=== PATIENT | female | born 1945 | race Caucasian/White ===

== ENCOUNTER → 2017-08-15 15:13 | Outpatient (CLI) | payer MEDICARE, SELFPAY | PROVIDERS: Family Provider Internal Medicine; PCP Internal Medicine; Visit Provider Internal Medicine | DX: R19.7 Diarrhea, unspecified (principal) ==

== ENCOUNTER → 2017-08-15 15:19 | Outpatient (CLI) | payer MEDICARE, SELFPAY ==
[2017-08-15 15:56] LABS: Add Manual Diff / Slide Review NO; Basophils Percent Auto 0.4 % (0-2); Eosinophils Percent Auto 1.1 % (2-4); Hematocrit 42.7 % (36-46); Hemoglobin 14.4 g/dL (12.0-16.0); Lymphocytes Percent Auto 35.5 % (25-40); Mean Corpuscular HGB Conc 33.8 % (30-36); Mean Corpuscular Hemoglobin 33.1 PG (26-34); Mean Corpuscular Volume 98.1 fL (80-100); Monocytes Percent Auto 6.4 % (3-14); Neutrophils Absolute Auto 4600 /uL (3000-5900); Neutrophils Percent Auto 56.6 % (50-75); Platelet Count 225 X10^3/uL (150-400); Red Blood Cell Count 4.35 X10^6/uL (4.0-5.2); White Blood Cell Count 8.1 X10^3/uL (4.5-11.0)
[2017-08-15 17:53] LABS: Thyroid Stimulating Hormone 2.38 uIU/mL (0.47-4.68)
[2017-08-15 18:18] LABS: Alanine Aminotransferase 37 IU/L (9-52); Albumin 3.9 g/dL (3.5-5.0); Albumin Globulin Ratio 1.4 (1.0-2.8); Alkaline Phosphatase 99 U/L (38-126); Aspartate Aminotransferase 29 IU/L (14-36); Bilirubin Total 0.4 mg/dL (0.2-1.3); Blood Urea Nitrogen 19 mg/dL (7-17); Calcium 10.5 mg/dL (8.4-10.2); Carbon Dioxide 27 mmol/L (22-32); Chloride 101 mmol/L (98-107); Estimated Glomerular Filt Rate > 60.0 mL/min (>60); Globulin 2.8 g/dL (1.7-4.1); Glucose 171 mg/dL (80-110); HEMOLYSIS < 15 (0-50); Potassium 4.4 mmol/L (3.4-5.1); Sodium 140 mmol/L (137-145); Total Protein 6.7 g/dL (6.3-8.2)
[2017-08-15 18:45] LABS: C-Reactive Protein Quant < 0.5 mg/dL (<1.0)
== END ==
PROVIDERS: Family Provider Internal Medicine; PCP Internal Medicine; Visit Provider Internal Medicine
DX: R19.7 Diarrhea, unspecified (principal)
CPT/HCPCS: 36415; 80053; 84439; 84443; 85025; 86140

== ENCOUNTER → 2017-11-01 10:50 | Outpatient (CLI) | payer MEDICARE, SELFPAY ==
[2017-11-03 15:26] LABS: Parathyroid Hormone Int 75 pg/mL (14-64)
[2017-11-03 16:06] LABS: Ionized Calcium 5.8 mg/dL (4.8-5.6)
== END ==
PROVIDERS: PCP Internal Medicine; Visit Provider Internal Medicine
DX: E83.52 Hypercalcemia (principal)
CPT/HCPCS: 36415; 82330; 83970

== ENCOUNTER → 2017-11-08 10:54 | Outpatient (CLI) | payer MEDICARE, SELFPAY ==
[2017-11-08 12:19] LABS: Phosphorous 3.4 mg/dL (2.8-4.1)
== END ==
PROVIDERS: PCP Internal Medicine; Visit Provider Internal Medicine
DX: E21.3 Hyperparathyroidism, unspecified (principal); E83.52 Hypercalcemia; G62.9 Polyneuropathy, unspecified
CPT/HCPCS: 36415; 84100

== ENCOUNTER → 2017-11-13 09:31 | Outpatient (CLI) | payer MEDICARE, SELFPAY ==
--- NOTE | 2017-11-13 09:33 | DI.RAD.S_ITS ---
This blank DEXA report has been sent in error by the PACS system. The correct and complete report will be forthcoming in 1-2 days. Thank you for your patience and understanding. Dictated by: Iwona Hilario MD, PhD on 11/14/2017 at 8:22 Approved by: Iwona Hilario MD, PhD on 11/14/2017 at 8:22
[2017-11-13 13:26] LABS: Calcium 24 Hour Urine 387 mg/day (100-300); Calcium Urine Random 21.5; Collection Time Urine 24 Hours; Total Volume Urine 1800 mL
[2017-11-17 05:32] LABS: Total Volume: 1800 mL
[2017-11-17 15:01] LABS: Citrate 24 hour Urine 494 mg/day (170-1266); Total Volume: 1800 mL
== END ==
PROVIDERS: Family Provider Internal Medicine; PCP Internal Medicine; Visit Provider Internal Medicine
DX: M85.88 Other specified disorders of bone density and structure, other site (principal); Z78.0 Asymptomatic menopausal state; E21.3 Hyperparathyroidism, unspecified; G62.9 Polyneuropathy, unspecified; Z90.722 Acquired absence of ovaries, bilateral; Z87.891 Personal history of nicotine dependence
CPT/HCPCS: 77080; 82340; 82507; 83945

== ENCOUNTER → 2017-12-05 10:04 | Outpatient (CLI) | payer MEDICARE, SELFPAY ==
[2017-12-05 11:15] LABS: BUN Creatinine Ratio 31.7 (6-22); Blood Urea Nitrogen 19 mg/dL (7-17); Calcium 10.3 mg/dL (8.4-10.2); Carbon Dioxide 30 mmol/L (22-32); Chloride 105 mmol/L (98-107); Estimated Glomerular Filt Rate > 60.0 mL/min (>60); Glucose 109 mg/dL (80-110); HEMOLYSIS < 15 (0-50); Potassium 5.1 mmol/L (3.4-5.1); Sodium 142 mmol/L (137-145)
[2017-12-05 17:23] LABS: Thyroid Stimulating Hormone 1.92 uIU/mL (0.47-4.68)
== END ==
PROVIDERS: Family Provider Internal Medicine; PCP Internal Medicine; Visit Provider Internal Medicine
DX: E83.52 Hypercalcemia (principal); I10 Essential (primary) hypertension
CPT/HCPCS: 36415; 80048; 84439; 84443

== ENCOUNTER → 2017-12-11 10:56 | Outpatient (CLI) | payer MEDICARE, SELFPAY ==
--- NOTE | 2017-12-22 14:21 | PM.CARDMON.1 ---
Residential Nurse Report Referral & Results Date Patient Seen: 12/11/17 Indication: Bradycardia Duration of monitoring (days): 7 Diary information: There was 0 diary entries There are 2 patient triggered events associated with sinus rhythm PVCs and possible AV block although this was distorted by artifact Data: Patient's minimum heart rate was 24 beats per minute at 05:38 on 12/12/2017 This was associated with second-degree AV block type 2 Minimum sinus heart rate was 45 beats per minute at 05:20 on 12/14/2017 Maximum sinus heart rate was 108 beats per minute at 14:22 on 12/17/2017 Maximum overall heart rate was 115 beats per minute at 19:47 on 12/13/2017, cannot tell what the rhythm was at that time PACs were rare new and less than 1% of identified beats PVCs were frequent 12.6% Patient also had multiple episodes of high-degree AV block that appears to be 2nd degree AV block Mobitz type 2 that were at least 3800 in total. As above unclear if symptomatic Impression: Bradycardia associated with high-grade AV block. Unclear if symptomatic. Suggest cardiology consultation
--- NOTE | 2017-12-22 14:26 | P.HOLT.S_ITS ---
School Counsellor Report Referral & Results Date Patient Seen: 12/11/17 Indication: Bradycardia Duration of monitoring (days): 7 Diary information: There was 0 diary entries There are 2 patient triggered events associated with sinus rhythm PVCs and possible AV block although this was distorted by artifact Data: Patient's minimum heart rate was 24 beats per minute at 05:38 on 2017 This was associated with second-degree AV block type 2 Minimum sinus heart rate was 45 beats per minute at 05:20 on 12/14/2017 Maximum sinus heart rate was 108 beats per minute at 14:22 on 12/17/2017 Maximum overall heart rate was 115 beats per minute at 19:47 on 12/13/2017, cannot tell what the rhythm was at that time PACs were rare new and less than 1% of identified beats PVCs were frequent 12.6% Patient also had multiple episodes of high-degree AV block that appears to be 2nd degree AV block Mobitz type 2 that were at least 3800 in total. As above unclear if symptomatic Impression: Bradycardia associated with high-grade AV block. Unclear if symptomatic. Suggest cardiology consultation
== END ==
PROVIDERS: Family Provider Internal Medicine; PCP Internal Medicine; Visit Provider Internal Medicine
DX: R00.1 Bradycardia, unspecified (principal)
CPT/HCPCS: 0296T; 0298T

== ENCOUNTER 2017-12-19 13:11 | Emergency (ER) | payer MEDICARE, SELFPAY ==
[2017-12-19 13:29] VITALS: BP 118/70; PULSE 24; RESP 15; BMI 25.6
[2017-12-19] MEDS: ATROPINE 1 MG/10 ML SYRINGE 0.5 MG IV ×3 (13:30→13:45)
--- NOTE | 2017-12-19 13:30 | DI.RAD.S_ITS ---
PROCEDURE: XR CHEST 1V INDICATIONS: chest pain TECHNIQUE: One view of the chest was acquired. COMPARISON: None. FINDINGS: Surgical changes and devices: None. Lungs and pleura: No pleural effusions or pneumothorax. Lungs are clear. Mediastinum: Mediastinal contours appear normal. Heart size is normal. Bones and chest wall: No suspicious bony lesions. Overlying soft tissues appear unremarkable. IMPRESSION: No acute cardiopulmonary pathology. Dictated by: Miah Melendez M.D. on 12/19/2017 at 15:18 Approved by: Miah Melendez M.D. on 12/19/2017 at 15:20
--- NOTE | 2017-12-19 13:34 | ED.CHESTPAIN ---
HPI - Chest Pain General Chief Complaint: Chest Pain Stated Complaint: SWEATY,OUT OF FOCUS Time Seen by Provider: 12/19/17 13:34 Source: patient Mode of arrival: ambulatory Limitations: no limitations History of Present Illness HPI narrative: patient is a 72-year-old female here for evaluation not feeling well, feeling like her heart rate is slow, feeling out of focus. She is not having any chest pain. She states that this has been off and on for the past several weeks / months. Finished a Holter monitor yesterday. This was ordered by her primary care doctor. She has not seen in the results of. No prior cardiac history. Has not had any vertigo and has not passed out. Related Data Home Medications Medication Instructions Recorded Confirmed cyanocobalamin (vitamin B-12) 1,000 mcg PO QDAY #0 08/29/16 12/05/17 [Vitamin B-12] cholecalciferol (vitamin D3) See Label Instructions .ROUTE 12/07/16 12/05/17 [Vitamin D3] .COMPLEX #0 multivitamin [Multiple Vitamins] See Label Instructions .ROUTE 12/07/16 12/05/17 .COMPLEX #0 gabapentin 300 mg capsule 300 mg PO BEDTIME 30 Days #30 cap 12/05/17 Allergies Allergy/AdvReac Type Severity Reaction Status Date / Time amoxicillin [AMOXICILLIN] Allergy Intermediate FATIGUE Verified 12/05/17 09:25 clavulanic acid Allergy Intermediate FATIGUE Verified 12/05/17 09:25 [From AUGMENTIN] hydrochlorothiazide Allergy Intermediate WEAKNESS Verified 12/05/17 09:25 [HYDROCHLOROTHIAZIDE] losartan AdvReac Verified 12/05/17 09:25 Review of Systems Constitutional Reports fatigue, Denies fever(s) and Denies headache(s) Eyes Reports blurry vision, Denies diplopia and Denies loss of vision ENT Ears, Nose, Mouth, and Throat: Denies vertigo, Denies dizziness, Denies headache(s) and Denies sore throat Cardiovascular Denies chest pain, Denies syncope, Reports irregular heart rhythm, Denies leg edema, Denies lightheadedness and Denies dyspnea Respiratory Denies dyspnea Gastrointestinal Gastrointestinal: Denies abdominal pain, Denies nausea and Denies vomiting Genitourinary Denies dysuria Musculoskeletal Denies myalgias, Denies arthralgias and Denies numbness Integumentary/Breasts Denies lesions and Denies rash Neurologic Denies vertigo, Denies dizziness, Denies syncope, Denies headache(s), Denies loss of vision and Denies numbness Endocrine Reports fatigue Hematologic/Lymphatic Denies easy bleeding and Denies easy bruising FORMERLY [facility] Medical History Hyperlipidemia (Chronic) Essential hypertension (Chronic 08/18/15) Hyperparathyroidism (Chronic 11/09/15) Polyneuropathy (Chronic 01/04/17) Peripheral polyneuropathy (Chronic 12/07/16) Fibromyalgia (Chronic) Hypercalcemia (Chronic) Insomnia (Chronic) Cervical cancer (Inactive) Dyshidrotic eczema (Chronic) History of adenomatous polyp of colon (Chronic 03/31/11) Left bundle branch block (LBBB) (Chronic 10/14/14) Ankle fracture, right (Resolved 2005) Right ACL tear (Resolved 2005) Surgical History History of bilateral salpingo-oophorectomy (BSO) (Resolved 1998) Status post cholecystectomy (Resolved 1998) Status post exploratory laparotomy (Resolved) Status post hysterectomy (Resolved 1974) Family History Father Family history of diabetes mellitus (DM) Grandmother Family history of diabetes mellitus (DM) Sister Family history of diabetes mellitus (DM) Family/Other Family history of diabetes mellitus (DM) Social History household members: none Smoking Status: Former smoker Exam Initial Vital Signs Initial Vital Signs: Vital Signs Pulse Rate 24 L 12/19/17 13:29 Respiratory Rate 15 12/19/17 13:29 Blood Pressure 118/70 12/19/17 13:29 Const General: cooperative, comfortable, well groomed and No acute distress Orientation: alert, awake and oriented x3 HENMT Head: normal to inspection and atraumatic Nose: external nose normal Resp Effort & Inspection: normal respiratory effort Auscultation: clear to auscultation bilaterally Cardio Rate: bradycardic Rhythm: regular rhythm Pulses: radial pulses present GI Inspection: non-distended Palpation: soft Skin Lesions: no lesions Rashes: no rashes Neuro General: alert, awake and oriented x3 Cognition: normal cognition Speech: speech normal Extrem General: normal to inspection and No edema Psych Appearance: grossly normal and well kempt Course Orders Ordered: ED Orders 12/19/17 13:30 XR chest 1V Stat Complete Blood Count AUTO DIFF Stat Comprehensive Metabolic Panel Stat Lipase Stat Magnesium Stat Troponin & CK Cardiac Panel Stat EKG-12 Lead Stat Dopamine HCl/Dextrose (Dopamine 400 Mg-D5w 250 Ml) 400 mg in 250 mls @ 11.907 mls/hr IV TITRATE DEE; Protocol Last Titration: 12/19/17 14:00 Dose: 10 mcg/kg/min, 23.814 mls/hr Admin: 12/19/17 13:50 Dose: 5 mcg/kg/min, 11.907 mls/hr Discontinued Medications Atropine Sulfate (Atropine) 0.5 mg IV NOW ONE Stop: 12/19/17 13:31 Last Admin: 12/19/17 13:45 Dose: 0.5 mg Atropine Sulfate (Atropine) 0.5 mg IV NOW ONE Stop: 12/19/17 13:33 Last Admin: 12/19/17 13:30 Dose: 0.5 mg Atropine Sulfate (Atropine) 0.5 mg IV NOW ONE Stop: 12/19/17 14:00 Last Admin: 12/19/17 13:35 Dose: 0.5 mg Ondansetron HCl (Zofran) 4 mg IV NOW ONE Stop: 12/19/17 13:59 Last Admin: 12/19/17 14:03 Dose: 4 mg Vital Signs - 8 hr 12/19/17 13:29 Pulse Rate 24 L Respiratory Rate 15 Blood Pressure 118/70 MDM - Chest Pain Medical Records Data Attestation: I reviewed the patient's medical records. Lab Data Attestation: I reviewed the patient's lab results. Result diagrams: 12/19/17 13:30 12/19/17 13:30 Lab Results 12/19/17 12/19/17 12/19/17 Range/Units 13:30 13:30 13:30 WBC 11.0 (4.5-11.0) X10^3/uL RBC 4.57 (4.0-5.2) X10^6/uL Hgb 15.0 (12.0-16.0) g/dL Hct 44.8 (36-46) % MCV 97.9 (80-100) fL MCH 32.9 (26-34) PG MCHC 33.6 (30-36) % RDW 14.0 (11.6-14.8) % Plt Count 248 (150-400) X10^3/uL Neut % (Auto) 58.2 (50-75) % Lymph % (Auto) 33.5 (25-40) % Teller % (Auto) 7.1 (3-14) % Eos % (Auto) 0.8 L (2-4) % Baso % (Auto) 0.4 (0-2) % Neut # (Auto) 6400 H (3514-6955) /uL Sodium 140 (137-145) mmol/L Potassium 4.3 (3.4-5.1) mmol/L Chloride 101 (98-107) mmol/L Carbon Dioxide 25 (22-32) mmol/L BUN 19 H (7-17) mg/dL Creatinine 0.70 (0.52-1.04) mg/dL Estimated GFR > 60.0 (>60) mL/min BUN/Creatinine Ratio 27.1 H (6-22) Glucose 125 H (80-110) mg/dL Calcium 10.9 H (8.4-10.2) mg/dL Magnesium 1.9 Cancelled (1.6-2.3) mg/dL Total Bilirubin 0.5 (0.2-1.3) mg/dL AST 45 H (14-36) IU/L ALT 43 (9-52) IU/L Alkaline Phosphatase 117 (38-126) U/L Total Creatine Kinase 45 (30-135) U/L CK-MB (CK-2) TNP CK-MB (CK-2) Rel Index TNP Troponin I < 0.012 (0.01-0.034) ng/mL Total Protein 7.3 (6.3-8.2) g/dL Albumin 4.5 (3.5-5.0) g/dL Globulin 2.8 (1.7-4.1) g/dL Albumin/Globulin Ratio 1.6 (1.0-2.8) Lipase 197 (23-300) U/L Imaging Data Chest x-ray: Attestation: I personally reviewed and interpreted this imaging study as follows: My impression: No focal consolidations Normal size heart no pneumothorax ECG Data Attestation: I personally reviewed and interpreted this ECG as follows: Prior ECG tracings: not available for review Interpretation: Bradycardia ventricular rate of 27 Third degree heart block QRS 166 milliseconds MDM Narrative Medical decision making narrative: patient arrived in what appears to be 3rd degree heart block heart rate in the 20s. Blood pressure systolic 80s to 90s. Patient is not having any chest pain or shortness of breath. Patient was given 0.5 mg of atropine which increased her heart rate to the 40s. This only lasted a very short period of time and this was repeated. I discussed the case with Dr. Land Cardiology at [facility] who I sent pictures of the EKGs to him. He did evaluate these and stated that he recommend started on dopamine. The patient was started on 5 micrograms/kilogram per minute of dopamine. [facility] was unable to accept the patient due to bed status. I then discussed the case with Dr. Allen at [facility] who accepts the patient. Patient does have external pacer pads in place. We have not had to use them secondary to the patient's lack of change in mental status and also blood pressure with systolic in the 80s to 90s. Patient was informed to transfer. She expressed understanding and agreement. Discharge Plan Departure Patient Disposition: [facility] Clinical Impression: Third degree heart block Prescriptions: No Action cyanocobalamin (vitamin B-12) [Vitamin B-12] 1,000 MCG tablet extended release 1,000 mcg PO QDAY Qty: 0 RF: 0 multivitamin [Multiple Vitamins] 1 EACH tablet See Label Instructions .ROUTE .COMPLEX Qty: 0 RF: 0 cholecalciferol (vitamin D3) [Vitamin D3] 2,000 unit Tablet See Label Instructions .ROUTE .COMPLEX Qty: 0 RF: 0 gabapentin 300 mg capsule 300 mg PO BEDTIME 30 Days Qty: 30 RF: 0
--- NOTE | 2017-12-19 13:37 | PC.NURSE ---
1330 patient symptomatic bradycardia third degree heartblock rate of 24bpm provider at bedside verbal order 0.5mg IV Atropine administered. Run of Vtach on monitor. Patient alert through episode. 1336 0.5mg IV atropine administerd persistant rate in 20's. Additional run of Vtach. Patient remains alert and oriented.
[2017-12-19 13:38] LABS: Add Manual Diff / Slide Review NO; Basophils Percent Auto 0.4 % (0-2); Eosinophils Percent Auto 0.8 % (2-4); Hematocrit 44.8 % (36-46); Lymphocytes Percent Auto 33.5 % (25-40); Mean Corpuscular HGB Conc 33.6 % (30-36); Mean Corpuscular Hemoglobin 32.9 PG (26-34); Mean Corpuscular Volume 97.9 fL (80-100); Monocytes Percent Auto 7.1 % (3-14); Neutrophils Absolute Auto 6400 /uL (3000-5900); Neutrophils Percent Auto 58.2 % (50-75); Platelet Count 248 X10^3/uL (150-400); Red Blood Cell Count 4.57 X10^6/uL (4.0-5.2)
[2017-12-19 13:48] LABS: Alanine Aminotransferase 43 IU/L (9-52); Albumin 4.5 g/dL (3.5-5.0); Albumin Globulin Ratio 1.6 (1.0-2.8); Alkaline Phosphatase 117 U/L (38-126); Aspartate Aminotransferase 45 IU/L (14-36); BUN Creatinine Ratio 27.1 (6-22); Bilirubin Total 0.5 mg/dL (0.2-1.3); Blood Urea Nitrogen 19 mg/dL (7-17); Calcium 10.9 mg/dL (8.4-10.2); Carbon Dioxide 25 mmol/L (22-32); Chloride 101 mmol/L (98-107); Creatine Kinase 45 U/L (30-135); Estimated Glomerular Filt Rate > 60.0 mL/min (>60); Globulin 2.8 g/dL (1.7-4.1); Glucose 125 mg/dL (80-110); HEMOLYSIS < 15 (0-50); Lipase 197 U/L (23-300); Magnesium 1.9 mg/dL (1.6-2.3); Potassium 4.3 mmol/L (3.4-5.1); Sodium 140 mmol/L (137-145); Total Protein 7.3 g/dL (6.3-8.2)
[2017-12-19] MEDS: DOPAMINE HCL IN DEXTROSE 5 % 400 MG/250 ML PLAST..BAG 11.907 MG IV (13:50)
[2017-12-19 14:01] LABS: Troponin I < 0.012 ng/mL (0.01-0.034)
[2017-12-19] MEDS: ONDANSETRON 4 MG/2 ML INJ IV (14:03)
[2017-12-19 14:45] VITALS: PULSE 24; RESP 12; O2SAT 99
--- NOTE | 2017-12-19 15:08 | PC.NURSE ---
See paper chart for additional vitals.
== END 2017-12-19 15:19 | disposition short-term general hospital (02) ==
LOC: ED 13:56
PROVIDERS: Nurse Practitioner Family; Emergency Provider Emergency Medicine; Family Provider Internal Medicine; PCP Internal Medicine
DX: I44.2 Atrioventricular block, complete (principal)
CPT/HCPCS: 36591; 71045; 80053; 82550; 83690; 83735; 84484; 85025; 93005; 96365; 96375; 99283; 99291; 99292; J0461; J2405

== ENCOUNTER → 2018-01-29 15:15 | Outpatient (CLI) | payer MEDICARE, SELFPAY ==
[2018-01-30 11:37] LABS: Campylobacter Not Detected (Not Detect); Clostridium difficile toxin AB Not Detected (Not Detect); Cryptosporidium Not Detected (Not Detect); Enteroaggregative E.coli Not Detected (Not Detect); Enteropathogenic E.coli Not Detected (Not Detect); Enterotoxigenic E.coli It/st Not Detected (Not Detect); Plesiomonsa shigelloides Not Detected (Not Detect); Salmonella Not Detected (Not Detect); Shiga-like toxin-prod E.coli Not Detected (Not Detect); Shigella/Enteroinvasive E.coli Not Detected (Not Detect); Vibrio Not Detected (Not Detect); Vibrio cholerae Not Detected (Not Detect); Yersinia enterocolitica Not Detected (Not Detect)
[2018-01-30 11:38] LABS: Adenovirus F 40/41 Not Detected (Not Detect); Astrovirus Not Detected (Not Detect); Cyclospora cayetanensis Not Detected (Not Detect); Entamoeba histolytica Not Detected (Not Detect); Giardia lamblia Not Detected (Not Detect); Norovirus GI/GII Not Detected (Not Detect); Rotavirus A Not Detected (Not Detect); Sapovirus Not Detected (Not Detect)
== END ==
PROVIDERS: Family Provider Internal Medicine; PCP Internal Medicine; Visit Provider Internal Medicine
DX: R19.7 Diarrhea, unspecified (principal)
CPT/HCPCS: 87507

== ENCOUNTER → 2018-01-30 07:52 | Outpatient (CLI) | payer MEDICARE, SELFPAY | PROVIDERS: PCP Internal Medicine; Visit Provider Internal Medicine ==

== ENCOUNTER → 2019-04-30 14:20 | Outpatient (CLI) | payer MEDICARE, SELFPAY ==
--- NOTE | 2019-04-30 14:22 | DI.RAD.S_ITS ---
PROCEDURE: XR ACUTE ABDOMEN SERIES INDICATIONS: abd pain TECHNIQUE: One view chest and two views of the abdomen were acquired. COMPARISON: [facility], , ABDOMEN ACUTE SERIES, 10/11/2014, 13:18. FINDINGS: Surgical changes and devices: Dual-lead cardiac pacer. Right upper quadrant surgical clips Chest: Lungs are clear. Heart size is normal. No pleural effusions. No pneumoperitoneum. Abdomen: Bowel gas pattern is normal. No suspicious calcifications. Visualized solid organ contours appear normal. Large amount of stool is seen Bones: No suspicious bony lesions. Lower lumbar spondylosis and mild bilateral hip joint degeneration. IMPRESSION: No specific evidence of bowel obstruction seen at this time although if the patient's symptoms do not improve, continued surveillance with abdominal series radiographs could be performed. Large amount of stool seen throughout the colon. Dictated by: Octavio Easton M.D. on 04/30/2019 at 15:31 Approved by: Octavio Easton M.D. on 04/30/2019 at 15:32
[2019-04-30 15:06] LABS: Add Manual Diff / Slide Review NO; Basophils Absolute Auto 0 /uL (0-100); Basophils Percent Auto 0.3 % (0-2); Eosinophils Absolute Auto 100 /uL (0-450); Eosinophils Percent Auto 0.6 % (2-4); Hematocrit 41.5 % (36-46); Hemoglobin 14.2 g/dL (12.0-16.0); Lymphocytes Absolute Auto 3100 /uL (1100-4500); Lymphocytes Percent Auto 39.7 % (25-40); Mean Corpuscular HGB Conc 34.3 % (30-36); Mean Corpuscular Volume 99.1 fL (80-100); Monocytes Absolute Auto 700 /uL (0-900); Monocytes Percent Auto 8.8 % (3-14); Neutrophils Absolute Auto 4000 /uL (1500-7000); Neutrophils Percent Auto 50.6 % (50-75); Platelet Count 201 X10^3/uL (150-400); Red Blood Cell Count 4.18 X10^6/uL (4.0-5.2); Red Cell Distribution Width 13.2 % (11.6-14.8); White Blood Cell Count 7.9 X10^3/uL (4.5-11.0)
[2019-04-30 15:21] LABS: Erythrocyte Sedimentation Rate 6 MM/HR (0-20)
[2019-04-30 16:08] LABS: Alanine Aminotransferase 20 IU/L (<35); Albumin 4.3 g/dL (3.5-5.0); Albumin Globulin Ratio 1.5 (1.0-2.8); Alkaline Phosphatase 90 U/L (38-126); Aspartate Aminotransferase 29 IU/L (14-36); BUN Creatinine Ratio 25.7 (6-22); Bilirubin Total 0.5 mg/dL (0.2-1.3); Blood Urea Nitrogen 18 mg/dL (7-17); Calcium 12.3 mg/dL (8.4-10.2); Carbon Dioxide 28 mmol/L (22-32); Chloride 104 mmol/L (98-107); Estimated Glomerular Filt Rate > 60.0 mL/min (>60); Globulin 2.9 g/dL (1.7-4.1); Glucose 138 mg/dL (80-110); HEMOLYSIS < 15 (0-50); Lipase 50 U/L (23-300); Potassium 4.3 mmol/L (3.4-5.1); Sodium 140 mmol/L (137-145); Total Protein 7.2 g/dL (6.3-8.2)
[2019-04-30 16:09] LABS: C-Reactive Protein Quant < 0.5 mg/dL (<1.0)
== END ==
PROVIDERS: Family Provider Internal Medicine; PCP Internal Medicine; Referring Provider Internal Medicine; Visit Provider Internal Medicine
DX: R10.11 Right upper quadrant pain (principal); R10.9 Unspecified abdominal pain
CPT/HCPCS: 36415; 74022; 80053; 83690; 85025; 85651; 86140

== ENCOUNTER → 2019-04-30 14:39 | Outpatient (CLI) | payer MEDICARE, SELFPAY | PROVIDERS: Family Provider Internal Medicine; PCP Internal Medicine; Referring Provider Internal Medicine; Visit Provider Internal Medicine | DX: R10.9 Unspecified abdominal pain (principal) ==

== ENCOUNTER → 2019-05-03 08:00 | Outpatient (CLI) | payer MEDICARE, SELFPAY ==
[2019-05-03 09:34] LABS: BUN Creatinine Ratio 26.1 (6-22); Blood Urea Nitrogen 18 mg/dL (7-17); Calcium 10.8 mg/dL (8.4-10.2); Carbon Dioxide 27 mmol/L (22-32); Chloride 105 mmol/L (98-107); Estimated Glomerular Filt Rate > 60.0 mL/min (>60); Glucose 114 mg/dL (80-110); HEMOLYSIS < 15 (0-50); Potassium 4.7 mmol/L (3.4-5.1); Sodium 139 mmol/L (137-145)
[2019-05-04 08:09] LABS: Parathyroid Hormone Int 63 pg/mL (15-65)
[2019-05-04 13:30] LABS: Ionized Calcium 5.7 mg/dL (4.5-5.6)
== END ==
PROVIDERS: Family Provider Internal Medicine; PCP Internal Medicine; Referring Provider Internal Medicine; Visit Provider Internal Medicine
DX: E21.3 Hyperparathyroidism, unspecified (principal); E83.52 Hypercalcemia
CPT/HCPCS: 36415; 80048; 82330; 83970

== ENCOUNTER → 2019-05-20 10:12 | Outpatient (CLI) | payer MEDICARE, SELFPAY ==
[2019-05-20 13:55] LABS: Adenovirus F 40/41 Not Detected (Not Detect); Astrovirus Not Detected (Not Detect); Campylobacter Not Detected (Not Detect); Clostridium difficile toxin AB Not Detected (Not Detect); Cryptosporidium Not Detected (Not Detect); Cyclospora cayetanensis Not Detected (Not Detect); Entamoeba histolytica Not Detected (Not Detect); Enteroaggregative E.coli Not Detected (Not Detect); Enteropathogenic E.coli Not Detected (Not Detect); Enterotoxigenic E.coli It/st Not Detected (Not Detect); Giardia lamblia Not Detected (Not Detect); Norovirus GI/GII Not Detected (Not Detect); Plesiomonsa shigelloides Not Detected (Not Detect); Rotavirus A Not Detected (Not Detect); Salmonella Not Detected (Not Detect); Sapovirus Not Detected (Not Detect); Shiga-like toxin-prod E.coli Not Detected (Not Detect); Shigella/Enteroinvasive E.coli Not Detected (Not Detect); Vibrio Not Detected (Not Detect); Vibrio cholerae Not Detected (Not Detect); Yersinia enterocolitica Not Detected (Not Detect)
== END ==
PROVIDERS: Family Provider Internal Medicine; PCP Internal Medicine; Referring Provider Internal Medicine; Visit Provider Internal Medicine
DX: K92.1 Melena (principal); R19.5 Other fecal abnormalities
CPT/HCPCS: 87507

== ENCOUNTER → 2019-07-25 08:35 | Outpatient (CLI) | payer MEDICARE, SELFPAY ==
[2019-07-25 09:59] LABS: Albumin 3.7 g/dL (3.5-5.0); Calcium 10.2 mg/dL (8.4-10.2); Phosphorous 2.7 mg/dL (2.8-4.1)
[2019-07-25 10:16] LABS: Vitamin D 25 Hydroxy (D3) 44.2 ng/mL (30.0-100.0)
[2019-07-25 10:42] LABS: TSH w/ Reflex to FT4 1.77 uIU/mL (0.47-4.68)
[2019-07-26 07:10] LABS: Parathyroid Hormone Int 48 pg/mL (15-65)
== END ==
PROVIDERS: Family Provider Internal Medicine; PCP Internal Medicine; Referring Provider Internal Medicine Endocrinology, Diabetes & Metabolism; Visit Provider Internal Medicine Endocrinology, Diabetes & Metabolism
DX: E83.52 Hypercalcemia (principal)
CPT/HCPCS: 36415; 82040; 82306; 82310; 83970; 84100; 84443

== ENCOUNTER → 2019-08-02 09:01 | Outpatient (CLI) | payer MEDICARE, SELFPAY ==
[2019-08-02 09:44] LABS: Calcium 11.1 mg/dL (8.4-10.2); Estimated Glomerular Filt Rate > 60.0 mL/min (>60)
== END ==
PROVIDERS: Family Provider Internal Medicine; PCP Internal Medicine; Referring Provider Internal Medicine Endocrinology, Diabetes & Metabolism; Visit Provider Internal Medicine Endocrinology, Diabetes & Metabolism
DX: E83.52 Hypercalcemia (principal)
CPT/HCPCS: 36415; 82310; 82565

== ENCOUNTER → 2019-08-05 08:38 | Outpatient (CLI) | payer MEDICARE, SELFPAY ==
[2019-08-05 12:16] LABS: Collection Time Urine 24 Hours; Creatinine 24 Hour Urine 1089 mg/day (800-1800); Creatinine Urine Random 80.7 mg/dL; Total Volume Urine 1350 mL
[2019-08-05 12:20] LABS: Collection Time Urine 24 Hours; Total Volume Urine 1350 mL
[2019-08-05 17:50] LABS: Calcium 24 Hour Urine 410 mg/day (100-300); Calcium Urine Random 30.4 mg/dL
== END ==
PROVIDERS: Family Provider Internal Medicine; PCP Internal Medicine; Referring Provider Internal Medicine Endocrinology, Diabetes & Metabolism; Visit Provider Internal Medicine Endocrinology, Diabetes & Metabolism
DX: E83.52 Hypercalcemia (principal)
CPT/HCPCS: 82340; 82570

== ENCOUNTER → 2019-10-29 09:45 | Outpatient (CLI) | payer MEDICARE, SELFPAY ==
--- NOTE | 2019-10-29 09:46 | DI.RAD.S_ITS ---
PROCEDURE: XR DEXA AXIAL SKELETON INDICATIONS: hypercalcemia/hyperparathyroid COMPARISON: [facility], CR, XR DEXA AXIAL SKELETON, 11/13/2017, 10:08. FINDINGS: This blank DEXA report has been sent in error by the PACS system. The correct and complete report will be forthcoming in 1-2 days. Thank you for your patience and understanding. Dictated by: Octavio Easton M.D. on 10/29/2019 at 11:02 Approved by: Octavio Easton M.D. on 10/29/2019 at 11:02
== END ==
PROVIDERS: Family Provider Internal Medicine; PCP Internal Medicine; Referring Provider Internal Medicine; Visit Provider Internal Medicine
DX: M81.0 Age-related osteoporosis without current pathological fracture (principal); Z78.0 Asymptomatic menopausal state; E21.3 Hyperparathyroidism, unspecified; Z90.722 Acquired absence of ovaries, bilateral; Z87.891 Personal history of nicotine dependence
CPT/HCPCS: 77080

== ENCOUNTER → 2019-11-01 08:37 | Outpatient (CLI) | payer MEDICARE, SELFPAY ==
[2019-11-02 03:36] LABS: HSV Type 1 AB, IgG <0.91 index (0.00-0.90)
== END ==
PROVIDERS: Family Provider Internal Medicine; PCP Internal Medicine; Referring Provider Obstetrics & Gynecology; Visit Provider Obstetrics & Gynecology
DX: N94.9 Unspecified condition associated with female genital organs and menstrual cycle (principal)
CPT/HCPCS: 36415; 86695

== ENCOUNTER → 2020-03-02 08:24 | Outpatient (CLI) | payer MEDICARE, SELFPAY ==
[2020-03-02 09:32] LABS: Add Manual Diff / Slide Review NO; Basophils Absolute Auto 0 /uL (0-100); Basophils Percent Auto 0.6 % (0-2); Eosinophils Absolute Auto 100 /uL (0-450); Hematocrit 42.7 % (36-46); Hemoglobin 14.1 g/dL (12.0-16.0); Lymphocytes Absolute Auto 2200 /uL (1100-4500); Lymphocytes Percent Auto 33.8 % (25-40); Mean Corpuscular HGB Conc 33.1 % (30-36); Mean Corpuscular Hemoglobin 32.9 PG (26-34); Mean Corpuscular Volume 99.4 fL (80-100); Monocytes Absolute Auto 500 /uL (0-900); Monocytes Percent Auto 7.7 % (3-14); Neutrophils Absolute Auto 3700 /uL (1500-7000); Neutrophils Percent Auto 55.9 % (50-75); Platelet Count 211 X10^3/uL (150-400); Red Cell Distribution Width 13.8 % (11.6-14.8); White Blood Cell Count 6.6 X10^3/uL (4.5-11.0)
[2020-03-02 09:41] LABS: Hemoglobin A1C% w Est Avg Glu 5.6 % (4.0-6.0)
[2020-03-02 10:12] LABS: Carbon Dioxide 29 mmol/L (22-32); Chloride 106 mmol/L (98-107); HEMOLYSIS < 15 (0-50); Potassium 5.1 mmol/L (3.4-5.1); Sodium 137 mmol/L (137-145)
== END ==
PROVIDERS: Family Provider Internal Medicine; PCP Internal Medicine; Referring Provider Orthopaedic Surgery Adult Reconstructive Orthopaedic Surgery; Visit Provider Orthopaedic Surgery Adult Reconstructive Orthopaedic Surgery
DX: Z01.818 Encounter for other preprocedural examination (principal); R73.9 Hyperglycemia, unspecified; Z01.812 Encounter for preprocedural laboratory examination
CPT/HCPCS: 36415; 80051; 83036; 85025; 93005; 93010

== ENCOUNTER → 2020-03-09 14:52 | Outpatient (CLI) | payer MEDICARE, SELFPAY ==
[2020-03-09 16:02] LABS: COVID19 -Nasal RAPID Negative (Negative)
== END ==
PROVIDERS: Family Provider Internal Medicine; PCP Internal Medicine; Visit Provider Physician Assistant
DX: Z20.822 Contact with and (suspected) exposure to COVID-19 (principal)
CPT/HCPCS: 87635; C9803

== ENCOUNTER 2020-03-11 13:18 | Day surgery (SDC) | payer MEDICARE, SELFPAY ==
[2020-03-11] VITALS (12 sets, daily range): BP systolic 126–161; BP diastolic 65–85; PULSE 60–99; RESP 12–20; TEMP 35.9–36.6; O2SAT 94–98; BMI 25.6
--- NOTE | 2020-03-11 06:00 | DI.RAD.S_ITS ---
PROCEDURE: XR KNEE RT 1TO2V INDICATIONS: post op TKA TECHNIQUE: 2 view(s) of the knee acquired. COMPARISON: [facility] [place], [place]HIS[place], XR KNEE ARTHRITIC SERIES RT, 01/28/2020, 14:55. FINDINGS: Bones: Patient is status post total knee joint arthroplasty. Hardware components are in expected positions. Visualized bony structures are intact. Soft tissues: Overlying postoperative changes are noted. IMPRESSION: Right knee arthroplasty with prosthesis in anatomic alignment. Dictated by: Cristal Vera M.D. on 03/12/2020 at 12:02 Approved by: Cristal Vera M.D. on 03/12/2020 at 12:02
[2020-03-11] MEDS: ACETAMINOPHEN 325 MG TABLET 975 MG PO (13:51)
[2020-03-11] MEDS: LACTATED RINGERS 1,000 ML 42 ML IV (13:51)
[2020-03-11] MEDS: CELECOXIB 200 MG CAPSULE PO (13:51)
[2020-03-11] MEDS: PREGABALIN 75 MG CAPSULE PO (14:18)
--- NOTE | 2020-03-11 15:01 | PM.PREOP ---
Pre-operative Note COVID-19 COVID-19 status: Negative Result date/Date tested (Pos, Neg/Pending): 03/09/20 Interval Note History & Physical reviewed/Exam performed by Physician: Yes Changes to H&P: No H&P completed within 30 days and has changed as indicated here:: Plan for R TKA
[2020-03-11] MEDS: CLINDAMYCIN 600 MG/50 ML PIGGYBACK 50 MG IV (15:05)
--- NOTE | 2020-03-11 15:37 | SUR.OPER ---
Supine on padded OR bed. Pillow under head, arms secured on padded armboards <90 degree abduction. Safety belt across torso. Non-operative leg secured with tape over blanket over lower leg. Operative leg secured with Dr. Calderon's knee positioner, bump under right hip.
[2020-03-11] MEDS: TRANEXAMIC ACID 1,000 MG VIAL 2000 MG INJ ×2 (15:45→16:33)
[2020-03-11] MEDS: KETOROLAC 30 MG/ML VIAL IV (15:48)
[2020-03-11] MEDS: ROPIVACAINE 0.5% PF 5 MG/ML 20ML VIAL 60 ML INJ (15:48)
[2020-03-11] MEDS: MORPHINE 4 MG/ML INJ INJ (15:48)
--- NOTE | 2020-03-11 17:09 | P.OP_ITS ---
Operative Date/Time/Diagnoses Date of procedure: 03/11/20 Time of procedure: 17:09 Pre-op diagnosis: right knee OA Post-op diagnosis: same Procedure & Clinicians Procedure: Right total knee arthroplasty Same procedure as scheduled: Yes Indications: Right knee osteoarthritis resistant to further conservative measures Surgeon: Bereket Calderon Supervising Film Or Videotape Editor: Gary Paulino Anesthesia Type: General and Spinal Operative Notes Findings: Right knee osteoarthritis with valgus alignment. Closure Type: primary Specimen(s): none sent Prosthetic devices, grafts, tissues, transplants, or devices: Bowers and nephew Journey 2 CR right size 4 femoral component Journey 2 right size 3 tibial component 29 mm oval button Size 3-4 right 10 mm thick deep dish polyethylene Estimated Blood Loss (mL): 200 Blood products transfused: none Tourniquet time (min): 73 Procedure in detail: Patient was met in the preoperative holding area where the site and side of surgery were marked by . Informed consent had been reviewed in clinic but was also removed and reviewed in the preoperative holding area. All last minute questions were answered. Patient was then brought back in the operating room where she received a spinal anesthetic was induced under general anesthesia. The right lower extremity had a nonsterile tourniquet placed on the right thigh and right lower extremity then prepped and draped in normal sterile fashion. A surgical time-out was performed verifying the site and side of surgery as well as the name of the patient. The right lower extremity was exsanguinated using an Esmarch and the tourniquet was insufflated turned 50 mm of mercury. A linear incision over the right knee was made in the skin using 10. Blade a new 10. Blade was then used to elevate medial and lateral flaps. A medial parapatellar arthrotomy was then performed a medial peel was then performed electrocautery which was minimal as this was a valgus knee. Hoffa's fat pad was then removed the lateral meniscus was then also removed. ACL remnant was also removed. Whitesides line was marked electrocautery. A drill was then used to enter the femur proximally 1 cm anterior to the PCL footprint. A drill was then used to enter the tibial canal approximately half a cm anterior to the ACL footprint. Intramedullary james was placed in the femur and the cutting block was then pinned in place. Initial cut was made and subsequently 2 more mm were taken. Intramedullary james was then placed inside the tibia and a cut skimming underneath the lateral portion of the tibial plateau was made. Subsequently had come back and take 4 more mm off the tibia. Extension gap was 9 mm at this point was noted the flexion gap was quite tight. We ended up anterior rising the 5 1 cutting block 2 mm. Rotation was set using the gap senior net application developer and 5 1 block was sized to size [address] Five 1 cuts were then made. Size 4 trial was then placed on the femur with a size 3 tibia and a 9 mm polyethylene. The tibia was floated and marked for external rotation. At this point was noted there was increased tightness on the lateral side as a valgus knee pie crusting of the ITB band was then performed. The patella was then cut for a size 29 mm oval button. This was then drilled and trial was placed. The knee was brought through range of motion there was slight lift-off of the patella a small lateral release was then performed which did not go through the synovium. It was also noted that there was increased flexion tightness and the tibia did not 1 rollback through flexion range of motion due to excessive PCL tightness. The small PCL recession was then performed. Trial components were then removed local anesthetic was then infiltrated in the periarticular soft tissues the cut surface of the bone were pulse lavaged using normal saline cement was then finger packed on cut surface of the tibia as well as placed on the underside of the tibia the tray. This was then malleted into place all excess cement was removed. Cement was then finger packed onto the cut surfaces of the femur with exception of the posterior condylar cut set was placed on the feet of the femoral component malleted into place excess cement was removed a size 9 mm polyethylene trial was then placed knee was brought in full extension foot was held in internal rotation and the patella was then cemented into place and clamped excess cement was removed this point Betadine solution was then placed into the wound while the cement cured and the tourniquet was let down at 73 minutes of time. Once the cement was fully cured the knee was copiously irrigated with normal saline excess cement was then removed with an osteotome I then trialed with a size 10 mm polyethylene which had slightly better stability a size 10 deep dish polyethylene was then selected and placed with confirmation of the medial and lateral tabs were fully engaged. Hemostasis was achieved using electrocautery. The medial parapatellar arthrotomy was then closed using 1. Vicryl in interrupted fashion followed by a running Quill suture followed by 2 Vicryl in subcutaneous layer and 3-0 running Stratafix. Dermabond and Aquacel dressing was then placed. Complications: none Post-operative Condition: stable Disposition: PACU Plan for aftercare: 24 hours psot-op abx, WBAT RLE, ASA 81mg BID for 6 weeks for DVT prophyalxis
[2020-03-11] MEDS: OXYCODONE IR 5 MG TABLET PO ×2 (17:52→20:45)
[2020-03-11] MEDS: LACTATED RINGERS 1,000 ML 100 ML IV (18:33)
[2020-03-11 19:23] LABS: Add Manual Diff / Slide Review NO; Basophils Absolute Auto 0 /uL (0-100); Basophils Percent Auto 0.3 % (0-2); Eosinophils Absolute Auto 0 /uL (0-450); Eosinophils Percent Auto 0.2 % (2-4); Hematocrit 40.1 % (36-46); Hemoglobin 13.3 g/dL (12.0-16.0); Lymphocytes Absolute Auto 1100 /uL (1100-4500); Lymphocytes Percent Auto 11.5 % (25-40); Mean Corpuscular HGB Conc 33.1 % (30-36); Mean Corpuscular Volume 99.7 fL (80-100); Monocytes Absolute Auto 100 /uL (0-900); Monocytes Percent Auto 1.1 % (3-14); Neutrophils Absolute Auto 8200 /uL (1500-7000); Neutrophils Percent Auto 86.9 % (50-75); Platelet Count 177 X10^3/uL (150-400); Red Blood Cell Count 4.02 X10^6/uL (4.0-5.2); Red Cell Distribution Width 13.6 % (11.6-14.8); White Blood Cell Count 9.4 X10^3/uL (4.5-11.0)
[2020-03-11] MEDS: ASPIRIN EC 81 MG TABLET PO (20:44)
[2020-03-11] MEDS: ACETAMINOPHEN 325 MG TABLET 650 MG PO (20:45)
[2020-03-11] MEDS: AMITRIPTYLINE 10 MG TABLET 20 MG PO (20:45)
[2020-03-11] MEDS: CLINDAMYCIN 900 MG/50 ML PIGGYBACK 50 MG IV (22:19)
[2020-03-12] MEDS: OXYCODONE IR 5 MG TABLET PO ×3 (04:28→12:21)
[2020-03-12 04:44] VITALS: BP 131/69; PULSE 79; RESP 18; TEMP 36.4; O2SAT 96
[2020-03-12 05:53] LABS: Hematocrit 37.9 % (36-46); Hemoglobin 12.5 g/dL (12.0-16.0)
[2020-03-12] MEDS: CLINDAMYCIN 900 MG/50 ML PIGGYBACK 50 MG IV (06:29)
[2020-03-12 07:43] VITALS: BP 136/65; PULSE 84; RESP 16; TEMP 36; O2SAT 96
[2020-03-12] MEDS: ASPIRIN EC 81 MG TABLET PO (08:36)
[2020-03-12] MEDS: LOSARTAN 50 MG TABLET PO (08:36)
[2020-03-12] MEDS: ACETAMINOPHEN 325 MG TABLET 650 MG PO (08:37)
--- NOTE | 2020-03-12 09:40 | PT.IIE ---
Current Diagnoses ST elevation (STEMI) myocardial infarction involving other sites (03/11/20) Cardiomyopathy, unspecified (03/11/20) Left bundle-branch block, unspecified (03/11/20) Unilateral primary osteoarthritis, right knee (03/11/20) Presence of cardiac pacemaker (03/11/20) Surgery Performed Operation Date: 03/11/20 14:45 Actual Procedures p Total Knee Arthroplasty(Right) - Bereket Calderon MD Surgical History (Last Reviewed 03/12/20 @ 09:49 by Pamela Atkinson PA-C) History of bilateral salpingo-oophorectomy (BSO) (1998) Status post cholecystectomy (1998) Status post exploratory laparotomy Status post hysterectomy (1974) Medical History (Last Reviewed 03/12/20 @ 09:49 by Pamela Atkinson PA-C) Ankle fracture, right (2005) Atrial flutter AV block Cardiomyopathy Cervical cancer Colitis Collagenous colitis (~04/2018) Colon polyp Dyshidrotic eczema Essential hypertension (08/18/15) Fibromyalgia History of adenomatous polyp of colon (03/31/11) History of pacemaker (~11/2017) Hypercalcemia Hyperlipidemia Hyperparathyroidism (11/09/15) Hypertension Hypoparathyroidism Insomnia Left bundle branch block (LBBB) (10/14/14) Neuropathy Pacemaker Peripheral polyneuropathy (12/07/16) Polyneuropathy (01/04/17) Primary osteoarthritis of right knee Right ACL tear (2005) Septal infarction Symptomatic bradycardia Physical Therapy Inpatient Evaluation/Re-Eval M1 PT/OT-IP Prior Functional Status Start: 03/12/20 08:33 Freq: NEEDED Status: Active Protocol: Document 03/12/20 09:33 AW (Rec: 03/12/20 09:46 AW [id number]) Medical Review Prior Functional Status Medical History Reviewed Yes Communication WNL Mobility and Gait Independent up to one mile with pain after that point. Pt has been avoiding uneven surfaces and inclines. Activities of Daily Living and IADL's Independent with all I/ADL's. 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 Social History Household Members none Living Arrangements House Number of Floors (Floors) One Floor Number of Stairs To Enter/Railing? 6 LESLYE with left rail ascending Home Environment Standard Height Toilet,Walk in Shower,Tub/Shower Home Equipment Front Wheel Walker,Straight Cane,Raised Toilet Seat w/ Armrests Employment Status Retired Additional Social History Comment Pt lives alone in [place]. She has a friend who will stay with her for a few days and other friends who can help prn M2 PT-IP Current Condition Start: 03/12/20 08:33 Freq: NEEDED Status: Active Protocol: Document 03/12/20 09:33 AW (Rec: 03/12/20 11:56 AW [id number]) Physical Therapy Current Condition Current Condition Evaluation Date 03/12/20 Treatment Diagnosis R TKA; impaired mobility and gait Onset Date 03/11/20 Weight Bearing Status Weight Bearing Status Weight Bear as Tolerated M3 PT-IP Subjective Start: 03/12/20 08:33 Freq: NEEDED Status: Active Protocol: Document 03/12/20 09:33 AW (Rec: 03/12/20 11:56 AW [id number]) Subjective Physical Therapy Visit Type Type Initial Evaluation Visit Start Time 08:53 Visit Stop Time 09:33 Total Visit Minutes 40 Number of COLD STORAGE SUPERINTENDENT Visits 0 Physical Therapy Visit Comments Patient Comments Pt is willing to participate with PT Patient Goals Return to regular activity on her mini-farm Therapy Pain Assessment Pain When Pain Assessed During Mobility Pain Present Pain Present Pain Reported Location Right Knee Intensity 5 Scale Used Numeric (0 - 10) Pain Management Techniques Apply Cold,Timing of Activity with Medications M4 PT-IP Mobility and Gait Start: 03/12/20 08:33 Freq: NEEDED Status: Active Protocol: Document 03/12/20 09:33 AW (Rec: 03/12/20 11:56 AW [id number]) PT-Bed Mobility Assessment Supine to Sit Supine to Sit Standby Assistance Scooting Scooting to Edge of Bed Standby Assistance PT-Transfer Assessment Sit to and From Stand Sit to and from Stand Contact Guard Assistance,1 Person Assistance,Use of Upper Extremities Equipment Transfer Assistive Device Gait Belt,Front Wheeled Walker Orthotic/Prosthetic Devices or Brace: No Transfers Transfer Destination Chair,Toilet,Wheelchair Transfer Technique Stand Step Pivot Transfer Ability Level of Assist Contact Guard Assistance,Use of Upper Extremities Comments Mobility Comments Pt was reclined in the bed as PT arrived. She was able to exit the bed to her left side SBA by using BUE to lift her right leg. She stood from the bed CGA and used FWW to ambulate in the halls with FWW SBA to CGA 120 feet to the stairs. After stair training, pt transferred to a wheelchair and was pushed back to the room. She stood from the w/c CGA and ambulated 10 feet to the toilet, requiring CGA for the transfer. Pt then ambulated to the chair. With cues for positioning her right leg, pt was able to transfer CGA. She was positioned with call light and all needs within reach and fresh ice packs applied. Pt agreed to use the call nazario for all mobility needs. Gait Assessment Gait Gait Assistance Required: Standby Assistance,Contact Guard Assist Distance (Feet) 120 Able to Maintain Weight Bearing Status Yes During Gait Assistive Devices Assistive Device Gait Belt Orthotic/Prosthetic Devices or Brace: No Gait Deviations General Gait Pattern Antalgic,Decreased Stride Length,Decreased Feet Clearance,Flexed Trunk,Step-to Gait Factors Limiting Gait Function Factors Limiting Gait Function Decreased Activity Tolerance, Decreased Strength,Limited Range of Motion,Pain,Poor Balance Comments Gait Comments Pt responded well to cues for keeping her feet lined up with the back of the walker. No LOB but pt did require CGA after 90 feet due to increased fatigue and degradation of gait. Stair Climbing Assessment Evaluation Level of Assist On Stairs Contact Guard Assistance,1 Person Assistance Devices Stair Climbing Assistive Devices Left Railing,Right Railing Technique/Endurance Stair Climbing Direction Ascend and Descend Stair Climbing Technique Step to Step Number of Steps Climbed 3 Query Text: Stair Climbing Set # Repetitions (reps) 2 Comments Stair Climbing Comments Pt did one set with B rails and good attention to sequencing. Second set was completed with L rail ascending and CGA/FORMULA WEIGHER opposite side. PT-Balance Assessment Sitting Balance and Reactions Static Sitting Balance Ability Normal Dynamic Sitting Balance Ability Normal Standing Balance and Reactions Static Standing Balance Ability Good Dynamic Standing Balance Ability Good M5 PT-IP Objective Assessments Start: 03/12/20 08:33 Freq: NEEDED Status: Active Protocol: Document 03/12/20 09:33 AW (Rec: 03/12/20 11:56 AW [id number]) Orientation Orientation/Cognition Level of Alertness Alert Orientation Name,Day of Week,Place, Situation Language Function Ability No Deficits Noted Safety Awareness Understands Safety Issues Memory Description No Deficits Noted Gross Range of Motion Lower Extremity ROM Assessment Right Impaired Impairments Knee AROM 5-90 Strength Lower Extremity Strength Assessment Right Impaired Hip 4/5 Knee 3/5 Ankle 4/5 Comments Strength Comments LLE grossly 4+/5 M6 PT-IP Treatment Start: 03/12/20 08:33 Freq: NEEDED Status: Active Protocol: Document 03/12/20 09:33 AW (Rec: 03/12/20 11:56 AW [id number]) Physical Therapy Treatment Exercises Exercises Ankle Pumps,Quad Sets,Heel Slides,Passive Knee Extension Hang Education Education Provided Precautions,Weight Bearing Status,Post-Op Packet,Safety Other Treatments Other Treatment Performed Provided education on role of PT, plan of care, weightbearing status, and safe use of FWW. M7 PT-IP Assessment and Plan Start: 03/12/20 08:33 Freq: NEEDED Status: Active Protocol: Document 03/12/20 09:33 AW (Rec: 03/12/20 11:56 AW [id number]) PT Summary Assessment and Plan Potential Rehabilitation Potential Good Status of Condition at Evaluation Stable Summary Impairments Pain,ROM,Strength,Balance,Bed Mobility,Transfers,Gait Assessment Summary Miroslava is a 74yo woman seen for PT evaluation on POD1 following R TKA. She lives alone and is independent in all regards at baseline. On evaluation, pt required SBA to CGA for all mobilities with limitation due to pain and fatigue. Pt has arranged for a friend to stay with her for a few days at discharge and has other friends who can assist as needed. PT anticipates pt will be safe to discharge home with assist and outpatient PT once medically cleared. Goals Bed Mobility Goal Independent Transfer Goal Independent,Front Wheeled Walker Gait Goal Independent,Front Wheel Walker Gait Distance 150 Other Goals - up/down 6 steps with left rail ascending SBA Days to Meet Goals 2 Frequency of Treatment Frequency Of Treatment Twice a Day Treatment Plan Physical Therapy Treatment Plan Bed Mobility Training,Transfer Training,Gait Training, Therapeutic Exercise,Balance Retraining,Post Op Education, Discharge Planning,Hot or Cold Pack Other Recommendations and Next Treatment progress ambulation; review Focus stairs if pt amenable Recommendations To Nursing Amount of Assist Needed 1 Person Assist Discharge Recommendations PT Discharge Recommendations Home with Assistance, Outpatient PT Transportation Needs at Discharge Private Vehicle
--- NOTE | 2020-03-12 09:45 | P.PN_ITS ---
Subjective Subjective Date Patient Seen: 03/12/20 Time Patient Seen: 09:45 Interval history: POD #1 s/p R TKA with Dr. Calderon. Patient's pain well controlled with Oxycodone. Patient does not have her meds set up for home including ASA. She did not bring her book with her to the hospital to review medications after. She just got up with PT and is doing well. Exam Vital Signs (past 8 hours): - 03/12/20 04:44 03/12/20 07:43 Temperature 97.5 F L 96.8 F L Pulse Rate 79 84 Respiratory Rate 18 16 Blood Pressure 131/69 136/65 Pulse Oximetry 96 96 Oxygen Delivery Method Room Air Oxygen Flow Rate 0 Narrative Exam Narrative: Patient sitting in bedside chair in NAD. She is alert and jj ented X3. Calves are soft, compressible, and nontender bilaterally. SILT throughout BLEs. She is able to actively dorsiflex and plantarflex. DP pulses 2+. Dressing is CDI. Objective Labs Result Diagrams: 03/12/20 05:30 Labs: Laboratory Results - last 24 hr 03/11/20 03/12/20 19:17 05:30 WBC 9.4 RBC 4.02 Hgb 13.3 12.5 Hct 40.1 37.9 MCV 99.7 MCH 33.0 MCHC 33.1 RDW 13.6 Plt Count 177 Neut % (Auto) 86.9 H Lymph % (Auto) 11.5 L [place] % (Auto) 1.1 L Eos % (Auto) 0.2 L Baso % (Auto) 0.3 Neut # (Auto) 8200 H Lymph # (Auto) 1100 [place] # (Auto) 100 Eos # (Auto) 0 Baso # (Auto) 0 PFSH Medical History Ankle fracture, right (2005) Atrial flutter AV block Cardiomyopathy Cervical cancer Colitis Collagenous colitis (~04/2018) Colon polyp Dyshidrotic eczema Essential hypertension (08/18/15) Fibromyalgia History of adenomatous polyp of colon (03/31/11) History of pacemaker (~11/2017) Hypercalcemia Hyperlipidemia Hyperparathyroidism (11/09/15) Hypertension Hypoparathyroidism Insomnia Left bundle branch block (LBBB) (10/14/14) Neuropathy Pacemaker Peripheral polyneuropathy (12/07/16) Polyneuropathy (01/04/17) Primary osteoarthritis of right knee Right ACL tear (2005) Septal infarction Symptomatic bradycardia Surgical History History of bilateral salpingo-oophorectomy (BSO) (1998) Status post cholecystectomy (1998) Status post exploratory laparotomy Status post hysterectomy (1974) Family History Father Family history of diabetes mellitus (DM) Grandmother Family history of diabetes mellitus (DM) Sister Family history of diabetes mellitus (DM) Family/Other Family history of diabetes mellitus (DM) Social History household members: none Smoking Status: Former smoker alcohol intake: current Assessment & Plan Post-op Postoperative Procedures: Procedures Operation Date: 03/11/20 14:45 Actual Procedures Side Surgeon p Total Knee Arthroplasty Right Bereket Calderon MD Patient will continue to mobilize with PT. We went in detail about medications she needs to take after surgery. ASA for VTE prophylaxis. Anticipate discharge home today.
--- NOTE | 2020-03-12 10:19 | CM.DANOTE ---
DCP: Case received, EMR reviewed and met with patient. Introduced self and role. Was able to obtain information from patient regarding her baseline activity level and current living situation prior to surgery. DCP assessment completed with information currently available. Patient is a 74 year old female who admitted yesterday morning to the care of the hospitalist team. PCP: Dr. Beverly. Payer: confirmed: Medicare/[employer]. Patient came to the hospital via private vehicle for a surgical procedure. She had right total knee arthroplasty. Patient has history of osteoarthritis of the right knee. Met with patient in her room. She is alert and oriented. She resides in [place] alone. Stated that she had family in the area, and also has the social research assistant of friends if she needs assistance. She stated that she is set up with [facility] for outpatient P.T. P: DCP to continue to follow. She will be working with P.T. today. She should be able to go home when she is medically stable. Erma Alvarado RN/Clinical Manager Home Care
[2020-03-12 11:42] VITALS: BP 143/74; PULSE 81; RESP 16; TEMP 36.2; O2SAT 100
[2020-03-12] MEDS: IBUPROFEN 400 MG TABLET PO (12:22)
--- NOTE | 2020-03-12 13:42 | PT.IPTN ---
Current Diagnoses ST elevation (STEMI) myocardial infarction involving other sites (03/11/20) Cardiomyopathy, unspecified (03/11/20) Left bundle-branch block, unspecified (03/11/20) Unilateral primary osteoarthritis, right knee (03/11/20) Presence of cardiac pacemaker (03/11/20) Surgery Performed Operation Date: 03/11/20 14:45 Actual Procedures p Total Knee Arthroplasty(Right) - Bereket Calderon MD Physical Therapy Treatment Note M2 PT-IP Current Condition Start: 03/12/20 08:33 Freq: NEEDED Status: Active Protocol: Document 03/12/20 09:33 AW (Rec: 03/12/20 11:56 AW [id number]) Physical Therapy Current Condition Current Condition Evaluation Date 03/12/20 Treatment Diagnosis R TKA; impaired mobility and gait Onset Date 03/11/20 Weight Bearing Status Weight Bearing Status Weight Bear as Tolerated M3 PT-IP Subjective Start: 03/12/20 08:33 Freq: NEEDED Status: Active Protocol: Document 03/12/20 13:42 AW (Rec: 03/12/20 14:09 AW [id number]) Subjective Physical Therapy Visit Type Type Treatment Note Visit Start Time 13:25 Visit Stop Time 13:42 Total Visit Minutes 17 Number of SECURITY ASSURANCE SPECIALIST Visits 0 Physical Therapy Visit Comments Patient Comments Pt is willing to participate with PT M4 PT-IP Mobility and Gait Start: 03/12/20 08:33 Freq: NEEDED Status: Active Protocol: Document 03/12/20 13:42 AW (Rec: 03/12/20 14:09 AW [id number]) PT-Transfer Assessment Sit to and From Stand Sit to and from Stand Standby Assistance,1 Person Assistance,Use of Upper Extremities Equipment Transfer Assistive Device Gait Belt,Front Wheeled Walker Orthotic/Prosthetic Devices or Brace: No Transfers Transfer Destination Bed,Chair Transfer Technique Stand Step Pivot Transfer Ability Level of Assist Standby Assistance,1 Person Assistance Comments Mobility Comments Pt was sitting up in the chair as PT arrived. She was able to scoot herself forward and stand SBA. With FWW, she ambulated a total of 90 feet with FWW SBA. On return to the room, she practiced getting into the bed both with and without use of the LLE to assist with lifting the RLE - all SBA. Pt then transferred to the chair where she was left with call light and all needs in reach. Gait Assessment Gait Gait Assistance Required: Standby Assistance Distance (Feet) 90 Able to Maintain Weight Bearing Status Yes During Gait Assistive Devices Assistive Device Gait Belt,Front Wheeled Walker Orthotic/Prosthetic Devices or Brace: No Gait Deviations General Gait Pattern Antalgic,Decreased Stride Length,Decreased Feet Clearance,Flexed Trunk,Step-to Gait Factors Limiting Gait Function Factors Limiting Gait Function Decreased Activity Tolerance, Decreased Strength,Limited Range of Motion,Pain,Poor Balance Comments Gait Comments Pt continued to limit RLE WB but responded positively to cues for heel/toe gait pattern with improved WB. Stair Climbing Assessment Comments Stair Climbing Comments Pt declined this session. PT-Balance Assessment Sitting Balance and Reactions Static Sitting Balance Ability Normal Dynamic Sitting Balance Ability Normal Standing Balance and Reactions Static Standing Balance Ability Good Dynamic Standing Balance Ability Good M5 PT-IP Objective Assessments Start: 03/12/20 08:33 Freq: NEEDED Status: Active Protocol: Document 03/12/20 09:33 AW (Rec: 03/12/20 11:56 AW [id number]) Orientation Orientation/Cognition Level of Alertness Alert Orientation Name,Day of Week,Place, Situation Language Function Ability No Deficits Noted Safety Awareness Understands Safety Issues Memory Description No Deficits Noted Gross Range of Motion Lower Extremity ROM Assessment Right Impaired Impairments Knee AROM 5-90 Strength Lower Extremity Strength Assessment Right Impaired Hip 4/5 Knee 3/5 Ankle 4/5 Comments Strength Comments LLE grossly 4+/5 M6 PT-IP Treatment Start: 03/12/20 08:33 Freq: NEEDED Status: Active Protocol: Document 03/12/20 13:42 AW (Rec: 03/12/20 14:09 AW [id number]) Physical Therapy Treatment Exercises Exercises Heel Slides,Seated Knee Flexion/Extension Knee ROM Measurement 5-95 Education Education Provided Weight Bearing Status,Safety Other Treatments Other Treatment Performed Educated pt to focus on ROM in initial stage of rehab. M7 PT-IP Assessment and Plan Start: 03/12/20 08:33 Freq: NEEDED Status: Active Protocol: Document 03/12/20 13:42 AW (Rec: 03/12/20 14:09 [id number]) PT Summary Assessment and Plan Potential Rehabilitation Potential Good Summary Impairments Pain,ROM,Strength,Balance,Bed Mobility,Transfers,Gait Progress Towards Goals Progressing Toward Goals Assessment Summary Pt's gait efficiency improved at this session with good response to cueing for heel/ toe pattern. She demonstrates improved self-efficacy and is safe for discharge home with assist and outpatient PT. Goals Bed Mobility Goal Independent Transfer Goal Independent,Front Wheeled Walker Gait Goal Independent,Front Wheel Walker Gait Distance 150 Other Goals - up/down 6 steps with left rail ascending SBA Days to Meet Goals 2 Frequency of Treatment Frequency Of Treatment Discharge Treatment Plan Physical Therapy Treatment Plan Bed Mobility Training,Transfer Training,Gait Training, Therapeutic Exercise,Balance Retraining,Post Op Education, Discharge Planning,Hot or Cold Pack Recommendations To Nursing Amount of Assist Needed Standby Assistance Discharge Recommendations PT Discharge Recommendations Home with Assistance, Outpatient PT Transportation Needs at Discharge Private Vehicle
--- NOTE | 2020-03-12 14:27 | PC.NURSE ---
Discharge: Pt feels ready to d/c home. Seen by PA and received their instructions. Seen by PT and given there instructions. Tolerates diet w/out problems. PO pain meds are effective. Vds w/out diff. Rx given. Reviewed d/c packet and questions answered. Pt has a friend who will be staying with her for several days.Pt d/c home via auto w/friend.
== END 2020-03-12 14:30 | disposition home or self-care (01) ==
LOC: OR 13:23 → AC 13:23
PROVIDERS: Family Provider Internal Medicine; PCP Internal Medicine; Referring Provider Orthopaedic Surgery Adult Reconstructive Orthopaedic Surgery; Visit Provider Orthopaedic Surgery Adult Reconstructive Orthopaedic Surgery
PROC: 0SRC0JZ Replacement of Right Knee Joint with Synthetic Substitute, Open Approach (ICD-10-PCS; CPT 27447; principal; 2020-03-11 14:45)
DX: M17.11 Unilateral primary osteoarthritis, right knee (principal); I44.7 Left bundle-branch block, unspecified; Z95.0 Presence of cardiac pacemaker; F32.9 Major depressive disorder, single episode, unspecified; I10 Essential (primary) hypertension; M79.7 Fibromyalgia
CPT/HCPCS: 27447; 36415; 73560; 85014; 85018; 85025; 97116; 97161; C1776; J1100; J1885; J2250; J2270; J2405; J2704; J3010

== ENCOUNTER → 2020-04-09 16:04 | Outpatient (CLI) | payer MEDICARE, SELFPAY ==
[2020-03-11 18:37] VITALS: BMI 25.6
--- NOTE | 2020-04-09 | DI.US.S_ITS ---
PROCEDURE: US PERIPH VENOUS LOW EXTREM RT INDICATIONS: Presence of right artificial knee joint TECHNIQUE: Real-time imaging, as well as color and pulse Doppler interrogation, were performed of the lower extremity deep veins from the inguinal ligament to the popliteal fossa. COMPARISON: None. FINDINGS: The common femoral, femoral and popliteal veins are normally compressible, and free of intraluminal thrombus. Color and pulse Doppler demonstrate normal phasic intraluminal flow. There is normal augmentation response to distal compression maneuver. 67 mm Tran's cyst. IMPRESSION: 1. No evidence of right lower extremity DVT. 2. Tran's cyst. Dictated by: Alf Philip M.D. on 04/09/2020 at 16:46 Approved by: Alf Philip M.D. on 04/09/2020 at 16:47
== END ==
PROVIDERS: Family Provider Internal Medicine; PCP Internal Medicine; Referring Provider Orthopaedic Surgery Adult Reconstructive Orthopaedic Surgery; Visit Provider Orthopaedic Surgery Adult Reconstructive Orthopaedic Surgery
DX: M71.21 Synovial cyst of popliteal space [Baker], right knee (principal); Z96.651 Presence of right artificial knee joint
CPT/HCPCS: 93971

== ENCOUNTER 2020-04-13 12:29 | Emergency (ER) | payer MEDICARE, SELFPAY ==
[2020-03-11 18:37] VITALS: BMI 25.6
[2020-04-13 12:35] VITALS: BP 143/70; PULSE 103; RESP 12; TEMP 36.7; O2SAT 99; BMI 24.7
[2020-04-13 13:09] LABS: Add Manual Diff / Slide Review NO; Basophils Absolute Auto 0 /uL (0-100); Basophils Percent Auto 0.4 % (0-2); Eosinophils Absolute Auto 100 /uL (0-450); Eosinophils Percent Auto 1.5 % (2-4); Hematocrit 40.5 % (36-46); Hemoglobin 13.4 g/dL (12.0-16.0); Lymphocytes Absolute Auto 2700 /uL (1100-4500); Lymphocytes Percent Auto 34.9 % (25-40); Mean Corpuscular HGB Conc 33.1 % (30-36); Mean Corpuscular Hemoglobin 32.7 PG (26-34); Mean Corpuscular Volume 98.6 fL (80-100); Monocytes Absolute Auto 600 /uL (0-900); Monocytes Percent Auto 7.9 % (3-14); Neutrophils Absolute Auto 4300 /uL (1500-7000); Neutrophils Percent Auto 55.3 % (50-75); Platelet Count 215 X10^3/uL (150-400); Red Blood Cell Count 4.11 X10^6/uL (4.0-5.2); Red Cell Distribution Width 13.4 % (11.6-14.8); White Blood Cell Count 7.7 X10^3/uL (4.5-11.0)
[2020-04-13 13:22] LABS: Acetaminophen < 10 ug/mL (10-30); Alanine Aminotransferase 19 IU/L (<35); Albumin 4.2 g/dL (3.5-5.0); Albumin Globulin Ratio 1.4 (1.0-2.8); Alkaline Phosphatase 98 U/L (38-126); Aspartate Aminotransferase 30 IU/L (14-36); BUN Creatinine Ratio 20.8 (6-22); Bilirubin Total 0.3 mg/dL (0.2-1.3); Blood Urea Nitrogen 11 mg/dL (7-17); Calcium 10.7 mg/dL (8.4-10.2); Carbon Dioxide 26 mmol/L (22-32); Chloride 105 mmol/L (98-107); Estimated Glomerular Filt Rate > 60.0 mL/min (>60); Ethanol (ETOH) < 10 mg/dL; Globulin 2.9 g/dL (1.7-4.1); Glucose 116 mg/dL (80-110); HEMOLYSIS < 15 (0-50); Potassium 4.3 mmol/L (3.4-5.1); Salicylate < 1.0 mg/dL (<20); Sodium 137 mmol/L (137-145); Total Protein 7.1 g/dL (6.3-8.2)
[2020-04-13 14:03] LABS: Thyroid Stimulating Hormone 1.07 uIU/mL (0.47-4.68)
[2020-04-13 15:31] LABS: UR Morphine/Opiate cutoff 300 Negative (Negative); Ur Creatinine Normal (Normal); Ur Specific Gravity Normal (Normal); Urine Amphetamines Negative (Negative); Urine Barbiturates Negative (Negative); Urine Benzodiazepines Negative (Negative); Urine Cocaine Negative (Negative); Urine MDMA Negative (Negative); Urine Methadone Negative (Negative); Urine Methamphetamines Negative (Negative); Urine Oxycodone Positive (Negative); Urine Phencyclidine Negative (Negative); Urine Tetrahydrocannabinol Negative (Negative); Urine Tricyclic Antidepressant Positive (Negative); Urine pH Normal (Normal)
--- NOTE | 2020-04-13 17:09 | ED_ITS ---
HPI - Psych General Chief Complaint: Psychiatric Symptoms Stated Complaint: Anxious and Sweaty, Not Sleeping,SI Time Seen by Provider: 04/13/20 17:08 Source: patient Mode of arrival: Ambulatory History of Present Illness HPI Narrative: 74-year-old woman with a history of hypertension with knee surgery approximately a month ago healing well presents with 3 weeks of worsening insomnia getting 3-4 hours of sleep a night increasing fatigue to the point that she is getting desperate for sleep. She states that the sleep deprivation is so severe at this point that if it does not improve she is thinking of killing herself. She has no active plan for this. In the past she has had intermittent issues with sleep difficulty and has not had any luck with using Benadryl or [id number] sleep aids otherwise. She has not used prescription sleep aids previously. She does have good sleep hygiene and is trying to do all of the correct things to improve her overall sleep. She is not napping during the day. She drinks only 1-2 cups of coffee early in the day. She does not have a TB in her bedroom and tries to avoid blue light and too much screen time prior to trying to fall asleep. She notes that she has difficulty both falling and staying asleep. She is beginning to have increasing depression, frustration and anxiety as well as cognitive dysfunction as she is becoming more more sleep deprived. She describes no other significant physical symptoms that should be interfering with her sleep. She notes that her knee can sometimes bother her she still has some oxycodone left but finds that she rarely needs it or uses it and is perfectly fine not using at all if sleep aids are added. She does use 20 mg of amitriptyline at bedtime and has done so for a number of years to help with fibromyalgia and insomnia type symptoms. This was recently restarted and she finds that it has not been as useful it has been previously. She describes no fevers, chills, cough, abdominal pain, chest pain, diarrhea, vomiting, dysuria or increased lower extremity edema. She does note that her right knee is still somewhat swollen post surgery but otherwise seems to be improving nicely. Related Data Previous Rx's Medication Instructions Recorded amitriptyline 10 mg tablet 20 mg PO BEDTIME #60 tab 12/05/19 losartan 50 mg tablet 50 mg PO DAILY #90 tab 02/24/20 acetaminophen 500 mg PO Q4HR #20 tab 03/12/20 aspirin 81 mg PO BID #20 tab 03/12/20 docusate sodium [DOK] 100 mg PO BID #20 cap 03/12/20 ibuprofen 400 mg PO Q6HR #20 tab 03/12/20 oxycodone 5 mg PO Q4-6H PRN #45 tab 03/12/20 quetiapine [Seroquel] 100 mg PO BEDTIME #20 tab 04/13/20 Allergies Allergy/AdvReac Type Severity Reaction Status Date / Time amoxicillin [AMOXICILLIN] Allergy Intermediate FATIGUE Verified 04/13/20 12:45 clavulanic acid Allergy Intermediate FATIGUE Verified 04/13/20 12:45 [From AUGMENTIN] hydrochlorothiazide Allergy Intermediate WEAKNESS Verified 04/13/20 12:45 [HYDROCHLOROTHIAZIDE] Review of Systems Review of Systems ROS Unobtainable: All systems reviewed & are unremarkable except as noted in HPI and below Patient History Medical History Ankle fracture, right (2005) Atrial flutter AV block Cardiomyopathy Cervical cancer Colitis Collagenous colitis (~04/2018) Colon polyp Dyshidrotic eczema Essential hypertension (08/18/15) Fibromyalgia History of adenomatous polyp of colon (03/31/11) History of pacemaker (~11/2017) Hypercalcemia Hyperlipidemia Hyperparathyroidism (11/09/15) Hypertension Hypoparathyroidism Insomnia Left bundle branch block (LBBB) (10/14/14) Neuropathy Pacemaker Peripheral polyneuropathy (12/07/16) Polyneuropathy (01/04/17) Primary osteoarthritis of right knee Right ACL tear (2005) Septal infarction Symptomatic bradycardia Surgical History History of bilateral salpingo-oophorectomy (BSO) (1998) Status post cholecystectomy (1998) Status post exploratory laparotomy Status post hysterectomy (1974) Family History Father Family history of diabetes mellitus (DM) Grandmother Family history of diabetes mellitus (DM) Sister Family history of diabetes mellitus (DM) Family/Other Family history of diabetes mellitus (DM) Social History household members: none Smoking Status: Former smoker alcohol intake: current Smoking Status: Former smoker alcohol intake frequency: a few times a week Substance Use Type: does not use Exam Narrative Exam Narrative: General: no acute distress, fatigued appearing but able to give a complete and coherent history Respiratory: Able to speak in full sentences, no obvious respiratory distress Skin: No obvious rashes, warm and dry Neurologic: Grossly intact no obvious asymmetries or abnormalities Psych: appropriate insight and affect, cooperative Initial Vital Signs Initial Vital Signs: Vital Signs Temperature 98.1 F 04/13/20 12:35 Pulse Rate 103 H 04/13/20 12:35 Respiratory Rate 12 04/13/20 12:35 Blood Pressure 143/70 H 04/13/20 12:35 Pulse Oximetry 99 04/13/20 12:35 Course Orders Ordered: ED Orders 04/13/20 12:48 Acetaminophen Stat Complete Blood Count AUTO DIFF Stat Comprehensive Metabolic Panel Stat Ethanol (ETOH) Stat Free T4, Direct Thyroxine Stat Salicylate Stat Thyroid Stimulating Hormone Stat 04/13/20 15:18 Urine Drug Screen, Rapid Stat 04/13/20 15:27 Consult to [facility] - Substation Operator Helper Stat 04/13/20 17:48 EKG-12 Lead Routine Vital Signs Vital signs: Vital Signs - 8 hr 04/13/20 12:35 04/13/20 17:18 Temperature 98.1 F Pulse Rate 103 H 94 H Respiratory Rate 12 18 Blood Pressure 143/70 H 147/75 H Pulse Oximetry 99 99 MDM - Psych Medical Records Attestation: I reviewed the patient's medical records. Lab Data Attestation: I reviewed the patient's lab results. Result diagrams: 04/13/20 12:48 04/13/20 12:48 Labs: Lab Results 04/13/20 04/13/20 04/13/20 Range/Units 12:48 12:48 12:48 WBC 7.7 (4.5-11.0) X10^3/uL RBC 4.11 (4.0-5.2) X10^6/uL Hgb 13.4 (12.0-16.0) g/dL Hct 40.5 (36-46) % MCV 98.6 (80-100) fL MCH 32.7 (26-34) PG MCHC 33.1 (30-36) % RDW 13.4 (11.6-14.8) % Plt Count 215 (150-400) X10^3/uL Neut % (Auto) 55.3 (50-75) % Lymph % (Auto) 34.9 (25-40) % [place] % (Auto) 7.9 (3-14) % Eos % (Auto) 1.5 L (2-4) % Baso % (Auto) 0.4 (0-2) % Neut # (Auto) 4300 (5816-2318) /uL Lymph # (Auto) 2700 (2632-0651) /uL [place] # (Auto) 600 (0-900) /uL Eos # (Auto) 100 (0-450) /uL Baso # (Auto) 0 (0-100) /uL Sodium 137 (137-145) mmol/L Potassium 4.3 (3.4-5.1) mmol/L Chloride 105 (98-107) mmol/L Carbon Dioxide 26 (22-32) mmol/L BUN 11 (7-17) mg/dL Creatinine 0.53 (0.52-1.04) mg/dL Estimated GFR > 60.0 (>60) mL/min BUN/Creatinine Ratio 20.8 (6-22) Glucose 116 H (80-110) mg/dL Calcium 10.7 H (8.4-10.2) mg/dL Total Bilirubin 0.3 (0.2-1.3) mg/dL AST 30 (14-36) IU/L ALT 19 (<35) IU/L Alkaline Phosphatase 98 (38-126) U/L Total Protein 7.1 (6.3-8.2) g/dL Albumin 4.2 (3.5-5.0) g/dL Globulin 2.9 (1.7-4.1) g/dL Albumin/Globulin Ratio 1.4 (1.0-2.8) TSH 1.07 (0.47-4.68) uIU/mL Free T4 1.00 (0.78-2.19) ng/dL Salicylates < 1.0 (<20) mg/dL U Opiates 300ng/mL cut (Negative) Ur Oxycodone Screen (Negative) Urine Methadone Screen (Negative) Acetaminophen < 10 L (10-30) ug/mL Ur Barbiturates Screen (Negative) U Tricyclic Antidepress (Negative) Ur Phencyclidine Scrn (Negative) Ur Amphetamines Screen (Negative) U Methamphetamines Scrn (Negative) Ur MDMA Scrn (Ecstasy) (Negative) U Benzodiazepines Scrn (Negative) Urine Cocaine Screen (Negative) U Marijuana (THC) Screen (Negative) Ethyl Alcohol < 10 ( - 10) mg/dL 04/13/20 Range/Units 15:18 WBC (4.5-11.0) X10^3/uL RBC (4.0-5.2) X10^6/uL Hgb (12.0-16.0) g/dL Hct (36-46) % MCV (80-100) fL MCH (26-34) PG MCHC (30-36) % RDW (11.6-14.8) % Plt Count (150-400) X10^3/uL Neut % (Auto) (50-75) % Lymph % (Auto) (25-40) % [place] % (Auto) (3-14) % Eos % (Auto) (2-4) % Baso % (Auto) (0-2) % Neut # (Auto) (3750-6805) /uL Lymph # (Auto) (1941-9182) /uL [place] # (Auto) (0-900) /uL Eos # (Auto) (0-450) /uL Baso # (Auto) (0-100) /uL Sodium (137-145) mmol/L Potassium (3.4-5.1) mmol/L Chloride (98-107) mmol/L Carbon Dioxide (22-32) mmol/L BUN (7-17) mg/dL Creatinine (0.52-1.04) mg/dL Estimated GFR (>60) mL/min BUN/Creatinine Ratio (6-22) Glucose (80-110) mg/dL Calcium (8.4-10.2) mg/dL Total Bilirubin (0.2-1.3) mg/dL AST (14-36) IU/L ALT (<35) IU/L Alkaline Phosphatase (38-126) U/L Total Protein (6.3-8.2) g/dL Albumin (3.5-5.0) g/dL Globulin (1.7-4.1) g/dL Albumin/Globulin Ratio (1.0-2.8) TSH (0.47-4.68) uIU/mL Free T4 (0.78-2.19) ng/dL Salicylates (<20) mg/dL U Opiates 300ng/mL cut Negative (Negative) Ur Oxycodone Screen Positive H (Negative) Urine Methadone Screen Negative (Negative) Acetaminophen (10-30) ug/mL Ur Barbiturates Screen Negative (Negative) U Tricyclic Antidepress Positive H (Negative) Ur Phencyclidine Scrn Negative (Negative) Ur Amphetamines Screen Negative (Negative) U Methamphetamines Scrn Negative (Negative) Ur MDMA Scrn (Ecstasy) Negative (Negative) U Benzodiazepines Scrn Negative (Negative) Urine Cocaine Screen Negative (Negative) U Marijuana (THC) Screen Negative (Negative) Ethyl Alcohol ( - 10) mg/dL Urine Dip Bedside Urine Glucose Negative Bedside Urine Bilirubin - Negative Bedside Urine Ketone - Negative Urine Specific [place] 1.015 Bedside Urine Occult Blood - Negative Bedside Urine pH 7.0 Bedside Urine Protein - Negative Bedside Urine Urobilinogen - Negative Bedside Urine Nitrite - Negative Bedside Urine Leukocytes - Negative Esterase MDM Narrative Medical decision making narrative: Seen by DIRECTOR OF RETAIL OPERATIONS. Would really like to sleep. Last 2-3 weeks has had only 4hrs sleep. She has good sleep hygiene, she is not bothered by Physical pain after recent knee surgery. If she is unable to get any sleep she has made a plan to kill herself but will not disclose details of said plan. She has appointment with her primary care physician, Gerber Beverly tomorrow. She has a sleep study set up in early April. Has tried benadryl unsuccessfully. 74-year-old woman with 3 weeks of increasing insomnia with 3-4 hours of sleep a night. Willing to contract for safety knowing that there are options to help with her sleeping. Given the severity of both falling asleep and staying asleep I am going to suggest that we begin with trying Seroquel for the next week. Will begin with 100 mg and titrate it to affect. She will hold all narcotics. Will recommend that she start 3 mg of melatonin with nightly to try to reapproximate circadian rhythms. She does have an appointment tomorrow with the nurse practitioner at her primary care physician's office but it is early in the morning. Will encourage her to reschedule that for later this week and later in the morning so that if she is able to sleep she can continue doing so. She is accompanied by a friend here in the emergency room today who will be staying with her for the next couple of days given the severity of sleep deprivation in the addition of new medications. All questions were answered and patient feels safe with current plan. Discharge Plan Departure Patient Disposition: Home Clinical Impression: Insomnia Qualifiers: Insomnia type: unspecified Qualified Code(s): G47.00 - Insomnia, unspecified Instructions: DI for Insomnia Activity Restrictions/Additional Instructions: Thank you for coming in today. Insomnia can be so frustrating. Please continue all of the good habits you have already started including minimal coffee limited to the morning, not napping during the day, trying to go to sleep at approximately the same time every night. If you find that you are on able to sleep it is okay to get up read a book for a bit and then try again. Lying in bed looking at the clock is not helpful. Due to the extreme nature an acute nature I am going to suggest that we use a fairly strong sleep medication for a very brief time. Specifically I am going to suggest 100 mg of Seroquel for the next 3-4 nights. If you find that the 100 mg size is not adequate you can increase it to 200 mg. If you find that it is too much you can cut it down to 50 or even 25 mg. My hope would be that with 5-6 nights of medicated sleep your body will be better able to return to natural sleep patterns and you will not need continued medication. This prescription has been electronically transmitted to [facility] for you. I would also recommend adding 3 mg of melatonin at bedtime every night. While I do not think this will help put you to sleep it can help reapproximate circadian rhythms to get you back to better sleep patterns. Please do not use oxycodone in the evenings at all. If you are having any knee pain prior to bed, please feel free to use Tylenol You will need to follow-up with your primary care physician. Seeing if this medication is effective and then asking about length of time to continue it or dosage to continue will be very appropriate. If this does not work in you feel that you are continuing to worsen or considering hurting yourself, please feel free to return to the emergency department Prescriptions: New quetiapine [Seroquel] 100 mg tablet 100 mg PO BEDTIME Qty: 20 RF: 0 No Action losartan 50 mg tablet 50 mg PO DAILY Qty: 90 RF: 3 amitriptyline 10 mg tablet 20 mg PO BEDTIME Qty: 60 RF: 5 acetaminophen 325 mg Tablet 500 mg PO Q4HR Qty: 20 RF: 0 aspirin 81 mg Tablet,Delayed Release (Dr/Ec) 81 mg PO BID Qty: 20 RF: 0 docusate sodium [DOK] 100 mg Capsule 100 mg PO BID Qty: 20 RF: 0 oxycodone 5 mg Tablet 5 mg PO Q4-6H PRN (Reason: Pain, Moderate (4-6)) Qty: 45 RF: 0 ibuprofen 400 mg Tablet 400 mg PO Q6HR Qty: 20 RF: 0 Referrals: Gerber Beverly MD [Primary Care Provider] -
[2020-04-13 17:18] VITALS: BP 147/75; PULSE 94; RESP 18; O2SAT 99
--- NOTE | 2020-04-13 17:19 | CM.SWNOTE ---
NATIONAL SECRETARY note NATIONAL SECRETARY consult requested for patient. Patient is a 74 y/o female who presents to this ED due to anxiety, exhaustion, and difficulty sleeping. NATIONAL SECRETARY enters room and introduces self, role to patient. Patient is A+O x3, presents with irritable affect/normal range and is able to fully engage in conversation. Patient explains she had a knee replacement surgery in February, and has had difficulty sleeping for past two-three weeks. Patient reports she recently stopped taking her prescribed pain medication and is not experiencing significant pain. Patient reports she sleeps 4 hours with one interruption ?on a good night?, and with most nights sleeps less than that. Patient reports she feels ?exhausted? and wants to obtain sleep so ?I can get my life back?. Patient explains that she has good sleep hygiene and has been optimistic when she attempts sleep each night. Patient states she has tried several mechanisms such as ?remembering everyone in my first grade class? to attempt to distract herself while attempting sleep. Patient states she has not tried medication, though reports she did use OTC sleep aids during a time of difficult sleep in the past. Patient reports that she has thought about killing herself ?if I can?t get some sleep?, and states that she does have a plan, though she declines to disclose plan to this NATIONAL SECRETARY. Patient explains that she decided to come to the ED after learning that the soonest she could see a specialist for sleep is one month from now. Patient states she does not want to feel exhausted, that she feels best when she wakes up in the mornings, and wants to have energy. NATIONAL SECRETARY reviews the above with Dr. Harmon. Dr. Harmon to meet with patient and evaluate next steps. Shukri Sosa MSW
== END 2020-04-13 18:50 | disposition home or self-care (01) ==
PROVIDERS: Emergency Provider Emergency Medicine; Family Provider Internal Medicine; PCP Internal Medicine
DX: G47.00 Insomnia, unspecified (principal); R45.851 Suicidal ideations; R53.83 Other fatigue; I10 Essential (primary) hypertension; F41.9 Anxiety disorder, unspecified
CPT/HCPCS: 36415; 80053; 80305; 80320; 80329; 81003; 84439; 84443; 85025; 93005; 99283; G0480

== ENCOUNTER → 2020-04-20 10:40 | Outpatient (CLI) | payer MEDICARE, SELFPAY ==
[2020-03-11 18:37] VITALS: BMI 25.6
[2020-04-20 11:35] LABS: Erythrocyte Sedimentation Rate 7 MM/HR (0-20)
[2020-04-20 11:38] LABS: C-Reactive Protein Quant < 0.5 mg/dL (<1.0)
== END ==
PROVIDERS: Family Provider Internal Medicine; PCP Internal Medicine; Referring Provider Internal Medicine; Visit Provider Internal Medicine
DX: G47.00 Insomnia, unspecified (principal); M79.10 Myalgia, unspecified site
CPT/HCPCS: 36415; 85651; 86140

== ENCOUNTER → 2020-10-06 11:02 | Outpatient (CLI) | payer MEDICARE, SELFPAY ==
[2020-03-11 18:37] VITALS: BMI 25.6
[2020-10-06 11:34] LABS: Alanine Aminotransferase 22 IU/L (<35); Albumin Globulin Ratio 1.3 (1.0-2.8); Alkaline Phosphatase 86 U/L (38-126); Aspartate Aminotransferase 35 IU/L (14-36); BUN Creatinine Ratio 38.9 (6-22); Bilirubin Total 0.5 mg/dL (0.2-1.3); Blood Urea Nitrogen 21 mg/dL (7-17); Calcium 10.8 mg/dL (8.4-10.2); Carbon Dioxide 26 mmol/L (22-32); Chloride 107 mmol/L (98-107); Estimated Glomerular Filt Rate > 60.0 mL/min (>60); Glucose 107 mg/dL (80-110); HEMOLYSIS < 15 (0-50); Potassium 4.9 mmol/L (3.4-5.1); Sodium 139 mmol/L (137-145)
[2020-10-06 12:02] LABS: TSH w/ Reflex to FT4 1.53 uIU/mL (0.47-4.68)
== END ==
PROVIDERS: Family Provider Internal Medicine; PCP Internal Medicine; Referring Provider Internal Medicine; Visit Provider Internal Medicine
DX: E21.3 Hyperparathyroidism, unspecified (principal); I10 Essential (primary) hypertension; E78.2 Mixed hyperlipidemia
CPT/HCPCS: 36415; 80053; 84443

== ENCOUNTER → 2021-04-05 11:03 | Outpatient (CLI) | payer MEDICARE, SELFPAY ==
[2020-03-11 18:37] VITALS: BMI 25.6
[2021-04-05 13:41] LABS: BUN Creatinine Ratio 22.2 (6-22); Blood Urea Nitrogen 14 mg/dL (7-17); Calcium 11.1 mg/dL (8.4-10.2); Carbon Dioxide 29 mmol/L (22-32); Chloride 106 mmol/L (98-107); Estimated Glomerular Filt Rate > 60.0 mL/min (>60); Glucose 97 mg/dL (80-110); HEMOLYSIS < 15 (0-50); Potassium 4.6 mmol/L (3.4-5.1); Sodium 137 mmol/L (137-145)
[2021-04-05 13:48] LABS: NT-proBNP (BNP-Adult 18+) 763 pg/mL (<450)
== END ==
PROVIDERS: Family Provider Internal Medicine; PCP Internal Medicine; Referring Provider Nurse Practitioner; Visit Provider Nurse Practitioner
DX: I42.9 Cardiomyopathy, unspecified (principal); I48.92 Unspecified atrial flutter
CPT/HCPCS: 36415; 80048; 83880

== ENCOUNTER 2021-09-12 03:57 | Emergency (ER) | payer MEDICARE, SELFPAY ==
[2021-05-04 14:16] VITALS: BMI 25.6
[2021-09-12] VITALS (11 sets, daily range): BP systolic 148–167; BP diastolic 70–82; PULSE 64–75; RESP 16–20; TEMP 36.6; O2SAT 96–99; BMI 24.9
--- NOTE | 2021-09-12 04:03 | DI.RAD.S_ITS ---
PROCEDURE: XR HIP W PEL IF DONE LT 2V INDICATIONS: left hip pain TECHNIQUE: AP pelvis with lateral view(s) of the left hip(s). COMPARISON: [facility], CR, XR CHEST 1V, 09/12/2021, 4:09. [facility], CT, CT CHEST ABD PEL W CON, 09/12/2021, 5:18. FINDINGS: Bones: No fractures or dislocations. Pelvic ring appears intact. No suspicious bony lesions. Age-appropriate bony degenerative changes are seen, including involving the lower lumbar spine. Soft tissues: The visualized bowel gas pattern is normal. No suspicious soft tissue calcifications. Pelvic phleboliths are incidentally noted. IMPRESSION: Degenerative changes are seen, without a cause of acute pain identified. Note: No significant discrepancy from the preliminary report. Dictated by: Tejas Villalobos M.D. on 09/12/2021 at 8:08 Approved by: Tejas Villalobos M.D. on 09/12/2021 at 8:08
--- NOTE | 2021-09-12 04:04 | DI.RAD.S_ITS ---
PROCEDURE: XR CHEST 1V INDICATIONS: left posterior shoulder pain, new AICD TECHNIQUE: One view of the chest was acquired. COMPARISON: [facility], CR, XR CHEST 1V, 12/19/2017, 13:38. FINDINGS: Surgical changes and devices: An AICD is seen. Cholecystectomy clips are seen. Lungs and pleura: Lungs are clear. No pleural effusions or pneumothorax. Mediastinum: The cardiac contours are mildly enlarged. The aorta demonstrates calcification and tortuosity. Bones and chest wall: Age-appropriate bony degenerative changes are seen. No suspicious bony lesions. Overlying soft tissues appear unremarkable. IMPRESSION: Mild cardiomegaly. Clear lungs. Postoperative and degenerative changes are seen. Note: No significant discrepancy from the preliminary report. Dictated by: Tejas Villalobos M.D. on 09/12/2021 at 8:09 Approved by: Tejas Villalobos M.D. on 09/12/2021 at 8:10
--- NOTE | 2021-09-12 04:17 | ED_ITS ---
HPI - General Adult <Vidal Grace DO - Last Filed: 09/13/21 00:53> General Chief complaint: Back Pain/Injury Stated complaint: Left sided pain Time Seen by Provider: 09/12/21 04:02 Source: patient Mode of arrival: Ambulatory History of Present Illness HPI narrative: 75F former smoker with history of cardiomyopathy, hypertension, hyperlipidemia, hyperparathyroidism and insomnia presents by EMS for evaluation of widespread body pain. She had her pacemaker switched out for an AICD yesterday at [facility] and was doing well on discharge. Over the course of the night she started developing upper back pain left posterior shoulder pain, left lower back pain, left hip pain and essentially aches all over. She has some anterior chest pain but denies any fever or chills. She has no shortness of br eath and is not dizzy nor weak or lightheaded. She admits to decreased bowel movements but is still passing gas and denies any vomiting. She denies dysuria, frequency or urgency. Related Data Home Medications Medication Instructions Recorded Confirmed [id number]-nual-minerals 27 1 tab PO DAILY 10/06/20 08/17/21 mg-0.4 mg tablet (One Daily Women's) metoprolol succinate 25 mg 50 mg PO DAILY 05/04/21 08/17/21 tablet,extended release 24 hr rivaroxaban 20 mg tablet (Xarelto) 20 mg PO DAILY 05/04/21 08/17/21 Previous Rx's Medication Instructions Recorded mirtazapine 15 mg tablet 30 mg PO BEDTIME #180 tabs 02/01/21 losartan 50 mg tablet 100 mg PO DAILY #180 tabs 05/04/21 clobetasol 0.05 % shampoo 1 applic topical DAILY 1 week #118 08/17/21 mL triamcinolone acetonide 0.1 % 1 applic topical BID #30 grams 08/17/21 topical cream Allergies Allergy/AdvReac Type Severity Reaction Status Date / Time amoxicillin [AMOXICILLIN] Allergy Intermediate FATIGUE Verified 09/12/21 04:09 clavulanic acid Allergy Intermediate FATIGUE Verified 09/12/21 04:09 [From AUGMENTIN] hydrochlorothiazide Allergy Intermediate WEAKNESS Verified 09/12/21 04:09 [HYDROCHLOROTHIAZIDE] Review of Systems <DO Danis Nevarez Last Filed: 09/13/21 00:53> Review of Systems Narrative: GENERAL: [75] year old patient appears stated age. Well-developed patient, in mild distress. GCS 15 HEAD: Atraumatic. Normocephalic. EYES: Pupils equal round and reactive. Extraocular motions intact. No scleral icterus. No injection or drainage. ENT: Nose without bleeding, purulent drainage. Throat without erythema, tonsillar hypertrophy or exudate. Airway patent. NECK: Trachea midline. Non tender. No pain with axial load, no step-offs or crepitance CARDIOVASCULAR: Regular rate and rhythm without murmurs, gallops, or rubs. Left anterior chest without swelling, edema, drainage RESPIRATORY: Clear to auscultation. Breath sounds equal bilaterally. No wheezes, rales, or rhonchi. GASTROINTESTINAL: Abdomen soft, non-tender, nondistended. EXTREMITIES: No edema, shortening or rotation, no reproducible pain and low back, left buttock or hip. BACK: Nontender without deformity or crepitance. No flank tenderness. NEURO: AOx3. SKIN: No rash or erythema of visible areas Patient History <Vidal Grace DO - Last Filed: 09/13/21 00:53> Medical History (Updated 09/12/21 @ 08:33 by Marie Garcia DO) Ankle fracture, right (2005) Atrial flutter AV block Cardiomyopathy Cervical cancer Colitis Collagenous colitis (~04/2018) Colon polyp Dyshidrotic eczema Essential hypertension (08/18/15) Fibromyalgia History of adenomatous polyp of colon (03/31/11) History of pacemaker (~11/2017) Hypercalcemia Hyperlipidemia Hyperparathyroidism (11/09/15) Hypertension Hypoparathyroidism Insomnia Left bundle branch block (LBBB) (10/14/14) Neuropathy Pacemaker Peripheral polyneuropathy (12/07/16) Polyneuropathy (01/04/17) Primary osteoarthritis of right knee Right ACL tear (2005) Septal infarction Symptomatic bradycardia Surgical History History of bilateral salpingo-oophorectomy (BSO) (1998) Status post cholecystectomy (1998) Status post exploratory laparotomy Status post hysterectomy (1974) Family History Father Family history of diabetes mellitus (DM) Grandmother Family history of diabetes mellitus (DM) Sister Family history of diabetes mellitus (DM) Family/Other Family history of diabetes mellitus (DM) Social History household members: none Smoking Status: Former smoker alcohol intake: current Smoking Status: Former smoker alcohol intake frequency: a few times a week Substance Use Type: does not use Exam <Vidal Grace DO - Last Filed: 09/13/21 00:53> Initial Vital Signs Initial Vital Signs: Vital Signs Pulse Rate 75 09/12/21 04:01 Pulse Oximetry 97 09/12/21 04:01 <Marie Radha, DO - Last Filed: 09/12/21 18:21> Initial Vital Signs Initial Vital Signs: Vital Signs Pulse Rate 75 09/12/21 04:01 Pulse Oximetry 97 09/12/21 04:01 GENERAL: Alert 75-year-old female and in [no acute] distress. HEENT: Head atraumatic,EOMI, pupils reactive, face symmetric, [moist] mucous membranes CARDIOVASCULAR: Regular rate and rhythm without murmurs, rubs or gallops. RESPIRATORY: Breath sounds equal bilaterally, no wheezes rales or rhonchi. ABDOMEN: Soft, nontender. Normoactive bowel sounds all 4 quadrants. No guarding or rebound. EXTREMITIES: Normal range of motion, no clubbing or edema. Neurovascularly intact. Pelvis stable NEUROLOGICAL: Alert and oriented x4.Normal gait and speech. Coffin Maker strength equal bilaterally moving all extremities SKIN: Warm, dry, no laceration, no petechiae, no rashes or lesions. Course <Vidal Grace, DO - Last Filed: 09/13/21 00:53> Orders Ordered: Discontinued Medications Acetaminophen (Acetaminophen 325 Mg Tablet) 975 mg PO NOW ONE Stop: 09/12/21 08:29 Last Admin: 09/12/21 08:53 Dose: Not Given Documented By: ELDA Vital Signs Vital signs: Vital Signs - 8 hr 09/12/21 04:09 09/12/21 04:01 09/12/21 04:02 Temperature 97.8 F Pulse Rate 67 75 Respiratory Rate 20 Blood Pressure 167/77 H 167/77 H Pulse Oximetry 97 97 Oxygen Delivery Method Room Air 09/12/21 04:02 09/12/21 04:30 09/12/21 05:00 Temperature Pulse Rate 70 64 64 Respiratory Rate 18 Blood Pressure Pulse Oximetry 97 97 96 Oxygen Delivery Method 09/12/21 05:33 09/12/21 06:00 09/12/21 06:30 Temperature Pulse Rate 66 67 70 Respiratory Rate 17 16 17 Blood Pressure Pulse Oximetry 99 98 96 Oxygen Delivery Method 09/12/21 07:00 09/12/21 07:26 09/12/21 07:26 Temperature Pulse Rate 71 70 Respiratory Rate 19 17 Blood Pressure 161/70 H Pulse Oximetry 97 98 Oxygen Delivery Method 09/12/21 08:54 Temperature Pulse Rate 71 Respiratory Rate 18 Blood Pressure 148/82 H Pulse Oximetry 96 Oxygen Delivery Method Room Air <Marie Garcia DO - Last Filed: 09/12/21 18:21> Orders Ordered: Discontinued Medications Acetaminophen (Acetaminophen 325 Mg Tablet) 975 mg PO NOW ONE Stop: 09/12/21 08:29 Last Admin: 09/12/21 08:53 Dose: Not Given Documented By: ELDA Vital Signs Vital signs: Vital Signs - 8 hr 09/12/21 04:09 09/12/21 04:01 09/12/21 04:02 Temperature 97.8 F Pulse Rate 67 75 Respiratory Rate 20 Blood Pressure 167/77 H 167/77 H Pulse Oximetry 97 97 Oxygen Delivery Method Room Air 09/12/21 04:02 09/12/21 04:30 09/12/21 05:00 Temperature Pulse Rate 70 64 64 Respiratory Rate 18 Blood Pressure Pulse Oximetry 97 97 96 Oxygen Delivery Method 09/12/21 05:33 09/12/21 06:00 09/12/21 06:30 Temperature Pulse Rate 66 67 70 Respiratory Rate 17 16 17 Blood Pressure Pulse Oximetry 99 98 96 Oxygen Delivery Method 09/12/21 07:00 09/12/21 07:26 09/12/21 07:26 Temperature Pulse Rate 71 70 Respiratory Rate 19 17 Blood Pressure 161/70 H Pulse Oximetry 97 98 Oxygen Delivery Method 09/12/21 08:54 Temperature Pulse Rate 71 Respiratory Rate 18 Blood Pressure 148/82 H Pulse Oximetry 96 Oxygen Delivery Method Room Air Medical Decision Making <Vidal Grace DO - Last Filed: 09/13/21 00:53> Lab Data Result diagrams: 09/12/21 04:20 09/12/21 04:20 Labs: Lab Results 09/12/21 09/12/21 09/12/21 Range/Units 04:20 04:20 04:25 WBC 7.8 (4.5-11.0) X10^3/uL RBC 3.95 L (4.0-5.2) X10^6/uL Hgb 13.0 (12.0-16.0) g/dL Hct 39.0 (36-46) % MCV 98.6 (80-100) fL MCH 33.0 (26-34) PG MCHC 33.5 (30-36) % RDW 13.9 (11.6-14.8) % Plt Count 163 (150-400) X10^3/uL Neut % (Auto) 63.0 (50-75) % Lymph % (Auto) 26.2 (25-40) % [place] % (Auto) 7.8 (3-14) % Eos % (Auto) 2.5 (2-4) % Baso % (Auto) 0.5 (0-2) % Neut # (Auto) 4900 (8611-9248) /uL Lymph # (Auto) 2000 (0456-9400) /uL [place] # (Auto) 600 (0-900) /uL Eos # (Auto) 200 (0-450) /uL Baso # (Auto) 0 (0-100) /uL Sodium 139 (137-145) mmol/L Potassium 4.2 (3.4-5.1) mmol/L Chloride 106 (98-107) mmol/L Carbon Dioxide 29 (22-32) mmol/L BUN 12 (7-17) mg/dL Creatinine 0.57 (0.52-1.04) mg/dL Estimated GFR > 60 (>60) mL/min BUN/Creatinine Ratio 21.1 (6-22) Glucose 117 H (80-110) mg/dL Calcium 9.7 (8.4-10.2) mg/dL Total Bilirubin 0.6 (0.2-1.3) mg/dL AST 31 (14-36) IU/L ALT 21 (<35) IU/L Alkaline Phosphatase 81 (38-126) U/L Total Creatine Kinase 58 (30-135) U/L CK-MB (CK-2) TNP CK-MB (CK-2) Rel Index TNP Troponin I 0.033 (0.01-0.034) ng/mL NT-Pro-B Natriuret Pep 496 H (<450) pg/mL Total Protein 6.5 (6.3-8.2) g/dL Albumin 3.6 (3.5-5.0) g/dL Globulin 2.9 (1.7-4.1) g/dL Albumin/Globulin Ratio 1.2 (1.0-2.8) SARS-CoV-2 (PCR) Negative (Negative) <Marie Garcia DO - Last Filed: 09/12/21 18:21> Lab Data Labs: Lab Results 09/12/21 09/12/21 09/12/21 Range/Units 04:20 04:20 04:25 WBC 7.8 (4.5-11.0) X10^3/uL RBC 3.95 L (4.0-5.2) X10^6/uL Hgb 13.0 (12.0-16.0) g/dL Hct 39.0 (36-46) % MCV 98.6 (80-100) fL MCH 33.0 (26-34) PG MCHC 33.5 (30-36) % RDW 13.9 (11.6-14.8) % Plt Count 163 (150-400) X10^3/uL Neut % (Auto) 63.0 (50-75) % Lymph % (Auto) 26.2 (25-40) % [place] % (Auto) 7.8 (3-14) % Eos % (Auto) 2.5 (2-4) % Baso % (Auto) 0.5 (0-2) % Neut # (Auto) 4900 (9297-5318) /uL Lymph # (Auto) 2000 (3254-5208) /uL [place] # (Auto) 600 (0-900) /uL Eos # (Auto) 200 (0-450) /uL Baso # (Auto) 0 (0-100) /uL Sodium 139 (137-145) mmol/L Potassium 4.2 (3.4-5.1) mmol/L Chloride 106 (98-107) mmol/L Carbon Dioxide 29 (22-32) mmol/L BUN 12 (7-17) mg/dL Creatinine 0.57 (0.52-1.04) mg/dL Estimated GFR > 60 (>60) mL/min BUN/Creatinine Ratio 21.1 (6-22) Glucose 117 H (80-110) mg/dL Calcium 9.7 (8.4-10.2) mg/dL Total Bilirubin 0.6 (0.2-1.3) mg/dL AST 31 (14-36) IU/L ALT 21 (<35) IU/L Alkaline Phosphatase 81 (38-126) U/L Total Creatine Kinase 58 (30-135) U/L CK-MB (CK-2) TNP CK-MB (CK-2) Rel Index TNP Troponin I 0.033 (0.01-0.034) ng/mL NT-Pro-B Natriuret Pep 496 H (<450) pg/mL Total Protein 6.5 (6.3-8.2) g/dL Albumin 3.6 (3.5-5.0) g/dL Globulin 2.9 (1.7-4.1) g/dL Albumin/Globulin Ratio 1.2 (1.0-2.8) SARS-CoV-2 (PCR) Negative (Negative) Imaging Data CT chest/ab/pelvis: Radiologist's Impression: [place] [id number] CT Scan Report Signed Patient: Miroslava Wiley MR#: [id number] : 1945 Acct:[id number] Age/Sex: 75 / F Date of Service: 09/12/21 Loc: Accession Number: [id number] ?? Procedure: CT chest abd pel w con Ordering Provider: Vidal Grace D.O. PROCEDURE:? CT CHEST ABD PEL W CON ? INDICATIONS:? chest pain, back pain, lower side pain, recent AICD ? TECHNIQUE:? After the administration of oral and intravenous contrast, axial sections acquired from the supraclavicular neck to the pubic symphysis.? Coronal and sagittal reformats were performed.? For radiation dose reduction, the following was used:? automated exposure control, adjustment of mA and/or kV according to patient size.? ? COMPARISON:? [facility], CT, ABDOMEN/PELVIS WITH CONTRAST, 10/11/2014, 15:28.? [facility], CR, XR HIP W PEL IF DONE LT 2V, 09/12/2021, 4:09.? [facility], CR, XR CHEST 1V, 09/12/2021, 4:09. ? FINDINGS:? Image quality:? Excellent.? ? CHEST: Lower Neck: No enlarged lymph nodes.? Thyroid:? An 8 mm right thyroid nodule is seen. Axillae: No enlarged lymph nodes. Chest Wall:? AICD. ? Lungs and Airways: No consolidation or suspicious nodules. Pleura: No pneumothorax or pleural effusions.? ? Heart: Heart size is mildly enlarged.? No pericardial effusion. Thoracic Vessels: The aorta and pulmonary arteries demonstrate normal size.? Mediastinum and Princess: No enlarged lymph nodes.? Esophagus: No wall thickening. No hiatal hernia. ? ? ABDOMEN: Liver:? Unremarkable.? ? Gallbladder:? Removed.? ? Biliary ducts:? Unremarkable.? ? Pancreas:? Unremarkable.? ? Spleen:? Unremarkable.? ? Adrenal Glands:? Unremarkable.? ? Kidneys and Ureters:? Unremarkable.? ? ? Stomach and Bowel:? Stomach, small bowel loops, and colon are unremarkable.? Colonic diverticulosis is seen, without findings of active diverticulitis. Within the right lower quadrant, there is a swirl of vessels seen as on series 2, images 85 through 95.? This is similar to 2015. No appendix (either normal or abnormal) is identified on this study.? Peritoneum:? No abnormal intraperitoneal fluid.? No free air.? ? Ventral Wall: ? No hernia.? Abdominal Nodes:? No retroperitoneal or mesenteric adenopathy by size criteria.? Vessels:? Aorta and inferior vena cava are normal in size.? Atherosclerotic calcification is noted.? ? PELVIS: Pelvic Organs: This patient is status post hysterectomy. No adnexal masses are seen.? Bladder:? Unremarkable.? ? Pelvic Nodes: No enlarged lymph nodes.? Miscellaneous: No inguinal hernias are seen. ? ? ? Bones:? Mild levoconvex scoliotic curvature is noted.? Accentuated thoracic kyphosis is seen.? Age-appropriate bony degenerative changes are seen. ? ? ? IMPRESSION:? No imaging explanation is found for this patient's presenting symptoms.? ? A swirl of vessels can be seen within the right lower quadrant of the abdomen, without findings of obstruction.? This is similar to 2015 and considered to be benign. ? ? Incidental note is made of: AICD 8 mm right thyroid nodule Mild cardiomegaly Cholecystectomy Diverticulosis, without active diverticulitis Hysterectomy ? Note: No significant discrepancy from the preliminary report. ? Dictated by: Tejas Villalobos M.D. on 09/12/2021 at 7:18 ? ? Chest x-ray: Radiologist's Impression: nt: Miroslava Wiley MR#: [id number] : 1945 Acct:[id number] Age/Sex: 75 / F Date of Service: 09/12/21 Loc: ED Accession Number: [id number] ?? Procedure: XR chest 1V Ordering Provider: Vidal Grace D.O. PROCEDURE:? XR CHEST 1V ? INDICATIONS:? left posterior shoulder pain, new AICD ? TECHNIQUE:? One view of the chest was acquired.? ? COMPARISON:? [facility], XR CHEST 1V, 12/19/2017, 13:38. ? FINDINGS:? ? Surgical changes and devices:? An AICD is seen.? Cholecystectomy clips are seen.? ? Lungs and pleura:? Lungs are clear.? No pleural effusions or pneumothorax.? ? Mediastinum:? The cardiac contours are mildly enlarged. The aorta demonstrates calcification and tortuosity. ? Bones and chest wall:? Age-appropriate bony degenerative changes are seen.? No suspicious bony lesions.? Overlying soft tissues appear unremarkable.? ? ? IMPRESSION:? Mild cardiomegaly. ? Clear lungs. ? Postoperative and degenerative changes are seen.? ? ? Note: No significant discrepancy from the preliminary report. ? ? Dictated by: Tejas Villalobos M.D. on 09/12/2021 at 8:09 ? ? Extremity x-ray #1: Radiologist's Impression: XRay Report Signed Patient: Miroslava Wiley MR#: [id number] : 1945 Acct:[id number] Age/Sex: 75 / F Date of Service: 09/12/21 Loc: ED Accession Number: [id number] ?? Procedure: XR hip w pel if done LT 2V Ordering Provider: Vidal Grace D.O. PROCEDURE:? XR HIP W PEL IF DONE LT 2V ? INDICATIONS:? left hip pain ? TECHNIQUE:? AP pelvis with lateral view(s) of the left hip(s).? ? COMPARISON:? [facility], XR CHEST 1V, 09/12/2021, 4:09.? [facility], CT, CT CHEST ABD PEL W CON, 09/12/2021, 5:18. ? FINDINGS:? ? Bones:? No fractures or dislocations.? Pelvic ring appears intact.? No suspicious bony lesions.? ? Age-appropriate bony degenerative changes are seen, including involving the lower lumbar spine.? ? Soft tissues:? The visualized bowel gas pattern is normal.? No suspicious soft tissue calcifications.? Pelvic phleboliths are incidentally noted.? ? ? IMPRESSION:? Degenerative changes are seen, without a cause of acute pain identified. ? ? Note: No significant discrepancy from the preliminary report. ? ? ? Dictated by: Tejas Villalobos M.D. on 09/12/2021 at 8:08 ? ? ECG Data Interpretation: Paced rhythm rate 63 MI interval 212 QRS [address] changes MDM Narrative Medical decision making narrative: The patient is seen evaluated by myself signed out to me by Dr. Grace. She had pacemaker placed recently. Complains of pain all over mostly in her hips. CT was pending results show positive mesenteric real sign and right lower quadrant without evidence of bowel obstruction. Otherwise negative. Patient has absolutely no abdominal pain. No nausea vomiting or changes in bowel habits. Her abdomen is soft and nontender. She previously took amitriptyline for her fibromyalgia. She has taken ibuprofen at home for pain. She is on Xarelto but her Xarelto has been held due to her recent procedure. At this time recommend Tylenol for pain. Discharge Plan Departure Patient Disposition: Home Clinical Impression: Acute hip pain, bilateral Instructions: DI for Low Back Pain Activity Restrictions/Additional Instructions: *You have been diagnosed with ongoing hip pain. Possibly flare-up of fibromyalgia *What to do: Blood work and CT scan in the emergency department are overall reassuring. At this time your pain may be exacerbated due to her recent procedure. I recommend heating pad or ice pack. Along with Tylenol *Continue to take medications as directed Tylenol 1000 mg every 6 hours if needed for [id number] Avoid ibuprofen/Motrin if taking Xarelto *Follow up with your primary care provider in 2-3 days or call [phone] *Return to ER if you should have increasing pain fever shortness of breath palpitation or any new, worsening or concerning symptoms Prescriptions: No Action mirtazapine 15 mg tablet 30 mg PO BEDTIME Qty: 180 3RF Xarelto 20 mg tablet 20 mg PO DAILY metoprolol succinate 25 mg tablet extended release 24 hr 50 mg PO DAILY losartan 50 mg tablet 100 mg PO DAILY Qty: 180 3RF One Daily Women's 27-0.4 mg tablet 1 tab PO DAILY triamcinolone acetonide 0.1 % cream 1 applic topical BID Qty: 30 0RF clobetasol 0.05 % shampoo 1 applic topical DAILY 7 Days Qty: 118 2RF Rx Instructions: use for 1 week maximum, then at least one week without using before restarting Referrals: Gerber Beverly MD [Primary Care Provider] - Visit Report Forms: Patient Portal/API
[2021-09-12 04:37] LABS: Add Manual Diff / Slide Review NO; Basophils Absolute Auto 0 /uL (0-100); Basophils Percent Auto 0.5 % (0-2); Eosinophils Absolute Auto 200 /uL (0-450); Eosinophils Percent Auto 2.5 % (2-4); Lymphocytes Absolute Auto 2000 /uL (1100-4500); Lymphocytes Percent Auto 26.2 % (25-40); Mean Corpuscular HGB Conc 33.5 % (30-36); Mean Corpuscular Volume 98.6 fL (80-100); Monocytes Absolute Auto 600 /uL (0-900); Monocytes Percent Auto 7.8 % (3-14); Neutrophils Absolute Auto 4900 /uL (1500-7000); Platelet Count 163 X10^3/uL (150-400); Red Blood Cell Count 3.95 X10^6/uL (4.0-5.2); Red Cell Distribution Width 13.9 % (11.6-14.8); White Blood Cell Count 7.8 X10^3/uL (4.5-11.0)
[2021-09-12 04:44] LABS: Alanine Aminotransferase 21 IU/L (<35); Albumin 3.6 g/dL (3.5-5.0); Albumin Globulin Ratio 1.2 (1.0-2.8); Alkaline Phosphatase 81 U/L (38-126); Aspartate Aminotransferase 31 IU/L (14-36); BUN Creatinine Ratio 21.1 (6-22); Bilirubin Total 0.6 mg/dL (0.2-1.3); Blood Urea Nitrogen 12 mg/dL (7-17); Calcium 9.7 mg/dL (8.4-10.2); Carbon Dioxide 29 mmol/L (22-32); Chloride 106 mmol/L (98-107); Creatine Kinase 58 U/L (30-135); Estimated Glomerular Filt Rate > 60 mL/min (>60); Globulin 2.9 g/dL (1.7-4.1); Glucose 117 mg/dL (80-110); HEMOLYSIS < 15 (0-50); Potassium 4.2 mmol/L (3.4-5.1); Sodium 139 mmol/L (137-145); Total Protein 6.5 g/dL (6.3-8.2)
[2021-09-12 04:49] LABS: COVID19 -Nasal RAPID Negative (Negative)
[2021-09-12 04:56] LABS: NT-proBNP (BNP-Adult 18+) 496 pg/mL (<450); Troponin I 0.033 ng/mL (0.01-0.034)
--- NOTE | 2021-09-12 05:13 | DI.CT.S_ITS ---
PROCEDURE: CT CHEST ABD PEL W CON INDICATIONS: chest pain, back pain, lower side pain, recent AICD TECHNIQUE: After the administration of oral and intravenous contrast, axial sections acquired from the supraclavicular neck to the pubic symphysis. Coronal and sagittal reformats were performed. For radiation dose reduction, the following was used: automated exposure control, adjustment of mA and/or kV according to patient size. COMPARISON: [facility], CT, ABDOMEN/PELVIS WITH CONTRAST, 10/11/2014, 15:28. [facility], CR, XR HIP W PEL IF DONE LT 2V, 09/12/2021, 4:09. [facility], CR, XR CHEST 1V, 09/12/2021, 4:09. FINDINGS: Image quality: Excellent. CHEST: Lower Neck: No enlarged lymph nodes. Thyroid: An 8 mm right thyroid nodule is seen. Axillae: No enlarged lymph nodes. Chest Wall: AICD. Lungs and Airways: No consolidation or suspicious nodules. Pleura: No pneumothorax or pleural effusions. Heart: Heart size is mildly enlarged. No pericardial effusion. Thoracic Vessels: The aorta and pulmonary arteries demonstrate normal size. Mediastinum and Princess: No enlarged lymph nodes. Esophagus: No wall thickening. No hiatal hernia. ABDOMEN: Liver: Unremarkable. Gallbladder: Removed. Biliary ducts: Unremarkable. Pancreas: Unremarkable. Spleen: Unremarkable. Adrenal Glands: Unremarkable. Kidneys and Ureters: Unremarkable. Stomach and Bowel: Stomach, small bowel loops, and colon are unremarkable. Colonic diverticulosis is seen, without findings of active diverticulitis. Within the right lower quadrant, there is a swirl of vessels seen as on series 2, images 85 through 95. This is similar to 2015. No appendix (either normal or abnormal) is identified on this study. Peritoneum: No abnormal intraperitoneal fluid. No free air. Ventral Wall: No hernia. Abdominal Nodes: No retroperitoneal or mesenteric adenopathy by size criteria. Vessels: Aorta and inferior vena cava are normal in size. Atherosclerotic calcification is noted. PELVIS: Pelvic Organs: This patient is status post hysterectomy. No adnexal masses are seen. Bladder: Unremarkable. Pelvic Nodes: No enlarged lymph nodes. Miscellaneous: No inguinal hernias are seen. Bones: Mild levoconvex scoliotic curvature is noted. Accentuated thoracic kyphosis is seen. Age-appropriate bony degenerative changes are seen. IMPRESSION: No imaging explanation is found for this patient's presenting symptoms. A swirl of vessels can be seen within the right lower quadrant of the abdomen, without findings of obstruction. This is similar to 2015 and considered to be benign. Incidental note is made of: AICD 8 mm right thyroid nodule Mild cardiomegaly Cholecystectomy Diverticulosis, without active diverticulitis Hysterectomy Note: No significant discrepancy from the preliminary report. Dictated by: Tejas Villalobos M.D. on 09/12/2021 at 7:18 Approved by: Tejas Villalobos M.D. on 09/12/2021 at 7:24
== END 2021-09-12 08:55 | disposition home or self-care (01) ==
PROVIDERS: Emergency Medicine; Emergency Provider Emergency Medicine; Family Provider Internal Medicine; PCP Internal Medicine
DX: M25.552 Pain in left hip (principal); M25.551 Pain in right hip; R07.9 Chest pain, unspecified; M54.50 Low back pain, unspecified; Z95.0 Presence of cardiac pacemaker; Z20.822 Contact with and (suspected) exposure to COVID-19
CPT/HCPCS: 36415; 71045; 71260; 73502; 74177; 80053; 82550; 83880; 84484; 85025; 87635; 93005; 93010; 99284; C9803; Q9967

== ENCOUNTER 2022-01-25 07:07 | Inpatient (IN) | payer MEDICARE, SELFPAY ==
[2021-05-04 14:16] VITALS: BMI 25.6
[2022-01-25] VITALS (17 sets, daily range): BP systolic 130–153; BP diastolic 62–91; PULSE 65–106; RESP 15–32; TEMP 36.2–36.6; O2SAT 93–100; BMI 25.7
--- NOTE | 2022-01-25 07:47 | DI.CT.S_ITS ---
PROCEDURE: CT ABDOMEN PELVIS W CON INDICATIONS: Generalized abdominal pain TECHNIQUE: After the administration of intravenous contrast, axial sections acquired from the lung bases to the pubic symphysis. Coronal and sagittal reformats were performed. For radiation dose reduction, the following was used: automated exposure control, adjustment of mA and/or kV according to patient size. COMPARISON: [facility], CT, ABDOMEN/PELVIS WITH CONTRAST, 10/11/2014, 15:28. FINDINGS: Image quality: Excellent. Lung bases: Lung bases are clear. Heart size is normal. Solid organs: Liver: The liver has no mass or intrahepatic biliary ductal dilatation. The portal vein and hepatic veins are patent. Biliary: Status post cholecystectomy. Pancreas: The pancreas has no mass or ductal dilatation. There is no surrounding inflammation. Spleen: Normal size. There are no masses. Adrenals: No hypertrophy or nodules. Kidneys: No obstructive calculus or hydronephrosis. No solid mass. Left midpole simple renal cyst measuring 1 cm. Peritoneum and bowel: The distal esophagus and stomach are normal. The proximal small bowel has a normal caliber. There is distention of the distal small bowel up to 4 cm with air-fluid levels with a transition point just proximal to the terminal ileum which has a normal caliber. The large bowel has diverticulosis without evidence of diverticulitis. The appendix is normal. There is a small amount of perihepatic fluid and a small amount of fluid in the pelvis. Nodes and vessels: No retroperitoneal or mesenteric adenopathy by size criteria. The aorta has atherosclerosis with no aneurysmal dilatation. Miscellaneous: No abdominal wall mass or hernia. PELVIS: Genitourinary: The bladder has no wall thickening or mass. No bladder calcifications. Bones: Degenerative changes with no focal abnormality. No vertebral body compression fractures. IMPRESSION: 1. Small-bowel obstruction of the distal small bowel. 2. The appendix is not definitively visualized and therefore acute appendicitis cannot be excluded. 3. Small amount of ascites around the liver and in the pelvis. 4. Diverticulosis without evidence of acute diverticulitis. Dictated by: Dwain Bashir M.D. on 01/25/2022 at 8:42 Approved by: Dwain Bashir M.D. on 01/25/2022 at 8:50
--- NOTE | 2022-01-25 07:48 | ED.GENADULT ---
HPI - General Adult General Chief complaint: Abdominal Pain Stated complaint: cant keep anything down Time Seen by Provider: 01/25/22 07:37 Source: patient Mode of arrival: Ambulatory Limitations: no limitations History of Present Illness HPI narrative: Patient is a 76-year-old female who is here for evaluation of nausea and vomiting and diarrhea since last evening. She is also having generalized abdominal pain. States that the vomiting helps her abdominal pain for a very short period of time but then the symptoms returned. She also wet the bed last evening. She states she feels very fatigued and ?off ?denies chest pain. No shortness of breath. She has had multiple abdominal surgeries in the past but can not specifically remember what she has had done. She could not take her medications this morning because she was nauseous and throwing up every time she tried to drink anything. She denies any fevers. No recent travel. No recent antibiotics. Related Data Home Medications Medication Instructions Recorded Confirmed [id number]-jxhh-minerals 27 1 tab PO DAILY 10/06/20 11/02/21 mg-0.4 mg tablet (One Daily Women's) metoprolol succinate 25 mg 50 mg PO DAILY 05/04/21 11/02/21 tablet,extended release 24 hr rivaroxaban 20 mg tablet (Xarelto) 20 mg PO DAILY 05/04/21 11/02/21 Previous Rx's Medication Instructions Recorded mirtazapine 15 mg tablet 30 mg PO BEDTIME #180 tabs 02/01/21 losartan 50 mg tablet 100 mg PO DAILY #180 tabs 05/04/21 clobetasol 0.05 % shampoo 1 applic topical DAILY 1 week #118 08/17/21 mL triamcinolone acetonide 0.1 % 1 applic topical BID #30 grams 08/17/21 topical cream Allergies Allergy/AdvReac Type Severity Reaction Status Date / Time amoxicillin [AMOXICILLIN] Allergy Intermediate FATIGUE Verified 11/02/21 10:03 clavulanic acid Allergy Intermediate FATIGUE Verified 11/02/21 10:03 [From AUGMENTIN] hydrochlorothiazide Allergy Intermediate WEAKNESS Verified 11/02/21 10:03 [HYDROCHLOROTHIAZIDE] Review of Systems Constitutional Constitutional: Reports system reviewed and no additional complaints, except as documented Cardiovascular Cardiovascular: Reports system reviewed and no additional complaints, except as documented Respiratory Respiratory: Reports system reviewed and no additional complaints, except as documented Gastrointestinal Gastrointestinal: Reports system reviewed and no additional complaints, except as documented Genitourinary Genitourinary: Reports system reviewed and no additional complaints, except as documented Integumentary/Breasts Skin/Breast: Reports system reviewed and no additional complaints, except as documented Neurologic Neurologic: Reports system reviewed and no additional complaints, except as documented Hematologic/Lymphatic On Anticoagulants: Yes Patient History Medical History Ankle fracture, right (2005) Atrial flutter AV block Cardiomyopathy Cervical cancer Colitis Collagenous colitis (~04/2018) Colon polyp Dyshidrotic eczema Essential hypertension (08/18/15) Fibromyalgia History of adenomatous polyp of colon (03/31/11) History of pacemaker (~11/2017) Hypercalcemia Hyperlipidemia Hyperparathyroidism (11/09/15) Hypertension Hypoparathyroidism Insomnia Left bundle branch block (LBBB) (10/14/14) Neuropathy Pacemaker Peripheral polyneuropathy (12/07/16) Polyneuropathy (01/04/17) Primary osteoarthritis of right knee Right ACL tear (2005) Septal infarction Symptomatic bradycardia Surgical History History of bilateral salpingo-oophorectomy (BSO) (1998) Status post cholecystectomy (1998) Status post exploratory laparotomy Status post hysterectomy (1974) Family History Father Family history of diabetes mellitus (DM) Grandmother Family history of diabetes mellitus (DM) Sister Family history of diabetes mellitus (DM) Family/Other Family history of diabetes mellitus (DM) Social History household members: none Smoking Status: Former smoker alcohol intake: current Smoking Status: Former smoker alcohol intake frequency: a few times a week Substance Use Type: does not use Exam Initial Vital Signs Initial Vital Signs: Vital Signs Pulse Rate 100 H 01/25/22 07:43 Respiratory Rate 20 01/25/22 07:43 Pulse Oximetry 95 01/25/22 07:43 Oxygen Delivery Method 01/25/22 07:43 Const General: cooperative, comfortable and No ill appearing HENMT Head: normal to inspection and normocephalic Resp Effort & Inspection: normal respiratory effort Auscultation: clear to auscultation bilaterally Cardio Rate: tachycardic Rhythm: regular rhythm GI Inspection: normal to inspection and non-distended Palpation: soft, No guarding and tender (Upper abdomen) Skin General: no rashes or lesions noted Neuro General: patient alert, patient awake and moves all extremities Extrem General: normal to inspection and capillary refill normal Psych Appearance: grossly normal Course Orders Ordered: ED Orders 01/25/22 07:47 CT abdomen pelvis w con Stat 01/25/22 07:59 Complete Blood Count AUTO DIFF Stat Comprehensive Metabolic Panel Stat Lipase Stat 01/25/22 08:10 Covid-19 + FLU A/B + RSV - PCR Stat 01/25/22 09:16 Consult to General Surgery Stat Discontinued Medications Sodium Chloride (Normal Saline 0.9%) 1,000 mls @ 1,000 mls/hr IV BOLUS ONE Stop: 01/25/22 08:45 Last Infusion: 01/25/22 10:08 Dose: 0 mls/hr Documented By: Admin: 01/25/22 08:24 Dose: 1,000 mls/hr Documented By: LETTY Ondansetron HCl (Ondansetron 4 Mg/2 Ml Inj) 4 mg IV NOW ONE Stop: 01/25/22 07:47 Last Admin: 01/25/22 08:20 Dose: 4 mg Documented By: LETTY Vital Signs Vital signs: Vital Signs - 8 hr 01/25/22 08:06 01/25/22 07:43 01/25/22 07:45 Temperature 97.9 F Pulse Rate 96 H 100 H Respiratory Rate 22 20 Blood Pressure 153/78 H 153/78 H Pulse Oximetry 100 95 Oxygen Delivery Method Room Air Room Air 01/25/22 07:45 01/25/22 08:00 01/25/22 08:00 Temperature Pulse Rate 100 H 92 H Respiratory Rate 23 20 Blood Pressure 131/68 Pulse Oximetry 95 94 Oxygen Delivery Method 01/25/22 11:00 01/25/22 11:00 01/25/22 11:30 Temperature Pulse Rate 96 H Respiratory Rate 20 Blood Pressure 150/72 H 142/74 H Pulse Oximetry 93 Oxygen Delivery Method 01/25/22 11:30 Temperature Pulse Rate 97 H Respiratory Rate 21 Blood Pressure Pulse Oximetry 95 Oxygen Delivery Method Medical Decision Making Lab Data Lab results reviewed: Yes I reviewed the patient's lab results. Result diagrams: 01/25/22 07:59 01/25/22 07:59 Labs: Lab Results 01/25/22 01/25/22 01/25/22 Range/Units 07:59 07:59 08:10 WBC 14.4 H (4.5-11.0) X10^3/uL RBC 4.82 (4.0-5.2) X10^6/uL Hgb 15.4 (12.0-16.0) g/dL Hct 45.9 (36-46) % MCV 95.3 (80-100) fL MCH 31.9 (26-34) PG MCHC 33.5 (30-36) % RDW 13.4 (11.6-14.8) % Plt Count 238 (150-400) X10^3/uL Neut % (Auto) 82.9 H (50-75) % Lymph % (Auto) 10.8 L (25-40) % [place] % (Auto) 5.8 (3-14) % Eos % (Auto) 0.2 L (2-4) % Baso % (Auto) 0.3 (0-2) % Neut # (Auto) 00066 H (1882-4441) /uL Lymph # (Auto) 1600 (7924-5712) /uL [place] # (Auto) 800 (0-900) /uL Eos # (Auto) 0 (0-450) /uL Baso # (Auto) 0 (0-100) /uL Sodium 138 (137-145) mmol/L Potassium 3.9 (3.4-5.1) mmol/L Chloride 103 (98-107) mmol/L Carbon Dioxide 27 (22-32) mmol/L BUN 18 H (7-17) mg/dL Creatinine 0.69 (0.52-1.04) mg/dL Estimated GFR > 60 (>60) mL/min BUN/Creatinine Ratio 26.1 H (6-22) Glucose 182 H (80-110) mg/dL Calcium 11.0 H (8.4-10.2) mg/dL Total Bilirubin 0.7 (0.2-1.3) mg/dL AST 47 H (14-36) IU/L ALT 32 (<35) IU/L Alkaline Phosphatase 112 (38-126) U/L Total Protein 7.5 (6.3-8.2) g/dL Albumin 4.2 (3.5-5.0) g/dL Globulin 3.3 (1.7-4.1) g/dL Albumin/Globulin Ratio 1.3 (1.0-2.8) Lipase 77 (23-300) U/L SARS-CoV-2 (PCR) Negative (Negative) Influenza A (RT-PCR) Flu a negative (NEGATIVE) Influenza B (RT-PCR) Flu b negative (NEGATIVE) RSV (PCR) Negative (Negative) Imaging Data CT scan - abdomen/pelvis: Radiologist's Impression: [address] [address] [address] Scan Report Signed Patient: Miroslava Wiley MR#: [id number] : 1945 Acct:[id number] Age/Sex: 76 / F Date of Service: 01/25/22 Loc: ED Accession Number: [id number] ?? Procedure: CT abdomen pelvis w con Ordering Provider: Woody Campos D.O. PROCEDURE:? CT ABDOMEN PELVIS W CON ? INDICATIONS:? Generalized abdominal pain ? TECHNIQUE:? After the administration of intravenous contrast, axial sections acquired from the lung bases to the pubic symphysis.? Coronal and sagittal reformats were performed.? For radiation dose reduction, the following was used:? automated exposure control, adjustment of mA and/or kV according to patient size.? ? COMPARISON:? [facility], CT, ABDOMEN/PELVIS WITH CONTRAST, 10/11/2014, 15:28. ? FINDINGS: Image quality:? Excellent.? ? Lung bases:? Lung bases are clear.? Heart size is normal. ? Solid organs:? Liver: The liver has no mass or intrahepatic biliary ductal dilatation. The portal vein and hepatic veins are patent. Biliary: Status post cholecystectomy. Pancreas: The pancreas has no mass or ductal dilatation. There is no surrounding inflammation. Spleen: Normal size. There are no masses. Adrenals: No hypertrophy or nodules. Kidneys: No obstructive calculus or hydronephrosis.? No solid mass.? Left midpole simple renal cyst measuring 1 cm.? ? Peritoneum and bowel:? The distal esophagus and stomach are normal.? The proximal small bowel has a normal caliber.? There is distention of the distal small bowel up to 4 cm with air-fluid levels with a transition point just proximal to the terminal ileum which has a normal caliber.? The large bowel has diverticulosis without evidence of diverticulitis.? The appendix is normal.? There is a small amount of perihepatic fluid and a small amount of fluid in the pelvis. ? Nodes and vessels:? No retroperitoneal or mesenteric adenopathy by size criteria.? The aorta has atherosclerosis with no aneurysmal dilatation.? ? Miscellaneous:? No abdominal wall mass or hernia. ? PELVIS:? Genitourinary:? The bladder has no wall thickening or mass. No bladder calcifications. ? Bones:? Degenerative changes with no focal abnormality.? No vertebral body compression fractures.? ? IMPRESSION: 1. Small-bowel obstruction of the distal small bowel. 2. The appendix is not definitively visualized and therefore acute appendicitis cannot be excluded. 3. Small amount of ascites around the liver and in the pelvis. 4. Diverticulosis without evidence of acute diverticulitis.? ? ? Dictated by: Dwain Bashir M.D. on 01/25/2022 at 8:42 ? ? Approved by: Dwain Bashir M.D. on 01/25/2022 at 8:50 MDM Narrative Medical decision making narrative: CT scan shows small bowel obstruction. Discussed case with Dr. Perez on-call for General surgery who will see the patient upon admission. Discussed the case with Dr. Beverly who is the patient's primary doctor who will admit for further evaluation and treatment. Did discuss the findings of the CT scan with the patient. We did discuss the need for admission. She expressed understanding and agreement Discharge Plan Departure Patient Disposition: Admitted As Inpatient Clinical Impression: Small bowel obstruction
[2022-01-25 08:02] LABS: Add Manual Diff / Slide Review NO; Basophils Absolute Auto 0 /uL (0-100); Basophils Percent Auto 0.3 % (0-2); Eosinophils Absolute Auto 0 /uL (0-450); Eosinophils Percent Auto 0.2 % (2-4); Hematocrit 45.9 % (36-46); Hemoglobin 15.4 g/dL (12.0-16.0); Lymphocytes Absolute Auto 1600 /uL (1100-4500); Lymphocytes Percent Auto 10.8 % (25-40); Mean Corpuscular HGB Conc 33.5 % (30-36); Mean Corpuscular Hemoglobin 31.9 PG (26-34); Mean Corpuscular Volume 95.3 fL (80-100); Monocytes Absolute Auto 800 /uL (0-900); Monocytes Percent Auto 5.8 % (3-14); Neutrophils Absolute Auto 11900 /uL (1500-7000); Neutrophils Percent Auto 82.9 % (50-75); Platelet Count 238 X10^3/uL (150-400); Red Blood Cell Count 4.82 X10^6/uL (4.0-5.2); Red Cell Distribution Width 13.4 % (11.6-14.8); White Blood Cell Count 14.4 X10^3/uL (4.5-11.0)
[2022-01-25 08:14] LABS: Alanine Aminotransferase 32 IU/L (<35); Albumin 4.2 g/dL (3.5-5.0); Albumin Globulin Ratio 1.3 (1.0-2.8); Alkaline Phosphatase 112 U/L (38-126); Aspartate Aminotransferase 47 IU/L (14-36); BUN Creatinine Ratio 26.1 (6-22); Bilirubin Total 0.7 mg/dL (0.2-1.3); Blood Urea Nitrogen 18 mg/dL (7-17); Carbon Dioxide 27 mmol/L (22-32); Chloride 103 mmol/L (98-107); Estimated Glomerular Filt Rate > 60 mL/min (>60); Globulin 3.3 g/dL (1.7-4.1); Glucose 182 mg/dL (80-110); HEMOLYSIS < 15 (0-50); Lipase 77 U/L (23-300); Potassium 3.9 mmol/L (3.4-5.1); Sodium 138 mmol/L (137-145); Total Protein 7.5 g/dL (6.3-8.2)
[2022-01-25] MEDS: ONDANSETRON 4 MG/2 ML INJ IV ×3 (08:20→23:44)
[2022-01-25] MEDS: SODIUM CHLORIDE 0.9% 1,000 ML 1000 ML IV (08:24)
[2022-01-25 08:53] LABS: Influenza A - CEPHEID Flu A NEGATIVE (NEGATIVE); Influenza B - CEPHEID Flu B NEGATIVE (NEGATIVE); Respiratory Syncytial Virus Negative (Negative)
[2022-01-25 08:54] LABS: COVID-19 CEPHEID 4-PLEX PCR Negative (Negative)
--- NOTE | 2022-01-25 10:02 | PM.HP.1 ---
History of Present Illness History of Present Illness Date Patient Seen: 01/25/22 Time Patient Seen: 10:03 Chief complaint: cant keep anything down Narrative: 76-year-old female well known to me admitted via emergency department with a small-bowel obstruction Patient reports less than 24 hours increased frequency of bowel movements/diarrhea as well as abdominal pain with progression to nausea and vomiting inability really to keep anything down. Everything she is tried to keep down including her medications this morning she is vomited back up. Vomiting does really some vague abdominal pain temporarily but always comes back Denies fever chills etcetera ER evaluation demonstrated a probable distal small-bowel obstruction based on CT imaging. She is a bit of a leukocytosis but chemistries are otherwise pretty unremarkable Patient does have a history of multiple abdominal surgeries, including exploratory lap with lysis of adhesions for prior bowel obstruction. She also is chronically anticoagulated with a direct oral anticoagulant because of her history of atrial flutter, as per Cardiology. Does have left bundle branch block at baseline also has pacemaker implanted General surgery was contacted by emergency department physician and they requested admission to medicine Patient History Medical History Ankle fracture, right (2005) Atrial flutter AV block Cardiomyopathy Cervical cancer Colitis Collagenous colitis (~04/2018) Colon polyp Dyshidrotic eczema Essential hypertension (08/18/15) Fibromyalgia History of adenomatous polyp of colon (03/31/11) History of pacemaker (~11/2017) Hypercalcemia Hyperlipidemia Hyperparathyroidism (11/09/15) Hypertension Hypoparathyroidism Insomnia Left bundle branch block (LBBB) (10/14/14) Neuropathy Pacemaker Peripheral polyneuropathy (12/07/16) Polyneuropathy (01/04/17) Primary osteoarthritis of right knee Right ACL tear (2005) Septal infarction Symptomatic bradycardia Surgical History History of bilateral salpingo-oophorectomy (BSO) (1998) Status post cholecystectomy (1998) Status post exploratory laparotomy Status post hysterectomy (1974) Family & Social History Family History Father Family history of diabetes mellitus (DM) Grandmother Family history of diabetes mellitus (DM) Sister Family history of diabetes mellitus (DM) Family/Other Family history of diabetes mellitus (DM) Social History: household members none Safety & Behavioral: Feels Safe in Current Yes Environment Been Physically Hurt or No Threatened By a Person Tobacco & Substance use: Tobacco type cigarettes Smoking Status Former smoker alcohol intake current alcohol intake frequency a few times a week Substance Use Type does not use Meds Home Medications and Allergies Home Medications Medication Instructions Recorded Confirmed Type vfdibrjfqsmy-Jh-cyvi-minerals 27 1 tab PO DAILY 10/06/20 11/02/21 History mg-0.4 mg tablet (One Daily Women's) mirtazapine 15 mg tablet 30 mg PO BEDTIME #180 tabs 02/01/21 11/02/21 Rx losartan 50 mg tablet 100 mg PO DAILY #180 tabs 05/04/21 11/02/21 Rx metoprolol succinate 25 mg 50 mg PO DAILY 05/04/21 11/02/21 History tablet,extended release 24 hr rivaroxaban 20 mg tablet (Xarelto) 20 mg PO DAILY 05/04/21 11/02/21 History clobetasol 0.05 % shampoo 1 applic topical DAILY 1 week #118 08/17/21 11/02/21 Rx mL triamcinolone acetonide 0.1 % 1 applic topical BID #30 grams 08/17/21 11/02/21 Rx topical cream Allergies Allergy/AdvReac Type Severity Reaction Status Date / Time amoxicillin [AMOXICILLIN] Allergy Intermediate FATIGUE Verified 11/02/21 10:03 clavulanic acid Allergy Intermediate FATIGUE Verified 11/02/21 10:03 [From AUGMENTIN] hydrochlorothiazide Allergy Intermediate WEAKNESS Verified 11/02/21 10:03 [HYDROCHLOROTHIAZIDE] Review of Systems Review of Systems ROS: Yes All systems reviewed with the patient and are negative except as otherwise documented Exam Vital Signs (past 8 hours): - 01/25/22 08:06 01/25/22 07:43 01/25/22 07:45 Temperature 97.9 F Pulse Rate 96 H 100 H Respiratory Rate 22 20 Blood Pressure 153/78 H 153/78 H Pulse Oximetry 100 95 Oxygen Delivery Method Room Air Room Air 01/25/22 07:45 01/25/22 08:00 01/25/22 08:00 Temperature Pulse Rate 100 H 92 H Respiratory Rate 23 20 Blood Pressure 131/68 Pulse Oximetry 95 94 Oxygen Delivery Method Oxygen Delivery Method Room Air Narrative Exam Narrative: Non acutely ill-appearing female lying on a gurney in the emergency department HEENT-unremarkable Lungs-clear with good breath sounds Heart-regular rate and rhythm no murmur Abdomen-minimally distended no rebound or guarding could not auscultate any bowel tones Extremities-no cyanosis clubbing or edema Neuro-alert orient x3 no focal findings gait not tested Objective Labs Result Diagrams: 01/25/22 07:59 01/25/22 07:59 Labs: Laboratory Results - last 24 hr 01/25/22 01/25/22 01/25/22 07:59 07:59 08:10 WBC 14.4 H RBC 4.82 Hgb 15.4 Hct 45.9 MCV 95.3 MCH 31.9 MCHC 33.5 RDW 13.4 Plt Count 238 Neut % (Auto) 82.9 H Lymph % (Auto) 10.8 L [place] % (Auto) 5.8 Eos % (Auto) 0.2 L Baso % (Auto) 0.3 Neut # (Auto) 43077 H Lymph # (Auto) 1600 [place] # (Auto) 800 Eos # (Auto) 0 Baso # (Auto) 0 Sodium 138 Potassium 3.9 Chloride 103 Carbon Dioxide 27 BUN 18 H Creatinine 0.69 Estimated GFR > 60 BUN/Creatinine Ratio 26.1 H Glucose 182 H Calcium 11.0 H Total Bilirubin 0.7 AST 47 H ALT 32 Alkaline Phosphatase 112 Total Protein 7.5 Albumin 4.2 Globulin 3.3 Albumin/Globulin Ratio 1.3 Lipase 77 SARS-CoV-2 (PCR) Negative Influenza A (RT-PCR) Flu a negative Influenza B (RT-PCR) Flu b negative RSV (PCR) Negative Assessment & Plan Assessment & Plan narrative: 1. Small-bowel obstruction-patient to be kept NPO with IV fluids for hydration support. General surgery will consult as well. Place NG tube if necessary to control emesis and symptoms. Tried to avoid NG if at all possible however 2. Chronic anticoagulation-I am going to hold her direct oral anticoagulant in preparation for possible surgical intervention for her bowel obstruction which seems a bit more likely than not in this patient given her prior history 3. Hypertension-patient normally on oral losartan and metoprolol. I am going to give her parental metoprolol on a scheduled basis to try and manage both her hypertension as well as with her prior history want to avoid rebound tachycardia etcetera 4. Cardiac-patient with known left bundle branch block history of atrial flutter as well as pacemaker implanted. Patient also with an ejection fraction of about 35% on echocardiography although currently asymptomatic for any congestive heart failure etcetera. As above will continue with beta-daisy therapy and resume oral meds when able 5. GI-patient with known collagenous colitis intermittently treated with oral budesonide. I believe her presenting diarrhea etcetera more likely related to her bowel obstruction in issues than anything else at this point. 6. VTE prophylaxis-patient currently fully anticoagulated with a direct oral anticoagulant because of her cardiac dysrhythmia. Need to hold anticoagulation at the moment until they can be determine whether not patient will require surgical intervention. SCDs would be appropriate for VTE prophylaxis at this time 7. Code status-patient be appropriate for full code in the event of a sudden cardiac or respiratory arrest which is course at this time not anticipated COVID-19 COVID-19 status: Negative Result date/Date tested (Pos, Neg/Pending): 01/25/22 Time Spent With Patient Critical Care time: I spent a total of [] minutes of critical care time on this patient's care today; this time is exclusive of procedural time.
[2022-01-25] MEDS: DEXTROSE 5%-0.9% NS 1,000 ML 125 ML IV ×2 (15:40→23:44)
--- NOTE | 2022-01-25 16:06 | PC.NURSE ---
Addendum entered by Michael Calvillo R.N. 01/25/22 17:08: Patient tolerated IV metoprolol without difficulty, No changes seen on telemetry. Cardiac monitoring removed per protocol. Original Note: Patient brought up from ER to room 214. Oriented to room and call light, and call light placed within reach. Patient voided upon arrival, ambulated into bathroom and steady on her feet. VSS. Placed on telemetry per protocol for first dose administration of IV metoprolol as ordered. IV fluids infusing. Patient educated on bowel rest, NPO status, and mouth swabs and chapstick placed at bedside. Patient denies pain at this time. Will continue to monitor.
[2022-01-25] MEDS: METOPROLOL TARTRATE 5 MG/5 ML INJ IV ×2 (16:11→23:43)
--- NOTE | 2022-01-25 18:17 | P.CONS_ITS ---
History of Present Illness Consult details Date Patient Seen: 01/25/22 Chief complaint: cant keep anything down Narrative: Miroslava is a 76-year-old woman with multiple prior abdominal surgeries who presents with nausea, vomiting and a CT scan that is concerning for a small- bowel obstruction. She believes she has had a bowel obstruction once in the past but she is not very clear about the details of her surgical history. She has been having diarrhea which is her normal. She is uncertain about passing flatus this morning. Meds Home Medications and Allergies Home Medications Medication Instructions Recorded Confirmed Type [id number]-khew-minerals 27 1 tab PO DAILY 10/06/20 01/25/22 History mg-0.4 mg tablet (One Daily Women's) mirtazapine 15 mg tablet 30 mg PO BEDTIME #180 tabs 02/01/21 01/25/22 Rx metoprolol succinate 25 mg 25 mg PO BID 05/04/21 01/25/22 History tablet,extended release 24 hr rivaroxaban 20 mg tablet (Xarelto) 20 mg PO DAILY 05/04/21 01/25/22 History ketoconazole 2 % shampoo 1 applic topical DAILY PRN Itching 01/25/22 01/25/22 History losartan 100 mg tablet 100 mg PO DAILY 01/25/22 01/25/22 History Allergies Allergy/AdvReac Type Severity Reaction Status Date / Time amoxicillin [AMOXICILLIN] Allergy Intermediate FATIGUE Verified 11/02/21 10:03 clavulanic acid Allergy Intermediate FATIGUE Verified 11/02/21 10:03 [From AUGMENTIN] hydrochlorothiazide Allergy Intermediate WEAKNESS Verified 11/02/21 10:03 [HYDROCHLOROTHIAZIDE] Exam Vital Signs (past 8 hours): - 01/25/22 11:00 01/25/22 11:00 01/25/22 11:30 Temperature Pulse Rate 96 H Respiratory Rate 20 Blood Pressure 150/72 H 142/74 H Pulse Oximetry 93 Oxygen Delivery Method 01/25/22 11:30 01/25/22 12:00 01/25/22 12:00 Temperature Pulse Rate 97 H 101 H Respiratory Rate 21 29 H Blood Pressure 143/82 H Pulse Oximetry 95 96 Oxygen Delivery Method 01/25/22 12:30 01/25/22 12:30 01/25/22 13:00 Temperature Pulse Rate 99 H Respiratory Rate 20 Blood Pressure 144/70 H 140/69 Pulse Oximetry 95 Oxygen Delivery Method 01/25/22 13:00 01/25/22 13:30 01/25/22 13:31 Temperature Pulse Rate 97 H 100 H Respiratory Rate 32 H 30 H Blood Pressure 130/91 H Pulse Oximetry 94 95 Oxygen Delivery Method 01/25/22 13:31 01/25/22 14:00 01/25/22 14:00 Temperature Pulse Rate 101 H 98 H Respiratory Rate 30 H 25 H Blood Pressure 131/62 Pulse Oximetry 95 94 Oxygen Delivery Method 01/25/22 14:30 01/25/22 14:30 01/25/22 16:33 Temperature Pulse Rate 99 H 65 Respiratory Rate 22 Blood Pressure 131/63 139/66 Pulse Oximetry 94 Oxygen Delivery Method Room Air 01/25/22 15:30 01/25/22 15:30 Temperature 97.3 F L Pulse Rate 106 H Respiratory Rate 16 Blood Pressure 149/80 H Pulse Oximetry 93 Oxygen Delivery Method Room Air Oxygen Delivery Method Room Air Narrative Exam Narrative: Abdomen soft, minimally tender No peritoneal signs Objective Labs Result Diagrams: 01/25/22 07:59 01/25/22 07:59 Labs: Laboratory Results - last 24 hr 01/25/22 01/25/22 01/25/22 07:59 07:59 08:10 WBC 14.4 H RBC 4.82 Hgb 15.4 Hct 45.9 MCV 95.3 MCH 31.9 MCHC 33.5 RDW 13.4 Plt Count 238 Neut % (Auto) 82.9 H Lymph % (Auto) 10.8 L [place] % (Auto) 5.8 Eos % (Auto) 0.2 L Baso % (Auto) 0.3 Neut # (Auto) 49810 H Lymph # (Auto) 1600 [place] # (Auto) 800 Eos # (Auto) 0 Baso # (Auto) 0 Sodium 138 Potassium 3.9 Chloride 103 Carbon Dioxide 27 BUN 18 H Creatinine 0.69 Estimated GFR > 60 BUN/Creatinine Ratio 26.1 H Glucose 182 H Calcium 11.0 H Total Bilirubin 0.7 AST 47 H ALT 32 Alkaline Phosphatase 112 Total Protein 7.5 Albumin 4.2 Globulin 3.3 Albumin/Globulin Ratio 1.3 Lipase 77 SARS-CoV-2 (PCR) Negative Influenza A (RT-PCR) Flu a negative Influenza B (RT-PCR) Flu b negative RSV (PCR) Negative [facility] Medical History Ankle fracture, right (2005) Atrial flutter AV block Cardiomyopathy Cervical cancer Colitis Collagenous colitis (~04/2018) Colon polyp Dyshidrotic eczema Essential hypertension (08/18/15) Fibromyalgia History of adenomatous polyp of colon (03/31/11) History of pacemaker (~11/2017) Hypercalcemia Hyperlipidemia Hyperparathyroidism (11/09/15) Hypertension Hypoparathyroidism Insomnia Left bundle branch block (LBBB) (10/14/14) Neuropathy Pacemaker Peripheral polyneuropathy (12/07/16) Polyneuropathy (01/04/17) Primary osteoarthritis of right knee Right ACL tear (2005) Septal infarction Symptomatic bradycardia Surgical History History of bilateral salpingo-oophorectomy (BSO) (1998) Status post cholecystectomy (1998) Status post exploratory laparotomy Status post hysterectomy (1974) Family History Father Family history of diabetes mellitus (DM) Grandmother Family history of diabetes mellitus (DM) Sister Family history of diabetes mellitus (DM) Family/Other Family history of diabetes mellitus (DM) Social History household members: none Tobacco & Substance Use Smoking Status: Former smoker alcohol intake: current Assessment & Plan Assessment and plan (1) Small bowel obstruction: Status: Acute Plan If she continues to vomit she should get an NG tube. If she starts feeling better in passes some flatulence she can have clear liquids. If she has not changed at all by morning will start small-bowel follow-through. Time Spent With Patient Critical Care time: I spent a total of [] minutes of critical care time on this patient's care today; this time is exclusive of procedural time.
[2022-01-26] MEDS: METOPROLOL TARTRATE 5 MG/5 ML INJ IV (05:58)
[2022-01-26] MEDS: ONDANSETRON 4 MG/2 ML INJ IV (05:58)
[2022-01-26 06:46] LABS: BUN Creatinine Ratio 24.1 (6-22); Blood Urea Nitrogen 13 mg/dL (7-17); Calcium 8.8 mg/dL (8.4-10.2); Carbon Dioxide 25 mmol/L (22-32); Chloride 113 mmol/L (98-107); Estimated Glomerular Filt Rate > 60 mL/min (>60); Glucose 117 mg/dL (80-110); HEMOLYSIS < 15 (0-50); Potassium 3.7 mmol/L (3.4-5.1); Sodium 141 mmol/L (137-145)
[2022-01-26 07:11] LABS: Add Manual Diff / Slide Review NO; Basophils Absolute Auto 0 /uL (0-100); Basophils Percent Auto 0.3 % (0-2); Eosinophils Absolute Auto 100 /uL (0-450); Eosinophils Percent Auto 2.3 % (2-4); Hematocrit 38.4 % (36-46); Hemoglobin 12.9 g/dL (12.0-16.0); Lymphocytes Absolute Auto 2000 /uL (1100-4500); Lymphocytes Percent Auto 31.4 % (25-40); Mean Corpuscular HGB Conc 33.6 % (30-36); Mean Corpuscular Hemoglobin 32.2 PG (26-34); Mean Corpuscular Volume 95.9 fL (80-100); Monocytes Absolute Auto 500 /uL (0-900); Monocytes Percent Auto 7.1 % (3-14); Neutrophils Absolute Auto 3800 /uL (1500-7000); Neutrophils Percent Auto 58.9 % (50-75); Platelet Count 180 X10^3/uL (150-400); Red Blood Cell Count 4.01 X10^6/uL (4.0-5.2); Red Cell Distribution Width 13.4 % (11.6-14.8); White Blood Cell Count 6.5 X10^3/uL (4.5-11.0)
--- NOTE | 2022-01-26 07:49 | PM.PN.1 ---
Subjective Subjective Date Patient Seen: 01/26/22 Time Patient Seen: 07:50 Interval history: Basically uneventful evening. No further emesis. Patient reporting some liquidy type bowel movement and maybe some flatus to go with it Blood pressure heart rate controlled with current IV metoprolol only Lab work this morning unremarkable Exam Vital Signs (past 8 hours): Oxygen Delivery Method Room Air Objective Labs Result Diagrams: 01/26/22 06:30 01/26/22 06:30 Labs: Laboratory Results - last 24 hr 01/25/22 01/25/22 01/25/22 07:59 07:59 08:10 WBC 14.4 H RBC 4.82 Hgb 15.4 Hct 45.9 MCV 95.3 MCH 31.9 MCHC 33.5 RDW 13.4 Plt Count 238 Neut % (Auto) 82.9 H Lymph % (Auto) 10.8 L [place] % (Auto) 5.8 Eos % (Auto) 0.2 L Baso % (Auto) 0.3 Neut # (Auto) 26434 H Lymph # (Auto) 1600 [place] # (Auto) 800 Eos # (Auto) 0 Baso # (Auto) 0 Sodium 138 Potassium 3.9 Chloride 103 Carbon Dioxide 27 BUN 18 H Creatinine 0.69 Estimated GFR > 60 BUN/Creatinine Ratio 26.1 H Glucose 182 H Calcium 11.0 H Total Bilirubin 0.7 AST 47 H ALT 32 Alkaline Phosphatase 112 Total Protein 7.5 Albumin 4.2 Globulin 3.3 Albumin/Globulin Ratio 1.3 Lipase 77 SARS-CoV-2 (PCR) Negative Influenza A (RT-PCR) Flu a negative Influenza B (RT-PCR) Flu b negative RSV (PCR) Negative 01/26/22 01/26/22 06:30 06:30 WBC 6.5 D RBC 4.01 Hgb 12.9 Hct 38.4 MCV 95.9 MCH 32.2 MCHC 33.6 RDW 13.4 Plt Count 180 Neut % (Auto) 58.9 D Lymph % (Auto) 31.4 D [place] % (Auto) 7.1 Eos % (Auto) 2.3 Baso % (Auto) 0.3 Neut # (Auto) 3800 Lymph # (Auto) 2000 [place] # (Auto) 500 Eos # (Auto) 100 Baso # (Auto) 0 Sodium 141 Potassium 3.7 Chloride 113 H Carbon Dioxide 25 BUN 13 Creatinine 0.54 Estimated GFR > 60 BUN/Creatinine Ratio 24.1 H Glucose 117 H Calcium 8.8 Total Bilirubin AST ALT Alkaline Phosphatase Total Protein Albumin Globulin Albumin/Globulin Ratio Lipase SARS-CoV-2 (PCR) Influenza A (RT-PCR) Influenza B (RT-PCR) RSV (PCR) [facility] Medical History Ankle fracture, right (2005) Atrial flutter AV block Cardiomyopathy Cervical cancer Colitis Collagenous colitis (~04/2018) Colon polyp Dyshidrotic eczema Essential hypertension (08/18/15) Fibromyalgia History of adenomatous polyp of colon (03/31/11) History of pacemaker (~11/2017) Hypercalcemia Hyperlipidemia Hyperparathyroidism (11/09/15) Hypertension Hypoparathyroidism Insomnia Left bundle branch block (LBBB) (10/14/14) Neuropathy Pacemaker Peripheral polyneuropathy (12/07/16) Polyneuropathy (01/04/17) Primary osteoarthritis of right knee Right ACL tear (2005) Septal infarction Symptomatic bradycardia Surgical History History of bilateral salpingo-oophorectomy (BSO) (1998) Status post cholecystectomy (1998) Status post exploratory laparotomy Status post hysterectomy (1974) Family History Father Family history of diabetes mellitus (DM) Grandmother Family history of diabetes mellitus (DM) Sister Family history of diabetes mellitus (DM) Family/Other Family history of diabetes mellitus (DM) Social History household members: none Smoking Status: Former smoker alcohol intake: current Assessment & Plan Assessment & Plan narrative: 1. Small-bowel obstruction-evidence of improving bowel function. Plan clear liquids today as per General surgery 2. Chronic anticoagulation-patient remains off of her direct oral anticoagulant in case surgery becomes necessary. Low risk at this point for issues related to her lack of anticoagulation. Plan to resume when back to a normal diet 3. Hypertension-patient's blood pressure adequately controlled with current intervention which is merely IV metoprolol. I think we can probably restart her oral meds at this point and discontinue the IV metoprolol. Note: Greater than 20 minutes total time was spent on day of service, evaluating the patient on the floor, including examining the patient, discussing clinical course with clinical and nursing staff, reviewing clinical course in the computer, preparing documentation and writing orders for continued management of care, discussing status with family as appropriate, reviewing plans for the next 24 hours with both patient/family and nursing staff as appropriate. Quality VTE Deep Vein Thrombosis/Pulmonary Embolism Present on Admission: No
[2022-01-26 08:30] VITALS: BP 126/67; PULSE 69; RESP 16; TEMP 36.4; O2SAT 92
--- NOTE | 2022-01-26 09:00 | P.PN_ITS ---
Subjective Subjective Date Patient Seen: 01/26/22 Time Patient Seen: 09:00 Interval history: Miroslava reports that she has passed some flatus and some liquid bowel movement. Nausea is improved. Exam Vital Signs (past 8 hours): Oxygen Delivery Method Room Air Narrative Exam Narrative: Moderately tender and distended without peritoneal signs Objective Labs Result Diagrams: 01/26/22 06:30 01/26/22 06:30 Labs: Laboratory Results - last 24 hr 01/26/22 01/26/22 06:30 06:30 WBC 6.5 D RBC 4.01 Hgb 12.9 Hct 38.4 MCV 95.9 MCH 32.2 MCHC 33.6 RDW 13.4 Plt Count 180 Neut % (Auto) 58.9 D Lymph % (Auto) 31.4 D [place] % (Auto) 7.1 Eos % (Auto) 2.3 Baso % (Auto) 0.3 Neut # (Auto) 3800 Lymph # (Auto) 2000 [place] # (Auto) 500 Eos # (Auto) 100 Baso # (Auto) 0 Sodium 141 Potassium 3.7 Chloride 113 H Carbon Dioxide 25 BUN 13 Creatinine 0.54 Estimated GFR > 60 BUN/Creatinine Ratio 24.1 H Glucose 117 H Calcium 8.8 PFSH Medical History Ankle fracture, right (2005) Atrial flutter AV block Cardiomyopathy Cervical cancer Colitis Collagenous colitis (~04/2018) Colon polyp Dyshidrotic eczema Essential hypertension (08/18/15) Fibromyalgia History of adenomatous polyp of colon (03/31/11) History of pacemaker (~11/2017) Hypercalcemia Hyperlipidemia Hyperparathyroidism (11/09/15) Hypertension Hypoparathyroidism Insomnia Left bundle branch block (LBBB) (10/14/14) Neuropathy Pacemaker Peripheral polyneuropathy (12/07/16) Polyneuropathy (01/04/17) Primary osteoarthritis of right knee Right ACL tear (2005) Septal infarction Symptomatic bradycardia Surgical History History of bilateral salpingo-oophorectomy (BSO) (1998) Status post cholecystectomy (1998) Status post exploratory laparotomy Status post hysterectomy (1974) Family History Father Family history of diabetes mellitus (DM) Grandmother Family history of diabetes mellitus (DM) Sister Family history of diabetes mellitus (DM) Family/Other Family history of diabetes mellitus (DM) Social History household members: none Smoking Status: Former smoker alcohol intake: current Assessment & Plan Assessment and plan (1) Small bowel obstruction: Status: Acute Plan Some bowel function overnight. Start clears. Time Spent With Patient Critical Care time: I spent a total of [] minutes of critical care time on this patient's care today; this time is exclusive of procedural time. Quality VTE Deep Vein Thrombosis/Pulmonary Embolism Present on Admission: No
[2022-01-26 13:03] VITALS: BP 143/68; PULSE 78
[2022-01-26] MEDS: METOPROLOL IR 25 MG TABLET PO (13:03)
[2022-01-26] MEDS: LOSARTAN 50 MG TABLET 100 MG PO (13:03)
--- NOTE | 2022-01-26 14:42 | CM.DANOTE ---
Initial DCP Assessment Note Pt is a 76 yo female, resident of [place], presents with persistent N/V and admitted for management of SBO Patient has had some improvement and may be considered for discharge this evening PCP: Gerber Beverly Payer: ELIAS/RAJENDRA Reviewed chart, pt discussed in multidisciplinary rounds this morning. Patient eager to return home, has stated she is feeling much better than upon arrival to the ED Patient indp in room and is expected to return home w/assist from her family as needed. Close outpatient f/u recommended CM team will plan to follow closely in case any DC needs or concerns arise CATHY Vyas Discharge Planning/Care Management CM Discharge Assessment Start: 01/26/22 14:40 Freq: Status: Active Protocol: Document 01/26/22 14:41 VONNIE (Rec: 01/26/22 14:42 VONNIE [id number]) Discharge Planning Assessment Assigned Micro Computer Specialist CATHY De La Vega DPOA/Assigned Designee Name morales Santiago Contact Information [phone] Advance Directives? Yes Advance Directives on File No History Provided By Patient,Medical Record Prior Living Arrangements House Household Members none Type of transportation used prior to Drives own vehicle admit Independent with ADL's Yes Is patient alert and oriented? Yes Patient/Family Preference OP PT Therapy Barriers to Discharge No Comment No needs identified at this time Discharge Plan Home Transportation Arrangement Friend or family Referrals Initiated None needed
[2022-01-26 19:00] VITALS: O2SAT 95
[2022-01-26 19:22] VITALS: BP 138/62; PULSE 63; RESP 17; TEMP 35.6; O2SAT 97
[2022-01-26 21:55] VITALS: BP 136/68; PULSE 63
[2022-01-26] MEDS: METOPROLOL ER 25 MG TABLET PO (21:55)
[2022-01-26 22:45] VITALS: BP 130/60; PULSE 62
[2022-01-27] VITALS (9 sets, daily range): BP systolic 137–154; BP diastolic 70–93; PULSE 59–78; RESP 16–18; TEMP 36.2–36.5; O2SAT 95–96
--- NOTE | 2022-01-27 08:24 | PM.PN.1 ---
Subjective Subjective Date Patient Seen: 01/27/22 Time Patient Seen: 08:24 Interval history: Patient tolerating clear liquids without any difficulty. Has had some significant diarrhea maybe half a dozen times yesterday. However got up to the bathroom and urinated without any bowel movement for the first time earlier this morning. Exam Vital Signs (past 8 hours): Oxygen Delivery Method Room Air Oxygen Flow Rate 0 Objective Labs Result Diagrams: 01/26/22 06:30 01/26/22 06:30 [facility] Medical History Ankle fracture, right (2005) Atrial flutter AV block Cardiomyopathy Cervical cancer Colitis Collagenous colitis (~04/2018) Colon polyp Dyshidrotic eczema Essential hypertension (08/18/15) Fibromyalgia History of adenomatous polyp of colon (03/31/11) History of pacemaker (~11/2017) Hypercalcemia Hyperlipidemia Hyperparathyroidism (11/09/15) Hypertension Hypoparathyroidism Insomnia Left bundle branch block (LBBB) (10/14/14) Neuropathy Pacemaker Peripheral polyneuropathy (12/07/16) Polyneuropathy (01/04/17) Primary osteoarthritis of right knee Right ACL tear (2005) Septal infarction Symptomatic bradycardia Surgical History History of bilateral salpingo-oophorectomy (BSO) (1998) Status post cholecystectomy (1998) Status post exploratory laparotomy Status post hysterectomy (1974) Family History Father Family history of diabetes mellitus (DM) Grandmother Family history of diabetes mellitus (DM) Sister Family history of diabetes mellitus (DM) Family/Other Family history of diabetes mellitus (DM) Social History household members: none Smoking Status: Former smoker alcohol intake: current Assessment & Plan Assessment & Plan narrative: 1. Small-bowel obstruction-patient appears to have cleared what was probably a partial small-bowel obstruction. She maybe having some postobstructive kind of diarrhea. At this point okay to advance diet and if doing well likely able to discharge perhaps as early as later today late this afternoon early evening 2. Diarrhea-likely as above postobstructive kind of diarrhea however she does have known collagenous colitis that is responded nicely to oral budesonide. I am going to restart that at this point there is no negative consequence to doing that even if this is not from her collagenous colitis 3. Hypertension-patient's blood pressure vital signs etcetera good. She is back on her usual oral medications 4. Chronic anticoagulation-like to leave patient off of her anticoagulation for the moment however assuming she does discharge later today, when she discharges, whether that is today or tomorrow she will be able to resume her direct oral anticoagulant Note: Greater than 20 minutes total time was spent on day of service, evaluating the patient on the floor, including examining the patient, discussing clinical course with clinical and nursing staff, reviewing clinical course in the computer, preparing documentation and writing orders for continued management of care, discussing status with family as appropriate, reviewing plans for the next 24 hours with both patient/family and nursing staff as appropriate. Quality VTE Deep Vein Thrombosis/Pulmonary Embolism Present on Admission: No
[2022-01-27] MEDS: LOSARTAN 50 MG TABLET 100 MG PO (09:19)
[2022-01-27] MEDS: METOPROLOL ER 25 MG TABLET PO ×2 (09:20→20:51)
[2022-01-27] MEDS: BUDESONIDE 3 MG CAP 9 MG PO (09:22)
[2022-01-28 07:00] VITALS: O2SAT 96
[2022-01-28 08:00] VITALS: BP 154/69; PULSE 60; RESP 18; TEMP 35.8; O2SAT 97
--- NOTE | 2022-01-28 08:41 | P.DS_ITS ---
History of Present Illness History of Present Illness Date Patient Seen: 01/28/22 Time Patient Seen: 08:42 Chief complaint: cant keep anything down Narrative: 76-year-old female well known to me admitted via emergency department with a small-bowel obstruction Patient reports less than 24 hours increased frequency of bowel movements/diarrhea as well as abdominal pain with progression to nausea and vomiting inability really to keep anything down. Everything she is tried to keep down including her medications this morning she is vomited back up. Vomiting does really some vague abdominal pain temporarily but always comes back Denies fever chills etcetera ER evaluation demonstrated a probable distal small-bowel obstruction based on CT imaging. She is a bit of a leukocytosis but chemistries are otherwise pretty unremarkable Patient does have a history of multiple abdominal surgeries, including exploratory lap with lysis of adhesions for prior bowel obstruction. She also is chronically anticoagulated with a direct oral anticoagulant because of her history of atrial flutter, as per Cardiology. Does have left bundle branch block at baseline also has pacemaker implanted General surgery was contacted by emergency department physician and they requested admission to medicine Discharge Providers Provider Date of admission: 01/25/22 14:58 Discharge Date: 01/28/22 Primary care physician: Gerber Beverly MD Consults: 01/25/22 09:16 Consult to General Surgery Stat Comment: Consulting Provider: Carlitos Perez Reason for consultation: SBO Has provider been notified: Yes 01/25/22 13:16 Consult to Physician Routine Comment: Consulting Provider: Carlitos Perez Reason for consultation: SBO Has provider been notified: Yes Discharge provider: Gerber Beverly MD Summary Hospital Course Discharge Diagnosis: 1. Partial small-bowel obstruction, resolved 2. Essential hypertension 3. Postobstructive diarrhea, resolved 4. Collagenous colitis 5. Cardiomyopathy, idiopathic 6. Long-term chronic anticoagulation 7. Hyperparathyroidism 8. Status post pacemaker placement prior to this hospitalization Hospital Course: Patient was admitted because of her bowel obstruction. She did not require placement of an NG tube which would suggest more of a partial bowel obstruction rather than total. With conservative therapy including keeping her NPO and supporting her with IV fluid she seem to have return of bowel function. She had some flatus and bowel movement with this was slowly re fed first with liquids than more advanced diet. With this she had no additional abdominal symptoms. She did develop significant diarrhea for 12-18 hours after resolution of her bowel obstruction that resolved spontaneously. It was uncertain whether this diary with secondary to known collagenous colitis C diff for some other etiology but given its rapid resolution almost certainly secondary to kind of postobstructive process. Patient's anticoagulation was held upon admission as noted in H& P. It will be resumed by patient upon discharge. Her blood pressure was borderline elevated during the hospitalization will continue monitor that as an outpatient. She will resume her usual medications Status at Discharge Cognitive/behavioral status at discharge: at baseline, oriented Functional status at discharge: independent ambulation Overall status at discharge: patient is progressing back to baseline Exam Vital Signs (past 8 hours): Oxygen Delivery Method Room Air Oxygen Flow Rate 0 Objective Labs Result Diagrams: 01/26/22 06:30 01/26/22 06:30 [facility] Medical History Ankle fracture, right (2005) Atrial flutter AV block Cardiomyopathy Cervical cancer Colitis Collagenous colitis (~04/2018) Colon polyp Dyshidrotic eczema Essential hypertension (08/18/15) Fibromyalgia History of adenomatous polyp of colon (03/31/11) History of pacemaker (~11/2017) Hypercalcemia Hyperlipidemia Hyperparathyroidism (11/09/15) Hypertension Hypoparathyroidism Insomnia Left bundle branch block (LBBB) (10/14/14) Neuropathy Pacemaker Peripheral polyneuropathy (12/07/16) Polyneuropathy (01/04/17) Primary osteoarthritis of right knee Right ACL tear (2005) Septal infarction Symptomatic bradycardia Surgical History History of bilateral salpingo-oophorectomy (BSO) (1998) Status post cholecystectomy (1998) Status post exploratory laparotomy Status post hysterectomy (1974) Family History Father Family history of diabetes mellitus (DM) Grandmother Family history of diabetes mellitus (DM) Sister Family history of diabetes mellitus (DM) Family/Other Family history of diabetes mellitus (DM) Social History household members: none Smoking Status: Former smoker alcohol intake: current Discharge Plan Discharge Plan Patient Disposition: Home Discharge orders & Medications Prescriptions: Continued mirtazapine 15 mg tablet 30 mg PO BEDTIME Qty: 180 3RF Xarelto 20 mg tablet 20 mg PO DAILY metoprolol succinate 25 mg tablet extended release 24 hr 25 mg PO BID One Daily Women's 27-0.4 mg tablet 1 tab PO DAILY losartan 100 mg tablet 100 mg PO DAILY Label Comments: TAKE ONE TABLET BY MOUTH ONE TIME DAILY ketoconazole 2 % shampoo 1 applic TOPICAL DAILY PRN (Reason: Itching) Follow up/Referrals: Gerber Beverly MD [Primary Care Provider] - 1 Week Discharge Health Status Multidrug resistant organism: No MDRO Diet/Activity/Treatments Diet: Diet as Tolerated Discharge Data Primary Care Provider: Gerber Beverly Quality VTE Deep Vein Thrombosis/Pulmonary Embolism Present on Admission: No
[2022-01-28 09:53] VITALS: BP 154/69; PULSE 60
[2022-01-28] MEDS: METOPROLOL ER 25 MG TABLET PO (09:53)
[2022-01-28] MEDS: LOSARTAN 50 MG TABLET 100 MG PO (09:53)
[2022-01-28] MEDS: BUDESONIDE 3 MG CAP 9 MG PO (09:53)
--- NOTE | 2022-01-28 11:26 | PC.NURSE ---
Pt spoke with Dr. Beverly. Pt expects to go home today. Orders written IV d/c'd intact. Pt readied for d/c and escorted to car via w/c.
== END 2022-01-28 11:05 | disposition home or self-care (01) | DRG 389 ==
LOC: ED 09:33 → AC 14:59
PROVIDERS: Admitting Provider Internal Medicine; Emergency Provider Emergency Medicine; Family Provider Internal Medicine; PCP Internal Medicine; Referring Provider Emergency Medicine; Visit Provider Internal Medicine
DX: K56.600 Partial intestinal obstruction, unspecified as to cause (principal); I42.8 Other cardiomyopathies; K52.831 Collagenous colitis; I10 Essential (primary) hypertension; R19.7 Diarrhea, unspecified; E21.3 Hyperparathyroidism, unspecified; I44.7 Left bundle-branch block, unspecified; Z95.0 Presence of cardiac pacemaker; Z20.822 Contact with and (suspected) exposure to COVID-19; Z87.891 Personal history of nicotine dependence
CPT/HCPCS: 0241U; 36415; 74177; 80048; 80053; 83690; 85025; 96374; 99223; 99231; 99232; 99238; 99284; J2405

== ENCOUNTER 2022-03-13 00:18 | Observation (INO) | payer MEDICARE, SELFPAY ==
[2022-01-25 14:59] VITALS: BMI 25.7
[2022-03-13] VITALS (15 sets, daily range): BP systolic 124–159; BP diastolic 62–78; PULSE 62–92; RESP 15–18; TEMP 36.1–36.6; O2SAT 93–98; BMI 26.5; BMI 25.5
--- NOTE | 2022-03-13 00:28 | DI.CT.S_ITS ---
PROCEDURE: CT ABDOMEN PELVIS W CON INDICATIONS: Vomiting, history of obstructions TECHNIQUE: After the administration of intravenous contrast, axial sections acquired from the lung bases to the pubic symphysis. Coronal and sagittal reformats were performed. For radiation dose reduction, the following was used: automated exposure control, adjustment of mA and/or kV according to patient size. COMPARISON: [facility], CT, CT ABDOMEN PELVIS W CON, 01/25/2022, 8:21. FINDINGS: Image quality: Excellent. Lung bases: Left lingular atelectasis/small infiltrate is seen. Heart: Heart size is mildly enlarged, no pericardial effusion. Pacemaker leads are seen. ABDOMEN: Liver: Unremarkable. Gallbladder: Gallbladder is surgically absent. Biliary ducts: There is mild intra and extrahepatic biliary ductal dilatation worsened since previous study. No gross choledocholithiasis is seen. Common bile duct measures up to 1.3 cm in diameter on the current study. Pancreas: Unremarkable. Spleen: Unremarkable. Adrenal Glands: Unremarkable. Kidneys and Ureters: Small left renal cyst is seen. No hydronephrosis or hydroureter.. Stomach and Bowel: There is fluid distension of stomach and small bowel loops with multiple air-fluid levels. No gross abnormal bowel wall thickening is seen. There is abrupt bowel caliber change in right lower quadrant abdomen. Distal small bowel loops and colon loops are decompressed. No abscess collection. Colonic diverticulosis is seen. No colonic wall thickening or mesenteric fat stranding. Peritoneum: No abnormal intraperitoneal fluid. No free air. Ventral Wall: No hernias. Abdominal Nodes: No retroperitoneal or mesenteric adenopathy by size criteria. Vessels: Aorta and inferior vena cava are normal in size. Moderate atherosclerotic calcifications throughout abdominal aorta and bilateral iliac arteries are seen. PELVIS: Pelvic Organs: Unremarkable. Bladder: Unremarkable. Pelvic Nodes: No enlarged lymph nodes. Miscellaneous: No hernias are seen. Bones: No suspicious bony lesions. No acute vertebral body compression fracture. Grade 1 anterolisthesis of L4 on L5. IMPRESSION: 1. Finding is suggestive of distal small bowel obstruction with zone of transition in right lower quadrant abdomen. Finding may be due to adhesion. Internal hernia cannot be entirely excluded. No abscess collection. No free fluid or free air. 2. Prior cholecystectomy with interval worsening of intra and extrahepatic biliary ductal dilatation. Finding could represent biliary stasis, non radiopaque filling defect versus stricture suggest GI correlation. No calcified common bile duct stone is seen. 3. Colonic diverticulosis without CT evidence of acute diverticulitis. No discrepancies from preliminary reading. Dictated by: Miah Melendez M.D. on 03/13/2022 at 8:39 Approved by: Miah Melendez M.D. on 03/13/2022 at 8:45
--- NOTE | 2022-03-13 00:38 | ED_ITS ---
HPI - General Adult General Chief complaint: Abdominal Pain Stated complaint: abd. pain/vomiting Time Seen by Provider: 03/13/22 00:27 Source: patient Mode of arrival: Ambulatory Limitations: no limitations History of Present Illness HPI narrative: Patient is a 76-year-old female who is here for evaluation for approximately 1 day of abdominal pain and vomiting. She also is not passing any flatus. She did have a bowel movement today but did not think that it changed any of her symptoms. She describes it as generalized discomfort. No fevers. Has had multiple abdominal surgeries in the past. Has had a bowel obstruction in the past that resolved on its own without surgical intervention. States that it fe els somewhat like that. Denies any urinary symptoms. Has not tried anything for the symptoms prior to arrival. Related Data Home Medications Medication Instructions Recorded Confirmed bynpubgmnuvn-Hy-nzma-minerals 27 1 tab PO DAILY 10/06/20 02/03/22 mg-0.4 mg tablet (One Daily Women's) metoprolol succinate 25 mg 25 mg PO BID 05/04/21 02/03/22 tablet,extended release 24 hr rivaroxaban 20 mg tablet (Xarelto) 20 mg PO DAILY 05/04/21 02/03/22 ketoconazole 2 % shampoo 1 applic topical DAILY PRN Itching 01/25/22 02/03/22 losartan 100 mg tablet 100 mg PO DAILY 01/25/22 02/03/22 Previous Rx's Medication Instructions Recorded mirtazapine 15 mg tablet 30 mg PO BEDTIME #180 tabs 02/09/22 Allergies Allergy/AdvReac Type Severity Reaction Status Date / Time amoxicillin [AMOXICILLIN] AdvReac Intermediate FATIGUE Verified 02/03/22 11:21 clavulanic acid AdvReac Intermediate FATIGUE Verified 02/03/22 11:21 [From AUGMENTIN] hydrochlorothiazide AdvReac Intermediate WEAKNESS Verified 02/03/22 11:21 [HYDROCHLOROTHIAZIDE] Review of Systems Constitutional Constitutional: Reports system reviewed and no additional complaints, except as documented Cardiovascular Cardiovascular: Reports system reviewed and no additional complaints, except as documented Gastrointestinal Gastrointestinal: Reports system reviewed and no additional complaints, except as documented Genitourinary Genitourinary: Reports system reviewed and no additional complaints, except as documented Hematologic/Lymphatic On Anticoagulants: No Patient History Medical History Ankle fracture, right (2005) Atrial flutter AV block Cardiomyopathy Cervical cancer Colitis Collagenous colitis (~04/2018) Colon polyp Dyshidrotic eczema Essential hypertension (08/18/15) Fibromyalgia History of adenomatous polyp of colon (03/31/11) History of pacemaker (~11/2017) Hypercalcemia Hyperlipidemia Hyperparathyroidism (11/09/15) Hypertension Hypoparathyroidism Insomnia Left bundle branch block (LBBB) (10/14/14) Neuropathy Pacemaker Peripheral polyneuropathy (12/07/16) Polyneuropathy (01/04/17) Primary osteoarthritis of right knee Right ACL tear (2005) Septal infarction Small bowel obstruction Symptomatic bradycardia Surgical History History of bilateral salpingo-oophorectomy (BSO) (1998) Status post cholecystectomy (1998) Status post exploratory laparotomy Status post hysterectomy (1974) Family History Father Family history of diabetes mellitus (DM) Grandmother Family history of diabetes mellitus (DM) Sister Family history of diabetes mellitus (DM) Family/Other Family history of diabetes mellitus (DM) Social History household members: none Smoking Status: Former smoker alcohol intake: current Smoking Status: Former smoker tobacco type: cigarettes alcohol intake frequency: a few times a week Substance Use Type: does not use Exam Initial Vital Signs Initial Vital Signs: Vital Signs Temperature 97.8 F 03/13/22 00:26 Pulse Rate 92 H 03/13/22 00:26 Respiratory Rate 15 03/13/22 00:26 Blood Pressure 141/75 H 03/13/22 00:26 Pulse Oximetry 98 03/13/22 00:26 Oxygen Delivery Method 03/13/22 00:26 HENMS Head: normal to inspection and normocephalic Resp Effort & Inspection: normal respiratory effort Auscultation: clear to auscultation bilaterally Cardio Rate: regular rate Rhythm: regular rhythm GI Inspection: normal to inspection and non-distended Palpation: soft, No firm, No guarding and tender Skin General: no rashes or lesions noted Neuro General: patient alert, patient awake, patient oriented x3 and moves all extremities Scores GCS Lucy coma scale eye opening: Spontaneous Lucy coma scale verbal response: Orientated [place] coma scale motor response: Obey commands Lucy coma scale total score: 15 Course Orders Ordered: ED Orders 03/13/22 00:28 CT abdomen pelvis w con Stat 03/13/22 00:38 COVID19 -Nasal RAPID/Pre-Proc Stat 03/13/22 00:45 Complete Blood Count AUTO DIFF Stat Comprehensive Metabolic Panel Stat Lipase Stat Sodium Chloride (Normal Saline 0.9%) 1,000 mls @ 125 mls/hr IV CONT DEE Morphine Sulfate (Morphine 2 Mg/Ml Inj) 2 mg IV Q4HR PRN PRN Reason: pain Ondansetron HCl (Ondansetron 4 Mg/2 Ml Inj) 4 mg IV Q4HR PRN PRN Reason: Nausea And Vomiting Discontinued Medications Sodium Chloride (Normal Saline 0.9%) 1,000 mls @ 500 mls/hr IV BOLUS ONE Stop: 03/13/22 02:26 Last Infusion: 03/13/22 02:55 Dose: 0 mls/hr Documented By: Admin: 03/13/22 00:55 Dose: 500 mls/hr Documented By: ROOSEVELT Morphine Sulfate (Morphine 4 Mg/Ml Inj) 4 mg IV NOW ONE Stop: 03/13/22 00:39 Last Admin: 03/13/22 00:55 Dose: 4 mg Documented By: ROOSEVELT Vital Signs Vital signs: Vital Signs - 8 hr 03/13/22 00:26 03/13/22 00:52 03/13/22 01:00 Temperature 97.8 F Pulse Rate 92 H 81 79 Respiratory Rate 15 Blood Pressure 141/75 H Pulse Oximetry 98 94 95 Oxygen Delivery Method Room Air 03/13/22 01:30 03/13/22 02:00 03/13/22 02:12 Temperature Pulse Rate 73 70 64 Respiratory Rate Blood Pressure Pulse Oximetry 94 94 97 Oxygen Delivery Method 03/13/22 02:12 03/13/22 02:30 03/13/22 02:30 Temperature Pulse Rate 77 Respiratory Rate Blood Pressure 159/70 H 140/66 Pulse Oximetry 95 Oxygen Delivery Method 03/13/22 03:00 03/13/22 03:00 03/13/22 03:30 Temperature Pulse Rate 81 Respiratory Rate Blood Pressure 129/71 124/64 Pulse Oximetry 94 Oxygen Delivery Method 03/13/22 03:30 03/13/22 04:00 03/13/22 04:00 Temperature Pulse Rate 74 81 Respiratory Rate Blood Pressure 138/70 Pulse Oximetry 93 Oxygen Delivery Method 03/13/22 04:30 03/13/22 04:30 Temperature Pulse Rate 80 80 Respiratory Rate Blood Pressure 133/62 Pulse Oximetry 93 93 Oxygen Delivery Method Medical Decision Making Differential Diagnosis Differential Diagnosis: Obstruction, pancreatitis, diverticulitis, UTI, pyelo, and others Condition is:: Resolving Chronic Condition is having:: Mild excerbation Condition is at treatment goal?: No Discussed with:: Dr. Perez with General surgery Medical Records Medical records reviewed: Yes I reviewed the patient's medical records. Lab Data Lab results reviewed: Yes I reviewed the patient's lab results. Result diagrams: 03/13/22 00:45 03/13/22 00:45 Labs: Lab Results 03/13/22 03/13/22 03/13/22 Range/Units 00:38 00:45 00:45 WBC 10.8 (4.5-11.0) X10^3/uL RBC 4.92 (4.0-5.2) X10^6/uL Hgb 15.7 (12.0-16.0) g/dL Hct 47.8 H (36-46) % MCV 97.1 (80-100) fL MCH 31.9 (26-34) PG MCHC 32.8 (30-36) % RDW 14.1 (11.6-14.8) % Plt Count 244 (150-400) X10^3/uL Neut % (Auto) 77.0 H (50-75) % Lymph % (Auto) 17.9 L (25-40) % [place] % (Auto) 3.9 (3-14) % Eos % (Auto) 0.4 L (2-4) % Baso % (Auto) 0.8 (0-2) % Neut # (Auto) 8300 H (0806-0421) /uL Lymph # (Auto) 1900 (7680-5993) /uL [place] # (Auto) 400 (0-900) /uL Eos # (Auto) 0 (0-450) /uL Baso # (Auto) 100 (0-100) /uL Sodium 136 L (137-145) mmol/L Potassium 4.2 (3.4-5.1) mmol/L Chloride 99 (98-107) mmol/L Carbon Dioxide 28 (22-32) mmol/L BUN 17 (7-17) mg/dL Creatinine 0.70 (0.52-1.04) mg/dL Estimated GFR > 60 (>60) mL/min BUN/Creatinine Ratio 24.3 H (6-22) Glucose 165 H (80-110) mg/dL Calcium 11.3 H (8.4-10.2) mg/dL Total Bilirubin 0.7 (0.2-1.3) mg/dL AST 33 (14-36) IU/L ALT 25 (<35) IU/L Alkaline Phosphatase 107 (38-126) U/L Total Protein 7.7 (6.3-8.2) g/dL Albumin 4.3 (3.5-5.0) g/dL Globulin 3.4 (1.7-4.1) g/dL Albumin/Globulin Ratio 1.3 (1.0-2.8) Lipase 70 (23-300) U/L SARS-CoV-2 (PCR) Negative (Negative) Imaging Data CT scan - abdomen/pelvis: Attestation: I personally reviewed and interpreted this imaging study as follows: My Impression: Small-bowel obstruction Radiologist's Impression: Small-bowel obstruction with zone of transition in the right lower quadrant Although this is likely secondary to adhesions internal hernia can not be completely excluded Cholecystectomy with interval increase in intra and extrahepatic ductal dilation Differentials include biliary stasis/non radiopaque filling deficit, stricture Diverticulosis MDM Narrative Medical decision making narrative: Patient with approximately 24 hours of symptoms that were consistent with her prior diagnosis of a bowel obstruction. She is had multiple abdominal surgeries in the past. Her labs are unremarkable. CT scan does show small-bowel obstruction. I did discuss the case with Dr. Perez on-call with General surgery who will admit for further evaluation and treatment. Upon re-evaluation patient states she is feeling much better. Her nausea is resolved. She actually passed flatus here in the ER. She would like to hold on an NG tube for now. I do feel given her age and her prior diagnosis that even though she did pass flatus in his feeling better that he should continue with admission to the hospital to continue to observe until we are sure of complete resolution of her presenting symptoms today. She expressed agreement with this. Discharge Plan Departure Patient Disposition: Admitted As Inpatient Clinical Impression: Small bowel obstruction Admit Date/Time: 03/13/22 04:32 Admit Provider: Carlitos Perez
[2022-03-13] MEDS: MORPHINE 4 MG/ML INJ IV (00:55)
[2022-03-13] MEDS: SODIUM CHLORIDE 0.9% 1,000 ML 500 ML IV (00:55)
[2022-03-13 01:48] LABS: Add Manual Diff / Slide Review NO; Basophils Absolute Auto 100 /uL (0-100); Basophils Percent Auto 0.8 % (0-2); Eosinophils Absolute Auto 0 /uL (0-450); Eosinophils Percent Auto 0.4 % (2-4); Hematocrit 47.8 % (36-46); Hemoglobin 15.7 g/dL (12.0-16.0); Lymphocytes Absolute Auto 1900 /uL (1100-4500); Lymphocytes Percent Auto 17.9 % (25-40); Mean Corpuscular HGB Conc 32.8 % (30-36); Mean Corpuscular Hemoglobin 31.9 PG (26-34); Mean Corpuscular Volume 97.1 fL (80-100); Monocytes Absolute Auto 400 /uL (0-900); Monocytes Percent Auto 3.9 % (3-14); Neutrophils Absolute Auto 8300 /uL (1500-7000); Platelet Count 244 X10^3/uL (150-400); Red Blood Cell Count 4.92 X10^6/uL (4.0-5.2); Red Cell Distribution Width 14.1 % (11.6-14.8); White Blood Cell Count 10.8 X10^3/uL (4.5-11.0)
[2022-03-13 01:57] LABS: Alanine Aminotransferase 25 IU/L (<35); Albumin 4.3 g/dL (3.5-5.0); Albumin Globulin Ratio 1.3 (1.0-2.8); Alkaline Phosphatase 107 U/L (38-126); Aspartate Aminotransferase 33 IU/L (14-36); BUN Creatinine Ratio 24.3 (6-22); Bilirubin Total 0.7 mg/dL (0.2-1.3); Blood Urea Nitrogen 17 mg/dL (7-17); Calcium 11.3 mg/dL (8.4-10.2); Carbon Dioxide 28 mmol/L (22-32); Chloride 99 mmol/L (98-107); Estimated Glomerular Filt Rate > 60 mL/min (>60); Globulin 3.4 g/dL (1.7-4.1); Glucose 165 mg/dL (80-110); HEMOLYSIS 22 (0-50); Lipase 70 U/L (23-300); Potassium 4.2 mmol/L (3.4-5.1); Sodium 136 mmol/L (137-145); Total Protein 7.7 g/dL (6.3-8.2)
[2022-03-13 01:58] LABS: COVID19 -Nasal RAPID Negative (Negative)
[2022-03-13] MEDS: SODIUM CHLORIDE 0.9% 1,000 ML 125 ML IV (05:13)
--- NOTE | 2022-03-13 05:38 | PC.ADMIT ---
[id number] [facility] Admission Note: The patient,Miroslava Wiley,76 y/o, was given written information regarding hospital policies, unit procedures and contact persons. Patient's smoking status: Former smoker. Vital Signs - 8 hr 03/13/22 00:26 03/13/22 00:52 03/13/22 01:00 Temperature 97.8 F Pulse Rate 92 H 81 79 Respiratory Rate 15 Blood Pressure 141/75 H Pulse Oximetry 98 94 95 Oxygen Delivery Method Room Air 03/13/22 01:30 03/13/22 02:00 03/13/22 02:12 Temperature Pulse Rate 73 70 64 Respiratory Rate Blood Pressure Pulse Oximetry 94 94 97 Oxygen Delivery Method 03/13/22 02:12 03/13/22 02:30 03/13/22 02:30 Temperature Pulse Rate 77 Respiratory Rate Blood Pressure 159/70 H 140/66 Pulse Oximetry 95 Oxygen Delivery Method 03/13/22 03:00 03/13/22 03:00 03/13/22 03:30 Temperature Pulse Rate 81 Respiratory Rate Blood Pressure 129/71 124/64 Pulse Oximetry 94 Oxygen Delivery Method 03/13/22 03:30 03/13/22 04:00 03/13/22 04:00 Temperature Pulse Rate 74 81 Respiratory Rate Blood Pressure 138/70 Pulse Oximetry 93 Oxygen Delivery Method 03/13/22 04:30 03/13/22 04:30 03/13/22 05:13 Temperature 97.6 F Pulse Rate 80 80 77 Respiratory Rate 16 Blood Pressure 133/62 131/67 Pulse Oximetry 93 93 94 Oxygen Delivery Method Room Air 03/13/22 05:00 03/13/22 05:00 03/13/22 05:32 Temperature Pulse Rate 77 Respiratory Rate Blood Pressure 131/67 Pulse Oximetry 94 Oxygen Delivery Method Room Air Patient admitted to room 205 via wheelchair from ER. Reports history of SBO and, knowing what the pain feels like, she came to the ER believing she had another bowel obstruction. Assisted to bathroom upon admission and is passing flatus. Denies nausea or pain and states the obstruction is already resolved and she will be going home shortly. Is alert and oriented. Breath sounds CTA with RA sat of 94%. HRR; does have AICD. BT present and abdomen is soft and nontender. Denies dysuria, frequency or urgency with urination and is continent of B&B. Able to move independently and is low fall risk but instructed to call for staff assist when getting out of bed related to IVF infusing. Brought Losartan, Metoprolol and Rivaroxaban with her and refuses to allow them to be sent to the pharmacy because I'm going to be leaving today and I don't want to have to wait (to get the meds). Instructed not to take any of her own medications and she verbalized understanding. Fall risk score is low. Is aware she is NPO except for ice but declined ice chips or mouth swabs. Oriented to call light and bed controls.
--- NOTE | 2022-03-13 11:47 | CM.DANOTE ---
DCP: Assessment: Patient is a 76 yo female who drove herself to ED early this am with abdominal pain and emesis. She is noted to have a small bowel obstruction with hx of multiple past abdominal surgeries and hx of bowel obstuction in the past that resolved on it's own without surgical intervention. Pt is currently under the care of General Surgery. PCP: Gerber Beverly Payor: Medicare This CM met with pt in her room. Introduced self and explained role. Pt confirms that she drove herself to the ED early this am. Pt confirms that she lives alone and that she does not use DME. She is A+0x4. Pt main contact is her son Aditya Kingsley, who lives in [place]. P: Pt will drive herself home once medically stable. Floor RNAretha states that pt has not been administered any pain medication this morning during her care. Discharge Planning/Care Management CM Discharge Assessment Start: 03/13/22 11:03 Freq: Status: Active Protocol: Document 03/13/22 11:04 WALDEMAR (Rec: 03/13/22 11:22 [id number]) Discharge Planning Assessment Assigned Neckties Painter Milagros Graham RN Case Manager Advance Directives? Yes Advance Directives on File No History Provided By Patient,Medical Record Has Patient been admitted in last 30 No days? Prior Living Arrangements House Household Members none Type of transporation used prior to Drives own vehicle admit Independent with ADL's Yes Is patient alert and oriented? Yes Caregiver for Another No Patient/Family Preference OP PT Therapy Barriers to Discharge No Comment No needs identified at this time Discharge Plan Home Transportation Arrangement Friend or family Referrals Initiated None needed Whiteboard Updated in Patient Room with Yes name and ext. # of Neckties Painter Review Status In Process Next Review Type Continued Stay Review Document 03/13/22 11:40 WALDEMAR (Rec: 03/13/22 11:41 [email or web address] [id number]) Discharge Planning Assessment Assigned Neckties Painter Milagros Graham RN Case Manager Advance Directives? Yes Advance Directives on File No History Provided By Patient,Medical Record Has Patient been admitted in last 30 No days? Prior Living Arrangements House Household Members none Type of transporation used prior to Drives own vehicle admit Comment Pt will be driving self home upon discharge Independent with ADL's Yes Is patient alert and oriented? Yes Caregiver for Another No Patient/Family Preference OP PT Therapy Barriers to Discharge No Comment No needs identified at this time Discharge Plan Home Transportation Arrangement Friend or family Referrals Initiated None needed Whiteboard Updated in Patient Room with Yes name and ext. # of Neckties Painter Review Status In Process Next Review Type Continued Stay Review Document 03/13/22 11:46 WALDEMAR (Rec: 03/13/22 11:47 [email or web address] [id number]) Discharge Planning Assessment Assigned Neckties Painter Milagros Graham RN Case Manager Advance Directives? Yes Advance Directives on File No History Provided By Patient,Medical Record Has Patient been admitted in last 30 No days? Prior Living Arrangements House Household Members none Type of transporation used prior to Drives own vehicle admit Comment Pt will be driving self home upon discharge Independent with ADL's Yes Is patient alert and oriented? Yes Caregiver for Another No Patient/Family Preference OP PT Therapy Barriers to Discharge No Comment No needs identified at this time Discharge Plan Home Transportation Arrangement Friend or family Referrals Initiated None needed Whiteboard Updated in Patient Room with Yes name and ext. # of Neckties Painter Review Status In Process Next Review Type Continued Stay Review
--- NOTE | 2022-03-13 15:09 | P.HP_ITS ---
History of Present Illness History of Present Illness Date Patient Seen: 03/13/22 Time Patient Seen: 15:09 Chief complaint: abd. pain/vomiting Narrative: Miroslava presented to the hospital overnight with abdominal pain, nausea and no passage of flatus for about [address] scan was suggestive of small-bowel obstruction. She was admitted and since then has felt improvement in her nausea and has had passage of flatus. She was admitted with a bowel obstruction in [facility] and that resolved on its own. Patient History Medical History Ankle fracture, right (2005) Atrial flutter AV block Cardiomyopathy Cervical cancer Colitis Collagenous colitis (~04/2018) Colon polyp Dyshidrotic eczema Essential hypertension (08/18/15) Fibromyalgia History of adenomatous polyp of colon (03/31/11) History of pacemaker (~11/2017) Hypercalcemia Hyperlipidemia Hyperparathyroidism (11/09/15) Hypertension Hypoparathyroidism Insomnia Left bundle branch block (LBBB) (10/14/14) Neuropathy Pacemaker Peripheral polyneuropathy (12/07/16) Polyneuropathy (01/04/17) Primary osteoarthritis of right knee Right ACL tear (2005) Septal infarction Small bowel obstruction Symptomatic bradycardia Surgical History History of bilateral salpingo-oophorectomy (BSO) (1998) Status post cholecystectomy (1998) Status post exploratory laparotomy Status post hysterectomy (1974) Family & Social History Family History Father Family history of diabetes mellitus (DM) Grandmother Family history of diabetes mellitus (DM) Sister Family history of diabetes mellitus (DM) Family/Other Family history of diabetes mellitus (DM) Social History: household members none Prior Living Arrangements House Safety & Behavioral: Feels Safe in Current Yes Environment Tobacco & Substance use: Tobacco type cigarettes Smoking Status Former smoker alcohol intake current alcohol intake frequency a few times a week Substance Use Type does not use Meds Home Medications and Allergies Home Medications Medication Instructions Recorded Confirmed Type [id number]-My-cdzg-minerals 27 1 tab PO DAILY 10/06/20 03/13/22 History mg-0.4 mg tablet (One Daily Women's) metoprolol succinate 25 mg 25 mg PO BID 05/04/21 03/13/22 History tablet,extended release 24 hr rivaroxaban 20 mg tablet (Xarelto) 20 mg PO DAILY 05/04/21 03/13/22 History ketoconazole 2 % shampoo 1 applic topical DAILY PRN Itching 01/25/22 03/13/22 History losartan 100 mg tablet 100 mg PO DAILY 01/25/22 03/13/22 History mirtazapine 15 mg tablet 30 mg PO BEDTIME #180 tabs 02/09/22 03/13/22 Rx Allergies Allergy/AdvReac Type Severity Reaction Status Date / Time amoxicillin [AMOXICILLIN] AdvReac Intermediate FATIGUE Verified 02/03/22 11:21 clavulanic acid AdvReac Intermediate FATIGUE Verified 02/03/22 11:21 [From AUGMENTIN] hydrochlorothiazide AdvReac Intermediate WEAKNESS Verified 02/03/22 11:21 [HYDROCHLOROTHIAZIDE] Exam Vital Signs (past 8 hours): - 03/13/22 07:31 Temperature 97.3 F L Pulse Rate 62 Respiratory Rate 18 Blood Pressure 132/63 Pulse Oximetry 98 Oxygen Flow Rate 0 Oxygen Delivery Method Room Air Oxygen Flow Rate 0 Const General: No acute distress Resp Effort & Inspection: normal respiratory effort GI Palpation: soft Neuro General: patient alert and patient awake Objective Labs Result Diagrams: 03/13/22 00:45 03/13/22 00:45 Labs: Laboratory Results - last 24 hr 03/13/22 03/13/22 03/13/22 00:38 00:45 00:45 WBC 10.8 RBC 4.92 Hgb 15.7 Hct 47.8 H MCV 97.1 MCH 31.9 MCHC 32.8 RDW 14.1 Plt Count 244 Neut % (Auto) 77.0 H Lymph % (Auto) 17.9 L [place] % (Auto) 3.9 Eos % (Auto) 0.4 L Baso % (Auto) 0.8 Neut # (Auto) 8300 H Lymph # (Auto) 1900 [place] # (Auto) 400 Eos # (Auto) 0 Baso # (Auto) 100 Sodium 136 L Potassium 4.2 Chloride 99 Carbon Dioxide 28 BUN 17 Creatinine 0.70 Estimated GFR > 60 BUN/Creatinine Ratio 24.3 H Glucose 165 H Calcium 11.3 H Total Bilirubin 0.7 AST 33 ALT 25 Alkaline Phosphatase 107 Total Protein 7.7 Albumin 4.3 Globulin 3.4 Albumin/Globulin Ratio 1.3 Lipase 70 SARS-CoV-2 (PCR) Negative Assessment & Plan Assessment and plan (1) Small bowel obstruction: Status: Acute Plan Since admission the patient has started passing flatus and has felt much better. She will be given a regular diet and if she tolerates it well she will be able to go home. Time Spent With Patient Critical Care time: I spent a total of [] minutes of critical care time on this patient's care today; this time is exclusive of procedural time.
== END 2022-03-13 15:30 | disposition home or self-care (01) ==
LOC: ED 02:22 → AC 04:33
PROVIDERS: Admitting Provider Surgery; Emergency Provider Emergency Medicine; Family Provider Internal Medicine; PCP Internal Medicine; Referring Provider Emergency Medicine; Visit Provider Surgery
DX: K56.609 Unspecified intestinal obstruction, unspecified as to partial versus complete obstruction (principal); Z87.19 Personal history of other diseases of the digestive system; Z20.822 Contact with and (suspected) exposure to COVID-19
CPT/HCPCS: 36415; 74177; 80053; 83690; 85025; 87635; 96361; 96374; 99221; 99284; C9803; G0378; J2270; Q9967

== ENCOUNTER 2022-04-02 11:34 | Emergency (ER) | payer MEDICARE, SELFPAY ==
[2022-03-13 05:17] VITALS: BMI 25.5
[2022-04-02] VITALS (10 sets, daily range): BP systolic 142–186; BP diastolic 70–119; PULSE 67–85; RESP 14–26; TEMP 36.6; O2SAT 85–98; BMI 26.5
--- NOTE | 2022-04-02 12:03 | DI.CT.S_ITS ---
PROCEDURE: CT HEAD/BRAIN WO CON INDICATIONS: off balance, last known well last night TECHNIQUE: Noncontrast 4.5 mm thick angled axial sections acquired from the foramen magnum to the vertex, with coronal and sagittal reformats. For radiation dose reduction, the following was used: automated exposure control, adjustment of mA and/or kV according to patient size. COMPARISON: Located Within [facility], CT, CT ANGIO HEAD AND NECK, 04/02/2022, 13:07. FINDINGS: Image quality: Excellent. CSF spaces: Basal cisterns are patent. No extra-axial fluid collections. Ventricles are normal in size and shape. Brain: No midline shift. No intracranial masses or hemorrhage. No area of hypodensity in a large vascular distribution to suggest acute infarction. Periventricular hypodensity consistent with chronic microvascular ischemic change. Age-related parenchymal loss. Skull and face: Calvarium and visualized facial bones are intact, without suspicious lesions. Sinuses: Trace mucosal thickening in the maxillary sinuses. Mastoids are clear. IMPRESSION: No acute intracranial abnormality. Dictated by: Kirit Campbell M.D. on 04/02/2022 at 13:35 Approved by: Kirit Campbell M.D. on 04/02/2022 at 13:38
--- NOTE | 2022-04-02 12:04 | DI.CT.S_ITS ---
PROCEDURE: CT ANGIO HEAD AND NECK INDICATIONS: off balance, last known well last night. TECHNIQUE: After the administration of intravenous contrast, 1 mm thick sections acquired from the aortic arch through the [place]. Post-contrast 4.5 mm thick sections then re-acquired from the foramen magnum to the vertex. 3-dimensional kkxcunk-lmkigifil-cmibdrtztd (MIP) and/or volume rendering reformats were acquired of the central intracranial vasculature and neck separately. For radiation dose reduction, the following was used: automated exposure control, adjustment of mA and/or kV according to patient size. COMPARISON: [facility], CT, CT HEAD/BRAIN WO CON, 04/02/2022, 13:07. FINDINGS: Image quality: Good. Delayed images demonstrate motion artifact. BRAIN: CSF spaces: Ventricles are normal in size and shape. Basal cisterns are patent. No extra-axial fluid collections. Brain: No midline shift. No intracranial bleeds or masses. No area of hypodensity in a large vascular distribution to suggest acute infarction. Periventricular hypodensity consistent with chronic microvascular ischemic change. Age-related parenchymal loss. Skull and face: Calvarium and facial bones appear intact, without suspicious lesions. Orbits appear normal. Sinuses: Sinuses and mastoids are clear. HEAD CT ANGIOGRAPHY: Anterior circulation: Intracranial internal carotid arteries are normal in size and flow. The flow within the paired anterior cerebral arteries is normal and symmetric. The flow within the middle cerebral arteries is normal and symmetric. The anterior communicating artery is seen. No aneurysms are seen. Posterior circulation: Visualized portions of the vertebral arteries demonstrate normal caliber, and join to form a normal appearing basilar artery. Flow within the posterior cerebral arteries is normal and symmetric. No aneurysms are seen. NECK CT ANGIOGRAPHY: Carotid system: The great vessels demonstrate a conventional anatomy as they arise from the aortic arch. The origins of the common carotid arteries appear patent. Moderate plaque at the left subclavian artery origin. The common carotid arteries demonstrate normal caliber and courses. Mild calcified plaque at the right carotid bulb. Moderate plaque at the left carotid bulb. Less than 50% stenosis. Posterior circulation: The origins of the vertebral arteries both appear widely patent. The more superior extracranial portions of both vertebral arteries also demonstrate normal courses and calibers. They join to form a normal appearing basilar artery. Soft tissues: Visualized neck soft tissues demonstrate no suspicious abnormalities. Multiple small thyroid nodules. Bones: No suspicious bony lesions. Moderate degenerative change in the cervical spine most pronounced at C5-C6. Visualized cervical spine appears normally aligned. IMPRESSION: 1. No acute intracranial hemorrhage. 2. No large vessel occlusion. 3. No critical stenosis. Any quantitative measurements of stenosis were performed using NASCET criteria. Dictated by: Kirit Campbell M.D. on 04/02/2022 at 13:38 Approved by: Kirit Campbell M.D. on 04/02/2022 at 13:49
[2022-04-02 12:16] LABS: Add Manual Diff / Slide Review NO; Basophils Absolute Auto 100 /uL (0-100); Basophils Percent Auto 0.7 % (0-2); Eosinophils Absolute Auto 0 /uL (0-450); Eosinophils Percent Auto 0.4 % (2-4); Hematocrit 43.1 % (36-46); Hemoglobin 14.3 g/dL (12.0-16.0); Lymphocytes Absolute Auto 2200 /uL (1100-4500); Lymphocytes Percent Auto 28.4 % (25-40); Mean Corpuscular HGB Conc 33.2 % (30-36); Mean Corpuscular Hemoglobin 32.3 PG (26-34); Mean Corpuscular Volume 97.3 fL (80-100); Monocytes Absolute Auto 500 /uL (0-900); Neutrophils Absolute Auto 4800 /uL (1500-7000); Neutrophils Percent Auto 63.5 % (50-75); Platelet Count 232 X10^3/uL (150-400); Red Blood Cell Count 4.43 X10^6/uL (4.0-5.2); White Blood Cell Count 7.6 X10^3/uL (4.5-11.0)
[2022-04-02 12:21] LABS: Prothrombin Time 11.8 SECONDS (10.1-12.7)
[2022-04-02 12:24] LABS: PTT Partial Thromboplastin Tim 31 SECONDS (26-36)
[2022-04-02 12:27] LABS: Alanine Aminotransferase 24 IU/L (<35); Albumin 4.3 g/dL (3.5-5.0); Albumin Globulin Ratio 1.3 (1.0-2.8); Alkaline Phosphatase 108 U/L (38-126); Aspartate Aminotransferase 33 IU/L (14-36); BUN Creatinine Ratio 26.8 (6-22); Bilirubin Total 0.7 mg/dL (0.2-1.3); Blood Urea Nitrogen 15 mg/dL (7-17); Calcium 10.9 mg/dL (8.4-10.2); Carbon Dioxide 26 mmol/L (22-32); Chloride 104 mmol/L (98-107); Creatine Kinase 69 U/L (30-135); Estimated Glomerular Filt Rate > 60 mL/min (>60); Ethanol (ETOH) < 10 mg/dL; Globulin 3.2 g/dL (1.7-4.1); Glucose 97 mg/dL (80-110); HEMOLYSIS < 15 (0-50); Potassium 4.6 mmol/L (3.4-5.1); Sodium 139 mmol/L (137-145); Total Protein 7.5 g/dL (6.3-8.2)
[2022-04-02 12:38] LABS: Troponin I < 0.012 ng/mL (0.01-0.034)
[2022-04-02 13:41] LABS: UR Morphine/Opiate cutoff 300 Negative (Negative); Ur Creatinine Normal (Normal); Ur Specific Gravity Normal (Normal); Urine Amphetamines Negative (Negative); Urine Cocaine Negative (Negative); Urine Methamphetamines Negative (Negative); Urine Phencyclidine Negative (Negative); Urine Tetrahydrocannabinol Negative (Negative); Urine pH Normal (Normal)
[2022-04-02 13:42] LABS: Urine Barbiturates Negative (Negative); Urine Benzodiazepines Negative (Negative); Urine MDMA Negative (Negative); Urine Methadone Negative (Negative); Urine Oxycodone Negative (Negative); Urine Tricyclic Antidepressant Negative (Negative)
[2022-04-02 13:44] LABS: Appearance Urine UA CLEAR; Bilirubin Urine UA NEGATIVE (NEGATIVE); Color Urine UA YELLOW; Glucose Urine UA NEGATIVE (Negative); Ketones Urine UA NEGATIVE (NEGATIVE); Leukocyte Esterase Urine UA NEGATIVE (NEGATIVE); Nitrite Urine UA NEGATIVE (Negative); Occult Blood Urine UA NEGATIVE (Negative); Protein Urine UA NEGATIVE (Negative); Specific Gravity Urine UA 1.015 (1.000-1.035); Urobilinogen Urine UA 0.2 E.U./dL (0.2)
[2022-04-02 13:45] LABS: pH Urine UA 6.5 (4.5-8.0)
[2022-04-02 13:55] LABS: Bacteria Urine None Seen; RBC Urine None Seen (0-5/HPF); Squamous Epithelial Cell Urine 1-5 /HPF (0-5/HPF); WBC Urine 0-1/HPF (0-5/HPF)
[2022-04-02 13:56] LABS: Culture Indicated Urine Cult Not Indicated
--- NOTE | 2022-04-02 15:19 | ED_ITS ---
HPI - Neuro Symptoms/Deficit General Chief Complaint: Neuro Symptoms/Deficit Stated Complaint: Off balance, R ear itchy, upset stomach Time Seen by Provider: 04/02/22 15:16 Source: patient Mode of arrival: Ambulatory Limitations: no limitations History of Present Illness HPI Narrative: This is a 76-year-old female history of cardiomyopathy with an AICD in place patient is on rivaroxaban daily who presents with complaint of feeling off this morning and then states she went for a walk downtown she states she felt off- balance. Patient states she is had similar symptoms past but not like this. Not regularly. She states bending over did bother her quite a bit but even walking she started having trouble walking a straight line. She denies headache, she denies vision changes, she denies any lightheadedness or passing out. No numbness, tingling or weakness no speech changes. No chest pain or shortness of breath. She is had some nausea but no vomiting. No diarrhea constipation. Patient has no urinary symptoms no dysuria urgency or frequency. Patient is unsure of the exact source of her cardiomyopathy states she had a pacemaker and was upgraded to an AICD in the last couple months. She is on a bl ood thinner, she takes medication for hypertension dyslipidemia but denies any chronic kidney disease diabetes no prior strokes or heart attacks. She states she has a history of cervical cancer had surgery for this, cholecystectomy she states no other cardiac surgeries such as stents, ablation never had a CABG or aortic repair. She quit smoking tobacco remotely. No alcohol, no illicit. Dr. Beverly is her primary care. She follows with cardiology in [place]. On Anticoagulants: Yes Related Data Home Medications Medication Instructions Recorded Confirmed dqahpnyqtzwu-Bc-azpm-minerals 27 1 tab PO DAILY 10/06/20 03/13/22 mg-0.4 mg tablet (One Daily Women's) metoprolol succinate 25 mg 25 mg PO BID 05/04/21 03/13/22 tablet,extended release 24 hr rivaroxaban 20 mg tablet (Xarelto) 20 mg PO DAILY 05/04/21 03/13/22 ketoconazole 2 % shampoo 1 applic topical DAILY PRN Itching 01/25/22 03/13/22 losartan 100 mg tablet 100 mg PO DAILY 01/25/22 03/13/22 Previous Rx's Medication Instructions Recorded mirtazapine 15 mg tablet 30 mg PO BEDTIME #180 tabs 02/09/22 Allergies Allergy/AdvReac Type Severity Reaction Status Date / Time amoxicillin [AMOXICILLIN] AdvReac Intermediate FATIGUE Verified 04/02/22 11:54 clavulanic acid AdvReac Intermediate FATIGUE Verified 04/02/22 11:54 [From AUGMENTIN] hydrochlorothiazide AdvReac Intermediate WEAKNESS Verified 04/02/22 11:54 [HYDROCHLOROTHIAZIDE] Review of Systems Review of Systems ROS Unobtainable: All systems reviewed & are unremarkable except as noted in HPI and below Hematologic/Lymphatic On Anticoagulants: Yes Patient History Medical History Ankle fracture, right (2005) Atrial flutter AV block Cardiomyopathy Cervical cancer Colitis Collagenous colitis (~04/2018) Colon polyp Dyshidrotic eczema Essential hypertension (08/18/15) Fibromyalgia History of adenomatous polyp of colon (03/31/11) History of pacemaker (~11/2017) Hypercalcemia Hyperlipidemia Hyperparathyroidism (11/09/15) Hypertension Hypoparathyroidism Insomnia Left bundle branch block (LBBB) (10/14/14) Neuropathy Pacemaker Peripheral polyneuropathy (12/07/16) Polyneuropathy (01/04/17) Primary osteoarthritis of right knee Right ACL tear (2005) Septal infarction Small bowel obstruction Symptomatic bradycardia Surgical History History of bilateral salpingo-oophorectomy (BSO) (1998) Status post cholecystectomy (1998) Status post exploratory laparotomy Status post hysterectomy (1974) Family History Father Family history of diabetes mellitus (DM) Grandmother Family history of diabetes mellitus (DM) Sister Family history of diabetes mellitus (DM) Family/Other Family history of diabetes mellitus (DM) Social History household members: none Smoking Status: Former smoker alcohol intake: current Smoking Status: Former smoker tobacco type: cigarettes alcohol intake frequency: a few times a week Substance Use Type: does not use Exam Narrative Exam Narrative: GEN: well nourished, well appearing female, alert and oriented x 3, patient appears to be in mild distress. HEENT: Atraumatic, pupils are equal round reactive to light, extraocular movements are intact, nares are clear, TMs are clear with no fluid, there is no conjunctival pallor. Throat is clear without any exudates, erythema, tonsillar enlargement or uvular deviation, no facial droop. HEART: Regular rate and rhythm without murmur, clicks, rubs. No carotid bruits, pulses are equal in upper and lower extremities LUNGS:Lungs clear to auscultation, no wheezes, rales, crackles, chest moves symmetrically ABD:bowel sounds normal, soft, non-tender, no guarding, rebound, rigidity, no masses noted, no hepatosplenomegaly :No CVA tenderness MSCL: Non-tender, no muscle atrophy, muscles strength 5/5 upper and lower extremities, full range of motion, no significant ataxia with gait patient ambulated the entire department after my evaluation. NEURO:CN 2-12 intact, sensation normal, finger nose finger test normal, heel duvall test normal, romberg normal Initial Vital Signs Initial Vital Signs: Vital Signs Temperature 97.8 F 04/02/22 11:50 Pulse Rate 85 04/02/22 11:50 Respiratory Rate 14 04/02/22 11:50 Blood Pressure 176/86 H 04/02/22 11:50 Pulse Oximetry 85 L 04/02/22 11:50 Oxygen Delivery Method 04/02/22 11:50 Scores NIH Stroke Scale Level of Conciousness: Alert, keenly responsive Ask month/age: Answers both questions correctly. Open/close eyes, close hand: Performs both tasks correctly Best gaze horizontal: Normal Visual byrd: No visual loss Facial palsy: Normal symetrical movement Left arm drift: No drift for full 10 sec Right arm drift: No drift for full 10 sec Left leg drift: No drift for full 5 sec Right leg drift: No drift for full 5 sec Limb ataxia: Absent Sensory on face/arms/legs: Normal, no sensory loss Best language: No aphasia, normal Dysarthria: Normal Extinction or inattention: No abnormality Total NIH Stroke scale score: 0 Course Orders Ordered: ED Orders 04/02/22 12:00 Complete Blood Count AUTO DIFF Stat Comprehensive Metabolic Panel Stat Ethanol (ETOH) Stat Partial Thromboplastin Time Stat Prothrombin Time INR Stat Troponin & CK Cardiac Panel Stat 04/02/22 12:03 CT head/brain wo con Stat 04/02/22 12:04 CT angio head and neck Stat 04/02/22 12:27 EKG-12 Lead Stat 04/02/22 13:26 Urinalysis and Microscopic Stat Urine Drug Screen, Rapid Stat Vital Signs Vital signs: Vital Signs - 8 hr 04/02/22 11:50 04/02/22 12:15 04/02/22 12:15 Temperature 97.8 F Pulse Rate 85 71 Respiratory Rate 14 18 Blood Pressure 176/86 H 145/70 H Pulse Oximetry 85 L 96 Oxygen Delivery Method Room Air Room Air 04/02/22 12:30 04/02/22 13:00 04/02/22 13:30 Temperature Pulse Rate 69 67 Respiratory Rate 17 14 Blood Pressure 168/76 H Pulse Oximetry 96 98 Oxygen Delivery Method Room Air Room Air 04/02/22 13:30 04/02/22 14:00 04/02/22 14:00 Temperature Pulse Rate 72 70 Respiratory Rate 24 19 Blood Pressure 154/74 H Pulse Oximetry 98 98 Oxygen Delivery Method Room Air Room Air 04/02/22 14:30 04/02/22 14:30 04/02/22 15:00 Temperature Pulse Rate 71 Respiratory Rate 26 H Blood Pressure 142/119 H 170/79 H Pulse Oximetry 98 Oxygen Delivery Method Room Air 04/02/22 15:00 04/02/22 15:30 04/02/22 15:30 Temperature Pulse Rate 68 73 Respiratory Rate 14 24 Blood Pressure 174/84 H Pulse Oximetry 97 98 Oxygen Delivery Method 04/02/22 16:00 04/02/22 16:00 Temperature Pulse Rate 79 Respiratory Rate 26 H Blood Pressure 186/86 H Pulse Oximetry 97 Oxygen Delivery Method Room Air MDM - Neuro Symptoms/Deficit Lab Data 04/02/22 12:00 04/02/22 12:00 Labs: Lab Results 04/02/22 04/02/22 04/02/22 Range/Units 12:00 12:00 12:00 WBC 7.6 (4.5-11.0) X10^3/uL RBC 4.43 (4.0-5.2) X10^6/uL Hgb 14.3 (12.0-16.0) g/dL Hct 43.1 (36-46) % MCV 97.3 (80-100) fL MCH 32.3 (26-34) PG MCHC 33.2 (30-36) % RDW 14.0 (11.6-14.8) % Plt Count 232 (150-400) X10^3/uL Neut % (Auto) 63.5 (50-75) % Lymph % (Auto) 28.4 (25-40) % [place] % (Auto) 7.0 (3-14) % Eos % (Auto) 0.4 L (2-4) % Baso % (Auto) 0.7 (0-2) % Neut # (Auto) 4800 (3606-7618) /uL Lymph # (Auto) 2200 (2838-2382) /uL [place] # (Auto) 500 (0-900) /uL Eos # (Auto) 0 (0-450) /uL Baso # (Auto) 100 (0-100) /uL PT 11.8 (10.1-12.7) SECONDS INR 1.0 (0.9-1.3) APTT 31 (26-36) SECONDS Sodium 139 (137-145) mmol/L Potassium 4.6 (3.4-5.1) mmol/L Chloride 104 (98-107) mmol/L Carbon Dioxide 26 (22-32) mmol/L BUN 15 (7-17) mg/dL Creatinine 0.56 (0.52-1.04) mg/dL Estimated GFR > 60 (>60) mL/min BUN/Creatinine Ratio 26.8 H (6-22) Glucose 97 (80-110) mg/dL Calcium 10.9 H (8.4-10.2) mg/dL Total Bilirubin 0.7 (0.2-1.3) mg/dL AST 33 (14-36) IU/L ALT 24 (<35) IU/L Alkaline Phosphatase 108 (38-126) U/L Total Creatine Kinase 69 (30-135) U/L CK-MB (CK-2) TNP CK-MB (CK-2) Rel Index TNP Troponin I < 0.012 (0.01-0.034) ng/mL Total Protein 7.5 (6.3-8.2) g/dL Albumin 4.3 (3.5-5.0) g/dL Globulin 3.2 (1.7-4.1) g/dL Albumin/Globulin Ratio 1.3 (1.0-2.8) Urine Color Urine Appearance Urine pH (4.5-8.0) Ur Specific [place] (1.000-1.035) Urine Protein (Negative) Urine Glucose (UA) (Negative) g/dL Urine Ketones (NEGATIVE) Urine Occult Blood (Negative) Urine Nitrate (Negative) Urine Bilirubin (NEGATIVE) Urine Urobilinogen (0.2) E.U./dL Ur Leukocyte Esterase (NEGATIVE) Urine RBC (0-5/HPF) Urine WBC (0-5/HPF) Ur Squamous Epith Cells (0-5/HPF) Urine Bacteria (None) Ur Culture Indicated? U Opiates 300ng/mL cut (Negative) Ur Oxycodone Screen (Negative) Urine Methadone Screen (Negative) Ur Barbiturates Screen (Negative) U Tricyclic Antidepress (Negative) Ur Phencyclidine Scrn (Negative) Ur Amphetamines Screen (Negative) U Methamphetamines Scrn (Negative) Ur MDMA Scrn (Ecstasy) (Negative) U Benzodiazepines Scrn (Negative) Urine Cocaine Screen (Negative) U Marijuana (THC) Screen (Negative) Ethyl Alcohol < 10 ( - 10) mg/dL 04/02/22 04/02/22 Range/Units 13:26 13:26 WBC (4.5-11.0) X10^3/uL RBC (4.0-5.2) X10^6/uL Hgb (12.0-16.0) g/dL Hct (36-46) % MCV (80-100) fL MCH (26-34) PG MCHC (30-36) % RDW (11.6-14.8) % Plt Count (150-400) X10^3/uL Neut % (Auto) (50-75) % Lymph % (Auto) (25-40) % [place] % (Auto) (3-14) % Eos % (Auto) (2-4) % Baso % (Auto) (0-2) % Neut # (Auto) (1457-1275) /uL Lymph # (Auto) (0705-5895) /uL [place] # (Auto) (0-900) /uL Eos # (Auto) (0-450) /uL Baso # (Auto) (0-100) /uL PT (10.1-12.7) SECONDS INR (0.9-1.3) APTT (26-36) SECONDS Sodium (137-145) mmol/L Potassium (3.4-5.1) mmol/L Chloride (98-107) mmol/L Carbon Dioxide (22-32) mmol/L BUN (7-17) mg/dL Creatinine (0.52-1.04) mg/dL Estimated GFR (>60) mL/min BUN/Creatinine Ratio (6-22) Glucose (80-110) mg/dL Calcium (8.4-10.2) mg/dL Total Bilirubin (0.2-1.3) mg/dL AST (14-36) IU/L ALT (<35) IU/L Alkaline Phosphatase (38-126) U/L Total Creatine Kinase (30-135) U/L CK-MB (CK-2) CK-MB (CK-2) Rel Index Troponin I (0.01-0.034) ng/mL Total Protein (6.3-8.2) g/dL Albumin (3.5-5.0) g/dL Globulin (1.7-4.1) g/dL Albumin/Globulin Ratio (1.0-2.8) Urine Color Yellow Urine Appearance Clear Urine pH 6.5 (4.5-8.0) Ur Specific [place] 1.015 (1.000-1.035) Urine Protein Negative (Negative) Urine Glucose (UA) Negative (Negative) g/dL Urine Ketones Negative (NEGATIVE) Urine Occult Blood Negative (Negative) Urine Nitrate Negative (Negative) Urine Bilirubin Negative (NEGATIVE) Urine Urobilinogen 0.2 (0.2) E.U./dL Ur Leukocyte Esterase Negative (NEGATIVE) Urine RBC None seen (0-5/HPF) Urine WBC 0-1/hpf (0-5/HPF) Ur Squamous Epith Cells 1-5 /hpf (0-5/HPF) Urine Bacteria None seen (None) Ur Culture Indicated? Cult not indicated U Opiates 300ng/mL cut Negative (Negative) Ur Oxycodone Screen Negative (Negative) Urine Methadone Screen Negative (Negative) Ur Barbiturates Screen Negative (Negative) U Tricyclic Antidepress Negative (Negative) Ur Phencyclidine Scrn Negative (Negative) Ur Amphetamines Screen Negative (Negative) U Methamphetamines Scrn Negative (Negative) Ur MDMA Scrn (Ecstasy) Negative (Negative) U Benzodiazepines Scrn Negative (Negative) Urine Cocaine Screen Negative (Negative) U Marijuana (THC) Screen Negative (Negative) Ethyl Alcohol ( - 10) mg/dL Point of Care Testing Glucose POC 86 Imaging Data CTA - brain/neck: Radiologist's Impression: Close Head/Neck CTA (Signed) Shannan,Kirit - 04/02/[address] (Signed) Shannan,Kirit - 04/02/22 Abdomen/Pelvis CT (Signed) Miah Melendez - 03/13/22 Abdomen/Pelvis CT (Signed) Dwain Bashir - 01/25/22 Chest/Abdomen/Pelvis CT (Signed) Tejas Villalobos - 09/12/21 Chest X-Ray (Signed) RosiclareTejas panchal - 09/12/21 Hip X-Ray (Signed) Tejas Villalobos - 09/12/21 DI Result CC 03/30/21 Vascular Ultrasound (Signed) Alf Philip - 04/09/20 Telemetry Strips 03/11/20 Knee X-Ray (Signed) Zac Vera - 03/11/20 Outside EKG 01/07/20 DI Result CC 10/31/19 Outside Echo 10/31/19 DEXA Result 10/29/19 Bone Densitometry (Signed) Octavio Easton - 10/29/19 Chest/Abdomen X-ray (Signed) Octavio Easton - 04/30/19 Chest X-Ray (Signed) Miah Melendez - 12/19/17 Telemetry Strips 12/19/17 DEXA Result 11/13/17 Bone Densitometry (Signed) Iwona Hilario - 11/13/17 Launch?[place] [address] CT Scan Report Signed Patient: Miroslava Wiley MR#: [id number] : 1945 Acct:[id number] Age/Sex: 76 / F Date of Service: 04/02/22 Loc: ED Accession Number: [id number] ?? Procedure: CT angio head and neck Ordering Provider: Rachel Edouard D.O. PROCEDURE:? CT ANGIO HEAD AND NECK ? INDICATIONS:? off balance, last known well last night. ? TECHNIQUE:? After the administration of intravenous contrast, 1 mm thick sections acquired from the aortic arch through the [place].? Post-contrast 4.5 mm thick sections then re-acquired from the foramen magnum to the vertex.? 3-dimensional xwujwyw-vxkjhrwnh-bvisalrrqw (MIP) and/or volume rendering reformats were acquired of the central intracranial vasculature and neck separately. For radiation dose reduction, the following was used:? automated exposure control, adjustment of mA and/or kV according to patient size.? ? COMPARISON:? [facility], CT, CT HEAD/BRAIN WO [facility], 04/02/2022, 13:07. ? FINDINGS:? Image quality:? Good.? Delayed images demonstrate motion artifact. ? BRAIN:? CSF spaces:? Ventricles are normal in size and shape.? Basal cisterns are patent.? No extra-axial fluid collections.? ? Brain:? No midline shift.? No intracranial bleeds or masses.? No area of hypodensity in a large vascular distribution to suggest acute infarction. Periventricular hypodensity consistent with chronic microvascular ischemic change. Age-related parenchymal loss. ? Skull and face:? Calvarium and facial bones appear intact, without suspicious lesions.? Orbits appear normal.? ? Sinuses:? Sinuses and mastoids are clear.? ? HEAD CT ANGIOGRAPHY:? Anterior circulation:? Intracranial internal carotid arteries are normal in size and flow.? The flow within the paired anterior cerebral arteries is normal and symmetric.? The flow within the middle cerebral arteries is normal and symmetric.? The anterior communicating artery is seen.? No aneurysms are seen.? ? Posterior circulation:? Visualized portions of the vertebral arteries demonstrate normal caliber, and join to form a normal appearing basilar artery.? Flow within the posterior cerebral arteries is normal and symmetric.? No aneurysms are seen.? ? NECK CT ANGIOGRAPHY:? Carotid system:? The great vessels demonstrate a conventional anatomy as they arise from the aortic arch.? The origins of the common carotid arteries appear patent.? Moderate plaque at the left subclavian artery origin.? The common carotid arteries demonstrate normal caliber and courses.? Mild calcified plaque at the right carotid bulb.? Moderate plaque at the left carotid bulb.? Less than 50% stenosis. ? Posterior circulation:? The origins of the vertebral arteries both appear widely patent.? The more superior extracranial portions of both vertebral arteries also demonstrate normal courses and calibers.? They join to form a normal appearing basilar artery.? ? Soft tissues:? Visualized neck soft tissues demonstrate no suspicious abnormali ties.? Multiple small thyroid nodules.? ? Bones:? No suspicious bony lesions.? Moderate degenerative change in the cervical spine most pronounced at C5-C6.? Visualized cervical spine appears normally aligned.? ? ? IMPRESSION:? 1. No acute intracranial hemorrhage. ? 2. No large vessel occlusion. ? 3. No critical stenosis. ? ? Any quantitative measurements of stenosis were performed using NASCET criteria.? ? ? Dictated by: Kirit Campbell M.D. on 04/02/2022 at 13:38 ? ? Approved by: Kirit Campbell M.D. on 04/02/2022 at 13:49?? CT scan - head: Radiologist's Impression: Close Head/Neck CTA (Signed) Shannan,Kirit - 04/02/[address] (Signed) Shannan,Kirit - 04/02/22 Abdomen/Pelvis CT (Signed) Miah Melendez - 03/13/22 Abdomen/Pelvis CT (Signed) Dwain Bashir - 01/25/22 Chest/Abdomen/Pelvis CT (Signed) Tejas Villalobos - 09/12/21 Chest X-Ray (Signed) GriseldaTejas panchal - 09/12/21 Hip X-Ray (Signed) Tejas Villalobos - 09/12/21 DI Result CC 03/30/21 Vascular Ultrasound (Signed) Alf Philip - 04/09/20 Telemetry Strips 03/11/20 Knee X-Ray (Signed) Zac Vera - 03/11/20 Outside EKG 01/07/20 DI Result CC 10/31/19 Outside Echo 10/31/19 DEXA Result 10/29/19 Bone Densitometry (Signed) Octavio Easton - 10/29/19 Chest/Abdomen X-ray (Signed) Octavio Easton - 04/30/19 Chest X-Ray (Signed) Miah Melendez - 12/19/17 Telemetry Strips 12/19/17 DEXA Result 11/13/17 Bone Densitometry (Signed) Iwona Hilario - 11/13/17 Launch?[address] [address] [address] Scan Report Signed Patient: Miroslava Wiley MR#: [id number] : 1945 Acct:[id number] Age/Sex: 76 / F Date of Service: 04/02/22 Loc: ED Accession Number: [id number] ?? Procedure: CT head/brain wo con Ordering Provider: Rachel Edouard D.O. PROCEDURE:? CT HEAD/BRAIN WO CON ? INDICATIONS:? off balance, last known well last night ? TECHNIQUE:? Noncontrast 4.5 mm thick angled axial sections acquired from the foramen magnum to the vertex, with coronal and sagittal reformats.? For radiation dose reduction, the following was used:? automated exposure control, adjustment of mA and/or kV according to patient size.? ? COMPARISON:? [facility], CT, CT ANGIO HEAD AND NECK, 04/02/2022, 13:07. ? FINDINGS:? Image quality:? Excellent.? ? CSF spaces:? Basal cisterns are patent.? No extra-axial fluid collections.? Ventricles are normal in size and shape.? ? Brain:? No midline shift.? No intracranial masses or hemorrhage.? No area of hypodensity in a large vascular distribution to suggest acute infarction. Periventricular hypodensity consistent with chronic microvascular ischemic change. Age-related parenchymal loss. ? Skull and face:? Calvarium and visualized facial bones are intact, without suspicious lesions.? ? Sinuses:? Trace mucosal thickening in the maxillary sinuses.? Mastoids are clear. ? IMPRESSION:? No acute intracranial abnormality. ? ? Dictated by: Kirit Campbell M.D. on 04/02/2022 at 13:35 ? ? Approved by: Kirit Campbell M.D. on 04/02/2022 at 13:38?? ECG Data Attestation: I personally reviewed and interpreted this ECG as follows: Interpretation: Ventricularly paced rhythm rate of 67 WA 204 QRS of 132 and QTC 437. MDM Narrative Medical decision making narrative: This is a 76-year-old female who presents with feeling off and noticing that she is having balance issues when she ambulates today. She states she walked down town she is she was a little exact montoya was worse when she would bend over and stand up. Patient's NIH exam is 0 she is actually not very ataxic when she walks she is fairly steady gait she occasionally has a mild step off to the side. Discussed with patient stroke is on the differential she has a negative head CT, negative CTA, CBC, CMP coags, trope LFTs UA UDS and ETOH are all negative. There is some mild trace mucosal thickening certainly other CT change. She is got paced rhythm. Patient was offered observation an MR for stroke or at least MRI here. She would prefer to return home. She is aware of my concerns. Discussed return precautions bleed for her to continue her anticoagulation asked her to follow up with Dr. Beverly for recheck and either outpatient MRI or follow up with ENT if symptoms are not felt to be neurologic. Discharge Plan Departure Patient Disposition: Home Clinical Impression: Vertigo Instructions: DI for Vertigo Activity Restrictions/Additional Instructions: Please follow up with Dr. Beverly to be more fully evaluated for possible stroke or TIA. As you have elected not to stay overnight for observation or MRI talk with them about having this testing done as your next step. If your symptoms are not felt to be neurologic with Dr. Beverly in their persistent ENT would be also an appropriate follow-up. Please return for new or worsening symptoms, severe headaches, worsening difficulties with gait, dizziness, vertigo-like symptoms or be very off balance, new vision changes, facial droop, weakness numbness or tingling, severe chest pain or shortness of breath, persistent vomiting or other new or concerning changes. Prescriptions: No Action mirtazapine 15 mg tablet 30 mg PO BEDTIME Qty: 180 3RF Xarelto 20 mg tablet 20 mg PO DAILY metoprolol succinate 25 mg tablet extended release 24 hr 25 mg PO BID One Daily Women's 27-0.4 mg tablet 1 tab PO DAILY losartan 100 mg tablet 100 mg PO DAILY Label Comments: TAKE ONE TABLET BY MOUTH ONE TIME DAILY ketoconazole 2 % shampoo 1 applic TOPICAL DAILY PRN (Reason: Itching) Referrals: Gerber Beverly MD [Primary Care Provider] - Stand Alone Forms: Patient Portal/API
--- NOTE | 2022-04-02 16:21 | PC.NURSE ---
Ambulated patient around unit x2 times, pt with steady gait by 2nd loop, walking in straight line. Pt reports she walks daily and feels almost to her baseline. Dr. Edouard assessed pt ambulation and in room discussing plan with pt.
--- NOTE | 2022-04-02 16:25 | PC.NURSE ---
Dr. Edouard aware of elevated blood pressures, no new orders received.
== END 2022-04-02 16:29 | disposition home or self-care (01) ==
PROVIDERS: Emergency Provider Emergency Medicine; Family Provider Internal Medicine; PCP Internal Medicine
DX: R42 Dizziness and giddiness (principal); Z79.01 Long term (current) use of anticoagulants; Z79.899 Other long term (current) drug therapy; R29.700 NIHSS score 0
CPT/HCPCS: 36415; 70450; 70496; 70498; 80053; 80305; 80320; 81001; 82550; 82962; 84484; 85025; 85610; 85730; 93005; 99284; Q9967

== ENCOUNTER 2022-12-14 23:17 | Inpatient (IN) | payer MEDICARE, SELFPAY ==
[2022-03-13 05:17] VITALS: BMI 25.5
[2022-12-14 23:25] VITALS: BP 163/79; PULSE 72; RESP 18; TEMP 36.4; O2SAT 97; BMI 24.7
--- NOTE | 2022-12-14 23:25 | DI.CT.S_ITS ---
PROCEDURE: CT ABDOMEN PELVIS W CON INDICATIONS: Possible bowel obstruction TECHNIQUE: After the administration of intravenous contrast, axial sections acquired from the lung bases to the pubic symphysis. Coronal and sagittal reformats were performed. For radiation dose reduction, the following was used: automated exposure control, adjustment of mA and/or kV according to patient size. COMPARISON: [facility], CT, CT ABDOMEN PELVIS W CON, 03/13/2022, 0:34. FINDINGS: Image quality: Excellent. Lung bases: Unremarkable. Heart: Mildly enlarged heart with multi lead cardiac assist device. No pericardial effusion. ABDOMEN: Liver: No suspicious mass. Gallbladder: Surgically absent. Biliary ducts: Mild intra and extrahepatic biliary dilatation. Pancreas: Normal. Spleen: Normal. Adrenal Glands: Unremarkable. Kidneys and Ureters: Symmetric enhancement. No nephrolithiasis or hydronephrosis. No hydroureter. Stomach and Bowel: Stomach is modestly distended. The distal portion demonstrates prominent mucosal hyperemia. There are numerous distal dilated small bowel loops containing air-fluid levels and signs of stasis. A transition point in the pelvis is seen or there for are several long segments of pelvic small bowel which demonstrate circumferentially thickened wall and mild luminal stenosis. There is mild interloop fat stranding and several enters of interloop fluid. There is free fluid in the right lower quadrant and right upper quadrant. Peritoneum: No free intraperitoneal air. No abscess. Ventral Wall: No hernias. Abdominal Nodes: No retroperitoneal or mesenteric adenopathy by size criteria. Vessels: Aorta and inferior vena cava are normal in size. Moderate abdominal aortic atherosclerotic calcification. PELVIS: Pelvic Organs: Absent. Bladder: No wall thickening. Pelvic Nodes: No enlarged lymph nodes. Miscellaneous: No hernias are seen. Bones: Unremarkable. IMPRESSION: 1. Recurrent small bowel obstruction with a long segment transition point of small bowel with thickened stallings. This may be seen in gastroenteritis, inflammatory bowel disease, less likely postsurgical adhesion. Pattern of obstruction is similar compared to the prior exam. 2. There are findings of gastritis in the distal stomach. The proximal stomach contains a moderate amount of ingested material. 3. Mild intra and extrahepatic biliary dilatation post cholecystectomy. Correlate with LFTs to determine clinical significance. Dictated by: Suzanne Gee M.D. on 12/15/2022 at 0:52 Approved by: Suzanne Gee M.D. on 12/15/2022 at 1:03
[2022-12-14 23:28] VITALS: PULSE 76; O2SAT 98
[2022-12-14 23:29] VITALS: BP 169/79; PULSE 74; O2SAT 97
[2022-12-14 23:30] VITALS: BP 157/75; PULSE 72; O2SAT 98
--- NOTE | 2022-12-14 23:35 | ED.GENADULT ---
HPI - General Adult General Chief complaint: Abdominal Pain Stated complaint: gestational blockage Time Seen by Provider: 12/14/22 23:21 Source: patient Mode of arrival: Ambulatory History of Present Illness HPI narrative: Patient is a 77-year-old female. Has had several bowel obstructions in the past. None of which have required surgery however she has had abdominal surgeries in the past states she often has multiple bowel movements a day however today she only had 1 bowel movement. She did pass flatus this morning but nothing since then. Has a day has gone on she has felt very nauseous. Has been unable to vomit. Is having abdominal pain and distention. No urinary symptoms. She states that it feels very similar to her prior history of bowel obstructions. Related Data Home Medications Medication Instructions Recorded Confirmed [id number]-Qn-tzuj-minerals 27 1 tab PO DAILY 10/06/20 08/30/22 mg-0.4 mg tablet (One Daily Women's) metoprolol succinate 25 mg 25 mg PO BID 05/04/21 08/30/22 tablet,extended release 24 hr rivaroxaban 20 mg tablet (Xarelto) 20 mg PO DAILY 05/04/21 08/30/22 ketoconazole 2 % shampoo 1 applic topical DAILY PRN Itching 01/25/22 08/30/22 losartan 100 mg tablet 100 mg PO DAILY 01/25/22 08/30/22 Previous Rx's Medication Instructions Recorded mirtazapine 15 mg tablet 30 mg (2 x 15 mg) PO BEDTIME #180 02/09/22 tabs efinaconazole 10 % topical 1 applic topical BEDTIME 48 weeks 06/21/22 solution with applicator (Jublia) #8 mL Allergies Allergy/AdvReac Type Severity Reaction Status Date / Time amoxicillin [AMOXICILLIN] AdvReac Intermediate FATIGUE Verified 08/30/22 09:15 clavulanic acid AdvReac Intermediate FATIGUE Verified 08/30/22 09:15 [From AUGMENTIN] hydrochlorothiazide AdvReac Intermediate WEAKNESS Verified 08/30/22 09:15 [HYDROCHLOROTHIAZIDE] Review of Systems Constitutional Constitutional: Reports system reviewed and no additional complaints, except as documented Gastrointestinal Gastrointestinal: Reports system reviewed and no additional complaints, except as documented Genitourinary Genitourinary: Reports system reviewed and no additional complaints, except as documented Neurologic Neurologic: Reports system reviewed and no additional complaints, except as documented Hematologic/Lymphatic On Anticoagulants: Yes Patient History Medical History Small bowel obstruction Cardiomyopathy Septal infarction Colitis Neuropathy Hypoparathyroidism Hypertension Colon polyp AV block History of pacemaker (~11/2017) Symptomatic bradycardia Atrial flutter Primary osteoarthritis of right knee Collagenous colitis (~04/2018) Pacemaker Hypercalcemia Insomnia Hyperlipidemia Right ACL tear (2005) Dyshidrotic eczema Cervical cancer Ankle fracture, right (2005) Peripheral polyneuropathy (12/07/16) Polyneuropathy (01/04/17) Hyperparathyroidism (11/09/15) Essential hypertension (08/18/15) Left bundle branch block (LBBB) (10/14/14) Fibromyalgia History of adenomatous polyp of colon (03/31/11) Surgical History Status post hysterectomy (1974) Status post exploratory laparotomy Status post cholecystectomy (1998) History of bilateral salpingo-oophorectomy (BSO) (1998) Family History Father Family history of diabetes mellitus (DM) Grandmother Family history of diabetes mellitus (DM) Sister Family history of diabetes mellitus (DM) Family/Other Family history of diabetes mellitus (DM) Social History household members: none Smoking Status: Former smoker alcohol intake: current Smoking Status: Former smoker tobacco type: cigarettes alcohol intake frequency: a few times a week Substance Use Type: does not use Exam Initial Vital Signs Initial Vital Signs: Vital Signs Temperature 97.5 F L 12/14/22 23:25 Pulse Rate 72 12/14/22 23:25 Respiratory Rate 18 12/14/22 23:25 Blood Pressure 163/79 H 12/14/22 23:25 Pulse Oximetry 97 12/14/22 23:25 Oxygen Delivery Method Room Air 12/14/22 23:25 HENMT Head: normal to inspection and normocephalic Resp Effort & Inspection: normal respiratory effort Auscultation: clear to auscultation bilaterally Cardio Rate: regular rate Rhythm: regular rhythm GI Inspection: normal to inspection and distended Palpation: soft and tender Neuro General: patient alert, patient awake and moves all extremities Extrem General: capillary refill normal Course Orders Ordered: ED Orders 12/14/22 23:25 CT abdomen pelvis w con Stat 12/14/22 23:30 Complete Blood Count AUTO DIFF Stat Comprehensive Metabolic Panel Stat Lipase Stat 12/15/22 01:23 Consult to General Surgery Stat 12/15/22 01:27 Consult to Physician Stat Discontinued Medications Morphine Sulfate (Morphine 2 Mg/Ml Inj) 2 mg IV NOW ONE Stop: 12/15/22 00:07 Last Admin: 12/15/22 00:09 Dose: 2 mg Documented By: BETTYE Ondansetron HCl (Ondansetron 4 Mg/2 Ml Inj) 4 mg IV NOW ONE Stop: 12/15/22 00:07 Last Admin: 12/15/22 00:09 Dose: 4 mg Documented By: BETTYE Vital Signs Vital signs: Vital Signs - 8 hr 12/14/22 23:25 12/14/22 23:28 12/14/22 23:29 Temperature 97.5 F L Pulse Rate 72 76 Respiratory Rate 18 Blood Pressure 163/79 H 169/79 H Pulse Oximetry 97 98 Oxygen Delivery Method Room Air Room Air 12/14/22 23:29 12/14/22 23:30 12/14/22 23:30 Temperature Pulse Rate 74 72 Respiratory Rate Blood Pressure 157/75 H Pulse Oximetry 97 98 Oxygen Delivery Method Room Air Room Air 12/15/22 00:00 12/15/22 00:00 Temperature Pulse Rate 74 Respiratory Rate Blood Pressure 165/79 H Pulse Oximetry 96 Oxygen Delivery Method Room Air Medical Decision Making Medical Records Medical records reviewed: Yes I reviewed the patient's medical records. Lab Data Lab results reviewed: Yes I reviewed the patient's lab results. 12/14/22 23:30 12/14/22 23:30 Labs: Lab Results 12/14/22 Range/Units 23:30 WBC 9.8 (4.5-11.0) X10^3/uL RBC 4.54 (4.0-5.2) X10^6/uL Hgb 15.2 (12.0-16.0) g/dL Hct 44.3 (36-46) % MCV 97.5 (80-100) fL MCH 33.4 (26-34) PG MCHC 34.2 (30-36) % RDW 13.6 (11.6-14.8) % Plt Count 206 (150-400) X10^3/uL Neut % (Auto) Not Reportable Lymph % (Auto) Not Reportable [place] % (Auto) Not Reportable Eos % (Auto) Not Reportable Baso % (Auto) Not Reportable Lymph # (Auto) Not Reportable [place] # (Auto) Not Reportable Baso # (Auto) Not Reportable Total Counted 100 Seg Neutrophils % 57.0 (38-70) % Lymphocytes % (Manual) 39.0 (25-45) % Monocytes % (Manual) 2.0 (2-11) % Eosinophils % (Manual) 1.0 L (2-4) % Basophils % (Manual) 1.0 (0-1) % Neutrophils # (Manual) 5586 (4987-1669) /uL RBC Morphology Normal morphology Sodium 139 (137-145) mmol/L Potassium 4.4 (3.4-5.1) mmol/L Chloride 102 (98-107) mmol/L Carbon Dioxide 31 (22-32) mmol/L BUN 20 H (7-17) mg/dL Creatinine 0.59 (0.52-1.04) mg/dL Estimated GFR > 60 (>60) mL/min BUN/Creatinine Ratio 33.9 H (6-22) Glucose 118 H (80-110) mg/dL Calcium 11.1 H (8.4-10.2) mg/dL Total Bilirubin 0.3 (0.2-1.3) mg/dL AST 38 H (14-36) IU/L ALT 31 (<35) IU/L Alkaline Phosphatase 93 (38-126) U/L Total Protein 7.8 (6.3-8.2) g/dL Albumin 4.3 (3.5-5.0) g/dL Globulin 3.5 (1.7-4.1) g/dL Albumin/Globulin Ratio 1.2 (1.0-2.8) Lipase 178 (23-300) U/L Imaging Data CT scan - abdomen/pelvis: Radiologist's Impression: PROCEDURE: CT ABDOMEN PELVIS W CON INDICATIONS: Possible bowel obstruction TECHNIQUE: After the administration of intravenous contrast, axial sections acquired from the lung bases to the pubic symphysis. Coronal and sagittal reformats were performed. For radiation dose reduction, the following was used: automated exposure control, adjustment of mA and/or kV according to patient size. COMPARISON: [facility], CT, CT ABDOMEN PELVIS W CON, 03/13/2022, 0:34. FINDINGS: Image quality: Excellent. Lung bases: Unremarkable. Heart: Mildly enlarged heart with multi lead cardiac assist device. No pericardial effusion. ABDOMEN: Liver: No suspicious mass. Gallbladder: Surgically absent. Biliary ducts: Mild intra and extrahepatic biliary dilatation. Pancreas: Normal. Spleen: Normal. Adrenal Glands: Unremarkable. Kidneys and Ureters: Symmetric enhancement. No nephrolithiasis or hydronephrosis. No hydroureter. Stomach and Bowel: Stomach is modestly distended. The distal portion demonstrates prominent mucosal hyperemia. There are numerous distal dilated small bowel loops containing air-fluid levels and signs of stasis. A transition point in the pelvis is seen or there for are several long segments of pelvic small bowel which demonstrate circumferentially thickened wall and mild luminal stenosis. There is mild interloop fat stranding and several enters of interloop fluid. There is free fluid in the right lower quadrant and right upper quadrant. Peritoneum: No free intraperitoneal air. No abscess. Ventral Wall: No hernias. Abdominal Nodes: No retroperitoneal or mesenteric adenopathy by size criteria. Vessels: Aorta and inferior vena cava are normal in size. Moderate abdominal aortic atherosclerotic calcification. PELVIS: Pelvic Organs: Absent. Bladder: No wall thickening. Pelvic Nodes: No enlarged lymph nodes. Miscellaneous: No hernias are seen. Bones: Unremarkable. IMPRESSION: 1. Recurrent small bowel obstruction with a long segment transition point of small bowel with thickened stallings. This may be seen in gastroenteritis, inflammatory bowel disease, less likely postsurgical adhesion. Pattern of obstruction is similar compared to the prior exam. 2. There are findings of gastritis in the distal stomach. The proximal stomach contains a moderate amount of ingested material. 3. Mild intra and extrahepatic biliary dilatation post cholecystectomy. Correlate with LFTs to determine clinical significance. MDM Narrative Medical decision making narrative: Physical exam and CT scan are consistent with a small-bowel obstruction. I did discuss the case with Dr. Miels on-call for General surgery who asked the patient be admitted to the medicine service and she would follow on. A consult was placed. I then discussed the case with Dr. Stearns who is on-call for the patient's primary doctor who will admit. I did discuss the need for admission with the patient. She expressed understanding and agreement with plan. Discharge Plan Departure Patient Disposition: Admitted As Inpatient Clinical Impression: SBO (small bowel obstruction) Admit Date/Time: 12/15/22 01:27 Admit Provider: Gerber Beverly
[2022-12-14 23:46] LABS: Hematocrit 44.3 % (36-46); Hemoglobin 15.2 g/dL (12.0-16.0); Mean Corpuscular HGB Conc 34.2 % (30-36); Mean Corpuscular Hemoglobin 33.4 PG (26-34); Mean Corpuscular Volume 97.5 fL (80-100); Platelet Count 206 X10^3/uL (150-400); Red Blood Cell Count 4.54 X10^6/uL (4.0-5.2); Red Cell Distribution Width 13.6 % (11.6-14.8); White Blood Cell Count 9.8 X10^3/uL (4.5-11.0)
[2022-12-14 23:47] LABS: Add Manual Diff / Slide Review YES
[2022-12-14 23:49] LABS: Alanine Aminotransferase 31 IU/L (<35); Albumin 4.3 g/dL (3.5-5.0); Albumin Globulin Ratio 1.2 (1.0-2.8); Alkaline Phosphatase 93 U/L (38-126); Aspartate Aminotransferase 38 IU/L (14-36); BUN Creatinine Ratio 33.9 (6-22); Bilirubin Total 0.3 mg/dL (0.2-1.3); Blood Urea Nitrogen 20 mg/dL (7-17); Calcium 11.1 mg/dL (8.4-10.2); Carbon Dioxide 31 mmol/L (22-32); Chloride 102 mmol/L (98-107); Estimated Glomerular Filt Rate > 60 mL/min (>60); Globulin 3.5 g/dL (1.7-4.1); Glucose 118 mg/dL (80-110); HEMOLYSIS 32 (0-50); Lipase 178 U/L (23-300); Potassium 4.4 mmol/L (3.4-5.1); Sodium 139 mmol/L (137-145); Total Protein 7.8 g/dL (6.3-8.2)
[2022-12-15] VITALS (44 sets, daily range): BP systolic 140–176; BP diastolic 71–84; PULSE 63–87; RESP 15–27; TEMP 36.3–36.8; O2SAT 92–98; BMI 26.3
--- NOTE | 2022-12-15 | DI.RAD.S_ITS ---
PROCEDURE: XR CHEST 1V INDICATIONS: NG TUBE PLACEMENT TECHNIQUE: One view of the chest was acquired. COMPARISON: [facility], CR, XR CHEST 1V, 09/12/2021, 4:09. FINDINGS: Surgical changes and devices: Multi lead left-sided pacemaker. Nasogastric tube is present. The tip is below the diaphragm but the side hole remains in the distal esophagus. Lungs and pleura: Lungs are clear. No pleural effusions or pneumothorax. Mediastinum: Mild cardiomegaly. Stable aortic contour. Bones and chest wall: No suspicious bony lesions. Overlying soft tissues appear unremarkable. IMPRESSION: 1. Placement of nasogastric tube. Recommend advancement of at least 10 cm for optimal placement. 2. Cardiomegaly with multi lead pacemaker in place. Dictated by: Suzanne Gee M.D. on 12/15/2022 at 2:18 Approved by: Suzanne Gee M.D. on 12/15/2022 at 2:19
[2022-12-15] MEDS: ONDANSETRON 4 MG/2 ML INJ IV (00:09)
[2022-12-15] MEDS: MORPHINE 2 MG/ML INJ IV ×5 (00:09→19:53)
[2022-12-15 00:26] LABS: Neutrophils Absolute Manual 5586 /uL (3000-5900); Total Cells Counted 100
[2022-12-15 00:27] LABS: RBC Morphology Normal Morphology
--- NOTE | 2022-12-15 02:33 | PC.NURSE ---
Dr. Campos verified placement of NG tube by looking at the Xray. Gastric contents coming out with suction. Suction on low.
[2022-12-15] MEDS: SODIUM CHLORIDE 0.9% 1,000 ML 100 ML IV (03:00)
[2022-12-15 06:04] LABS: MRSA (Nasal) PCR Not Detected (Not Detect)
--- NOTE | 2022-12-15 06:49 | PM.HP.1 ---
History of Present Illness History of Present Illness Date Patient Seen: 12/15/22 Time Patient Seen: 06:49 Chief complaint: Intestinal blockage Narrative: 77-year-old female well known to me admitted with small-bowel obstruction Patient reported increasing symptoms of nausea and abdominal discomfort and distention with lack of bowel movements. Normally she has multiple bowel movements a day. She is had multiple small-bowel obstructions in the past that have resolve spontaneously without surgery. Given these ongoing symptoms she recognize the pattern and came to the ER for evaluation ER evaluation was essentially remarkable for evidence of the bowel obstruction on CT. Normal white blood cell count and chemistries She is admitted for bowel rest IV fluids antiemetics pain medication etcetera. Surgery was consulted via emergency department as well [facility] Medical History (Updated 12/15/22 @ 06:55 by Gerber Beverly MD) Paroxysmal atrial fibrillation Small bowel obstruction Cardiomyopathy Septal infarction Colitis Neuropathy Hypoparathyroidism Hypertension Colon polyp AV block History of pacemaker (~11/2017) Symptomatic bradycardia Atrial flutter Primary osteoarthritis of right knee Collagenous colitis (~04/2018) Pacemaker Hypercalcemia Insomnia Hyperlipidemia Right ACL tear (2005) Dyshidrotic eczema Cervical cancer Ankle fracture, right (2005) Peripheral polyneuropathy (12/07/16) Polyneuropathy (01/04/17) Hyperparathyroidism (11/09/15) Essential hypertension (08/18/15) Left bundle branch block (LBBB) (10/14/14) Fibromyalgia History of adenomatous polyp of colon (03/31/11) Surgical History Status post hysterectomy (1974) Status post exploratory laparotomy Status post cholecystectomy (1998) History of bilateral salpingo-oophorectomy (BSO) (1998) Family History Father Family history of diabetes mellitus (DM) Grandmother Family history of diabetes mellitus (DM) Sister Family history of diabetes mellitus (DM) Family/Other Family history of diabetes mellitus (DM) Social History household members: none Smoking Status: Former smoker alcohol intake: current Meds Home Medications and Allergies Home Medications Medication Instructions Recorded Confirmed Type ptdhlcneivwk-Kt-avlk-minerals 27 1 tab PO DAILY 10/06/20 12/15/22 History mg-0.4 mg tablet (One Daily Women's) metoprolol succinate 25 mg 25 mg PO BID 05/04/21 08/30/22 History tablet,extended release 24 hr rivaroxaban 20 mg tablet (Xarelto) 20 mg PO DAILY 05/04/21 08/30/22 History losartan 100 mg tablet 100 mg PO DAILY 01/25/22 08/30/22 History mirtazapine 15 mg tablet 30 mg (2 x 15 mg) PO BEDTIME #180 02/09/22 12/15/22 Rx tabs Allergies Allergy/AdvReac Type Severity Reaction Status Date / Time amoxicillin [AMOXICILLIN] AdvReac Intermediate FATIGUE Verified 08/30/22 09:15 clavulanic acid AdvReac Intermediate FATIGUE Verified 08/30/22 09:15 [From AUGMENTIN] hydrochlorothiazide AdvReac Intermediate WEAKNESS Verified 08/30/22 09:15 [HYDROCHLOROTHIAZIDE] Exam Vital Signs (past 8 hours): - 12/14/22 23:25 12/14/22 23:28 12/14/22 23:29 Temperature 97.5 F L Pulse Rate 72 76 Respiratory Rate 18 Blood Pressure 163/79 H 169/79 H Pulse Oximetry 97 98 Oxygen Delivery Method Room Air Room Air Oxygen Flow Rate 12/14/22 23:29 12/14/22 23:30 12/14/22 23:30 Temperature Pulse Rate 74 72 Respiratory Rate Blood Pressure 157/75 H Pulse Oximetry 97 98 Oxygen Delivery Method Room Air Room Air Oxygen Flow Rate 12/15/22 00:00 12/15/22 00:00 12/15/22 00:30 Temperature Pulse Rate 74 70 Respiratory Rate Blood Pressure 165/79 H Pulse Oximetry 96 93 Oxygen Delivery Method Room Air Oxygen Flow Rate 12/15/22 01:00 12/15/22 01:30 12/15/22 01:58 Temperature Pulse Rate 76 78 Respiratory Rate Blood Pressure 169/75 H Pulse Oximetry 96 97 Oxygen Delivery Method Room Air Oxygen Flow Rate 12/15/22 01:58 12/15/22 02:00 12/15/22 02:00 Temperature Pulse Rate 76 76 Respiratory Rate Blood Pressure 170/74 H Pulse Oximetry 98 97 Oxygen Delivery Method Room Air Room Air Oxygen Flow Rate 12/15/22 03:00 Temperature 98.1 F Pulse Rate 83 Respiratory Rate 18 Blood Pressure 176/84 H Pulse Oximetry 96 Oxygen Delivery Method Oxygen Flow Rate 0 Oxygen Delivery Method Room Air Oxygen Flow Rate 0 Objective Labs 12/14/22 23:30 12/14/22 23:30 Labs: Laboratory Results - last 24 hr 12/14/22 12/15/22 23:30 02:40 WBC 9.8 RBC 4.54 Hgb 15.2 Hct 44.3 MCV 97.5 MCH 33.4 MCHC 34.2 RDW 13.6 Plt Count 206 Neut % (Auto) Not Reportable Lymph % (Auto) Not Reportable [place] % (Auto) Not Reportable Eos % (Auto) Not Reportable Baso % (Auto) Not Reportable Lymph # (Auto) Not Reportable [place] # (Auto) Not Reportable Baso # (Auto) Not Reportable Total Counted 100 Seg Neutrophils % 57.0 Lymphocytes % (Manual) 39.0 Monocytes % (Manual) 2.0 Eosinophils % (Manual) 1.0 L Basophils % (Manual) 1.0 Neutrophils # (Manual) 5586 RBC Morphology Normal morphology Sodium 139 Potassium 4.4 Chloride 102 Carbon Dioxide 31 BUN 20 H Creatinine 0.59 Estimated GFR > 60 BUN/Creatinine Ratio 33.9 H Glucose 118 H Calcium 11.1 H Total Bilirubin 0.3 AST 38 H ALT 31 Alkaline Phosphatase 93 Total Protein 7.8 Albumin 4.3 Globulin 3.5 Albumin/Globulin Ratio 1.2 Lipase 178 Nasal Screen MRSA (PCR) Not detected Assessment & Plan Assessment & Plan narrative: 1. Small-bowel obstruction-continue patient NPO, with NG tube in place, with IV fluids, parental antiemetics and pain medication as necessary. Hopefully she will resolve with these conservative measures like she is done in the past. Thus far NG tube is draining actually possibly bloody tinged fluid. CT did suggest possibility of gastritis. Continue with proton pump inhibitor which will need to be administered parenterally for the gastritis and continue with NG drainage at this time. Patient unfortunately quite uncomfortable with the NG tube in place. Continue to monitor her output and given her past history would advocate for early removal of NG assuming clinical status supports that. 2. Hypertension-patient normally on metoprolol for hypertension. Blood pressure bit elevated here today. I think she would benefit from scheduled parental metoprolol while she is NPO. Initiate telemetry given the need for the parental metoprolol. 3. Cardiac-patient with ejection fraction of 25-35% almost recent echocardiogram from August 2021. She is not had issues with volume overload with IV fluids but need to monitor carefully for this. However she obviously needs IV fluids given her NPO status. Resume usual medications when able to take p.o. in addition patient with paroxysmal atrial fibrillation identified through interrogation of her pacemaker. She is chronically anticoagulated because of this. She will remain off the Xarelto for now and if she remains NPO over the next 24 hours will initiate Lovenox for VTE prophylaxis at least. Continue with metoprolol as above for this indication (paroxysmal atrial fibrillation) as well as the hypertension 4. Hyperlipidemia-continue usual medications when able to take p.o. 5. VTE prophylaxis-Lovenox appropriate, if she is NPO long enough to be off her Xarelto and normalize her coags 6. Code status-patient should be considered full code for the event of a sudden cardiac or respiratory arrest per her wishes. This is not anticipated at this time of course. Quality VTE Deep Vein Thrombosis/Pulmonary Embolism Present on Admission: Yes
[2022-12-15] MEDS: DEXTROSE 5%-LACTATED RINGERS 1,000 ML 100 ML IV ×2 (08:01→17:49)
[2022-12-15] MEDS: METOPROLOL TARTRATE 5 MG/5 ML INJ IV ×3 (08:09→18:00)
[2022-12-15] MEDS: PANTOPRAZOLE 40 MG VIAL IV (08:12)
--- NOTE | 2022-12-15 10:56 | CM.DANOTE ---
Addendum entered by CATHY Esteban 12/16/22 14:41: ADD: Met w/patient today to introduce self and role. Patient is not feeling well this visit, answers are short. Patient confirms she lives alone, independent, plans to return home w/support from family and friends as needed. 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 CM team will plan to follow clinical course. VONNIE Original Note: Initial DCP Assessment Note Pt is a 77 yo female, resident of [place], arrives with nausea and abdominal discomfort admitted for management of small bowel obstruction. Patient admitted by Dr Beverly, Surgery consult pending. PMH includes bowel obstruction with spontaneous resolution. PCP: Gerber Beverly Payer: M[employer] Reviewed chart, pt discussed in multidisciplinary rounds this morning. Patient with NG tube currently, feeling very ill this morning. Attempted bedside assessment and CRISSY Mayes requests patient be left to rest. CM team will re-attempt initial assessment when appropriate. According to prior notes, patient has been living alone, independent in all aspects, drives. No barriers identified at this time to patient's safe discharge home w/family to assist, CM team will plan to follow clinical course closely in case any DC needs or concerns arise. CATHY Vyas Discharge Planning/Care Management CM Discharge Assessment Start: 12/15/22 10:53 Freq: Status: Active Protocol: Document 12/15/22 10:54 VONNIE (Rec: 12/15/22 10:56 VONNIE [id number]) Discharge Planning Assessment Assigned Computer Repair Instructor CATHY De La Vega DPOA/Assigned Designee Name morales Choi Contact Information [phone] Advance Directives? Yes Advance Directives on File Yes History Provided By Patient,Medical Record Prior Living Arrangements House Household Members none Type of transporation used prior to Drives own vehicle admit Independent with ADL's Yes Is patient alert and oriented? Yes Needs Assistance With Home Chores / Shopping Patient/Family Preference OP PT Therapy Barriers to Discharge No Comment No needs identified at this time , will plan to follow clinical course. Discharge Plan Home Transportation Arrangement Friend or family Referrals Initiated None needed Additional Comment Will plan to follow in case any DC needs or concerns arise .
--- NOTE | 2022-12-15 13:32 | PM.CALLCOV.1 ---
Call Coverage Note Note Date of Patient Contact: 12/15/22 Narrative of Care Provided: CTscan to my read also represents more inflammatory than adhesive disease as etiology. Bowel rest, hydration and PPI for now. I will reevaluate in am.
[2022-12-16] VITALS (40 sets, daily range): BP systolic 131–180; BP diastolic 63–99; PULSE 63–80; RESP 15–34; TEMP 36.6–36.9; O2SAT 94–98
[2022-12-16] MEDS: METOPROLOL TARTRATE 5 MG/5 ML INJ IV ×3 (00:48→13:35)
[2022-12-16] MEDS: DEXTROSE 5%-LACTATED RINGERS 1,000 ML 100 ML IV ×3 (03:42→23:46)
[2022-12-16] MEDS: MORPHINE 2 MG/ML INJ IV ×4 (03:44→21:11)
[2022-12-16 05:26] LABS: Add Manual Diff / Slide Review NO; Basophils Absolute Auto 0 /uL (0-100); Basophils Percent Auto 0.2 % (0-2); Eosinophils Absolute Auto 0 /uL (0-450); Eosinophils Percent Auto 0.5 % (2-4); Hematocrit 41.3 % (36-46); Lymphocytes Absolute Auto 1600 /uL (1100-4500); Lymphocytes Percent Auto 16.3 % (25-40); Mean Corpuscular HGB Conc 33.9 % (30-36); Mean Corpuscular Hemoglobin 32.8 PG (26-34); Mean Corpuscular Volume 96.6 fL (80-100); Monocytes Absolute Auto 800 /uL (0-900); Monocytes Percent Auto 7.7 % (3-14); Neutrophils Absolute Auto 7500 /uL (1500-7000); Neutrophils Percent Auto 75.3 % (50-75); Platelet Count 191 X10^3/uL (150-400); Red Blood Cell Count 4.27 X10^6/uL (4.0-5.2); Red Cell Distribution Width 13.8 % (11.6-14.8); White Blood Cell Count 9.9 X10^3/uL (4.5-11.0)
[2022-12-16 05:48] LABS: BUN Creatinine Ratio 20.8 (6-22); Blood Urea Nitrogen 10 mg/dL (7-17); Calcium 9.9 mg/dL (8.4-10.2); Carbon Dioxide 29 mmol/L (22-32); Chloride 105 mmol/L (98-107); Estimated Glomerular Filt Rate > 60 mL/min (>60); Glucose 141 mg/dL (80-110); HEMOLYSIS < 15 (0-50); Potassium 3.8 mmol/L (3.4-5.1); Sodium 136 mmol/L (137-145)
[2022-12-16] MEDS: PANTOPRAZOLE 40 MG VIAL IV (08:00)
--- NOTE | 2022-12-16 08:26 | PC.NURSE ---
Addendum entered by Gerber Warren R.N. 12/16/22 12:51: 1220 - Approx. 25-50mL out after reclamping, stomach bile. NG removed per Dr. Beverly. Patient tolerated well. Original Note: 0820 - NG clamped per Dr. Beverly
--- NOTE | 2022-12-16 08:27 | PM.PN.1 ---
Subjective Subjective Date Patient Seen: 12/16/22 Time Patient Seen: 08:27 Interval history: Patient reports abdomen feeling somewhat better. NG output seems to have diminished overnight. Still fairly dark/bloody. Super sore throat but no other additional symptoms Exam Vital Signs (past 8 hours): - 12/16/22 00:30 12/16/22 00:45 12/16/22 00:45 Temperature Pulse Rate 71 72 Respiratory Rate 16 21 Blood Pressure 165/74 H Pulse Oximetry 12/16/22 01:00 12/16/22 01:30 12/16/22 02:00 Temperature Pulse Rate 64 68 67 Respiratory Rate 18 18 19 Blood Pressure Pulse Oximetry 12/16/22 02:30 12/16/22 03:00 12/16/22 03:30 Temperature Pulse Rate 68 73 76 Respiratory Rate 17 18 23 Blood Pressure Pulse Oximetry 12/16/22 04:00 12/16/22 04:00 12/16/22 04:30 Temperature Pulse Rate 69 71 Respiratory Rate 22 23 Blood Pressure 154/72 H Pulse Oximetry 12/16/22 05:00 12/16/22 05:30 12/16/22 06:00 Temperature Pulse Rate 69 72 75 Respiratory Rate 15 18 17 Blood Pressure Pulse Oximetry 12/16/22 06:30 12/16/22 06:40 12/16/22 06:40 Temperature Pulse Rate 79 76 Respiratory Rate 20 20 Blood Pressure 165/76 H Pulse Oximetry 12/16/22 07:00 12/16/22 07:30 12/16/22 07:51 Temperature 97.9 F Pulse Rate 65 64 65 Respiratory Rate 18 20 27 H Blood Pressure Pulse Oximetry 97 12/16/22 07:51 Temperature Pulse Rate Respiratory Rate Blood Pressure 170/80 H Pulse Oximetry Oxygen Delivery Method Room Air Oxygen Flow Rate 0 Narrative Exam Narrative: Abdomen-probably less distended, rare bowel tones, improved over yesterday. No rebound or guarding Objective Labs 12/16/22 04:32 12/16/22 04:32 Labs: Laboratory Results - last 24 hr 12/16/22 04:32 WBC 9.9 RBC 4.27 Hgb 14.0 Hct 41.3 MCV 96.6 MCH 32.8 MCHC 33.9 RDW 13.8 Plt Count 191 Neut % (Auto) 75.3 H Lymph % (Auto) 16.3 L [place] % (Auto) 7.7 Eos % (Auto) 0.5 L Baso % (Auto) 0.2 Neut # (Auto) 7500 H Lymph # (Auto) 1600 [place] # (Auto) 800 Eos # (Auto) 0 Baso # (Auto) 0 Sodium 136 L Potassium 3.8 Chloride 105 Carbon Dioxide 29 BUN 10 Creatinine 0.48 L Estimated GFR > 60 BUN/Creatinine Ratio 20.8 Glucose 141 H Calcium 9.9 PFSH Medical History (Updated 12/15/22 @ 06:55 by Gerber Beverly MD) Paroxysmal atrial fibrillation Small bowel obstruction Cardiomyopathy Septal infarction Colitis Neuropathy Hypoparathyroidism Hypertension Colon polyp AV block History of pacemaker (~11/2017) Symptomatic bradycardia Atrial flutter Primary osteoarthritis of right knee Collagenous colitis (~04/2018) Pacemaker Hypercalcemia Insomnia Hyperlipidemia Right ACL tear (2005) Dyshidrotic eczema Cervical cancer Ankle fracture, right (2005) Peripheral polyneuropathy (12/07/16) Polyneuropathy (01/04/17) Hyperparathyroidism (11/09/15) Essential hypertension (08/18/15) Left bundle branch block (LBBB) (10/14/14) Fibromyalgia History of adenomatous polyp of colon (03/31/11) Surgical History Status post hysterectomy (1974) Status post exploratory laparotomy Status post cholecystectomy (1998) History of bilateral salpingo-oophorectomy (BSO) (1998) Family History Father Family history of diabetes mellitus (DM) Grandmother Family history of diabetes mellitus (DM) Sister Family history of diabetes mellitus (DM) Family/Other Family history of diabetes mellitus (DM) Social History household members: none Smoking Status: Former smoker alcohol intake: current Assessment & Plan Assessment & Plan narrative: 1. SBO-patient with symptomatic improvement and decreased output from NG tube. Plan to clamp NG this morning then returned to suction to look for residual. If minimal retained material in the stomach after clamping for 4 hours maybe able to remove NG tube. Patient does appear to be improving 2. Hypertension-blood pressure elevated but not dangerously so. No change in plan 3. Cardiac-no active issues at this time. Remains off of her anticoagulation for her paroxysmal atrial fibrillation 4. VTE prophylaxis-somewhat hesitant to initiate Lovenox therapy given the bloody material coming up through her NG tube. She continues on proton pump inhibitor and I am going to leave her off of the Lovenox today anyway. Quality VTE Deep Vein Thrombosis/Pulmonary Embolism Present on Admission: Yes
[2022-12-16] MEDS: TETRACAINE/BENZOCAINE/BUTAMBEN (CETACAINE) BOTTLE 1 SPRAY TOP (08:36)
[2022-12-16] MEDS: RIVAROXABAN 10 MG TABLET 20 MG PO (17:37)
[2022-12-16] MEDS: MIRTAZAPINE 15 MG TABLET 30 MG PO (21:11)
[2022-12-16] MEDS: METOPROLOL ER 25 MG TABLET PO (21:11)
[2022-12-17 04:20] VITALS: BP 181/76; PULSE 63; RESP 16; TEMP 36.6; O2SAT 94
[2022-12-17 08:00] VITALS: BP 165/75; PULSE 71; RESP 20; TEMP 36.9; O2SAT 93
[2022-12-17 08:38] VITALS: BP 165/75; PULSE 71
[2022-12-17] MEDS: LOSARTAN 50 MG TABLET 100 MG PO (08:38)
[2022-12-17] MEDS: PANTOPRAZOLE 40 MG VIAL IV (08:38)
[2022-12-17 08:39] VITALS: BP 165/75; PULSE 71
[2022-12-17] MEDS: METOPROLOL ER 25 MG TABLET PO (08:39)
[2022-12-17 09:09] VITALS: BP 140/67
--- NOTE | 2022-12-17 09:20 | PC.NURSE ---
Spoke with provider - pt tolerating PO, urinating, BM overnight and passing flatus. Provider okayed advancing diet as tolerating and stopping IV fluids.
--- NOTE | 2022-12-17 10:48 | PM.DS.1 ---
History of Present Illness History of Present Illness Date Patient Seen: 12/17/22 Chief complaint: Intestinal blockage Narrative: 77-year-old female well known to me admitted with small-bowel obstruction Patient reported increasing symptoms of nausea and abdominal discomfort and distention with lack of bowel movements. Normally she has multiple bowel movements a day. She is had multiple small-bowel obstructions in the past that have resolve spontaneously without surgery. Given these ongoing symptoms she recognize the pattern and came to the ER for evaluation ER evaluation was essentially remarkable for evidence of the bowel obstruction on CT. Normal white blood cell count and chemistries She is admitted for bowel rest IV fluids antiemetics pain medication etcetera. Surgery was consulted via emergency department as well Discharge Providers Provider Date of admission: 12/15/22 01: Discharge Date: 12/17/22 Primary care physician: Gerber Beverly MD Consults: 12/15/22 01: Consult to General Surgery Stat Comment: Consulting Provider: Ebony Miles Reason for consultation: SBO Has provider been notified: Yes 12/15/22 01:27 Consult to Physician Stat Comment: Consulting Provider: Gerber Beverly Reason for consultation: admission Has provider been notified: No 12/15/22 01:28 Consult to Physician Stat Comment: Consulting Provider: Dejuan Stearns Reason for consultation: SBO Has provider been notified: Yes Discharge provider: Haydee Roberts MD Summary Hospital Course Discharge Diagnosis: Small bowel obstruction Hypertension Paroxysmal atrial fibrillation Hospital Course: The pt presented with small bowel obstruction. She was initially placed NPO with an NG tube in place. The pts symptoms gradually resolved. Her NG tube was removed, and then her diet was gradually advanced. At the time of discharge, she was passing flatus frequently, and had a BM. She was tolerating a normal diet. Of note, the pts BP was noted to be intermittently elevated during her hospitalization. She reports excellent control at home on her usual antihypertensives, and no changes were made to her medications. She was stable for discharge home. Status at Discharge Cognitive/behavioral status at discharge: oriented Functional status at discharge: independent ambulation Overall status at discharge: patient is back to baseline Exam Vital Signs (past 8 hours): - 12/17/22 04:20 12/17/22 07:00 12/17/22 08:00 Temperature 97.8 F 98.4 F Pulse Rate 63 71 Respiratory Rate 16 20 Blood Pressure 181/76 H 165/75 H Pulse Oximetry 94 93 Oxygen Delivery Method Room Air 12/17/22 08:38 12/17/22 08:39 12/17/22 09:09 Temperature Pulse Rate 71 71 Respiratory Rate Blood Pressure 165/75 H 165/75 H 140/67 Pulse Oximetry Oxygen Delivery Method Oxygen Delivery Method Room Air Oxygen Flow Rate 0 Narrative Exam Narrative: Gen: NAD, sitting comfortably in bed, appears well CV: RRR, no murmurs Resp: clear to auscultation bilaterally, no wheezes or crackles Abd: soft, nontender, nondistended, normoactive bowel sounds Ext: no edema Objective Labs 12/16/22 04:32 12/16/22 04:32 [facility] Medical History (Updated 12/15/22 @ 06:55 by Gerber Beverly MD) Paroxysmal atrial fibrillation Small bowel obstruction Cardiomyopathy Septal infarction Colitis Neuropathy Hypoparathyroidism Hypertension Colon polyp AV block History of pacemaker (~11/2017) Symptomatic bradycardia Atrial flutter Primary osteoarthritis of right knee Collagenous colitis (~04/2018) Pacemaker Hypercalcemia Insomnia Hyperlipidemia Right ACL tear (2005) Dyshidrotic eczema Cervical cancer Ankle fracture, right (2005) Peripheral polyneuropathy (12/07/16) Polyneuropathy (01/04/17) Hyperparathyroidism (11/09/15) Essential hypertension (08/18/15) Left bundle branch block (LBBB) (10/14/14) Fibromyalgia History of adenomatous polyp of colon (03/31/11) Surgical History Status post hysterectomy (1974) Status post exploratory laparotomy Status post cholecystectomy (1998) History of bilateral salpingo-oophorectomy (BSO) (1998) Family History Father Family history of diabetes mellitus (DM) Grandmother Family history of diabetes mellitus (DM) Sister Family history of diabetes mellitus (DM) Family/Other Family history of diabetes mellitus (DM) Social History household members: none Smoking Status: Former smoker alcohol intake: current Discharge Plan Discharge Plan Patient Disposition: Home Discharge orders & Medications Prescriptions: New ondansetron 4 mg tablet,disintegrating 4 mg PO Q8H PRN (Reason: nausea and vomiting) Qty: 20 0RF Continued mirtazapine 15 mg tablet 30 mg PO BEDTIME Qty: 180 3RF Xarelto 20 mg tablet 20 mg PO DAILY metoprolol succinate 25 mg tablet extended release 24 hr 25 mg PO BID One Daily Women's 27-0.4 mg tablet 1 tab PO DAILY losartan 100 mg tablet 100 mg PO DAILY Patient Comments: TAKE ONE TABLET BY MOUTH ONE TIME DAILY Follow up/Referrals: Gerber Beverly MD [Primary Care Provider] - 2 Weeks Diet/Activity/Treatments Diet: Diet as Tolerated and Regular Skin/Wound/Dressing Care Report to your healthcare provider any signs of infection, such as:: chills, fever and increased pain Visit Report/Discharge Packet Instructions: DI for Small Bowel Obstruction Stand Alone Forms: Patient Portal/API, Stroke Signs & Symptoms Discharge Data Primary Care Provider: Gerber Beverly Quality VTE Deep Vein Thrombosis/Pulmonary Embolism Present on Admission: Yes
[2022-12-17 12:00] VITALS: BP 165/78; PULSE 74; RESP 17; TEMP 36.6; O2SAT 96
== END 2022-12-17 14:11 | disposition home or self-care (01) | DRG 390 ==
LOC: ED 12-15 00:55 → AC 12-15 01:28 → ICU 12-15 01:59
PROVIDERS: Family Medicine; Admitting Provider Internal Medicine; Emergency Provider Emergency Medicine; Family Provider Internal Medicine; PCP Internal Medicine; Referring Provider Emergency Medicine; Visit Provider Internal Medicine
DX: K56.609 Unspecified intestinal obstruction, unspecified as to partial versus complete obstruction (principal); I10 Essential (primary) hypertension; E78.5 Hyperlipidemia, unspecified; I48.0 Paroxysmal atrial fibrillation; Z87.891 Personal history of nicotine dependence; Z79.01 Long term (current) use of anticoagulants
CPT/HCPCS: 36415; 71045; 74177; 80048; 80053; 83690; 85007; 85025; 87797; 96374; 96375; 96376; 99223; 99232; 99238; 99285; C9113; J2270; J2405; J7121; Q9967

== ENCOUNTER 2022-12-26 19:03 | Inpatient (IN) | payer MEDICARE, SELFPAY ==
[2022-12-15 03:01] VITALS: BMI 26.3
[2022-12-26] VITALS (10 sets, daily range): BP systolic 123–140; BP diastolic 66–88; PULSE 74–106; RESP 16–18; TEMP 36.2–36.3; O2SAT 93–99; BMI 24.7
--- NOTE | 2022-12-26 19:38 | DI.CT.S_ITS ---
PROCEDURE: CT ABDOMEN PELVIS W CON INDICATIONS: poss bowel obstruction TECHNIQUE: After the administration of intravenous contrast, axial sections acquired from the lung bases to the pubic symphysis. Coronal and sagittal reformats were performed. For radiation dose reduction, the following was used: automated exposure control, adjustment of mA and/or kV according to patient size. COMPARISON: [facility], CT, CT ABDOMEN PELVIS W CON, 12/15/2022, 0:09. FINDINGS: Image quality: Excellent. Lung bases: Unremarkable. Heart: Heart size is enlarged, no pericardial effusion. Pacemaker leads are noted. ABDOMEN: Liver: Unremarkable. Gallbladder: Gallbladder is surgically absent. Biliary ducts: Mild intrahepatic biliary ductal dilatation is again seen unchanged from prior study. Mild extrahepatic biliary ductal dilatation is also unchanged. Pancreas: Unremarkable. Spleen: Unremarkable. Adrenal Glands: Unremarkable. Kidneys and Ureters: Bilateral kidneys show normal size and enhancement. No renal stones or hydronephrosis. 1.4 cm simple cyst in midpole of left kidney is seen unchanged from prior study. Stomach and Bowel: Markedly distended gastric lumen is seen with air-fluid level. There is suggestion of distal gastric wall thickening and wall thickening involving proximal to mid duodenum. Fluid distended small bowel loops are also noted throughout abdomen with multiple air-fluid levels. A long segment of wall thickening and edema with narrowing of the lumen is noted in lower abdomen/pelvis with decompressed bowel loops distal to this segment and fluid distended bowel loops proximal to this segment series 2, images 62 through 69. Overall gastric lumen distension has worsened since previous study. Small bowel loop distension now measures up to 2.8 cm compared to 2.6 cm on previous study. More distal small bowel loops and colon loops are normal in wall thickness and caliber. Sigmoid diverticulosis is seen without definite CT evidence of acute diverticulitis. Peritoneum: Small amount of free fluid is seen in lower abdomen and pelvis. No peritoneal free air. Ventral Wall: No hernias. Abdominal Nodes: No retroperitoneal or mesenteric adenopathy by size criteria. Vessels: Aorta and inferior vena cava are normal in size. PELVIS: Pelvic Organs: Unremarkable. Bladder: Unremarkable. Pelvic Nodes: No enlarged lymph nodes. Miscellaneous: No hernias are seen. Bones: No suspicious bony lesions. No acute vertebral body compression fracture. IMPRESSION: 1. Finding is consistent with distal small bowel obstruction with a long segment transition point of small bowel with thickened stallings in lower abdomen/pelvis as described above. 2. Interval worsening of gastric lumen distension with suggestion of distal gastritis and proximal duodenitis concerning for gastric outlet obstruction. 3. Small amount of peritoneal free fluid. No abscess collection. No peritoneal free air. Sigmoid diverticulosis without CT evidence of acute diverticulitis. 4. Other findings are not significantly changed from previous study. Dictated by: Miah Melendez M.D. on 12/26/2022 at 20:32 Approved by: Miah Melendez M.D. on 12/26/2022 at 20:40
[2022-12-26] MEDS: HYDROMORPHONE 1 MG INJ IV (19:44)
[2022-12-26] MEDS: ONDANSETRON 4 MG/2 ML INJ IV (19:44)
[2022-12-26 19:47] LABS: Add Manual Diff / Slide Review NO; Basophils Absolute Auto 100 /uL (0-100); Basophils Percent Auto 0.5 % (0-2); Eosinophils Absolute Auto 100 /uL (0-450); Eosinophils Percent Auto 0.5 % (2-4); Hemoglobin 15.6 g/dL (12.0-16.0); Lymphocytes Absolute Auto 2700 /uL (1100-4500); Lymphocytes Percent Auto 18.7 % (25-40); Mean Corpuscular Hemoglobin 32.9 PG (26-34); Mean Corpuscular Volume 96.7 fL (80-100); Monocytes Absolute Auto 800 /uL (0-900); Monocytes Percent Auto 5.5 % (3-14); Neutrophils Absolute Auto 10600 /uL (1500-7000); Neutrophils Percent Auto 74.8 % (50-75); Platelet Count 291 X10^3/uL (150-400); Red Blood Cell Count 4.75 X10^6/uL (4.0-5.2); Red Cell Distribution Width 13.5 % (11.6-14.8); White Blood Cell Count 14.2 X10^3/uL (4.5-11.0)
[2022-12-26 20:00] LABS: Alanine Aminotransferase 40 IU/L (<35); Albumin 4.4 g/dL (3.5-5.0); Albumin Globulin Ratio 1.3 (1.0-2.8); Alkaline Phosphatase 107 U/L (38-126); Aspartate Aminotransferase 40 IU/L (14-36); BUN Creatinine Ratio 22.7 (6-22); Bilirubin Total 0.5 mg/dL (0.2-1.3); Blood Urea Nitrogen 17 mg/dL (7-17); Calcium 12.1 mg/dL (8.4-10.2); Carbon Dioxide 27 mmol/L (22-32); Chloride 100 mmol/L (98-107); Estimated Glomerular Filt Rate > 60 mL/min (>60); Globulin 3.4 g/dL (1.7-4.1); Glucose 170 mg/dL (80-110); HEMOLYSIS 41 (0-50); Lipase 82 U/L (23-300); Potassium 4.5 mmol/L (3.4-5.1); Sodium 136 mmol/L (137-145); Total Protein 7.8 g/dL (6.3-8.2)
--- NOTE | 2022-12-26 20:36 | ED_ITS ---
HPI - Abdominal Pain General Chief Complaint: Abdominal Pain Stated Complaint: Poss. Bowel blockage Time Seen by Provider: 12/26/22 20:25 Source: patient Mode of arrival: Ambulatory History of Present Illness HPI narrative: Patient is a 77-year-old female history of small-bowel obstructions, paroxysmal atrial fibrillation on Xeralto, hypertension, hyperlipidemia, pacemaker presenting today with abdominal pain. She was admitted last week December 14 through December 17 with a small-bowel obstruction. It resolved with conservative measures she had an NG tube but she did not really tolerated and caused her a lot of discomfort. She has been doing well since she got home she is been walking she is been eating drinking having bowel movements no real nausea or vomiting. She had a normal day today she went not walk with friends this afternoon and evening she started having worsening abdominal pain and belching. It feels like previous obstructions. No chest pain fever or shortness breath Related Data Home Medications Medication Instructions Recorded Confirmed xikqdsflwomm-Ty-plzl-minerals 27 1 tab PO DAILY 10/06/20 12/26/22 mg-0.4 mg tablet (One Daily Women's) metoprolol succinate 25 mg 25 mg PO BID 05/04/21 12/26/22 tablet,extended release 24 hr rivaroxaban 20 mg tablet (Xarelto) 20 mg PO DAILY 05/04/21 12/26/22 losartan 100 mg tablet 100 mg PO DAILY 01/25/22 12/26/22 Previous Rx's Medication Instructions Recorded mirtazapine 15 mg tablet 30 mg (2 x 15 mg) PO BEDTIME #180 02/09/22 tabs ondansetron 4 mg disintegrating 4 mg PO Q8H PRN nausea and 12/17/22 tablet vomiting #20 tabs Allergies Allergy/AdvReac Type Severity Reaction Status Date / Time amoxicillin [AMOXICILLIN] AdvReac Intermediate FATIGUE Verified 12/26/22 19:06 clavulanic acid AdvReac Intermediate FATIGUE Verified 12/26/22 19:06 [From AUGMENTIN] hydrochlorothiazide AdvReac Intermediate WEAKNESS Verified 12/26/22 19:06 [HYDROCHLOROTHIAZIDE] Review of Systems Review of Systems ROS Unobtainable: All systems reviewed & are unremarkable except as noted in HPI and below Patient History Medical History Paroxysmal atrial fibrillation Small bowel obstruction Cardiomyopathy Septal infarction Colitis Neuropathy Hypoparathyroidism Hypertension Colon polyp AV block History of pacemaker (~11/2017) Symptomatic bradycardia Atrial flutter Primary osteoarthritis of right knee Collagenous colitis (~04/2018) Pacemaker Hypercalcemia Insomnia Hyperlipidemia Right ACL tear (2005) Dyshidrotic eczema Cervical cancer Ankle fracture, right (2005) Peripheral polyneuropathy (12/07/16) Polyneuropathy (01/04/17) Hyperparathyroidism (11/09/15) Essential hypertension (08/18/15) Left bundle branch block (LBBB) (10/14/14) Fibromyalgia History of adenomatous polyp of colon (03/31/11) Surgical History Status post hysterectomy (1974) Status post exploratory laparotomy Status post cholecystectomy (1998) History of bilateral salpingo-oophorectomy (BSO) (1998) Family History Father Family history of diabetes mellitus (DM) Grandmother Family history of diabetes mellitus (DM) Sister Family history of diabetes mellitus (DM) Family/Other Family history of diabetes mellitus (DM) Social History household members: none Smoking Status: Former smoker alcohol intake: current Smoking Status: Former smoker tobacco type: cigarettes alcohol intake frequency: a few times a week Substance Use Type: does not use Exam Initial Vital Signs Initial Vital Signs: Vital Signs Temperature 97.2 F L 12/26/22 19:06 Pulse Rate 106 H 12/26/22 19:06 Respiratory Rate 18 12/26/22 19:06 Blood Pressure 123/88 12/26/22 19:06 Pulse Oximetry 97 12/26/22 19:06 Oxygen Delivery Method Room Air 12/26/22 19:06 GENERAL: Alert well-appearing 77-year-old female has received Dilaudid and Zofran prior to my evaluation and in no acute distress. HEENT: Head atraumatic,EOMI, pupils reactive, face symmetric, moist mucous membranes CARDIOVASCULAR: Regular rate and rhythm without murmurs, rubs or gallops. RESPIRATORY: Breath sounds equal bilaterally, no wheezes rales or rhonchi. ABDOMEN: Soft, diffusely tender no distention hyperactive bowel sounds EXTREMITIES: Normal range of motion, no clubbing or edema. Neurovascularly intact NEUROLOGICAL: Alert and oriented x4.Normal gait and speech. SKIN: Warm, dry, no laceration, no petechiae, no rashes or lesions. Course Orders Ordered: ED Orders 12/26/22 19:11 EKG-12 Lead Stat 12/26/22 19:23 Complete Blood Count AUTO DIFF Stat Comprehensive Metabolic Panel Stat Lipase Stat TSH [Thyroid Stimulating Hormone] Stat 12/26/22 19:38 CT abdomen pelvis w con Stat 12/26/22 21:37 Consult to General Surgery Stat Hydromorphone HCl (Hydromorphone 1 Mg Inj) 1 mg IV Q4H PRN PRN Reason: Pain, Severe (7-10) Hydromorphone HCl (Hydromorphone 0.5 Mg Inj) 0.5 mg IV Q4H PRN PRN Reason: Pain, Moderate (4-6) Sodium Chloride (Normal Saline 0.45%) 1,000 mls @ 125 mls/hr IV CONT [facility] Last Admin: 12/26/22 22:55 Dose: 125 mls/hr Documented By: BRIDGET Lorazepam (Lorazepam 2 Mg/Ml Inj) 0.5 mg IV Q6HR PRN PRN Reason: Anxiety Ondansetron HCl (Ondansetron 4 Mg/2 Ml Inj) 4 mg IV Q6HR PRN PRN Reason: Nausea And Vomiting Discontinued Medications Hydromorphone HCl (Hydromorphone 1 Mg Inj) 1 mg IV NOW ONE Stop: 12/26/22 19:40 Last Admin: 12/26/22 19:44 Dose: 1 mg Documented By: GRISELDA Sodium Chloride (Normal Saline 0.9%) 1,000 mls @ 125 mls/hr IV CONT [facility] Last Infusion: 12/26/22 22:23 Dose: 0 mls/hr Documented By: Admin: 12/26/22 22:02 Dose: 125 mls/hr Documented By: KING Ondansetron HCl (Ondansetron 4 Mg Odt) 4 mg PO NOW PRN PRN Reason: Nausea And Vomiting Ondansetron HCl (Ondansetron 4 Mg/2 Ml Inj) 4 mg IV NOW PRN PRN Reason: Nausea And Vomiting Last Admin: 12/26/22 19:44 Dose: 4 mg Documented By: GRISELDA Vital Signs Vital signs: Vital Signs - 8 hr 12/26/22 19:06 12/26/22 19:21 12/26/22 19:22 Temperature 97.2 F L Pulse Rate 106 H 98 H Respiratory Rate 18 Blood Pressure 123/88 139/74 Pulse Oximetry 97 98 Oxygen Delivery Method Room Air 12/26/22 19:22 12/26/22 19:30 12/26/22 19:30 Temperature Pulse Rate 96 H 92 H Respiratory Rate Blood Pressure 140/74 Pulse Oximetry 98 96 Oxygen Delivery Method 12/26/22 20:10 12/26/22 20:30 12/26/22 21:00 Temperature Pulse Rate 74 79 83 Respiratory Rate Blood Pressure Pulse Oximetry 99 98 94 Oxygen Delivery Method 12/26/22 21:30 12/26/22 21:55 12/26/22 21:55 Temperature Pulse Rate 86 87 Respiratory Rate Blood Pressure 133/66 Pulse Oximetry 93 93 Oxygen Delivery Method MDM - Abdominal Pain Lab Data 12/26/22 19:23 12/26/22 19:23 Labs: Lab Results 12/26/22 Range/Units 19:23 WBC 14.2 H (4.5-11.0) X10^3/uL RBC 4.75 (4.0-5.2) X10^6/uL Hgb 15.6 (12.0-16.0) g/dL Hct 46.0 (36-46) % MCV 96.7 (80-100) fL MCH 32.9 (26-34) PG MCHC 34.0 (30-36) % RDW 13.5 (11.6-14.8) % Plt Count 291 (150-400) X10^3/uL Neut % (Auto) 74.8 (50-75) % Lymph % (Auto) 18.7 L (25-40) % [place] % (Auto) 5.5 (3-14) % Eos % (Auto) 0.5 L (2-4) % Baso % (Auto) 0.5 (0-2) % Neut # (Auto) 05839 H (3271-4153) /uL Lymph # (Auto) 2700 (3820-9391) /uL [place] # (Auto) 800 (0-900) /uL Eos # (Auto) 100 (0-450) /uL Baso # (Auto) 100 (0-100) /uL Sodium 136 L (137-145) mmol/L Potassium 4.5 (3.4-5.1) mmol/L Chloride 100 (98-107) mmol/L Carbon Dioxide 27 (22-32) mmol/L BUN 17 (7-17) mg/dL Creatinine 0.75 (0.52-1.04) mg/dL Estimated GFR > 60 (>60) mL/min BUN/Creatinine Ratio 22.7 H (6-22) Glucose 170 H (80-110) mg/dL Calcium 12.1 H (8.4-10.2) mg/dL Total Bilirubin 0.5 (0.2-1.3) mg/dL AST 40 H (14-36) IU/L ALT 40 H (<35) IU/L Alkaline Phosphatase 107 (38-126) U/L Total Protein 7.8 (6.3-8.2) g/dL Albumin 4.4 (3.5-5.0) g/dL Globulin 3.4 (1.7-4.1) g/dL Albumin/Globulin Ratio 1.3 (1.0-2.8) Lipase 82 (23-300) U/L TSH 4.02 (0.47-4.68) uIU/mL Imaging Data CT scan - abdomen/pelvis: Radiologist's Impression: PROCEDURE: CT ABDOMEN PELVIS W CON INDICATIONS: poss bowel obstruction TECHNIQUE: After the administration of intravenous contrast, axial sections acquired from the lung bases to the pubic symphysis. Coronal and sagittal reformats were performed. For radiation dose reduction, the following was used: automated exposure control, adjustment of mA and/or kV according to patient size. COMPARISON: [facility], CT, CT ABDOMEN PELVIS W CON, 12/15/2022, 0:09. FINDINGS: Image quality: Excellent. Lung bases: Unremarkable. Heart: Heart size is enlarged, no pericardial effusion. Pacemaker leads are noted. ABDOMEN: Liver: Unremarkable. Gallbladder: Gallbladder is surgically absent. Biliary ducts: Mild intrahepatic biliary ductal dilatation is again seen unchanged from prior study. Mild extrahepatic biliary ductal dilatation is also unchanged. Pancreas: Unremarkable. Spleen: Unremarkable. Adrenal Glands: Unremarkable. Kidneys and Ureters: Bilateral kidneys show normal size and enhancement. No renal stones or hydronephrosis. 1.4 cm simple cyst in midpole of left kidney is seen unchanged from prior study. Stomach and Bowel: Markedly distended gastric lumen is seen with air-fluid level. There is suggestion of distal gastric wall thickening and wall thickening involving proximal to mid duodenum. Fluid distended small bowel loops are also noted throughout abdomen with multiple air-fluid levels. A long segment of wall thickening and edema with narrowing of the lumen is noted in lower abdomen/pelvis with decompressed bowel loops distal to this segment and fluid distended bowel loops proximal to this segment series 2, images 62 through 69. Overall gastric lumen distension has worsened since previous study. Small bowel loop distension now measures up to 2.8 cm compared to 2.6 cm on previous study. More distal small bowel loops and colon loops are normal in wall thickness and caliber. Sigmoid diverticulosis is seen without definite CT evidence of acute diverticulitis. Peritoneum: Small amount of free fluid is seen in lower abdomen and pelvis. No peritoneal free air. Ventral Wall: No hernias. Abdominal Nodes: No retroperitoneal or mesenteric adenopathy by size criteria. Vessels: Aorta and inferior vena cava are normal in size. PELVIS: Pelvic Organs: Unremarkable. Bladder: Unremarkable. Pelvic Nodes: No enlarged lymph nodes. Miscellaneous: No hernias are seen. Bones: No suspicious bony lesions. No acute vertebral body compression fracture. IMPRESSION: 1. Finding is consistent with distal small bowel obstruction with a long segment transition point of small bowel with thickened stallings in lower abdomen/pelvis as described above. 2. Interval worsening of gastric lumen distension with suggestion of distal gastritis and proximal duodenitis concerning for gastric outlet obstruction. 3. Small amount of peritoneal free fluid. No abscess collection. No peritoneal free air. Sigmoid diverticulosis without CT evidence of acute diverticulitis. 4. Other findings are not significantly changed from previous study. Dictated by: Miah Melendez M.D. on 12/26/2022 at 20:32 ECG Data Interpretation: Paced rhythm rate [address] changes MDM Narrative Medical decision making narrative: Patient is a 77-year-old female history of small-bowel obstruction was admitted last week with 1 presents today with abdominal pain. CT confirm continued or recurrent small-bowel obstruction. Pain is controlled with Dilaudid and Zofran. Heart rate and EKG are paste and controlled. Blood work does show some mild leukocytosis. Calcium was elevated at 12 was previously as high as 11. Unclear cause or importance of this. No electrolyte abnormality or BLAINE. She is not actively vomiting in the ED. Dr. Perez updated on patient's symptoms test results agrees she needs to be admitted again. She does not need an NG unless she starts vomiting. Dr. Barger updated on patient's symptoms test results patient. Discharge Plan Departure Patient Disposition: Admitted As Inpatient Clinical Impression: SBO (small bowel obstruction), Hypercalcemia Admit Date/Time: 12/26/22 21:55 Admit Provider: Heydi Barger
[2022-12-26] MEDS: SODIUM CHLORIDE 0.9% 1,000 ML 125 ML IV (22:02)
[2022-12-26 22:28] LABS: Thyroid Stimulating Hormone 4.02 uIU/mL (0.47-4.68)
[2022-12-26] MEDS: SODIUM CHLORIDE 0.45% 1,000 ML 125 ML IV (22:55)
--- NOTE | 2022-12-26 23:45 | PC.ADMIT ---
Patient admitted to room 202 from ER at 2230. Was in ER related to severe abdominal pain and reports she was recently in hospital for same. Is alert and oriented although has flat affect. Breath sounds CTA with RA sat of 95%. HRR; does have pacemaker/defib. Denies nausea but is belching frequently; states she never actually vomits. Abdomen is mildly distended but soft with 4/10 abdominal discomfort in upper abdomen; BT present and states she has passed some flatus within 30 prior to admission. Denies dysuria with urination but has cloudy, yellow urine. Is able to move herself in bed and got up to bathroom with SBA. Will be strict NPO status as per order. Fall risk score is moderate but patient agreeable to calling for assistance out of bed so alarm not activated at this time. Oriented to call light and bed controls. [address] Admission Note: The patient,Miroslava Wiley,77 y/o, was given written information regarding hospital policies, unit procedures and contact persons. Patient's smoking status: Former smoker. Vital Signs - 8 hr 12/26/22 19:06 12/26/22 19:21 12/26/22 19:22 Temperature 97.2 F L Pulse Rate 106 H 98 H Respiratory Rate 18 Blood Pressure 123/88 139/74 Pulse Oximetry 97 98 Oxygen Delivery Method Room Air Oxygen Flow Rate 12/26/22 19:22 12/26/22 19:30 12/26/22 19:30 Temperature Pulse Rate 96 H 92 H Respiratory Rate Blood Pressure 140/74 Pulse Oximetry 98 96 Oxygen Delivery Method Oxygen Flow Rate 12/26/22 20:10 12/26/22 20:30 12/26/22 21:00 Temperature Pulse Rate 74 79 83 Respiratory Rate Blood Pressure Pulse Oximetry 99 98 94 Oxygen Delivery Method Oxygen Flow Rate 12/26/22 21:30 12/26/22 21:55 12/26/22 21:55 Temperature Pulse Rate 86 87 Respiratory Rate Blood Pressure 133/66 Pulse Oximetry 93 93 Oxygen Delivery Method Oxygen Flow Rate 12/26/22 22:34 12/26/22 23:11 Temperature 97.3 F L Pulse Rate 79 Respiratory Rate 16 Blood Pressure 132/76 Pulse Oximetry 95 Oxygen Delivery Method Room Air Oxygen Flow Rate 0
[2022-12-27 06:18] LABS: Add Manual Diff / Slide Review NO; Basophils Absolute Auto 0 /uL (0-100); Basophils Percent Auto 0.4 % (0-2); Eosinophils Absolute Auto 100 /uL (0-450); Hematocrit 38.8 % (36-46); Hemoglobin 13.3 g/dL (12.0-16.0); Lymphocytes Absolute Auto 2100 /uL (1100-4500); Lymphocytes Percent Auto 22.8 % (25-40); Mean Corpuscular HGB Conc 34.2 % (30-36); Mean Corpuscular Volume 96.6 fL (80-100); Monocytes Absolute Auto 800 /uL (0-900); Monocytes Percent Auto 8.8 % (3-14); Neutrophils Absolute Auto 6300 /uL (1500-7000); Platelet Count 238 X10^3/uL (150-400); Red Blood Cell Count 4.02 X10^6/uL (4.0-5.2); Red Cell Distribution Width 13.1 % (11.6-14.8); White Blood Cell Count 9.3 X10^3/uL (4.5-11.0)
[2022-12-27 06:33] LABS: Alanine Aminotransferase 28 IU/L (<35); Albumin 3.4 g/dL (3.5-5.0); Albumin Globulin Ratio 1.3 (1.0-2.8); Alkaline Phosphatase 84 U/L (38-126); Aspartate Aminotransferase 28 IU/L (14-36); BUN Creatinine Ratio 27.3 (6-22); Bilirubin Total 0.5 mg/dL (0.2-1.3); Blood Urea Nitrogen 18 mg/dL (7-17); Calcium 11.1 mg/dL (8.4-10.2); Carbon Dioxide 25 mmol/L (22-32); Chloride 103 mmol/L (98-107); Estimated Glomerular Filt Rate > 60 mL/min (>60); Globulin 2.7 g/dL (1.7-4.1); Glucose 117 mg/dL (80-110); HEMOLYSIS < 15 (0-50); Potassium 4.2 mmol/L (3.4-5.1); Sodium 134 mmol/L (137-145); Total Protein 6.1 g/dL (6.3-8.2)
[2022-12-27] MEDS: SODIUM CHLORIDE 0.45% 1,000 ML 125 ML IV (06:43)
--- NOTE | 2022-12-27 07:20 | PM.HP.1 ---
History of Present Illness History of Present Illness Date Patient Seen: 12/27/22 Time Patient Seen: 07:00 Chief complaint: Poss. Bowel blockage Narrative: 77-year-old female well known to me, recently admitted with small-bowel obstruction that resolved with conservative measures. She had been home for several days, had resumed her usual activity and had resumed normal diet. And was doing quite well up until Monday the 26 of December when she developed recurrent abdominal pain distention with nausea very much the same as her previous presentation Knowing this she came to the ER where she was evaluated found to have small-bowel obstruction with evidence all so of gastric outlet obstruction. She had distention of her small bowel as well as her stomach She was admitted made NPO placed on IV fluids parental pain medication and antiemetics Patient had severe difficulty with NG tube during last hospitalization and is not vomiting and so NG tube was not placed despite the evidence of gastric distention seen on CT (which was seen previously as well) Her calcium was also elevated, she has a known hyperparathyroidism but is been stable in this regard. This morning calcium is back to her baseline at about 11. PFSH Medical History Paroxysmal atrial fibrillation Small bowel obstruction Cardiomyopathy Septal infarction Colitis Neuropathy Hypoparathyroidism Hypertension Colon polyp AV block History of pacemaker (~11/2017) Symptomatic bradycardia Atrial flutter Primary osteoarthritis of right knee Collagenous colitis (~04/2018) Pacemaker Hypercalcemia Insomnia Hyperlipidemia Right ACL tear (2005) Dyshidrotic eczema Cervical cancer Ankle fracture, right (2005) Peripheral polyneuropathy (12/07/16) Polyneuropathy (01/04/17) Hyperparathyroidism (11/09/15) Essential hypertension (08/18/15) Left bundle branch block (LBBB) (10/14/14) Fibromyalgia History of adenomatous polyp of colon (03/31/11) Surgical History Status post hysterectomy (1974) Status post exploratory laparotomy Status post cholecystectomy (1998) History of bilateral salpingo-oophorectomy (BSO) (1998) Family History Father Family history of diabetes mellitus (DM) Grandmother Family history of diabetes mellitus (DM) Sister Family history of diabetes mellitus (DM) Family/Other Family history of diabetes mellitus (DM) Social History household members: none Smoking Status: Former smoker alcohol intake: current Meds Home Medications and Allergies Home Medications Medication Instructions Recorded Confirmed Type wxxxkshzrvme-Zk-mrjj-minerals 27 1 tab PO DAILY 10/06/20 12/26/22 History mg-0.4 mg tablet (One Daily Women's) metoprolol succinate 25 mg 25 mg PO BID 05/04/21 12/26/22 History tablet,extended release 24 hr rivaroxaban 20 mg tablet (Xarelto) 20 mg PO DAILY 05/04/21 12/26/22 History losartan 100 mg tablet 100 mg PO DAILY 01/25/22 12/26/22 History mirtazapine 15 mg tablet 30 mg (2 x 15 mg) PO BEDTIME #180 02/09/22 12/26/22 Rx tabs ondansetron 4 mg disintegrating 4 mg PO Q8H PRN nausea and 12/17/22 12/26/22 Rx tablet vomiting #20 tabs Allergies Allergy/AdvReac Type Severity Reaction Status Date / Time amoxicillin [AMOXICILLIN] AdvReac Intermediate FATIGUE Verified 12/26/22 19:06 clavulanic acid AdvReac Intermediate FATIGUE Verified 12/26/22 19:06 [From AUGMENTIN] hydrochlorothiazide AdvReac Intermediate WEAKNESS Verified 12/26/22 19:06 [HYDROCHLOROTHIAZIDE] Exam Vital Signs (past 8 hours): Oxygen Delivery Method Room Air Oxygen Flow Rate 0 Narrative Exam Narrative: HEENT-unremarkable Neck-no lymphadenopathy Lungs-clear with good breath sounds Heart-regular rate and rhythm Abdomen-mild distention with positive bowel tones, mildly diffusely tender/uncomfortable without rebound or guarding. No masses palpable. Extremities-no cyanosis clubbing or edema Objective Labs 12/27/22 06:07 12/27/22 06:07 Labs: Laboratory Results - last 24 hr 12/26/22 12/27/22 19:23 06:07 WBC 14.2 H 9.3 RBC 4.75 4.02 Hgb 15.6 13.3 Hct 46.0 38.8 MCV 96.7 96.6 MCH 32.9 33.0 MCHC 34.0 34.2 RDW 13.5 13.1 Plt Count 291 238 Neut % (Auto) 74.8 67.0 Lymph % (Auto) 18.7 L 22.8 L [place] % (Auto) 5.5 8.8 Eos % (Auto) 0.5 L 1.0 L Baso % (Auto) 0.5 0.4 Neut # (Auto) 60288 H 6300 Lymph # (Auto) 2700 2100 [place] # (Auto) 800 800 Eos # (Auto) 100 100 Baso # (Auto) 100 0 Sodium 136 L 134 L Potassium 4.5 4.2 Chloride 100 103 Carbon Dioxide 27 25 BUN 17 18 H Creatinine 0.75 0.66 Estimated GFR > 60 > 60 BUN/Creatinine Ratio 22.7 H 27.3 H Glucose 170 H 117 H Calcium 12.1 H 11.1 H Total Bilirubin 0.5 0.5 AST 40 H 28 ALT 40 H 28 Alkaline Phosphatase 107 84 Total Protein 7.8 6.1 L Albumin 4.4 3.4 L Globulin 3.4 2.7 Albumin/Globulin Ratio 1.3 1.3 Lipase 82 TSH 4.02 Assessment & Plan Assessment & Plan narrative: 1. Small-bowel obstruction-continue with conservative measures keeping patient NPO with IV fluids. General surgery will consult, and were notified via the emergency department. Further management of her bowel obstruction will be as per General surgery. However she does have bowel tones this morning and reports some small bowel movements. I think she is moving material through. It seems to me she may need some evaluation of her tract either with some sort of small bowel imaging verses upper endoscopy to evaluate this possible gastric outlet obstruction etcetera. However I will defer to my General surgery colleagues 2. Paroxysmal atrial fibrillation-patient with paroxysmal atrial fibrillation, is normally on metoprolol orally as well as Xarelto. Will not be receiving oral medications for now. If need be will give metoprolol IV in scheduled doses. Remain off anticoagulation for now obviously. If patient require surgical intervention will need to have normal coags, if at all possible 3. Cardiomyopathy-patient with prior history of an ejection fraction of about 35%, however did well with IV fluids during last hospitalization. Continue to monitor as she will need ongoing IV fluids while NPO etcetera. 4. Hyperparathyroidism/hypercalcemia-patient's numbers are back to her baseline. Continue to monitor for now no specific intervention 5. Collagenous colitis-patient with a history of collagenous colitis diagnose based on biopsies in 2019. She had been relatively asymptomatic recently. Doubt this is playing a role in her ongoing GI issues 6. Hypertension-patient with hypertension as well. As above will treat initially with scheduled metoprolol as needed, can add other medications given parenterally/topically as necessary 7. Code status-patient has previously requested full code in the event of a sudden cardiac or respiratory arrest which is not anticipated at this time 8. VTE prophylaxis-would be a candidate for Lovenox when cleared by surgery for chemo prophylaxis in this fashion. SCDs for now. Quality VTE Deep Vein Thrombosis/Pulmonary Embolism Present on Admission: No
[2022-12-27 08:28] VITALS: BP 121/58; PULSE 71; RESP 18; TEMP 36.3; O2SAT 97
[2022-12-27] MEDS: DEXTROSE 5%-0.9% NS 1,000 ML 125 ML IV ×2 (08:46→16:48)
--- NOTE | 2022-12-27 11:02 | P.HP_ITS ---
History of Present Illness History of Present Illness Date Patient Seen: 12/27/22 Time Patient Seen: 11:03 Chief complaint: Poss. Bowel blockage Narrative: Miroslava peña is a 77-year-old woman who presents with small-bowel obstruction. She developed abdominal pain and nausea yesterday. She has had about 4 presentations for a small-bowel obstruction within the past few years, most recently last month. The small bowel obstructions have always resolved without surgical intervention. She has had multiple abdominal pelvic surgeries in the remote past for cervical cancer. Since coming in she has had 2 bowel movements. She reports that she does feel better today. [facility] Medical History Paroxysmal atrial fibrillation Small bowel obstruction Cardiomyopathy Septal infarction Colitis Neuropathy Hypoparathyroidism Hypertension Colon polyp AV block History of pacemaker (~11/2017) Symptomatic bradycardia Atrial flutter Primary osteoarthritis of right knee Collagenous colitis (~04/2018) Pacemaker Hypercalcemia Insomnia Hyperlipidemia Right ACL tear (2005) Dyshidrotic eczema Cervical cancer Ankle fracture, right (2005) Peripheral polyneuropathy (12/07/16) Polyneuropathy (01/04/17) Hyperparathyroidism (11/09/15) Essential hypertension (08/18/15) Left bundle branch block (LBBB) (10/14/14) Fibromyalgia History of adenomatous polyp of colon (03/31/11) Surgical History Status post hysterectomy (1974) Status post exploratory laparotomy Status post cholecystectomy (1998) History of bilateral salpingo-oophorectomy (BSO) (1998) Family History Father Family history of diabetes mellitus (DM) Grandmother Family history of diabetes mellitus (DM) Sister Family history of diabetes mellitus (DM) Family/Other Family history of diabetes mellitus (DM) Social History household members: none Smoking Status: Former smoker alcohol intake: current Meds Home Medications and Allergies Home Medications Medication Instructions Recorded Confirmed Type [id number]-minerals 27 1 tab PO DAILY 10/06/20 12/26/22 History mg-0.4 mg tablet (One Daily Women's) metoprolol succinate 25 mg 25 mg PO BID 05/04/21 12/26/22 History tablet,extended release 24 hr rivaroxaban 20 mg tablet (Xarelto) 20 mg PO DAILY 05/04/21 12/26/22 History losartan 100 mg tablet 100 mg PO DAILY 01/25/22 12/26/22 History mirtazapine 15 mg tablet 30 mg (2 x 15 mg) PO BEDTIME #180 02/09/22 12/26/22 Rx tabs ondansetron 4 mg disintegrating 4 mg PO Q8H PRN nausea and 12/17/22 12/26/22 Rx tablet vomiting #20 tabs Allergies Allergy/AdvReac Type Severity Reaction Status Date / Time amoxicillin [AMOXICILLIN] AdvReac Intermediate FATIGUE Verified 12/26/22 19:06 clavulanic acid AdvReac Intermediate FATIGUE Verified 12/26/22 19:06 [From AUGMENTIN] hydrochlorothiazide AdvReac Intermediate WEAKNESS Verified 12/26/22 19:06 [HYDROCHLOROTHIAZIDE] Exam Vital Signs (past 8 hours): - 12/27/22 08:28 Temperature 97.3 F L Pulse Rate 71 Respiratory Rate 18 Blood Pressure 121/58 L Pulse Oximetry 97 Oxygen Flow Rate 0 Oxygen Delivery Method Room Air Oxygen Flow Rate 0 Narrative Exam Narrative: Abdomen soft, nontender, minimally distended No acute distress Unlabored breathing Objective Labs 12/27/22 06:07 12/27/22 06:07 Labs: Laboratory Results - last 24 hr 12/26/22 12/27/22 19:23 06:07 WBC 14.2 H 9.3 RBC 4.75 4.02 Hgb 15.6 13.3 Hct 46.0 38.8 MCV 96.7 96.6 MCH 32.9 33.0 MCHC 34.0 34.2 RDW 13.5 13.1 Plt Count 291 238 Neut % (Auto) 74.8 67.0 Lymph % (Auto) 18.7 L 22.8 L [place] % (Auto) 5.5 8.8 Eos % (Auto) 0.5 L 1.0 L Baso % (Auto) 0.5 0.4 Neut # (Auto) 77506 H 6300 Lymph # (Auto) 2700 2100 [place] # (Auto) 800 800 Eos # (Auto) 100 100 Baso # (Auto) 100 0 Sodium 136 L 134 L Potassium 4.5 4.2 Chloride 100 103 Carbon Dioxide 27 25 BUN 17 18 H Creatinine 0.75 0.66 Estimated GFR > 60 > 60 BUN/Creatinine Ratio 22.7 H 27.3 H Glucose 170 H 117 H Calcium 12.1 H 11.1 H Total Bilirubin 0.5 0.5 AST 40 H 28 ALT 40 H 28 Alkaline Phosphatase 107 84 Total Protein 7.8 6.1 L Albumin 4.4 3.4 L Globulin 3.4 2.7 Albumin/Globulin Ratio 1.3 1.3 Lipase 82 TSH 4.02 Assessment & Plan Assessment and plan (1) SBO (small bowel obstruction): Status: Acute Plan Given that she has had some bowel function and feels better today recommend starting a trial of clear liquid. Quality VTE Deep Vein Thrombosis/Pulmonary Embolism Present on Admission: No
--- NOTE | 2022-12-27 14:30 | PM.EVENT ---
Event Note Date Patient Seen: 12/27/22 Time Patient Seen: 14:30 Event Note (Rapid Response, Code, or fall): Tried clear liquids for lunch day. Now she is belching more and not passing any gas. We will place NG tube. If no progress by morning will start a Gastrografin challenge.
[2022-12-27] MEDS: ONDANSETRON 4 MG/2 ML INJ IV (15:17)
--- NOTE | 2022-12-27 15:49 | CM.DANOTE ---
Brief DCP Assessment Note Patient is a 77yo F here following possible bowel obstruction PCP Rush Zuleta Medicare and [employer] RUBBER ROLLER GRINDER reviewed EMR. Per Chris note, placing NG tube today. Per RN, likely no needs from CM team at this time. RUBBER ROLLER GRINDER unable to meet with patient today due to triaging needs. Likely home with family support when medically stable. Plan: likely home with family support when medically stable. CM team will continue to follow closely. CATHY Manzano Discharge Planning/Care Management CM Discharge Assessment Start: 12/27/22 15:47 Freq: Status: Active Protocol: Document 12/27/22 15:47 (Rec: 12/27/22 15:49 [id number]) Discharge Planning Assessment Assigned Precision Devices Inspector/Tester CATHY Lin DPOA/Assigned Designee Name Bala Burgess Contact Information [phone] Advance Directives? Yes Advance Directives on File Yes History Provided By Patient,Medical Record Prior Living Arrangements House Household Members none Comment chart implies lives with son and DIL Patient/Family Preference OP PT Therapy Comment No needs identified at this time , will plan to follow clinical course. Discharge Plan Home Transportation Arrangement Friend or family Referrals Initiated None needed Additional Comment Will plan to follow in case any DC needs or concerns arise . Whiteboard Updated in Patient Room with No name and ext. # of Precision Devices Inspector/Tester Review Status In Process Next Review Type Continued Stay Review
[2022-12-27 19:00] VITALS: O2SAT 98
[2022-12-27] MEDS: LORazepam 2 MG/ML INJ 0.5 MG IV (21:10)
[2022-12-27 21:21] VITALS: BP 171/75; PULSE 69; RESP 17; TEMP 36.4; O2SAT 98
[2022-12-27 23:00] VITALS: BP 134/52
[2022-12-28] MEDS: DEXTROSE 5%-0.9% NS 1,000 ML 125 ML IV ×3 (00:45→18:23)
[2022-12-28 05:44] LABS: Add Manual Diff / Slide Review NO; Basophils Absolute Auto 0 /uL (0-100); Basophils Percent Auto 0.5 % (0-2); Eosinophils Absolute Auto 100 /uL (0-450); Eosinophils Percent Auto 2.1 % (2-4); Hematocrit 36.4 % (36-46); Hemoglobin 12.4 g/dL (12.0-16.0); Lymphocytes Absolute Auto 2200 /uL (1100-4500); Mean Corpuscular HGB Conc 34.1 % (30-36); Mean Corpuscular Hemoglobin 32.9 PG (26-34); Mean Corpuscular Volume 96.5 fL (80-100); Monocytes Absolute Auto 400 /uL (0-900); Monocytes Percent Auto 6.5 % (3-14); Neutrophils Absolute Auto 3400 /uL (1500-7000); Neutrophils Percent Auto 55.9 % (50-75); Platelet Count 208 X10^3/uL (150-400); Red Blood Cell Count 3.77 X10^6/uL (4.0-5.2); Red Cell Distribution Width 13.1 % (11.6-14.8); White Blood Cell Count 6.2 X10^3/uL (4.5-11.0)
[2022-12-28 06:11] LABS: BUN Creatinine Ratio 19.6 (6-22); Blood Urea Nitrogen 9 mg/dL (7-17); Calcium 9.3 mg/dL (8.4-10.2); Carbon Dioxide 26 mmol/L (22-32); Chloride 110 mmol/L (98-107); Estimated Glomerular Filt Rate > 60 mL/min (>60); Glucose 119 mg/dL (80-110); HEMOLYSIS 19 (0-50); Potassium 3.8 mmol/L (3.4-5.1); Sodium 138 mmol/L (137-145)
[2022-12-28 07:00] VITALS: O2SAT 97
--- NOTE | 2022-12-28 07:16 | PM.PN.1 ---
Subjective Subjective Date Patient Seen: 12/28/22 Time Patient Seen: 07:07 Interval history: Patient had a pretty benign exam yesterday for me, and apparently even better for Dr. Perez. She was allowed to try some clear liquids but that is seem to increase her abdominal pain discomfort distention. She was made NPO again with thoughts about probably placing a NG tube however she would settled down and has done okay without an NG-tube This morning she says her abdomen feels better again probably better than it was this time yesterday No new issues or complaints Blood pressure a bit up at times Exam Vital Signs (past 8 hours): Oxygen Delivery Method Room Air Oxygen Flow Rate 0 Narrative Exam Narrative: Abdomen-positive bowel tones, soft nontender with less distention than yesterday Objective Labs 12/28/22 05:25 12/28/22 05:25 Labs: Laboratory Results - last 24 hr 12/28/22 05:25 WBC 6.2 RBC 3.77 L Hgb 12.4 Hct 36.4 MCV 96.5 MCH 32.9 MCHC 34.1 RDW 13.1 Plt Count 208 Neut % (Auto) 55.9 Lymph % (Auto) 35.0 [place] % (Auto) 6.5 Eos % (Auto) 2.1 Baso % (Auto) 0.5 Neut # (Auto) 3400 Lymph # (Auto) 2200 [place] # (Auto) 400 Eos # (Auto) 100 Baso # (Auto) 0 Sodium 138 Potassium 3.8 Chloride 110 H Carbon Dioxide 26 BUN 9 Creatinine 0.46 L Estimated GFR > 60 BUN/Creatinine Ratio 19.6 Glucose 119 H Calcium 9.3 PFSH Medical History Paroxysmal atrial fibrillation Small bowel obstruction Cardiomyopathy Septal infarction Colitis Neuropathy Hypoparathyroidism Hypertension Colon polyp AV block History of pacemaker (~11/2017) Symptomatic bradycardia Atrial flutter Primary osteoarthritis of right knee Collagenous colitis (~04/2018) Pacemaker Hypercalcemia Insomnia Hyperlipidemia Right ACL tear (2005) Dyshidrotic eczema Cervical cancer Ankle fracture, right (2005) Peripheral polyneuropathy (12/07/16) Polyneuropathy (01/04/17) Hyperparathyroidism (11/09/15) Essential hypertension (08/18/15) Left bundle branch block (LBBB) (08/25/15) Fibromyalgia History of adenomatous polyp of colon (03/31/11) Surgical History Status post hysterectomy (1974) Status post exploratory laparotomy Status post cholecystectomy (1998) History of bilateral salpingo-oophorectomy (BSO) (1998) Family History Father Family history of diabetes mellitus (DM) Grandmother Family history of diabetes mellitus (DM) Sister Family history of diabetes mellitus (DM) Family/Other Family history of diabetes mellitus (DM) Social History household members: none Smoking Status: Former smoker alcohol intake: current Assessment & Plan Assessment & Plan narrative: 1. Small-bowel obstruction-patient clinically seems to be improved. I will defer decision making regarding re feeding patient to General surgery but suspect patient could cautiously have least sips and start very slowly. 2. Hypertension-blood pressure adequately controlled for now. Continue to monitor and can use non oral meds if necessary. She is able to take sips we can probably get her back on her usual meds 3. Paroxysmal atrial fibrillation-appears to be in sinus rhythm on exam. Again probably restart her usual meds 4. Hypercalcemia/hyperparathyroidism-calcium all the way down to 9.3 currently. Not an active issue Quality VTE Deep Vein Thrombosis/Pulmonary Embolism Present on Admission: No
[2022-12-28 08:00] VITALS: BP 151/71; PULSE 69; RESP 18; TEMP 36.3; O2SAT 97
[2022-12-28 09:21] VITALS: BP 151/71; PULSE 69
[2022-12-28] MEDS: METOPROLOL ER 25 MG TABLET PO ×2 (09:21→20:22)
--- NOTE | 2022-12-28 10:41 | PM.PN.1 ---
Subjective Subjective Date Patient Seen: 12/28/22 Time Patient Seen: 10:41 Interval history: Miroslava has had several bowel movements since yesterday and the NG tube was never placed. She states she feels better overall today. Exam Vital Signs (past 8 hours): - 12/28/22 08:00 12/28/22 09:21 Temperature 97.4 F L Pulse Rate 69 69 Respiratory Rate 18 Blood Pressure 151/71 H 151/71 H Pulse Oximetry 97 Oxygen Flow Rate 0 Oxygen Delivery Method Room Air Oxygen Flow Rate 0 Narrative Exam Narrative: Abdomen is soft, nontender Objective Labs 12/28/22 05:25 12/28/22 05:25 Labs: Laboratory Results - last 24 hr 12/28/22 05:25 WBC 6.2 RBC 3.77 L Hgb 12.4 Hct 36.4 MCV 96.5 MCH 32.9 MCHC 34.1 RDW 13.1 Plt Count 208 Neut % (Auto) 55.9 Lymph % (Auto) 35.0 [place] % (Auto) 6.5 Eos % (Auto) 2.1 Baso % (Auto) 0.5 Neut # (Auto) 3400 Lymph # (Auto) 2200 [place] # (Auto) 400 Eos # (Auto) 100 Baso # (Auto) 0 Sodium 138 Potassium 3.8 Chloride 110 H Carbon Dioxide 26 BUN 9 Creatinine 0.46 L Estimated GFR > 60 BUN/Creatinine Ratio 19.6 Glucose 119 H Calcium 9.3 PFSH Medical History Paroxysmal atrial fibrillation Small bowel obstruction Cardiomyopathy Septal infarction Colitis Neuropathy Hypoparathyroidism Hypertension Colon polyp AV block History of pacemaker (~11/2017) Symptomatic bradycardia Atrial flutter Primary osteoarthritis of right knee Collagenous colitis (~04/2018) Pacemaker Hypercalcemia Insomnia Hyperlipidemia Right ACL tear (2005) Dyshidrotic eczema Cervical cancer Ankle fracture, right (2005) Peripheral polyneuropathy (12/07/16) Polyneuropathy (01/04/17) Hyperparathyroidism (11/09/15) Essential hypertension (08/18/15) Left bundle branch block (LBBB) (10/14/14) Fibromyalgia History of adenomatous polyp of colon (03/31/11) Surgical History Status post hysterectomy (1974) Status post exploratory laparotomy Status post cholecystectomy (1998) History of bilateral salpingo-oophorectomy (BSO) (1998) Family History Father Family history of diabetes mellitus (DM) Grandmother Family history of diabetes mellitus (DM) Sister Family history of diabetes mellitus (DM) Family/Other Family history of diabetes mellitus (DM) Social History household members: none Smoking Status: Former smoker alcohol intake: current Assessment & Plan Assessment and plan (1) SBO (small bowel obstruction): Status: Acute Plan We will go back to trial of clear liquids again today. Quality VTE Deep Vein Thrombosis/Pulmonary Embolism Present on Admission: No
--- NOTE | 2022-12-28 14:33 | CM.DPC ---
DCP Cont: Per Surgeon, pt had a couple bm yesterday and therefore no NGT placed yesterday and now will attempt a trial of clear liquids again to see how pt tolerates. Not yet medically stable to discharge and has been fairly independent in room. Due to triage needs, no bedside discussion with pt yet today. Plan: SW to follow closely to see how pt tolerates advancing diet and to confirm pt safe for d/c home with family assist when medically stable. CATHY Reyna
[2022-12-28 19:00] VITALS: BP 170/76; PULSE 65; RESP 18; TEMP 36.3; O2SAT 98
[2022-12-28 20:22] VITALS: BP 170/76; PULSE 65
[2022-12-28] MEDS: LORazepam 2 MG/ML INJ 0.5 MG IV (20:22)
[2022-12-28] MEDS: MIRTAZAPINE 15 MG TABLET PO (20:23)
[2022-12-28 21:20] VITALS: BP 155/67; PULSE 62
[2022-12-29] VITALS (8 sets, daily range): BP systolic 153–174; BP diastolic 67–83; PULSE 69–72; RESP 17–19; TEMP 36.1–36.2; O2SAT 97–98
[2022-12-29] MEDS: DEXTROSE 5%-0.9% NS 1,000 ML 125 ML IV (01:25)
--- NOTE | 2022-12-29 07:28 | PM.PN.1 ---
Subjective Subjective Date Patient Seen: 12/29/22 Time Patient Seen: 07:15 Interval history: Patient doing well. Tolerated diet yesterday without any difficulty. Does not feel like things are any worse this morning. Has had several small bowel movements. Exam Vital Signs (past 8 hours): Oxygen Delivery Method Room Air Oxygen Flow Rate 0 Narrative Exam Narrative: Nontender nondistended with positive bowel tones with normal character Objective Labs 12/28/22 05:25 12/28/22 05:25 [facility] Medical History Paroxysmal atrial fibrillation Small bowel obstruction Cardiomyopathy Septal infarction Colitis Neuropathy Hypoparathyroidism Hypertension Colon polyp AV block History of pacemaker (~11/2017) Symptomatic bradycardia Atrial flutter Primary osteoarthritis of right knee Collagenous colitis (~04/2018) Pacemaker Hypercalcemia Insomnia Hyperlipidemia Right ACL tear (2005) Dyshidrotic eczema Cervical cancer Ankle fracture, right (2005) Peripheral polyneuropathy (12/07/16) Polyneuropathy (01/04/17) Hyperparathyroidism (11/09/15) Essential hypertension (08/18/15) Left bundle branch block (LBBB) (10/14/14) Fibromyalgia History of adenomatous polyp of colon (03/31/11) Surgical History Status post hysterectomy (1974) Status post exploratory laparotomy Status post cholecystectomy (1998) History of bilateral salpingo-oophorectomy (BSO) (1998) Family History Father Family history of diabetes mellitus (DM) Grandmother Family history of diabetes mellitus (DM) Sister Family history of diabetes mellitus (DM) Family/Other Family history of diabetes mellitus (DM) Social History household members: none Smoking Status: Former smoker alcohol intake: current Assessment & Plan Assessment & Plan narrative: 1. Small-bowel obstruction-re feeding with advancement to a more general diet this morning. Hopefully will tolerate this. 2. Hypertension-patient just a little bit hypertensive yesterday. Will resume her losartan today as well as the metoprolol which I started yesterday Quality VTE Deep Vein Thrombosis/Pulmonary Embolism Present on Admission: No
[2022-12-29] MEDS: METOPROLOL ER 25 MG TABLET PO ×2 (08:55→21:20)
[2022-12-29] MEDS: LOSARTAN 50 MG TABLET 100 MG PO (08:56)
--- NOTE | 2022-12-29 09:13 | CM.DPC ---
DCP Continued: FRAMING MANAGER reviewed EMR. Per Provider note, attempting to advance diet today. FRAMING MANAGER entered room and introduced self and role. Patient reports living alone but has local son to assist in support with needs if needed. Uses no DME/IADLs/drives. Patient reports no need for resources at this time. Patient reports having people to call for a ride home but may need assistance with a cab ride home. Plan: likely home when stable/when able to tolerate advanced diet. No needs identified at this time. CM team will continue to follow as needed, maybe to assist in a ride home. CATHY Manzano
[2022-12-29] MEDS: DEXTROSE 5%-0.9% NS 1,000 ML 75 ML IV (09:56)
--- NOTE | 2022-12-29 16:09 | PC.NURSE ---
IV compromised and removed. No IV needed per Dr. Perez.
--- NOTE | 2022-12-29 16:13 | PM.PN.1 ---
Subjective Subjective Date Patient Seen: 12/29/22 Time Patient Seen: 16:13 Interval history: Tolerating regular diet. Having bowel function Exam Vital Signs (past 8 hours): - 12/29/22 08:20 12/29/22 08:55 12/29/22 10:00 Temperature 97 F L Pulse Rate 72 69 Respiratory Rate 17 Blood Pressure 162/78 H 153/67 H Pulse Oximetry 97 97 Oxygen Delivery Method Room Air Oxygen Flow Rate 0 Oxygen Delivery Method Room Air Oxygen Flow Rate 0 Narrative Exam Narrative: Abd soft Objective Labs 12/28/22 05:25 12/28/22 05:25 PFS Medical History Paroxysmal atrial fibrillation Small bowel obstruction Cardiomyopathy Septal infarction Colitis Neuropathy Hypoparathyroidism Hypertension Colon polyp AV block History of pacemaker (~11/2017) Symptomatic bradycardia Atrial flutter Primary osteoarthritis of right knee Collagenous colitis (~04/2018) Pacemaker Hypercalcemia Insomnia Hyperlipidemia Right ACL tear (2005) Dyshidrotic eczema Cervical cancer Ankle fracture, right (2005) Peripheral polyneuropathy (12/07/16) Polyneuropathy (01/04/17) Hyperparathyroidism (11/09/15) Essential hypertension (08/18/15) Left bundle branch block (LBBB) (10/14/14) Fibromyalgia History of adenomatous polyp of colon (03/31/11) Surgical History Status post hysterectomy (1974) Status post exploratory laparotomy Status post cholecystectomy (1998) History of bilateral salpingo-oophorectomy (BSO) (1998) Family History Father Family history of diabetes mellitus (DM) Grandmother Family history of diabetes mellitus (DM) Sister Family history of diabetes mellitus (DM) Family/Other Family history of diabetes mellitus (DM) Social History household members: none Smoking Status: Former smoker alcohol intake: current Assessment & Plan Assessment and plan (1) SBO (small bowel obstruction): Status: Acute Plan DC in AM if continuing to pass flatus and tolerating diet Ok to leave IV out Quality VTE Deep Vein Thrombosis/Pulmonary Embolism Present on Admission: No
[2022-12-29] MEDS: MIRTAZAPINE 15 MG TABLET PO (21:20)
[2022-12-29] MEDS: LORazepam 0.5 MG TABLET PO (21:37)
--- NOTE | 2022-12-30 06:53 | P.DS_ITS ---
History of Present Illness History of Present Illness Date Patient Seen: 12/30/22 Time Patient Seen: 06:53 Chief complaint: Poss. Bowel blockage Narrative: 77-year-old female well known to me, recently admitted with small-bowel obstruction that resolved with conservative measures. She had been home for several days, had resumed her usual activity and had resumed normal diet. And was doing quite well up until Monday the 26 of December when she developed recurrent abdominal pain distention with nausea very much the same as her previous presentation Knowing this she came to the ER where she was evaluated found to have small- bowel obstruction with evidence all so of gastric outlet obstruction. She had distention of her small bowel as well as her stomach She was admitted made NPO placed on IV fluids parental pain medication and antiemetics Patient had severe difficulty with NG tube during last hospitalization and is not vomiting and so NG tube was not placed despite the evidence of gastric distention seen on CT (which was seen previously as well) Her calcium was also elevated, she has a known hyperparathyroidism but is been stable in this regard. This morning calcium is back to her baseline at about 11. Discharge Providers Provider Date of admission: 12/26/22 21:55 Discharge Date: 12/30/22 Primary care physician: Gerber Beverly MD Consults: 12/26/22 21:37 Consult to General Surgery Stat Comment: Consulting Provider: Carlitos Perez Reason for consultation: sbo Has provider been notified: Yes Discharge provider: Gerber Beverly MD Summary Hospital Course Discharge Diagnosis: 1. Small-bowel obstruction, resolved 2. Hypertension 3. Paroxysmal atrial fibrillation 4. Hypercalcemia/hyperparathyroidism 5. Hyperlipidemia 6. Collagenous colitis Hospital Course: Patient was admitted with recurrent small-bowel obstruction. She was kept NPO seem to have significant improvement in bowel function by the next morning was re fed but had increasing symptoms. She was kept NPO for an additional 24 hours with IV fluids and antiemetic/pain medication. Bowel function seem to be much improved evidenced by return of bowel tones on exam as well as multiple stools. She was re fed and this time had no difficulty She was kept an additional 24 hours continued to eat without any additional symptoms. Therefore she was felt to be stable for discharge home and she will continue with her usual home medications Status at Discharge Cognitive/behavioral status at discharge: at baseline, oriented Functional status at discharge: independent ambulation Overall status at discharge: patient is back to baseline Exam Vital Signs (past 8 hours): Oxygen Delivery Method Room Air Oxygen Flow Rate 0 Objective Labs 12/28/22 05:25 12/28/22 05:25 PFSH Medical History Paroxysmal atrial fibrillation Small bowel obstruction Cardiomyopathy Septal infarction Colitis Neuropathy Hypoparathyroidism Hypertension Colon polyp AV block History of pacemaker (~11/2017) Symptomatic bradycardia Atrial flutter Primary osteoarthritis of right knee Collagenous colitis (~04/2018) Pacemaker Hypercalcemia Insomnia Hyperlipidemia Right ACL tear (2005) Dyshidrotic eczema Cervical cancer Ankle fracture, right (2005) Peripheral polyneuropathy (12/07/16) Polyneuropathy (01/04/17) Hyperparathyroidism (11/09/15) Essential hypertension (08/18/15) Left bundle branch block (LBBB) (10/14/14) Fibromyalgia History of adenomatous polyp of colon (03/31/11) Surgical History Status post hysterectomy (1974) Status post exploratory laparotomy Status post cholecystectomy (1998) History of bilateral salpingo-oophorectomy (BSO) (1998) Family History Father Family history of diabetes mellitus (DM) Grandmother Family history of diabetes mellitus (DM) Sister Family history of diabetes mellitus (DM) Family/Other Family history of diabetes mellitus (DM) Social History household members: none Smoking Status: Former smoker alcohol intake: current Discharge Assessment & Plan Assessment and Plan Plan of Treatment: Resume usual medications Follow-up appointment with Dr. Beverly in about 2 weeks Discharge Plan Discharge Plan Patient Disposition: Home Discharge orders & Medications Prescriptions: Continued mirtazapine 15 mg tablet 30 mg PO BEDTIME Qty: 180 3RF Xarelto 20 mg tablet 20 mg PO DAILY metoprolol succinate 25 mg tablet extended release 24 hr 25 mg PO BID One Daily Women's 27-0.4 mg tablet 1 tab PO DAILY losartan 100 mg tablet 100 mg PO DAILY Patient Comments: TAKE ONE TABLET BY MOUTH ONE TIME DAILY ondansetron 4 mg tablet,disintegrating 4 mg PO Q8H PRN (Reason: nausea and vomiting) Qty: 20 0RF Follow up/Referrals: Gerber Beverly MD [Primary Care Provider] - 2 Weeks Discharge Health Status Multidrug resistant organism: No MDRO Diet/Activity/Treatments Diet: Diet as Tolerated Visit Report/Discharge Packet Instructions: Low-Fiber/Low-Residue Diet Stand Alone Forms: Patient Portal/API, Stroke Signs & Symptoms Discharge Data Primary Care Provider: Gerber Beverly Quality VTE Deep Vein Thrombosis/Pulmonary Embolism Present on Admission: No
[2022-12-30 07:00] VITALS: BP 123/67; PULSE 77; RESP 18; TEMP 36.2; O2SAT 98
[2022-12-30 08:28] VITALS: BP 165/82; PULSE 70
[2022-12-30] MEDS: METOPROLOL ER 25 MG TABLET PO (08:28)
[2022-12-30 08:29] VITALS: BP 165/82; PULSE 70
[2022-12-30] MEDS: LOSARTAN 50 MG TABLET 100 MG PO (08:29)
[2022-12-30 08:33] VITALS: O2SAT 97
== END 2022-12-30 10:45 | disposition home or self-care (01) | DRG 389 ==
LOC: ED 21:37 → AC 22:01
PROVIDERS: Admitting Provider Family Medicine; Emergency Provider Emergency Medicine; Family Provider Internal Medicine; PCP Internal Medicine; Referring Provider Emergency Medicine; Visit Provider Internal Medicine
DX: K56.609 Unspecified intestinal obstruction, unspecified as to partial versus complete obstruction (principal); I42.9 Cardiomyopathy, unspecified; I48.0 Paroxysmal atrial fibrillation; E21.3 Hyperparathyroidism, unspecified; I10 Essential (primary) hypertension; Z79.01 Long term (current) use of anticoagulants; Z87.891 Personal history of nicotine dependence
CPT/HCPCS: 36415; 74177; 80048; 80053; 83690; 84443; 85025; 93005; 96374; 96375; 99223; 99231; 99232; 99238; 99284; 99285; J1170; J2060; J2405; J7050; Q9967

== ENCOUNTER → 2023-02-08 11:36 | Outpatient (CLI) | payer MEDICARE, SELFPAY ==
[2022-12-26 23:04] VITALS: BMI 24.7
[2023-02-08 12:23] LABS: COVID-19 CEPHEID 4-PLEX PCR POSITIVE (Negative); Influenza A - CEPHEID Flu A NEGATIVE (NEGATIVE); Influenza B - CEPHEID Flu B NEGATIVE (NEGATIVE); Respiratory Syncytial Virus Negative (Negative)
== END ==
PROVIDERS: Family Provider Internal Medicine; PCP Internal Medicine; Visit Provider Nurse Practitioner Family
DX: R05.1 Acute cough (principal)
CPT/HCPCS: 0241U

== ENCOUNTER 2023-07-18 14:03 | Inpatient (IN) | payer MEDICARE, SELFPAY ==
[2022-12-26 23:04] VITALS: BMI 24.7
[2023-07-18] VITALS (10 sets, daily range): BP systolic 150–184; BP diastolic 67–82; PULSE 69–85; RESP 16–20; TEMP 35.9–36.6; O2SAT 95–98; BMI 24.4
[2023-07-18 14:31] LABS: Add Manual Diff / Slide Review NO; Basophils Absolute Auto 100 /uL (0-100); Basophils Percent Auto 0.7 % (0-2); Eosinophils Absolute Auto 0 /uL (0-450); Eosinophils Percent Auto 0.5 % (2-4); Hematocrit 44.6 % (36-46); Hemoglobin 15.1 g/dL (12.0-16.0); Lymphocytes Absolute Auto 2100 /uL (1100-4500); Lymphocytes Percent Auto 27.3 % (25-40); Mean Corpuscular HGB Conc 33.8 % (30-36); Mean Corpuscular Hemoglobin 32.7 PG (26-34); Monocytes Absolute Auto 500 /uL (0-900); Neutrophils Absolute Auto 5100 /uL (1500-7000); Neutrophils Percent Auto 65.5 % (50-75); Platelet Count 243 X10^3/uL (150-400); Red Cell Distribution Width 13.8 % (11.6-14.8); White Blood Cell Count 7.8 X10^3/uL (4.5-11.0)
[2023-07-18 14:45] LABS: Alanine Aminotransferase 21 IU/L (<35); Albumin 4.7 g/dL (3.5-5.0); Albumin Globulin Ratio 1.5 (1.0-2.8); Alkaline Phosphatase 96 U/L (38-126); Aspartate Aminotransferase 44 IU/L (14-36); Bilirubin Total 0.9 mg/dL (0.2-1.3); Blood Urea Nitrogen 15 mg/dL (7-17); Calcium 11.1 mg/dL (8.4-10.2); Carbon Dioxide 30 mmol/L (22-32); Chloride 104 mmol/L (98-107); Estimated Glomerular Filt Rate > 60 mL/min (>60); Globulin 3.2 g/dL (1.7-4.1); Glucose 119 mg/dL (80-110); HEMOLYSIS 42 (0-50); Lactate (Lactic Acid) 1.1 mmol/L (0.7-2.1); Lipase 86 U/L (23-300); Potassium 4.9 mmol/L (3.4-5.1); Sodium 140 mmol/L (137-145); Total Protein 7.9 g/dL (6.3-8.2)
--- NOTE | 2023-07-18 14:52 | ED_ITS ---
HPI - General Adult General Chief complaint: Abdominal Pain Stated complaint: intestinal blockage, abd pain Time Seen by Provider: 07/18/23 14:09 Source: patient Mode of arrival: Ambulatory History of Present Illness HPI narrative: Patient is a 77-year-old female. Does have a history of intestinal blockage his. Has had abdominal surgeries in the past. 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 She states she actually has had worsening abdominal pain over the past several days. Yesterday seem to be the worst day. Has not had a bowel movement a couple days. Last time that she passed flatus was yesterday as well. Some nausea but no vomiting. No chest pain. And no shortness of breath. She was having some abdominal distention. She was concerned that maybe she is another bowel blockage. Related Data Home Medications Medication Instructions Recorded Confirmed [id number]-minerals 27 1 tab PO DAILY 10/06/20 07/18/23 mg-0.4 mg tablet (One Daily Women's) metoprolol succinate 25 mg 25 mg PO BID 05/04/21 07/18/23 tablet,extended release 24 hr losartan 100 mg tablet 100 mg PO DAILY 01/25/22 07/18/23 Previous Rx's Medication Instructions Recorded mirtazapine 15 mg tablet 30 mg (2 x 15 mg) PO BEDTIME #180 02/06/23 tabs Allergies Allergy/AdvReac Type Severity Reaction Status Date / Time amoxicillin [AMOXICILLIN] AdvReac Intermediate FATIGUE Verified 07/18/23 14:09 clavulanic acid AdvReac Intermediate FATIGUE Verified 07/18/23 14:09 [From AUGMENTIN] hydrochlorothiazide AdvReac Intermediate WEAKNESS Verified 07/18/23 14:09 [HYDROCHLOROTHIAZIDE] Review of Systems Review of Systems Narrative: See HPI Patient History Medical History Paroxysmal atrial fibrillation Small bowel obstruction Cardiomyopathy Septal infarction Colitis Neuropathy Hypoparathyroidism Hypertension Colon polyp AV block History of pacemaker (~11/2017) Symptomatic bradycardia Atrial flutter Primary osteoarthritis of right knee Collagenous colitis (~04/2018) Pacemaker Hypercalcemia Insomnia Hyperlipidemia Right ACL tear (2005) Dyshidrotic eczema Cervical cancer Ankle fracture, right (2005) Peripheral polyneuropathy (12/07/16) Polyneuropathy (01/04/17) Hyperparathyroidism (11/09/15) Essential hypertension (08/18/15) Left bundle branch block (LBBB) (10/14/14) Fibromyalgia History of adenomatous polyp of colon (03/31/11) Surgical History Status post hysterectomy (1974) Status post exploratory laparotomy Status post cholecystectomy (1998) History of bilateral salpingo-oophorectomy (BSO) (1998) Family History Father Family history of diabetes mellitus (DM) Grandmother Family history of diabetes mellitus (DM) Sister Family history of diabetes mellitus (DM) Family/Other Family history of diabetes mellitus (DM) Social History household members: none Smoking Status: Former smoker alcohol intake: current Smoking Status: Former smoker tobacco type: cigarettes alcohol intake frequency: a few times a week Substance Use Type: does not use Exam Initial Vital Signs Initial Vital Signs: Vital Signs Temperature 98 F 07/18/23 14:06 Pulse Rate 82 07/18/23 14:06 Respiratory Rate 16 07/18/23 14:06 Blood Pressure 168/75 H 07/18/23 14:06 Pulse Oximetry 98 07/18/23 14:06 Oxygen Delivery Method Room Air 07/18/23 14:06 Const General: cooperative, comfortable and No ill appearing HENMT Head: normal to inspection and normocephalic Resp Effort & Inspection: normal respiratory effort Auscultation: clear to auscultation bilaterally Cardio Rate: regular rate Rhythm: regular rhythm GI Inspection: distended Palpation: soft, No firm, No guarding, No rigid and tender Skin General: no rashes or lesions noted Neuro General: patient alert, patient awake, patient oriented x3 and moves all extremities Extrem General: capillary refill normal Course Orders Ordered: ED Orders 07/18/23 14:25 Complete Blood Count AUTO DIFF Stat Comprehensive Metabolic Panel Stat Lactate (Lactic Acid) Stat Lipase Stat 07/18/23 14:51 CT abdomen pelvis w con Stat 07/18/23 15:35 Consult to General Surgery Stat 07/18/23 16:06 EKG-12 Lead Stat 07/19/23 05:00 Basic Metabolic Panel Routine Complete Blood Count AUTO DIFF Routine Hydromorphone HCl (Hydromorphone 0.5 Mg Inj) 0.5 mg IV Q2H PRN PRN Reason: Pain, Severe (7-10) Dextrose/Sodium Chloride (Dextrose 5%-0.9% Ns) 1,000 mls @ 125 mls/hr IV CONT DEE Last Admin: 07/18/23 17:22 Dose: 125 mls/hr Documented By: CELIA Lorazepam (Lorazepam 2 Mg/Ml Inj) 1 mg IV Q4HR PRN PRN Reason: Anxiety Metoprolol Tartrate (Metoprolol Tartrate 5 Mg/5 Ml Inj) 5 mg IV Q2HR PRN PRN Reason: Hypertension Naloxone HCl (Naloxone 0.4 Mg/Ml Vial) 0.2 mg IV Q2MIN PRN PRN Reason: Opiate Reversal Ondansetron HCl (Ondansetron 4 Mg/2 Ml Inj) 4 mg IV Q8HR PRN PRN Reason: Nausea And Vomiting Discontinued Medications Morphine Sulfate (Morphine 4 Mg/Ml Inj) 4 mg IV NOW ONE Stop: 07/18/23 16:05 Last Admin: 07/18/23 16:13 Dose: 4 mg Documented By: MARIBEL Ondansetron HCl (Ondansetron 4 Mg/2 Ml Inj) 4 mg IV NOW PRN PRN Reason: Nausea And Vomiting Vital Signs Vital signs: Vital Signs - 8 hr 07/18/23 14:06 07/18/23 14:12 07/18/23 14:12 Temperature 98 F Pulse Rate 82 85 Respiratory Rate 16 Blood Pressure 168/75 H 161/77 H Pulse Oximetry 98 98 Oxygen Delivery Method Room Air 07/18/23 14:24 07/18/23 14:24 07/18/23 14:30 Temperature Pulse Rate 82 Respiratory Rate 20 Blood Pressure 160/72 H 150/67 H Pulse Oximetry 98 Oxygen Delivery Method 07/18/23 14:30 07/18/23 15:00 07/18/23 15:30 Temperature Pulse Rate 73 69 71 Respiratory Rate Blood Pressure Pulse Oximetry 96 98 96 Oxygen Delivery Method 07/18/23 16:00 Temperature Pulse Rate 75 Respiratory Rate Blood Pressure Pulse Oximetry 97 Oxygen Delivery Method Medical Decision Making Lab Data Lab results reviewed: Yes I reviewed the patient's lab results. 07/18/23 14:25 07/18/23 14:25 Labs: Lab Results 07/18/23 Range/Units 14:25 WBC 7.8 (4.5-11.0) X10^3/uL RBC 4.60 (4.0-5.2) X10^6/uL Hgb 15.1 (12.0-16.0) g/dL Hct 44.6 (36-46) % MCV 97.0 (80-100) fL MCH 32.7 (26-34) PG MCHC 33.8 (30-36) % RDW 13.8 (11.6-14.8) % Plt Count 243 (150-400) X10^3/uL Neut % (Auto) 65.5 (50-75) % Lymph % (Auto) 27.3 (25-40) % [place] % (Auto) 6.0 (3-14) % Eos % (Auto) 0.5 L (2-4) % Baso % (Auto) 0.7 (0-2) % Neut # (Auto) 5100 (1420-3253) /uL Lymph # (Auto) 2100 (8911-3904) /uL [place] # (Auto) 500 (0-900) /uL Eos # (Auto) 0 (0-450) /uL Baso # (Auto) 100 (0-100) /uL Sodium 140 (137-145) mmol/L Potassium 4.9 (3.4-5.1) mmol/L Chloride 104 (98-107) mmol/L Carbon Dioxide 30 (22-32) mmol/L BUN 15 (7-17) mg/dL Creatinine 0.60 (0.52-1.04) mg/dL Estimated GFR > 60 (>60) mL/min BUN/Creatinine Ratio 25.0 H (6-22) Glucose 119 H (80-110) mg/dL Lactate 1.1 (0.7-2.1) mmol/L Calcium 11.1 H (8.4-10.2) mg/dL Total Bilirubin 0.9 (0.2-1.3) mg/dL AST 44 H (14-36) IU/L ALT 21 (<35) IU/L Alkaline Phosphatase 96 (38-126) U/L Total Protein 7.9 (6.3-8.2) g/dL Albumin 4.7 (3.5-5.0) g/dL Globulin 3.2 (1.7-4.1) g/dL Albumin/Globulin Ratio 1.5 (1.0-2.8) Lipase 86 (23-300) U/L Imaging Data CT scan - abdomen/pelvis: Radiologist's Impression: PROCEDURE: CT ABDOMEN PELVIS W CON INDICATIONS: Abdominal pain history of bowel blockage TECHNIQUE: After the administration of intravenous contrast, axial sections acquired from the lung bases to the pubic symphysis. Coronal and sagittal reformats were performed. For radiation dose reduction, the following was used: automated exposure control, adjustment of mA and/or kV according to patient size. COMPARISON: [facility], CT, CT ABDOMEN PELVIS W CON, 12/26/2022, 19:46. FINDINGS: Image quality: Diagnostic. Lower Chest: No significant findings. ABDOMEN: Liver: No solid mass. Gallbladder: Surgically absent. Biliary ducts: No biliary dilation. Pancreas: No ductal dilation. Spleen: Size is within normal limits. Adrenal Glands: No adrenal nodules. Kidneys and Ureters: No hydronephrosis. No solid mass. No complex renal cystic lesion which requires follow up. A low-density cystic lesion is present within the midpole of the left kidney. Stomach and Bowel: A large amount of food debris is present within the distended stomach. The duodenum and the jejunum are decompressed. The midportion of the small bowel is dilated and fluid-filled. No pneumatosis. The distal small bowel is decompressed. The small bowel within the right lower quadrant has a swirled appearance, suggesting the presence of an internal hernia (series 2/image is 46- 55). Additionally, solid-appearing stool is present within the small bowel in this region. The appendix is not visualized and may be surgically absent. There are scattered sigmoid diverticula. No evidence for diverticulitis. Peritoneum: No abnormal intraperitoneal fluid. No free air. Ventral Wall: No significant ventral hernia. Abdominal Nodes: No retroperitoneal or mesenteric adenopathy by size criteria. Vessels: Aorta and inferior vena cava are normal in size. PELVIS: Pelvic Organs: Unremarkable. Bladder: No bladder wall thickening, accounting for underdistention. Pelvic Nodes: No enlarged lymph nodes. Miscellaneous: No inguinal hernias are seen. Bones: No aggressive osseous abnormality. IMPRESSION: 1. Findings most consistent with small bowel obstruction secondary to internal hernia. Surgical consultation recommended. No pneumatosis or pneumoperitoneum. ECG Data Attestation: I personally reviewed and interpreted this ECG as follows: Interpretation: Atrially sensed ventricularly paced with a rate is 76 MDM Narrative Medical decision making narrative: CT scan confirms small bowel obstruction. Discussed the case with Dr. Miles on-call with General surgery who recommended the patient be admitted to her primary care doctor. I then discussed the case with Dr. Beverly who is her primary doctor. Will admit for further evaluation and treatment. Discussed the findings of the CT scan with the patient. She expressed understanding and agreement as well. Discharge Plan Departure Patient Disposition: Admitted As Inpatient Clinical Impression: Small bowel obstruction Admit Date/Time: 07/18/23 16:09 Admit Provider: Gerber Beverly
[2023-07-18] MEDS: MORPHINE 4 MG/ML INJ IV (16:13)
--- NOTE | 2023-07-18 16:13 | PM.CALLCOV.1 ---
Call Coverage Note Note Date of Patient Contact: 07/18/23 Time of Patient Contact: 16:14 Narrative of Care Provided: CT scan reviewed and agree with SBO, some evidence of chronic component with fecalization of SB. Needs anticoagulation held and cardiac clearance. Last episode resolved w/o surgery. No evidence of ischemia with the possible internal hernia. If low volume NGT output, will consider gastrografin challenge tomorrow. Records do not reflect treatment for hyperparathroid and hypercalcemia. May be worth pursuing. Last bone density around 4 yrs ago. Full consult note to follow
--- NOTE | 2023-07-18 16:35 | PM.HP.1 ---
History of Present Illness History of Present Illness Date Patient Seen: 07/18/23 Time Patient Seen: 16:35 Chief complaint: intestinal blockage, abd pain Narrative: 77-year-old female well known to me presented to the emergency department with several days of abdominal pain and no bowel movement for several days. This is consistent with prior presentations for small-bowel obstruction. She denies any significant emesis, as that is some nausea and bloating ER evaluation with CT demonstrated bowel obstruction with some findings on CT that were suggestive of possible internal hernia including things such as some evidence of solid stool in small-bowel etcetera General surgery was consulted and asked that patient be admitted to the medical service Past history otherwise outlined previously and below She was chronically anticoagulated with a direct oral anticoagulant due to her paroxysmal atrial fibrillation [facility] Medical History Paroxysmal atrial fibrillation Small bowel obstruction Cardiomyopathy Septal infarction Colitis Neuropathy Hypoparathyroidism Hypertension Colon polyp AV block History of pacemaker (~11/2017) Symptomatic bradycardia Atrial flutter Primary osteoarthritis of right knee Collagenous colitis (~04/2018) Pacemaker Hypercalcemia Insomnia Hyperlipidemia Right ACL tear (2005) Dyshidrotic eczema Cervical cancer Ankle fracture, right (2005) Peripheral polyneuropathy (12/07/16) Polyneuropathy (01/04/17) Hyperparathyroidism (11/09/15) Essential hypertension (08/18/15) Left bundle branch block (LBBB) (10/14/14) Fibromyalgia History of adenomatous polyp of colon (03/31/11) Surgical History Status post hysterectomy (1974) Status post exploratory laparotomy Status post cholecystectomy (1998) History of bilateral salpingo-oophorectomy (BSO) (1998) Family History Father Family history of diabetes mellitus (DM) Grandmother Family history of diabetes mellitus (DM) Sister Family history of diabetes mellitus (DM) Family/Other Family history of diabetes mellitus (DM) Social History household members: none Smoking Status: Former smoker alcohol intake: current Meds Home Medications and Allergies Home Medications Medication Instructions Recorded Confirmed Type qsruwgixqmeh-Gp-ixch-minerals 27 1 tab PO DAILY 10/06/20 07/18/23 History mg-0.4 mg tablet (One Daily Women's) metoprolol succinate 25 mg 25 mg PO BID 05/04/21 07/18/23 History tablet,extended release 24 hr losartan 100 mg tablet 100 mg PO DAILY 01/25/22 07/18/23 History mirtazapine 15 mg tablet 30 mg (2 x 15 mg) PO BEDTIME #180 02/06/23 07/18/23 Rx tabs Allergies Allergy/AdvReac Type Severity Reaction Status Date / Time amoxicillin [AMOXICILLIN] AdvReac Intermediate FATIGUE Verified 07/18/23 14:09 clavulanic acid AdvReac Intermediate FATIGUE Verified 07/18/23 14:09 [From AUGMENTIN] hydrochlorothiazide AdvReac Intermediate WEAKNESS Verified 07/18/23 14:09 [HYDROCHLOROTHIAZIDE] Review of Systems Review of Systems ROS: Yes All systems reviewed with the patient and are negative except as otherwise documented Exam Vital Signs (past 8 hours): - 07/18/23 14:06 07/18/23 14:12 07/18/23 14:12 Temperature 98 F Pulse Rate 82 85 Respiratory Rate 16 Blood Pressure 168/75 H 161/77 H Pulse Oximetry 98 98 Oxygen Delivery Method Room Air 07/18/23 14:24 07/18/23 14:24 07/18/23 14:30 Temperature Pulse Rate 82 Respiratory Rate 20 Blood Pressure 160/72 H 150/67 H Pulse Oximetry 98 Oxygen Delivery Method 07/18/23 14:30 07/18/23 15:00 07/18/23 15:30 Temperature Pulse Rate 73 69 71 Respiratory Rate Blood Pressure Pulse Oximetry 96 98 96 Oxygen Delivery Method 07/18/23 16:00 Temperature Pulse Rate 75 Respiratory Rate Blood Pressure Pulse Oximetry 97 Oxygen Delivery Method Oxygen Delivery Method Room Air Narrative Exam Narrative: Elderly female lying in hospital bed with a NG tube in place looking generally uncomfortable HEENT-unremarkable Neck-no bruits Lungs-clear good breath sounds Heart-regular rate and rhythm Abdomen-rare bowel tones, kind of high pitch, distended, no rebound or guarding Objective Imaging CT scan - abdomen: Radiologist's impression: PROCEDURE: CT ABDOMEN PELVIS W CON INDICATIONS: Abdominal pain history of bowel blockage TECHNIQUE: After the administration of intravenous contrast, axial sections acquired from the lung bases to the pubic symphysis. Coronal and sagittal reformats were performed. For radiation dose reduction, the following was used: automated exposure control, adjustment of mA and/or kV according to patient size. COMPARISON: [facility], CT, CT ABDOMEN PELVIS W CON, 12/26/2022, 19:46. FINDINGS: Image quality: Diagnostic. Lower Chest: No significant findings. ABDOMEN: Liver: No solid mass. Gallbladder: Surgically absent. Biliary ducts: No biliary dilation. Pancreas: No ductal dilation. Spleen: Size is within normal limits. Adrenal Glands: No adrenal nodules. Kidneys and Ureters: No hydronephrosis. No solid mass. No complex renal cystic lesion which requires follow up. A low-density cystic lesion is present within the midpole of the left kidney. Stomach and Bowel: A large amount of food debris is present within the distended stomach. The duodenum and the jejunum are decompressed. The midportion of the small bowel is dilated and fluid-filled. No pneumatosis. The distal small bowel is decompressed. The small bowel within the right lower quadrant has a swirled appearance, suggesting the presence of an internal hernia (series 2/image is 46-55). Additionally, solid-appearing stool is present within the small bowel in this region. The appendix is not visualized and may be surgically absent. There are scattered sigmoid diverticula. No evidence for diverticulitis. Peritoneum: No abnormal intraperitoneal fluid. No free air. Ventral Wall: No significant ventral hernia. Abdominal Nodes: No retroperitoneal or mesenteric adenopathy by size criteria. Vessels: Aorta and inferior vena cava are normal in size. PELVIS: Pelvic Organs: Unremarkable. Bladder: No bladder wall thickening, accounting for underdistention. Pelvic Nodes: No enlarged lymph nodes. Miscellaneous: No inguinal hernias are seen. Bones: No aggressive osseous abnormality. IMPRESSION: 1. Findings most consistent with small bowel obstruction secondary to internal hernia. Surgical consultation recommended. No pneumatosis or pneumoperitoneum. Labs 07/18/23 14:25 07/18/23 14:25 Labs: Laboratory Results - last 24 hr 07/18/23 14:25 WBC 7.8 RBC 4.60 Hgb 15.1 Hct 44.6 MCV 97.0 MCH 32.7 MCHC 33.8 RDW 13.8 Plt Count 243 Neut % (Auto) 65.5 Lymph % (Auto) 27.3 [place] % (Auto) 6.0 Eos % (Auto) 0.5 L Baso % (Auto) 0.7 Neut # (Auto) 5100 Lymph # (Auto) 2100 [place] # (Auto) 500 Eos # (Auto) 0 Baso # (Auto) 100 Sodium 140 Potassium 4.9 Chloride 104 Carbon Dioxide 30 BUN 15 Creatinine 0.60 Estimated GFR > 60 BUN/Creatinine Ratio 25.0 H Glucose 119 H Lactate 1.1 Calcium 11.1 H Total Bilirubin 0.9 AST 44 H ALT 21 Alkaline Phosphatase 96 Total Protein 7.9 Albumin 4.7 Globulin 3.2 Albumin/Globulin Ratio 1.5 Lipase 86 Assessment & Plan Assessment & Plan narrative: 1. Small-bowel obstruction-keep NPO with IV fluids and IV antiemetics and pain medication as necessary. NG tube has been placed for decompression given the findings on her CT scan General surgery to consult and provide further assistance in management 2. Paroxysmal atrial fibrillation-continue patient off of her anticoagulation for now. She also need to discontinue her other medications and will monitor for recurrent AFib 3. Hypertension-patient will have to remain off of her meds but can not give parental IV beta-daisy for hypertension which maybe necessary since she does take oral metoprolol, but at relatively low-dose 4. Cardiomyopathy-patient with history of a cardiomyopathy with the ejection fraction in the 25-30% range. Cardiology's with [facility] in [place] but no recent notes are available, and uncertain S2 most recent echocardiogram 5. History of collagenous colitis-diagnose based on colonoscopy in 2019. Obviously no active symptoms. Continue to monitor 6. Code status-patient requests full code in the event of a sudden cardiac or respiratory arrest which is not anticipated 7. VTE prophylaxis-SCDs for now. Given the potential need for surgical intervention will hold on more aggressive anticoagulation for now however if general surgery does not feel like patient is imminently going to require surgical intervention Lovenox would be appropriate to initiate verses restarting her direct oral anticoagulant IH PROFEE Charge Codes Initial inpatient/observation care: [id number]
[2023-07-18] MEDS: DEXTROSE 5%-0.9% NS 1,000 ML 125 ML IV (17:22)
[2023-07-18] MEDS: HYDROMORPHONE 0.5 MG INJ IV ×2 (18:32→21:37)
[2023-07-18] MEDS: LORazepam 2 MG/ML INJ 1 MG IV (21:37)
[2023-07-19] VITALS (9 sets, daily range): BP systolic 115–167; BP diastolic 46–76; PULSE 71–86; RESP 16–22; TEMP 35.8–36.7; O2SAT 92–99
--- NOTE | 2023-07-19 | DI.RAD.S_ITS ---
PROCEDURE: XR GASTROGRAFIN CHALLENGE COMPARISON: None. INDICATIONS: small bowel obstruction FINDINGS: Single supine film of the abdomen was obtained 4 hours after oral Gastrografin administration. Enteric contrast noted throughout the large and small bowel without dilation or evidence of obstruction. Contrast is also present within the stomach and bladder. Paragraphs nasogastric tube tip in the gastric fundus, and side port in the distal esophagus IMPRESSION: No evidence of small bowel obstruction. Contrast present throughout the enteric tract. Nasogastric tube side port in the distal esophagus. Consider 15-20 cm advancement Approved by: Franklin Abarca M.D. on 07/19/2023 at 13:38
[2023-07-19] MEDS: DEXTROSE 5%-0.9% NS 1,000 ML 125 ML IV ×3 (01:42→20:16)
[2023-07-19] MEDS: HYDROMORPHONE 0.5 MG INJ IV ×3 (01:59→14:42)
[2023-07-19 06:35] LABS: Add Manual Diff / Slide Review NO; Basophils Absolute Auto 0 /uL (0-100); Basophils Percent Auto 0.2 % (0-2); Eosinophils Absolute Auto 0 /uL (0-450); Eosinophils Percent Auto 0.1 % (2-4); Hematocrit 43.1 % (36-46); Hemoglobin 14.3 g/dL (12.0-16.0); Lymphocytes Absolute Auto 1500 /uL (1100-4500); Lymphocytes Percent Auto 13.4 % (25-40); Mean Corpuscular HGB Conc 33.3 % (30-36); Mean Corpuscular Hemoglobin 32.6 PG (26-34); Mean Corpuscular Volume 97.8 fL (80-100); Monocytes Absolute Auto 800 /uL (0-900); Monocytes Percent Auto 7.3 % (3-14); Neutrophils Absolute Auto 8800 /uL (1500-7000); Platelet Count 210 X10^3/uL (150-400); White Blood Cell Count 11.1 X10^3/uL (4.5-11.0)
[2023-07-19 06:48] LABS: BUN Creatinine Ratio 23.8 (6-22); Blood Urea Nitrogen 15 mg/dL (7-17); Calcium 10.3 mg/dL (8.4-10.2); Carbon Dioxide 28 mmol/L (22-32); Chloride 109 mmol/L (98-107); Estimated Glomerular Filt Rate > 60 mL/min (>60); Glucose 169 mg/dL (80-110); HEMOLYSIS < 15 (0-50); Potassium 4.3 mmol/L (3.4-5.1); Sodium 141 mmol/L (137-145)
--- NOTE | 2023-07-19 07:37 | PM.PN.1 ---
Subjective Subjective Date Patient Seen: 07/19/23 Time Patient Seen: 07:37 Interval history: Pretty much uneventful evening. Slightly less than expected drainage from NG tube (since admission). NG tube currently clamped without significant increase in symptoms per patient. Does report some passage of gas this morning Blood pressure bit borderline, not surprising given lack of oral antihypertensive meds Exam Vital Signs (past 8 hours): - 07/19/23 05:30 Temperature 98 F Pulse Rate 86 Respiratory Rate 17 Blood Pressure 163/76 H Pulse Oximetry 93 Oxygen Flow Rate 0 Oxygen Delivery Method Room Air Oxygen Flow Rate 0 Narrative Exam Narrative: Abdomen-rare bowel tones Objective Labs 07/19/23 05:25 07/19/23 05:25 Labs: Laboratory Results - last 24 hr 07/18/23 07/19/23 14:25 05:25 WBC 7.8 11.1 H RBC 4.60 4.40 Hgb 15.1 14.3 Hct 44.6 43.1 MCV 97.0 97.8 MCH 32.7 32.6 MCHC 33.8 33.3 RDW 13.8 14.0 Plt Count 243 210 Neut % (Auto) 65.5 79.0 H Lymph % (Auto) 27.3 13.4 L [place] % (Auto) 6.0 7.3 Eos % (Auto) 0.5 L 0.1 L Baso % (Auto) 0.7 0.2 Neut # (Auto) 5100 8800 H Lymph # (Auto) 2100 1500 [place] # (Auto) 500 800 Eos # (Auto) 0 0 Baso # (Auto) 100 0 Sodium 140 141 Potassium 4.9 4.3 Chloride 104 109 H Carbon Dioxide 30 28 BUN 15 15 Creatinine 0.60 0.63 Estimated GFR > 60 > 60 BUN/Creatinine Ratio 25.0 H 23.8 H Glucose 119 H 169 H Lactate 1.1 Calcium 11.1 H 10.3 H Total Bilirubin 0.9 AST 44 H ALT 21 Alkaline Phosphatase 96 Total Protein 7.9 Albumin 4.7 Globulin 3.2 Albumin/Globulin Ratio 1.5 Lipase 86 PFSH Medical History Paroxysmal atrial fibrillation Small bowel obstruction Cardiomyopathy Septal infarction Colitis Neuropathy Hypoparathyroidism Hypertension Colon polyp AV block History of pacemaker (~11/2017) Symptomatic bradycardia Atrial flutter Primary osteoarthritis of right knee Collagenous colitis (~04/2018) Pacemaker Hypercalcemia Insomnia Hyperlipidemia Right ACL tear (2005) Dyshidrotic eczema Cervical cancer Ankle fracture, right (2005) Peripheral polyneuropathy (12/07/16) Polyneuropathy (01/04/17) Hyperparathyroidism (11/09/15) Essential hypertension (08/18/15) Left bundle branch block (LBBB) (10/14/14) Fibromyalgia History of adenomatous polyp of colon (03/31/11) Surgical History Status post hysterectomy (1974) Status post exploratory laparotomy Status post cholecystectomy (1998) History of bilateral salpingo-oophorectomy (BSO) (1998) Family History Father Family history of diabetes mellitus (DM) Grandmother Family history of diabetes mellitus (DM) Sister Family history of diabetes mellitus (DM) Family/Other Family history of diabetes mellitus (DM) Social History household members: none Smoking Status: Former smoker alcohol intake: current Assessment & Plan Assessment & Plan narrative: 1. Small-bowel obstruction-continue management as per General surgery/Dr. Miles. NG tube currently clamped. Certainly does not seem to be any worse but not convinced there is dramatic improvement as yet. 2. Paroxysmal AFib-continue to monitor for now. Needs to remain off of her anticoagulation as per surgery 3. Hypertension-will initiate scheduled doses of IV metoprolol 4. Hyperparathyroidism-patient's calcium and parathyroid levels have been stable over time. Last DEXA scan was 3+ years ago, is probably time to repeat that as an outpatient however it has been stable over time. Continue to monitor for now 5. Cardiomyopathy-patient without active symptoms to be suggestive of acute congestive heart failure etcetera. Will try to obtain records from [facility]. PROFEE Charge codes Subsequent inpatient/observation care: [id number]
[2023-07-19] MEDS: ONDANSETRON 4 MG/2 ML INJ IV (07:38)
[2023-07-19] MEDS: METOPROLOL TARTRATE 5 MG/5 ML INJ IV ×2 (09:53→14:46)
--- NOTE | 2023-07-19 10:09 | P.CONS_ITS ---
History of Present Illness Consult details Date Patient Seen: 07/19/23 Time Patient Seen: 10:09 Chief complaint: intestinal blockage, abd pain Reason for consult: SBO Requesting provider: Gerber Beverly Narrative: about a day of abdominal pain and no BM, no flatus when she presented. H/o SBO. CT scan shows SBO from possible internal hernia w/o clinical or radiographic evidence of ischemia. O/w frail with Afib, anticoagulated, cardiac risk. Reports no flatus overnight, NGT in place. Mild discomfort in right side of abdomen. Meds Home Medications and Allergies Home Medications Medication Instructions Recorded Confirmed Type kofllzktuzak-Xk-gtzs-minerals 27 1 tab PO DAILY 10/06/20 07/18/23 History mg-0.4 mg tablet (One Daily Women's) metoprolol succinate 25 mg 25 mg PO BID 05/04/21 07/18/23 History tablet,extended release 24 hr losartan 100 mg tablet 100 mg PO DAILY 01/25/22 07/18/23 History mirtazapine 15 mg tablet 30 mg (2 x 15 mg) PO BEDTIME #180 02/06/23 07/18/23 Rx tabs rivaroxaban 20 mg tablet (Xarelto) 20 mg PO DAILY 07/19/23 History Allergies Allergy/AdvReac Type Severity Reaction Status Date / Time amoxicillin [AMOXICILLIN] AdvReac Intermediate FATIGUE Verified 07/18/23 14:09 clavulanic acid AdvReac Intermediate FATIGUE Verified 07/18/23 14:09 [From AUGMENTIN] hydrochlorothiazide AdvReac Intermediate WEAKNESS Verified 07/18/23 14:09 [HYDROCHLOROTHIAZIDE] Review of Systems Review of Systems ROS: Yes All systems reviewed with the patient and are negative except as otherwise documented Exam Vital Signs (past 8 hours): - 07/19/23 05:30 07/19/23 07:48 07/19/23 07:49 Temperature 98 F 97.0 F L Pulse Rate 86 78 Respiratory Rate 17 22 Blood Pressure 163/76 H 161/73 H Pulse Oximetry 93 92 93 Oxygen Delivery Method Room Air Oxygen Flow Rate 0 0 0 Oxygen Delivery Method Room Air Oxygen Flow Rate 0 Const General: cooperative and frail appearing Nutritional Appearance: thin HENMT Head: normocephalic and atraumatic Eyes Sclera: sclerae normal Neck Neck: trachea midline and No JVD Resp Effort & Inspection: normal respiratory effort and able to speak in complete sentences Cardio Rate: regular rate Rhythm: abnormal rhythm GI Palpation: soft, No guarding, No rigid and tender Skin General: No turgor normal and atrophy Neuro General: patient alert, patient awake and patient oriented x3 Psych Mental Status: mental status grossly normal Judgment: judgment good Objective Labs 07/19/23 05:25 07/19/23 05:25 Labs: Laboratory Results - last 24 hr 07/18/23 07/19/23 14:25 05:25 WBC 7.8 11.1 H RBC 4.60 4.40 Hgb 15.1 14.3 Hct 44.6 43.1 MCV 97.0 97.8 MCH 32.7 32.6 MCHC 33.8 33.3 RDW 13.8 14.0 Plt Count 243 210 Neut % (Auto) 65.5 79.0 H Lymph % (Auto) 27.3 13.4 L Baldwin % (Auto) 6.0 7.3 Eos % (Auto) 0.5 L 0.1 L Baso % (Auto) 0.7 0.2 Neut # (Auto) 5100 8800 H Lymph # (Auto) 2100 1500 Baldwin # (Auto) 500 800 Eos # (Auto) 0 0 Baso # (Auto) 100 0 Sodium 140 141 Potassium 4.9 4.3 Chloride 104 109 H Carbon Dioxide 30 28 BUN 15 15 Creatinine 0.60 0.63 Estimated GFR > 60 > 60 BUN/Creatinine Ratio 25.0 H 23.8 H Glucose 119 H 169 H Lactate 1.1 Calcium 11.1 H 10.3 H Total Bilirubin 0.9 AST 44 H ALT 21 Alkaline Phosphatase 96 Total Protein 7.9 Albumin 4.7 Globulin 3.2 Albumin/Globulin Ratio 1.5 Lipase 86 [facility] Medical History Paroxysmal atrial fibrillation Small bowel obstruction Cardiomyopathy Septal infarction Colitis Neuropathy Hypoparathyroidism Hypertension Colon polyp AV block History of pacemaker (~11/2017) Symptomatic bradycardia Atrial flutter Primary osteoarthritis of right knee Collagenous colitis (~04/2018) Pacemaker Hypercalcemia Insomnia Hyperlipidemia Right ACL tear (2005) Dyshidrotic eczema Cervical cancer Ankle fracture, right (2005) Peripheral polyneuropathy (12/07/16) Polyneuropathy (01/04/17) Hyperparathyroidism (11/09/15) Essential hypertension (08/18/15) Left bundle branch block (LBBB) (10/14/14) Fibromyalgia History of adenomatous polyp of colon (03/31/11) Surgical History Status post hysterectomy (1974) Status post exploratory laparotomy Status post cholecystectomy (1998) History of bilateral salpingo-oophorectomy (BSO) (1998) Family History Father Family history of diabetes mellitus (DM) Grandmother Family history of diabetes mellitus (DM) Sister Family history of diabetes mellitus (DM) Family/Other Family history of diabetes mellitus (DM) Social History household members: none Tobacco & Substance Use Smoking Status: Former smoker alcohol intake: current Assessment & Plan Assessment & Plan narrative: Recurrent SBO, moderated NGT output. No acute abdomen. Pacemaker Hyperparathyroidism Plan: Gastrograffin challenge. PTH pending Time Spent With Patient Time with patient: less than 30 minutes
--- NOTE | 2023-07-19 13:18 | CM.DANOTE ---
Initial DCP Assessment Visit Note Reviewed EMR and team rounds for medical status and updates. Met with pt at bedside to introduce self and role, pt was found to be resting in bed, appearing anxious. She resides in her own home independently, states she has friends and family available to support her and transport her home once she's ready for d/c home. Pt stated right away that she was not going to need anything at discharge, although this could change if she needs surgery, which is pending at this time based on the results of the scan/gastrografin challenge. Payor: Medicare PCP: Dr. Beverly Pt is a 77 year-old F who presented to the ED last evening with c/o worsening abdominal pain over rthe last several days, and no BM in the last 2-days. Pt has a lengthy PMH of intestinal blockages and stomach surgeries, and recognize the symptoms suspecting another bowel blockage. CT abd/pelvis was positive for a small bowel blockage secondary to an internal hernia. Surgery was consulted, pt was made NPO, and she was admitted for conservative monitoring throughout the night with a plan for gastrografin challenge today if she did not improve. Today she was found to have minimal output in her NG tube, and therefore she did have the gastrografin challenge and scan. Results are pending. 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 Discharge Planning/Care Management Advanced directive, confirm from FAMILY Start: 07/18/23 17:07 Freq: Q24H Status: Active Protocol: Document 07/18/23 17:08 AK (Rec: 07/18/23 17:08 AK [id number]) Advance Directive, confirm on record Time 17:08 Person contacted patient to have family to bring in. Copy received No CM Discharge Assessment Start: 07/19/23 13:01 Freq: Status: Active Protocol: Document 07/19/23 13:01 DPL (Rec: 07/19/23 13:18 DPL [id number]) Discharge Planning Assessment Assigned Beef Selector CATHY Burnham Advance Directives? Yes Advance Directives on File Yes History Provided By Patient,Medical Record Expected Length of Stay 3 Has Patient been admitted in last 30 No days? Prior Living Arrangements House Household Members none Type of transporation used prior to Drives own vehicle admit Independent with ADL's Yes Is patient alert and oriented? Yes Caregiver for Another No Comment N/A Comment None Comment Pending gaastrogafin challenge results, pending. This will indicate whether or not she will need surgery. Barriers to Discharge No Comment No needs identified at this time , will plan to follow clinical course. Discharge Plan Home Transportation Arrangement Friend or family Referrals Initiated None needed Additional Comment Will plan to follow in case any DC needs or concerns arise . Whiteboard Updated in Patient Room with Yes name and ext. # of Beef Selector Review Status In Process Please Provide Date Initial DC 07/19/23 Assessment Was Performed
[2023-07-19] MEDS: ACETAMINOPHEN 325 MG TABLET 650 MG PO (17:24)
[2023-07-19] MEDS: MIRTAZAPINE 15 MG TABLET 30 MG PO (20:16)
[2023-07-19] MEDS: METOPROLOL ER 25 MG TABLET PO (20:16)
[2023-07-20] VITALS (9 sets, daily range): BP systolic 127–142; BP diastolic 45–67; PULSE 60–81; RESP 16–19; TEMP 36.3–36.9; O2SAT 94–96
--- NOTE | 2023-07-20 00:04 | PC.NURSE ---
2330-RN to bedside to asses IV alarm, found patient wandering around the room confused. Oriented to person, and time. Easily reoriented. Patient reports not knowing if she wakes up confused at home, RN sitting at door for patients safety. Call light within reach, bed alarm on.
[2023-07-20] MEDS: LORazepam 2 MG/ML INJ 1 MG IV (00:23)
[2023-07-20] MEDS: DEXTROSE 5%-0.9% NS 1,000 ML 125 ML IV (03:33)
--- NOTE | 2023-07-20 06:51 | P.PN_ITS ---
Subjective Subjective Date Patient Seen: 07/20/23 Time Patient Seen: 06:51 Interval history: Patient is a bit confused this morning. Had some disorientation overnight Abdominal symptoms are vastly better. Denies any abdominal pain. Tolerated clear liquids without any difficulty yesterday, after her Gastrografin which was unremarkable and her NG tube was removed as per Dr. Miles Blood pressure improved as well Exam Vital Signs (past 8 hours): - 07/20/23 00:00 07/20/23 06:48 Temperature 97.6 F 97.6 F Pulse Rate 74 72 Respiratory Rate 19 19 Blood Pressure 141/67 H 142/63 H Pulse Oximetry 94 94 Oxygen Flow Rate 0 0 Oxygen Delivery Method Room Air Oxygen Flow Rate 0 Objective Labs 07/19/23 05:25 07/19/23 05:25 Labs: Laboratory Results - last 24 hr 07/19/23 05:25 Sodium 141 Potassium 4.3 Chloride 109 H Carbon Dioxide 28 BUN 15 Creatinine 0.63 Estimated GFR > 60 BUN/Creatinine Ratio 23.8 H Glucose 169 H Calcium 10.3 H PFSH Medical History Paroxysmal atrial fibrillation Small bowel obstruction Cardiomyopathy Septal infarction Colitis Neuropathy Hypoparathyroidism Hypertension Colon polyp AV block History of pacemaker (~11/2017) Symptomatic bradycardia Atrial flutter Primary osteoarthritis of right knee Collagenous colitis (~04/2018) Pacemaker Hypercalcemia Insomnia Hyperlipidemia Right ACL tear (2005) Dyshidrotic eczema Cervical cancer Ankle fracture, right (2005) Peripheral polyneuropathy (12/07/16) Polyneuropathy (01/04/17) Hyperparathyroidism (11/09/15) Essential hypertension (08/18/15) Left bundle branch block (LBBB) (10/14/14) Fibromyalgia History of adenomatous polyp of colon (03/31/11) Surgical History Status post hysterectomy (1974) Status post exploratory laparotomy Status post cholecystectomy (1998) History of bilateral salpingo-oophorectomy (BSO) (1998) Family History Father Family history of diabetes mellitus (DM) Grandmother Family history of diabetes mellitus (DM) Sister Family history of diabetes mellitus (DM) Family/Other Family history of diabetes mellitus (DM) Social History household members: none Smoking Status: Former smoker alcohol intake: current Assessment & Plan Assessment & Plan narrative: 1. Small-bowel obstruction-given lack of symptoms with clear liquids will advance to full liquids and then advance as tolerated. Would like to keep her in the hospital least another 24 hours given the repetitive nature of these bowel obstructions to ensure she is not having any additional symptoms before discharge 2. Paroxysmal AFib-continue to monitor for now. Needs to remain off of her anticoagulation as per surgery. Hopefully can resume anticoagulation if not tomorrow than least upon discharge (which hopefully will be tomorrow as well) 3. Hypertension-improved back on oral meds. Continue to monitor 4. Hyperparathyroidism-still awaiting parathyroid levels. Patient was seen by an endocrine surgeon back in 2016 did not feel as though she had clearly primary hyperparathyroidism. Following that her parathyroid levels did drop to normal despite the fact her calcium has remained somewhat elevated. However it has not never really significantly elevated, and she has not shown evidence of significant osteoporosis or kidney stones or any other findings usually associated with primary hyperparathyroidism. As noted yesterday she is due for a DEXA scan however. 5. Cardiomyopathy-patient without active symptoms to be suggestive of acute congestive heart failure etcetera. Will try to obtain records from [facility]. PROFEE Charge codes Subsequent inpatient/observation care: [id number]
[2023-07-20] MEDS: METOPROLOL ER 25 MG TABLET PO ×2 (08:44→20:39)
[2023-07-20] MEDS: ACETAMINOPHEN 325 MG TABLET 650 MG PO ×2 (08:44→17:11)
--- NOTE | 2023-07-20 09:04 | PM.CALLCOV.1 ---
Call Coverage Note Note Date of Patient Contact: 07/20/23 Time of Patient Contact: 09:04 Narrative of Care Provided: SBO resolved, PTH pending. General surgery to sign off. Please consider referral to [facility] for hyperparathyroid issue.
--- NOTE | 2023-07-20 12:54 | CM.DPC ---
Addendum entered by CATHY Solomon 07/20/23 15:15: DCP spoke with sonAditya, it was reported that he is not able to transport pt tomorrow and pt's friend should be able to help with transport at me. Original Note: DCP Continued Reviewed EMR and team rounds for pt?s medical status. Per Provider Note, Gastrografin challenge was found unremarkable and NG tube was removed; no surgery recommended at this time. Provider recommending one more night of observation. No dc needs identified at this time. DCP attempted to meet with pt in room to discuss dc plans, pt was sound asleep. DCP called pt's sonAditya, and left a voice message in an attempt to coordinate discharge plans. Plan: Anticipating dc tomorrow, 07/20 with sonAditya, to transport. CM Team will continue to follow for coordination of discharge plans. TOMAS Cardenas
[2023-07-20] MEDS: ONDANSETRON 4 MG/2 ML INJ IV (17:28)
[2023-07-20] MEDS: MIRTAZAPINE 15 MG TABLET 30 MG PO (20:39)
[2023-07-21 02:00] VITALS: BP 130/66; PULSE 74; RESP 17; TEMP 37; O2SAT 97
--- NOTE | 2023-07-21 08:11 | PM.DS.1 ---
History of Present Illness History of Present Illness Date Patient Seen: 07/21/23 Time Patient Seen: 08:11 Chief complaint: intestinal blockage, abd pain Narrative: 77-year-old female well known to me presented to the emergency department with several days of abdominal pain and no bowel movement for several days. This is consistent with prior presentations for small-bowel obstruction. She denies any significant emesis, as that is some nausea and bloating ER evaluation with CT demonstrated bowel obstruction with some findings on CT that were suggestive of possible internal hernia including things such as some evidence of solid stool in small-bowel etcetera General surgery was consulted and asked that patient be admitted to the medical service Past history otherwise outlined previously and below She was chronically anticoagulated with a direct oral anticoagulant due to her paroxysmal atrial fibrillation Discharge Providers Provider Date of admission: 07/18/23 16:09 Discharge Date: 07/21/23 Primary care physician: Gerber Beverly MD Consults: 07/18/23 15:35 Consult to General Surgery Stat Comment: Consulting Provider: Ebony Miles Reason for consultation: SBO Has provider been notified: Yes Discharge provider: Gerber Beverly MD Summary Hospital Course Discharge Diagnosis: 1. Small-bowel obstruction, resolved 2. Paroxysmal atrial fibrillation 3. Essential hypertension 4. Cardiomyopathy, nonischemic 5. Mixed hyperlipidemia 6. Collagenous colitis 7. Hypercalcemia 8. Probable hyperparathyroidism Hospital Course: Patient was admitted after having NG tube placed and made NPO with IV fluids as well as parental meds for pain and antiemetics. She rapidly improved. She underwent a Gastrografin study which demonstrated flow of contrast through the entirety of her small bowel. Patient had bowel movements and flatus. She was re fed first with clear liquids than more complex diet. Re feeding did not produce any additional symptoms Patient was felt to be back to baseline and ready for discharge by the morning of the 20 of July Patient initially had her antihypertensives held received some IV metoprolol for blood pressure control than once her bowel obstruction seem to have cleared was restarted on her oral meds and blood pressure was adequately controlled Her hypercalcemia was noted again and parathyroid hormone was pending still at time of this dictation Status at Discharge Cognitive/behavioral status at discharge: oriented Functional status at discharge: independent ambulation Overall status at discharge: patient is progressing back to baseline Time Spent with Patient Time spent: Less than 30 minutes Exam Vital Signs (past 8 hours): - 05/31/24 02:00 Temperature 98.6 F Pulse Rate 74 Respiratory Rate 17 Blood Pressure 130/66 Pulse Oximetry 97 Oxygen Flow Rate 0 Oxygen Delivery Method Room Air Oxygen Flow Rate 0 Objective Labs 07/19/23 05:25 07/19/23 05:25 [facility] Medical History Paroxysmal atrial fibrillation Small bowel obstruction Cardiomyopathy Septal infarction Colitis Neuropathy Hypoparathyroidism Hypertension Colon polyp AV block History of pacemaker (~11/2017) Symptomatic bradycardia Atrial flutter Primary osteoarthritis of right knee Collagenous colitis (~04/2018) Pacemaker Hypercalcemia Insomnia Hyperlipidemia Right ACL tear (2005) Dyshidrotic eczema Cervical cancer Ankle fracture, right (2005) Peripheral polyneuropathy (12/07/16) Polyneuropathy (01/04/17) Hyperparathyroidism (11/09/15) Essential hypertension (08/18/15) Left bundle branch block (LBBB) (10/14/14) Fibromyalgia History of adenomatous polyp of colon (03/31/11) Surgical History Status post hysterectomy (1974) Status post exploratory laparotomy Status post cholecystectomy (1998) History of bilateral salpingo-oophorectomy (BSO) (1998) Family History Father Family history of diabetes mellitus (DM) Grandmother Family history of diabetes mellitus (DM) Sister Family history of diabetes mellitus (DM) Family/Other Family history of diabetes mellitus (DM) Social History household members: none Smoking Status: Former smoker alcohol intake: current Discharge Assessment & Plan Assessment and Plan Plan of Treatment: Patient to be discharged home to continue usual medications. She should resume her Xarelto which he was being held because right forearm wound but it is well healed and she is okay to resume that medication She should avoid high residue foods least in the short term interval She has an appointment to see Dr. Beverly in the office on the 06 of August which will be her post hospitalization follow-up as well Discharge Plan Discharge Plan Patient Disposition: Home Provider Discharge Comment: Patient should resume her Xarelto Discharge orders & Medications Prescriptions: Continued mirtazapine 15 mg tablet 30 mg PO BEDTIME Qty: 180 3RF metoprolol succinate 25 mg tablet extended release 24 hr 25 mg PO BID One Daily Women's 27-0.4 mg tablet 1 tab PO DAILY losartan 100 mg tablet 100 mg PO DAILY Patient Comments: TAKE ONE TABLET BY MOUTH ONE TIME DAILY Xarelto 20 mg tablet 20 mg PO DAILY Patient Comments: CURRENTLY ON HOLD (07/19/23) Follow up/Referrals: Gerber Beverly MD [Primary Care Provider] - (keep 08/07/2023 appointment (at 0930)) Discharge Health Status Multidrug resistant organism: No MDRO Diet/Activity/Treatments Diet: Diet as Tolerated Diet comment: lower residue Visit Report/Discharge Packet Instructions: DI for Small Bowel Obstruction Stand Alone Forms: Patient Portal/API, Stroke Signs & Symptoms Discharge Data Primary Care Provider: Gerber Beverly PROFEE Charge Codes Discharge inpatient/observation: [id number]
[2023-07-21 08:25] VITALS: BP 145/53; PULSE 63; RESP 16; TEMP 36.8; O2SAT 95
[2023-07-21 08:42] VITALS: BP 149/54
[2023-07-21] MEDS: ACETAMINOPHEN 325 MG TABLET 650 MG PO (08:42)
[2023-07-21] MEDS: METOPROLOL ER 25 MG TABLET PO (08:42)
[2023-07-21 08:43] VITALS: O2SAT 97
[2023-07-21 09:50] LABS: Calcium 10.5 mg/dL (8.7-10.3); Parathyroid Hormone, Intact 64 pg/mL (15-65)
--- NOTE | 2023-07-21 10:19 | CM.DPC ---
DCP Cont. Reviewed EMR and team rounds for status updates. Met with pt at bedside to confirm d/c plan, pt's friend is en route to come and transport her back home. She denies any further needs at this time.
== END 2023-07-21 10:57 | disposition home or self-care (01) | DRG 389 ==
LOC: ED 15:46 → AC 16:09
PROVIDERS: Surgery; Admitting Provider Internal Medicine; Emergency Provider Emergency Medicine; Family Provider Internal Medicine; PCP Internal Medicine; Referring Provider Emergency Medicine; Visit Provider Internal Medicine
DX: K56.609 Unspecified intestinal obstruction, unspecified as to partial versus complete obstruction (principal); I42.8 Other cardiomyopathies; I48.0 Paroxysmal atrial fibrillation; I10 Essential (primary) hypertension; E21.3 Hyperparathyroidism, unspecified; E78.2 Mixed hyperlipidemia; Z79.01 Long term (current) use of anticoagulants; Z87.891 Personal history of nicotine dependence; Z95.0 Presence of cardiac pacemaker
CPT/HCPCS: 36415; 74018; 74177; 80048; 80053; 82310; 83605; 83690; 83970; 85025; 93005; 96374; 99284; 99285; J1170; J2060; J2270; J2405; Q9967

== ENCOUNTER 2023-08-30 01:21 | Emergency (ER) | payer MEDICARE, SELFPAY ==
[2023-07-18 17:02] VITALS: BMI 24.4
[2023-08-30] VITALS (8 sets, daily range): BP systolic 139–189; BP diastolic 72–79; PULSE 61–87; RESP 16–18; TEMP 36.6; O2SAT 95–98; BMI 25.7
[2023-08-30 01:49] LABS: Add Manual Diff / Slide Review NO; Basophils Absolute Auto 100 /uL (0-100); Basophils Percent Auto 0.5 % (0-2); Eosinophils Absolute Auto 100 /uL (0-450); Eosinophils Percent Auto 0.9 % (2-4); Hematocrit 43.2 % (36-46); Hemoglobin 14.6 g/dL (12.0-16.0); Lymphocytes Absolute Auto 2800 /uL (1100-4500); Lymphocytes Percent Auto 26.4 % (25-40); Mean Corpuscular HGB Conc 33.8 % (30-36); Mean Corpuscular Hemoglobin 32.9 PG (26-34); Mean Corpuscular Volume 97.4 fL (80-100); Monocytes Absolute Auto 600 /uL (0-900); Monocytes Percent Auto 5.5 % (3-14); Neutrophils Absolute Auto 7100 /uL (1500-7000); Neutrophils Percent Auto 66.7 % (50-75); Platelet Count 223 X10^3/uL (150-400); Red Blood Cell Count 4.43 X10^6/uL (4.0-5.2); White Blood Cell Count 10.6 X10^3/uL (4.5-11.0)
[2023-08-30 02:16] LABS: Alanine Aminotransferase 23 IU/L (<35); Albumin 4.2 g/dL (3.5-5.0); Albumin Globulin Ratio 1.4 (1.0-2.8); Alkaline Phosphatase 96 U/L (38-126); Aspartate Aminotransferase 33 IU/L (14-36); BUN Creatinine Ratio 24.3 (6-22); Bilirubin Total 0.6 mg/dL (0.2-1.3); Blood Urea Nitrogen 17 mg/dL (7-17); Calcium 10.2 mg/dL (8.4-10.2); Carbon Dioxide 28 mmol/L (22-32); Chloride 108 mmol/L (98-107); Estimated Glomerular Filt Rate > 60 mL/min (>60); Globulin 3.1 g/dL (1.7-4.1); Glucose 128 mg/dL (80-110); HEMOLYSIS < 15 (0-50); Lipase 93 U/L (23-300); Potassium 4.3 mmol/L (3.4-5.1); Sodium 138 mmol/L (137-145); Total Protein 7.3 g/dL (6.3-8.2)
--- NOTE | 2023-08-30 02:46 | EKG_ITS ---
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
--- NOTE | 2023-08-30 03:03 | ED_ITS ---
HPI - Abdominal Pain General Chief Complaint: Abdominal Pain Stated Complaint: bowel blockage Time Seen by Provider: 08/30/23 03:01 Source: patient, RN notes reviewed and old records reviewed Mode of arrival: Family Vehicle Limitations: no limitations History of Present Illness HPI narrative: 77-year-old female history of hypertension, paroxysmal atrial fibrillation, cardiomyopathy on warfarin with prior AICD. Patient presents with concern for recurrent bowel obstruction. States she has been burping a lot, no nausea or vomiting but states 3 difficult for her to throw up. She states she has not had a bowel movement since 4:00 p.m. yesterday, states she has been passing very minimal gas. Patient states this is atypical for her she has IBS and typically has frequent bowel movements and gas. She states she has had bowel obstructions it feels fairly similar. She states she does not feel distended. No fevers or chills. No chest pain or shortness of breath. She denies any urinary symptoms. Related Data Home Medications Medication Instructions Recorded Confirmed xefsdgptimwj-Jf-qcnz-minerals 27 1 tab PO DAILY 10/06/20 08/07/23 mg-0.4 mg tablet (One Daily Women's) metoprolol succinate 25 mg 25 mg PO BID 05/04/21 08/07/23 tablet,extended release 24 hr losartan 100 mg tablet 100 mg PO DAILY 01/25/22 08/07/23 rivaroxaban 20 mg tablet (Xarelto) 20 mg PO DAILY 07/19/23 08/07/23 Previous Rx's Medication Instructions Recorded mirtazapine 15 mg tablet 30 mg (2 x 15 mg) PO BEDTIME #180 02/06/23 tabs Allergies Allergy/AdvReac Type Severity Reaction Status Date / Time amoxicillin [AMOXICILLIN] AdvReac Intermediate FATIGUE Verified 08/07/23 09:29 clavulanic acid AdvReac Intermediate FATIGUE Verified 08/07/23 09:29 [From AUGMENTIN] hydrochlorothiazide AdvReac Intermediate WEAKNESS Verified 08/07/23 09:29 [HYDROCHLOROTHIAZIDE] Review of Systems Review of Systems ROS Unobtainable: All systems reviewed & are unremarkable except as noted in HPI and below Patient History Medical History Paroxysmal atrial fibrillation Small bowel obstruction Cardiomyopathy Septal infarction Colitis Neuropathy Hypoparathyroidism Hypertension Colon polyp AV block History of pacemaker (~11/2017) Symptomatic bradycardia Atrial flutter Primary osteoarthritis of right knee Collagenous colitis (~04/2018) Pacemaker Hypercalcemia Insomnia Hyperlipidemia Right ACL tear (2005) Dyshidrotic eczema Cervical cancer Ankle fracture, right (2005) Peripheral polyneuropathy (12/07/16) Polyneuropathy (01/04/17) Hyperparathyroidism (11/09/15) Essential hypertension (08/18/15) Left bundle branch block (LBBB) (10/14/14) Fibromyalgia History of adenomatous polyp of colon (03/31/11) Surgical History Status post hysterectomy (1974) Status post exploratory laparotomy Status post cholecystectomy (1998) History of bilateral salpingo-oophorectomy (BSO) (1998) Family History Father Family history of diabetes mellitus (DM) Grandmother Family history of diabetes mellitus (DM) Sister Family history of diabetes mellitus (DM) Family/Other Family history of diabetes mellitus (DM) Social History household members: none Smoking Status: Former smoker alcohol intake: current Smoking Status: Former smoker tobacco type: cigarettes alcohol intake frequency: holidays/special occasions only Substance Use Type: does not use Exam Narrative Exam Narrative: GENERAL: Alert and oriented x three, female in mild distress HEENT: Head normocephalic, atraumatic, EOMI, pupils reactive, face symmetric, moist mucous membranes NECK: Supple, full range of motion CARDIOVASCULAR: Regular rate and rhythm without murmurs, rubs or gallops. RESPIRATORY: Breath sounds equal bilaterally, no wheezes rales or rhonchi. ABDOMEN: Soft, mild tenderness upper abdomen, mildly distended. Hyperactive bowel sounds all 4 quadrants. No guarding or rebound, rigidity, no mass : No CVA tenderness EXTREMITIES: Normal range of motion, no clubbing or edema. Neurovascularly intact NEUROLOGICAL: Cranial nerves II through XII grossly intact. Moving all extremities SKIN: Warm, dry, no petechiae, no rashes or lesions. Initial Vital Signs Initial Vital Signs: Vital Signs Temperature 97.8 F 08/30/23 01:23 Pulse Rate 87 08/30/23 01:23 Respiratory Rate 16 08/30/23 01:23 Blood Pressure 139/79 08/30/23 01:23 Pulse Oximetry 95 08/30/23 01:23 Oxygen Delivery Method Room Air 08/30/23 01:23 Course Orders Ordered: ED Orders 08/30/23 01:30 Complete Blood Count AUTO DIFF Stat Comprehensive Metabolic Panel Stat Lipase Stat 08/30/23 01:41 EKG-12 Lead Stat 08/30/23 03:12 CT abdomen pelvis w con Stat Discontinued Medications Ondansetron HCl (Ondansetron 4 Mg/2 Ml Inj) 4 mg IV NOW PRN PRN Reason: Nausea And Vomiting Ondansetron HCl (Ondansetron 4 Mg Odt) 4 mg PO NOW PRN PRN Reason: Nausea And Vomiting Ondansetron HCl (Ondansetron 4 Mg/2 Ml Inj) 4 mg IV NOW ONE Stop: 08/30/23 03:14 Last Admin: 08/30/23 04:03 Dose: Not Given Documented By: BETTYE Vital Signs Vital signs: Vital Signs - 8 hr 08/30/23 01:23 08/30/23 03:46 08/30/23 03:47 Temperature 97.8 F Pulse Rate 87 64 64 Respiratory Rate 16 Blood Pressure 139/79 Pulse Oximetry 95 97 98 Oxygen Delivery Method Room Air Room Air Room Air 08/30/23 03:47 08/30/23 04:00 08/30/23 04:00 Temperature Pulse Rate 61 Respiratory Rate 18 Blood Pressure 189/79 H 162/72 H Pulse Oximetry 96 Oxygen Delivery Method Room Air 08/30/23 04:30 08/30/23 04:30 08/30/23 05:59 Temperature Pulse Rate 66 64 Respiratory Rate 18 Blood Pressure 154/72 H Pulse Oximetry 95 97 Oxygen Delivery Method Room Air Room Air 08/30/23 06:00 08/30/23 06:05 08/30/23 06:05 Temperature Pulse Rate 68 66 Respiratory Rate 18 Blood Pressure 161/73 H Pulse Oximetry 96 96 Oxygen Delivery Method Room Air MDM - Abdominal Pain Lab Data 08/30/23 01:30 08/30/23 01:30 Labs: Lab Results 08/30/23 Range/Units 01:30 WBC 10.6 (4.5-11.0) X10^3/uL RBC 4.43 (4.0-5.2) X10^6/uL Hgb 14.6 (12.0-16.0) g/dL Hct 43.2 (36-46) % MCV 97.4 (80-100) fL MCH 32.9 (26-34) PG MCHC 33.8 (30-36) % RDW 14.0 (11.6-14.8) % Plt Count 223 (150-400) X10^3/uL Neut % (Auto) 66.7 (50-75) % Lymph % (Auto) 26.4 (25-40) % [place] % (Auto) 5.5 (3-14) % Eos % (Auto) 0.9 L (2-4) % Baso % (Auto) 0.5 (0-2) % Neut # (Auto) 7100 H (4295-3377) /uL Lymph # (Auto) 2800 (6839-0125) /uL [place] # (Auto) 600 (0-900) /uL Eos # (Auto) 100 (0-450) /uL Baso # (Auto) 100 (0-100) /uL Sodium 138 (137-145) mmol/L Potassium 4.3 (3.4-5.1) mmol/L Chloride 108 H (98-107) mmol/L Carbon Dioxide 28 (22-32) mmol/L BUN 17 (7-17) mg/dL Creatinine 0.70 (0.52-1.04) mg/dL Estimated GFR > 60 (>60) mL/min BUN/Creatinine Ratio 24.3 H (6-22) Glucose 128 H (80-110) mg/dL Calcium 10.2 (8.4-10.2) mg/dL Total Bilirubin 0.6 (0.2-1.3) mg/dL AST 33 (14-36) IU/L ALT 23 (<35) IU/L Alkaline Phosphatase 96 (38-126) U/L Total Protein 7.3 (6.3-8.2) g/dL Albumin 4.2 (3.5-5.0) g/dL Globulin 3.1 (1.7-4.1) g/dL Albumin/Globulin Ratio 1.4 (1.0-2.8) Lipase 93 (23-300) U/L Point of care testing: Urine Dip Bedside Urine Glucose Negative Bedside Urine Bilirubin - Negative Bedside Urine Ketone - Negative Urine Specific [place] 1.01 Bedside Urine Occult Blood - Negative Bedside Urine pH 6 Bedside Urine Protein - Negative Bedside Urine Urobilinogen - Negative Bedside Urine Nitrite - Negative Bedside Urine Leukocytes - Negative Esterase ECG Data Attestation: I personally reviewed and interpreted this ECG as follows: Prior ECG tracings: available for review Interpretation: Ventricularly paced rhythm, rate of 62 KS 214 QRS of 146 QTC of 446. Biventricular pacemaker. Patient has priors with no acute changes. MDM Narrative Medical decision making narrative: 77-year-old female with history of prior bowel obstructions who presents with concern for same with decreased bowel movements and flatus for the past 12 hours. Patient's labs show a white count of 10.6, hemoglobin of 14 platelets of 223, chemistries are overall appropriate with a sodium 138 potassium of 4.3 chloride of 108 CO2 of 28 with a BUN of 17 and a creatinine of 0.7 glucose of 128, calcium is 10.2, LFTs are negative. Urine CT abdomen pelvis shows small left renal cyst not significantly changed from prior. Moderate to severe small/atrophied pancreas. Thanks borderline dilated right lower abdominal ileal loop with proximal and distal transition points, short segmentals mild circumferential wall thickening up to 6 mm level proximal distal transition point no evidence of neighboring fat stranding. 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 Small ascites stable to mildly progressive from prior exam. Patient has had several bowel movements here although more diarrhea like. Patient indicates this is her normal. She has not had any vomiting she feels improved. She feels that she does not have a bowel obstruction currently. Reviewed her findings, we will have her continue with clear liquid diet and return precautions. Did update her on on her findings as well as noted focal segmental dilation of left superficial femoral vein and celiac artery.? Discussed need for follow-up. Patient states that these are being followed. Discharge Plan Departure Patient Disposition: Home Clinical Impression: Dilation of celiac artery Activity Restrictions/Additional Instructions: Your imaging today does show some slightly dilated ileal loop as well as thickening with transition points of your bowel. Also noted was that you have some ectasia or dilation of the left superficial femoral vein as well as the celiac artery. You do need to follow up with your physician regarding the enlargement of the vein and artery in your lower abdomen. Would continue to encourage clear liquid diet until your stooling regularly and then resume your normal diet. Return for fevers, new or worsening abdominal pain, vomiting, if you are not having any bowel movements or flatus or other new or concerning changes. Prescriptions: No Action mirtazapine 15 mg tablet 30 mg PO BEDTIME Qty: 180 3RF metoprolol succinate 25 mg tablet extended release 24 hr 25 mg PO BID One Daily Women's 27-0.4 mg tablet 1 tab PO DAILY losartan 100 mg tablet 100 mg PO DAILY Patient Comments: TAKE ONE TABLET BY MOUTH ONE TIME DAILY Xarelto 20 mg tablet 20 mg PO DAILY Patient Comments: CURRENTLY ON HOLD (07/19/23) Referrals: Gerber Beverly MD [Primary Care Provider] - Stand Alone Forms: Patient Portal/API
--- NOTE | 2023-08-30 03:12 | DI.CT.S_ITS ---
PROCEDURE: CT ABDOMEN PELVIS W CON INDICATIONS: abd pain, no BM today, decreased flatus, no vomiting, hx sbo TECHNIQUE: After the administration of intravenous contrast, axial sections acquired from the lung bases to the pubic symphysis. Coronal and sagittal reformats were performed. For radiation dose reduction, the following was used: automated exposure control, adjustment of mA and/or kV according to patient size. COMPARISON: [facility], CT, CT ABDOMEN PELVIS W CON, 07/18/2023, 14:57. FINDINGS: Image quality: Diagnostic. Lower Chest: Bilateral lung bases are clear. Heart size is normal, no pericardial effusion. Pacemaker leads are seen. ABDOMEN: Liver: No solid mass. Gallbladder: Gallbladder is surgically absent. Biliary ducts: No biliary dilation. Pancreas: No ductal dilation. Spleen: Size is within normal limits. Adrenal Glands: No adrenal nodules. Kidneys and Ureters: No hydronephrosis. Simple appearing left renal cyst is seen unchanged from prior study. No solid mass. No complex renal cystic lesion which requires follow up. Stomach and Bowel: Fluid distended small bowel loops are noted in right mid to lower abdomen likely involving ileum. Short segmental circumferential wall thickening involving ileal loops proximal and distal to the fluid distended ileal loops without significant adjacent mesenteric fat stranding. No other area of abnormal bowel wall thickening. No abscess collection. Peritoneum: Small amount of ascites fluid is noted adjacent to right hepatic lobe and in lower pelvis. No gross free air. Ventral Wall: No significant ventral hernia. Abdominal Nodes: No retroperitoneal or mesenteric adenopathy by size criteria. Vessels: Aorta and inferior vena cava are normal in size. PELVIS: Pelvic Organs: Unremarkable. Bladder: No bladder wall thickening, accounting for underdistention. Pelvic Nodes: No enlarged lymph nodes. Miscellaneous: No inguinal hernias are seen. Bones: No aggressive osseous abnormality. Minimal anterolisthesis of L4 on L5. No acute vertebral body compression fracture. IMPRESSION: 1. Mild fluid distended ileal loops in right mid to lower abdomen with suggestion of zone of transition proximal and distally an associated small bowel wall thickening near the zone of transition concerning for early close loop small bowel obstruction. Clinical correlation and follow-up is recommended. No other area of abnormal bowel wall thickening. No abscess collection or free air. Small amount of ascites fluid. No significant discrepancies from preliminary reading. Dictated by: Miah Melendez M.D. on 08/30/2023 at 8:35 Approved by: Miah Melendez M.D. on 08/30/2023 at 8:40
== END 2023-08-30 06:08 | disposition home or self-care (01) ==
PROVIDERS: Emergency Provider Emergency Medicine; Family Provider Internal Medicine; PCP Internal Medicine
DX: I72.3 Aneurysm of iliac artery (principal); R10.9 Unspecified abdominal pain; Z79.01 Long term (current) use of anticoagulants; Z79.899 Other long term (current) drug therapy
CPT/HCPCS: 36415; 74177; 80053; 81003; 83690; 85025; 93005; 99284; Q9967

== ENCOUNTER → 2023-10-17 10:30 | Outpatient (CLI) | payer MEDICARE, SELFPAY ==
[2023-07-18 17:02] VITALS: BMI 24.4
--- NOTE | 2023-10-17 | DI.MG.S_ITS ---
BILATERAL DIGITAL SCREENING MAMMOGRAM 3D/2D WITH CAD: 10/17/2023 CLINICAL: Routine screening. Comparison is made to exams dated: 05/25/2017 mammogram and 05/30/2011 mammogram - [facility]. Both breasts are heterogeneously dense, which may obscure small masses (category c / 51-75% glandular tissue). Current study was also evaluated with a Computer Aided Detection (CAD) system. No significant masses, calcifications, or other findings are seen in either breast. There has been no significant interval change. IMPRESSION: NEGATIVE There is no mammographic evidence of malignancy. A 1 year screening mammogram is recommended. Based on the Tyrer Cuzick model (a risk assessment model) the patient's lifetime risk is 2.5% and her 10 year risk is 0.0%. According to the ACR, ACS, and NCCN guidelines, an annual breast MRI exam along with mammogram is recommended if the patient's lifetime risk is 20% or greater. This exam was interpreted at Station ID: [id number]. NOTE: For mammograms, a report in lay terms will be sent to the patient. Approximately 15% of breast malignancies will not be visualized mammographically. In the management of a palpable breast mass, a negative mammogram must not discourage biopsy of a clinically suspicious lesion. Electronically Signed By: Kirit almanzar/cheli:10/17/2023 12:49:44 letter sent: Normal Exam ACR BI-RADS Category 1: Negative [id number]
== END ==
LOC: MAMMO 10:31
PROVIDERS: Family Provider Internal Medicine; PCP Internal Medicine; Referring Provider Internal Medicine; Visit Provider Internal Medicine
DX: Z12.31 Encounter for screening mammogram for malignant neoplasm of breast (principal); R92.333 Mammographic heterogeneous density, bilateral breasts
CPT/HCPCS: 77063; 77067

== ENCOUNTER → 2023-11-13 09:57 | Outpatient (CLI) | payer MEDICARE, SELFPAY ==
[2023-07-18 17:02] VITALS: BMI 24.4
[2023-11-13 11:30] LABS: Alanine Aminotransferase 19 IU/L (<35); Albumin Globulin Ratio 1.5 (1.0-2.8); Alkaline Phosphatase 87 U/L (38-126); Aspartate Aminotransferase 30 IU/L (14-36); BUN Creatinine Ratio 22.2 (6-22); Bilirubin Total 0.5 mg/dL (0.2-1.3); Blood Urea Nitrogen 16 mg/dL (7-17); C-Reactive Protein Quant < 0.5 mg/dL (<1.0); Calcium 10.8 mg/dL (8.4-10.2); Carbon Dioxide 27 mmol/L (22-32); Chloride 104 mmol/L (98-107); Estimated Glomerular Filt Rate > 60 mL/min (>60); Globulin 2.7 g/dL (1.7-4.1); Glucose 153 mg/dL (80-110); HEMOLYSIS < 15 (0-50); Potassium 4.9 mmol/L (3.4-5.1); Sodium 139 mmol/L (137-145); Total Protein 6.7 g/dL (6.3-8.2)
[2023-11-13 12:02] LABS: TSH w/ Reflex to FT4 1.91 uIU/mL (0.47-4.68)
[2023-11-13 13:01] LABS: Erythrocyte Sedimentation Rate 9 MM/HR (0-20)
== END ==
LOC: LAB 09:58
PROVIDERS: Family Provider Internal Medicine; PCP Internal Medicine; Referring Provider Internal Medicine; Visit Provider Internal Medicine
DX: I48.0 Paroxysmal atrial fibrillation (principal); E78.5 Hyperlipidemia, unspecified; E21.3 Hyperparathyroidism, unspecified; E83.52 Hypercalcemia
CPT/HCPCS: 36415; 80053; 84443; 85651; 86140

== ENCOUNTER → 2024-07-09 06:54 | Outpatient (CLI) | payer MEDICARE, SELFPAY ==
[2024-03-27 09:24] VITALS: BMI 24.4
[2024-07-09 08:25] LABS: Hemoglobin A1C% w Est Avg Glu 5.5 % (4.0-6.0)
[2024-07-09 08:30] LABS: Alanine Aminotransferase 24 IU/L (<35); Albumin Globulin Ratio 1.5 (1.0-2.8); Alkaline Phosphatase 84 U/L (38-126); Aspartate Aminotransferase 33 IU/L (14-36); BUN Creatinine Ratio 24.2 (6-22); Bilirubin Total 0.6 mg/dL (0.2-1.3); Blood Urea Nitrogen 15 mg/dL (7-17); Calcium 10.3 mg/dL (8.4-10.2); Carbon Dioxide 28 mmol/L (22-32); Chloride 106 mmol/L (98-107); Cholesterol 251 mg/dL (140-199); Estimated Glomerular Filt Rate > 60 mL/min (>60); Globulin 2.6 g/dL (1.7-4.1); Glucose 114 mg/dL (70-99); HDL Cholesterol 73 mg/dL (40-60); HEMOLYSIS < 15 (0-50); LDL Cholesterol Calculated 156 mg/dL (<100); Potassium 4.7 mmol/L (3.4-5.1); Sodium 139 mmol/L (137-145); Total Protein 6.6 g/dL (6.3-8.2); Triglycerides 109 mg/dL (35-150)
== END ==
PROVIDERS: Family Provider Internal Medicine; PCP Internal Medicine; Referring Provider Internal Medicine; Visit Provider Internal Medicine
DX: E83.52 Hypercalcemia (principal); E78.5 Hyperlipidemia, unspecified; E21.3 Hyperparathyroidism, unspecified; I10 Essential (primary) hypertension
CPT/HCPCS: 36415; 80053; 80061; 83036

== ENCOUNTER 2024-08-01 05:03 | Emergency (ER) | payer MEDICARE, SELFPAY ==
[2024-03-27 09:24] VITALS: BMI 24.4
[2024-08-01 05:12] VITALS: BP 182/85; PULSE 82; RESP 17; TEMP 36.4; O2SAT 96; BMI 25.7
--- NOTE | 2024-08-01 05:27 | ED.GENADULT ---
HPI - General Adult General Chief complaint: Ear Stated complaint: Bilat ear pain with dizziness Time Seen by Provider: 08/01/24 05:21 Source: patient Mode of arrival: Ambulatory History of Present Illness HPI narrative: 78-year-old woman with a history of paroxysmal atrial fibrillation, cardiomyopathy, possible fibromyalgia, recurrent complaints of your pain. Was mentioned in the most recent for primary care visits. I suspect that she has some dry years and is rubbing and itching wishes causing otitis externa. She states she does not swim regularly. Today complains that her right ear is hurting radiating down to the right side of her jaw, her throat hurts she is feeling somewhat dizzy and comes into the emergency department for further evaluation. No fevers, cough, chills, she is wondering if her heart medications or causing her ear pain or if possible fibromyalgia could be causing her symptoms. She has had referrals to ENT, it is not clear that she is actually been seen yet by ENT for her recurrent ear complaints Related Data Home Medications ?Medication ?Instructions ?Recorded ?Confirmed cfrvczolholh-Hi-gjda-minerals 27 1 tab PO DAILY 10/06/20 07/09/24 mg-0.4 mg tablet (One Daily Women's) metoprolol succinate 25 mg 25 mg PO BID 05/04/21 07/09/24 tablet,extended release 24 hr losartan 100 mg tablet 100 mg PO DAILY 01/25/22 07/09/24 rivaroxaban 20 mg tablet (Xarelto) 20 mg PO DAILY 07/19/23 07/09/24 Previous Rx's ?Medication ?Instructions ?Recorded mirtazapine 15 mg tablet 30 mg (2 x 15 mg) PO BEDTIME #180 01/15/24 tabs triamcinolone acetonide 0.1 % 1 applic topical TID #80 grams 03/12/24 topical cream cvrmlxlq-hlfuuzfwx-xnqquuelp 3.5 3 drp EAR-RIGHT Q6H #10 mL 08/01/24 mg-10,000 unit/mL-1 % ear drops,susp emjbqlil-yxoivxzvw-nyaftfqds 3.5 3 drp EAR-RIGHT Q6H #10 mL 08/01/24 mg-10,000 unit/mL-1 % ear drops,susp Allergies Allergy/AdvReac Type Severity Reaction Status Date / Time amoxicillin (AMOXICILLIN) AdvReac Intermediate FATIGUE Verified 07/09/24 09:15 clavulanic acid (From AdvReac Intermediate FATIGUE Verified 07/09/24 09:15 AUGMENTIN) hydrochlorothiazide AdvReac Intermediate WEAKNESS Verified 07/09/24 09:15 (HYDROCHLOROTHIAZIDE) Review of Systems Review of Systems Narrative: Pertinent positive and negative findings as per HPI Patient History Medical History Paroxysmal atrial fibrillation Small bowel obstruction Cardiomyopathy Septal infarction Colitis Neuropathy Hypoparathyroidism Hypertension Colon polyp AV block History of pacemaker (~11/2017) Symptomatic bradycardia Atrial flutter Primary osteoarthritis of right knee Collagenous colitis (~04/2018) Pacemaker Hypercalcemia Insomnia Hyperlipidemia Right ACL tear (2005) Dyshidrotic eczema Cervical cancer Ankle fracture, right (2005) Peripheral polyneuropathy (12/07/16) Polyneuropathy (01/04/17) Hyperparathyroidism (11/09/15) Essential hypertension (08/18/15) Left bundle branch block (LBBB) (10/14/14) Fibromyalgia History of adenomatous polyp of colon (03/31/11) Surgical History Status post hysterectomy (1974) Status post exploratory laparotomy Status post cholecystectomy (1998) History of bilateral salpingo-oophorectomy (BSO) (1998) Family History Father Family history of diabetes mellitus (DM) Grandmother Family history of diabetes mellitus (DM) Sister Family history of diabetes mellitus (DM) Family/Other Family history of diabetes mellitus (DM) Social History household members: none alcohol intake: current tobacco type: cigarettes alcohol intake frequency: holidays/special occasions only Exam Initial Vital Signs Initial Vital Signs: Vital Signs Temperature 97.6 F 08/01/24 05:12 Pulse Rate 82 08/01/24 05:12 Respiratory Rate 17 08/01/24 05:12 Blood Pressure 182/85 H 08/01/24 05:12 Pulse Oximetry 96 08/01/24 05:12 Oxygen Delivery Method Room Air 08/01/24 05:12 General: Anxious, appears fatigued, appropriate eye contact Respiratory: Able to speak in full sentences, no obvious respiratory distress HEENT: Right external otitis without drainage. Tympanic membrane is unremarkable. She does have a slightly enlarged node just behind the angle of her jaw presumably from the external otitis that is causing her some pain. Posterior pharynx is somewhat but not particularly erythematous and certainly no exudate. Skin: No obvious rashes, warm and dry Neurologic: Grossly intact no obvious asymmetries or abnormalities Psych: appropriate insight and affect, cooperative Course Vital Signs Vital signs: Vital Signs - 8 hr 08/01/24 05:12 Temperature 97.6 F Pulse Rate 82 Respiratory Rate 17 Blood Pressure 182/85 H Pulse Oximetry 96 Oxygen Delivery Method Room Air Medical Decision Making MDM Narrative Medical decision making narrative: 78-year-old woman who woke up this morning feeling generally unwell. Complaining of right ear pain, throat pain slight dizziness. Has dental appointment coming up in 24 hours. Has had recurrent ear infections in the past she is used Ciprodex. No fevers she is not describing drainage at this point. The internal canal in the right is erythematous without exudate. Tympanic membrane is unremarkable. She will be given Cortisporin eardrops. Reassurance regarding the mild lymphadenopathy under the angle of the right jaw. No evidence for obvious pharyngitis. Discussed possibility of early viral symptoms as a cause of her overall general malaise this morning. Currently there is no additional indication for further workup or hospitalization at this time. We will refer her back to her primary care physician should she have additional concerns. Discharge Plan Departure Patient Disposition: Home Clinical Impression: Otitis externa Qualifiers: Otitis externa type: unspecified type Chronicity: acute Laterality: right Qualified Code(s): H60.501 - Unspecified acute noninfective otitis externa, right ear Instructions: DI for Otitis Externa Activity Restrictions/Additional Instructions: Thank you for coming in today The outer portion of your ear is inflamed and irritated, this is an otitis externa. The pain that you have under the angle of the jaw and the right side of your neck is from a swollen lymph node that is reactive very appropriately to the infection in your outer ear. This infection should respond well to ear drops. 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 If you have worsening symptoms, please feel free to return to the ER Prescriptions: New hjgczzda-vnxnurabs-BK 3.5-10,000-1 mg/mL-unit/mL-% drops,suspension 3 drp EAR-RIGHT Q6H Qty: 10 0RF mijhrwvo-ivxtxqvqh-FZ 3.5-10,000-1 mg/mL-unit/mL-% drops,suspension 3 drp EAR-RIGHT Q6H Qty: 10 0RF No Action mirtazapine 15 mg tablet 30 mg PO BEDTIME Qty: 180 3RF triamcinolone acetonide 0.1 % cream 1 applic topical TID Qty: 80 0RF Rx Instructions: apply carefully with cotton tipped applicator to external ear canal metoprolol succinate 25 mg tablet extended release 24 hr 25 mg PO BID One Daily Women's 27-0.4 mg tablet 1 tab PO DAILY losartan 100 mg tablet 100 mg PO DAILY Patient Comments: TAKE ONE TABLET BY MOUTH ONE TIME DAILY Xarelto 20 mg tablet 20 mg PO DAILY Patient Comments: CURRENTLY ON HOLD (07/19/23) Referrals: Gerber Beverly MD [Primary Care Provider, Internal Medicine] Stand Alone Forms: Patient Portal/API
== END 2024-08-01 05:44 | disposition home or self-care (01) ==
PROVIDERS: Emergency Provider Emergency Medicine; Family Provider Internal Medicine; PCP Internal Medicine
DX: H60.501 Unspecified acute noninfective otitis externa, right ear (principal)
CPT/HCPCS: 99281

== ENCOUNTER → 2024-11-22 16:36 | Outpatient (CLI) | payer MEDICARE, SELFPAY ==
[2024-03-27 09:24] VITALS: BMI 24.4
[2024-11-22 17:16] LABS: Add Manual Diff / Slide Review NO; Hematocrit 41.8 % (36-46); Hemoglobin 14.4 g/dL (12.0-16.0); Lymphocytes Absolute Auto 2400 /uL (1100-4500); Mean Corpuscular HGB Conc 34.4 % (30-36); Mean Corpuscular Hemoglobin 33.2 PG (26-34); Mean Corpuscular Volume 96.4 fL (80-100); Platelet Count 253 X10^3/uL (150-400)
[2024-11-22 17:59] LABS: Alanine Aminotransferase 37 IU/L (<35); Albumin 4.0 g/dL (3.5-5.0); Albumin Globulin Ratio 1.3 (1.0-2.8); Alkaline Phosphatase 119 U/L (38-126); Blood Urea Nitrogen 15 mg/dL (7-17); Calcium 10.4 mg/dL (8.4-10.2); Carbon Dioxide 26 mmol/L (22-32); Chloride 103 mmol/L (98-107); Creatine Kinase 35 U/L (30-135); Estimated Glomerular Filt Rate > 60 mL/min (>60); Globulin 3.1 g/dL (1.7-4.1); Glucose 104 mg/dL (70-99); HEMOLYSIS < 15 (0-50); Potassium 5.2 mmol/L (3.4-5.1); Sodium 137 mmol/L (137-145); Total Protein 7.1 g/dL (6.3-8.2)
[2024-11-26 03:36] LABS: Calcium 10.3 mg/dL (8.7-10.3); Parathyroid Hormone, Intact 98 pg/mL (15-65)
== END ==
PROVIDERS: Family Provider Internal Medicine; PCP Internal Medicine; Referring Provider Internal Medicine; Visit Provider Internal Medicine
DX: M79.7 Fibromyalgia (principal); I10 Essential (primary) hypertension; E21.3 Hyperparathyroidism, unspecified; E78.5 Hyperlipidemia, unspecified; I48.0 Paroxysmal atrial fibrillation; D64.9 Anemia, unspecified; M79.10 Myalgia, unspecified site
CPT/HCPCS: 80053; 82310; 82550; 83970; 85025; 85651; 86140

== ENCOUNTER 2024-11-24 21:51 | Inpatient (IN) | payer MEDICARE, SELFPAY ==
[2024-03-27 09:24] VITALS: BMI 24.4
[2024-11-24 22:03] VITALS: BP 151/78; PULSE 96; RESP 18; TEMP 36.4; O2SAT 97; BMI 25.7
[2024-11-24] MEDS: ONDANSETRON 4 MG/2 ML INJ IV (22:19)
[2024-11-24 22:29] LABS: Add Manual Diff / Slide Review NO; Hematocrit 43.7 % (36-46); Hemoglobin 14.8 g/dL (12.0-16.0); Lymphocytes Absolute Auto 2300 /uL (1100-4500); Mean Corpuscular HGB Conc 33.7 % (30-36); Mean Corpuscular Hemoglobin 32.6 PG (26-34); Mean Corpuscular Volume 96.7 fL (80-100); Platelet Count 261 X10^3/uL (150-400)
[2024-11-24 22:40] LABS: Alanine Aminotransferase 49 IU/L (<35); Albumin 4.3 g/dL (3.5-5.0); Albumin Globulin Ratio 1.3 (1.0-2.8); Alkaline Phosphatase 120 U/L (38-126); Blood Urea Nitrogen 13 mg/dL (7-17); Calcium 10.7 mg/dL (8.4-10.2); Carbon Dioxide 27 mmol/L (22-32); Chloride 102 mmol/L (98-107); Estimated Glomerular Filt Rate > 60 mL/min (>60); Globulin 3.3 g/dL (1.7-4.1); Glucose 147 mg/dL (70-99); HEMOLYSIS < 15 (0-50); Lipase 75 U/L (23-300); Potassium 4.2 mmol/L (3.4-5.1); Sodium 136 mmol/L (137-145); Total Protein 7.6 g/dL (6.3-8.2)
--- NOTE | 2024-11-24 22:52 | DI.CT.S_ITS ---
PROCEDURE: CT ABDOMEN PELVIS W CON INDICATIONS: hx of sbo, having symptons TECHNIQUE: After the administration of intravenous contrast, axial sections acquired from the lung bases to the pubic symphysis. Coronal and sagittal reformats were performed. For radiation dose reduction, the following was used: automated exposure control, adjustment of mA and/or kV according to patient size. COMPARISON: [facility], CT, CT ABDOMEN PELVIS W CON, 08/30/2023, 3:35. FINDINGS: Image quality: Diagnostic. Lower Chest: Triple lead AICD with tips in the right atrial appendage, coronary sinus, and right ventricle. No consolidation. ABDOMEN: Liver: No solid mass. Gallbladder: Post cholecystectomy. Biliary ducts: Post cholecystectomy reservoir effect of the common bile duct. No calcified colidocholithiasis. Pancreas: No ductal dilation. Spleen: Size is within normal limits. Adrenal Glands: No adrenal nodules. Kidneys and Ureters: No hydronephrosis. No solid mass. No complex renal cystic lesion which requires follow up. Stomach and Bowel: Diverticulosis without diverticulitis. Nonvisualized appendix. Multiple dilated, fluid-filled loops of small bowel within the inferior abdomen. Mural thickening of a loop of small bowel in the inferior pelvis with possible transition point (series 2, image 100) at the central pelvic inlet additional possible transition point in the anterior midline abdomen (series 2, image 81; series 3, image 23). Peritoneum: Small volume fluid in the dependent pelvis. Small volume free fluid within the mesenteric fat in the left lower quadrant (series 3, image 37). No free air. Ventral Wall: No significant ventral hernia. Abdominal Nodes: No retroperitoneal or mesenteric adenopathy by size criteria. Vessels: Aorta and inferior vena cava are normal in size. PELVIS: Pelvic Organs: Unremarkable. Bladder: No bladder wall thickening, accounting for underdistention. Pelvic Nodes: No enlarged lymph nodes. Miscellaneous: No inguinal hernias are seen. Bones: No aggressive osseous abnormality. Mild anterolisthesis of L3 on L4. Multilevel degenerative changes the lumbar spine. IMPRESSION: 1. Findings concerning for a small bowel obstruction with possible transition points in the pelvic inlet and left anterior mid abdomen. 2. Mural thickening and mucosal hyperenhancement of a loop of small bowel in the inferior pelvis concerning for underlying inflammatory bowel disease, recommend correlation with clinical history. Dictated by: Rob Henriquez M.D. on 11/24/2024 at 23:23 Approved by: Rob Henriquez M.D. on 11/24/2024 at 23:32
[2024-11-25] VITALS (12 sets, daily range): BP systolic 121–158; BP diastolic 65–82; PULSE 68–102; RESP 14–20; TEMP 36.5–36.8; O2SAT 94–96; BMI 25.7
--- NOTE | 2024-11-25 02:42 | ED.ABDPAIN ---
HPI - Abdominal Pain General Chief Complaint: Abdominal Pain Stated Complaint: Abd pain, prev intestinal blockage Time Seen by Provider: 11/25/24 02:37 Source: patient Mode of arrival: Ambulatory History of Present Illness HPI narrative: 78-year-old female with history of prior abdominal surgeries including appendectomy and hysterectomy with oophorectomy, prior history of cervical cancer, prior bowel obstructions treated medically without surgery, history of irritable bowel syndrome, no known Crohn's disease. She has had intermittent recent days abdominal pain, worsening since last night. Last bowel movement yesterday without black or red color, not particularly loose. Increasing abdominal pain since last night. No fevers or chills. She has had some nausea but no emesis. She denies painful or frequent urination. Denies cough shortness of breath chest pain. Related Data Home Medications ?Medication ?Instructions ?Recorded ?Confirmed gqkcezoxwtjg-Lm-puky-minerals 27 1 tab PO DAILY 10/06/20 11/25/24 mg-0.4 mg tablet (One Daily Women's) metoprolol succinate 25 mg 25 mg PO BID 05/04/21 11/25/24 tablet,extended release 24 hr losartan 100 mg tablet 100 mg PO DAILY 01/25/22 11/25/24 rivaroxaban 20 mg tablet (Xarelto) 20 mg PO DAILY 07/19/23 11/25/24 rosuvastatin 5 mg tablet 5 mg PO QPM 11/25/24 11/25/24 Previous Rx's ?Medication ?Instructions ?Recorded mirtazapine 15 mg tablet 30 mg (2 x 15 mg) PO BEDTIME #180 10/15/24 tabs gabapentin 100 mg capsule 100 mg PO BEDTIME #90 caps 11/22/24 Allergies Allergy/AdvReac Type Severity Reaction Status Date / Time amoxicillin (AMOXICILLIN) AdvReac Mild FATIGUE Verified 11/25/24 10:55 clavulanic acid (From AdvReac Mild FATIGUE Verified 11/25/24 10:55 AUGMENTIN) hydrochlorothiazide AdvReac Mild WEAKNESS Verified 11/25/24 10:55 (HYDROCHLOROTHIAZIDE) Patient History Medical History Paroxysmal atrial fibrillation Small bowel obstruction Cardiomyopathy Septal infarction Colitis Neuropathy Hypoparathyroidism Hypertension Colon polyp AV block History of pacemaker (~11/2017) Symptomatic bradycardia Atrial flutter Primary osteoarthritis of right knee Collagenous colitis (~04/2018) Pacemaker Hypercalcemia Insomnia Hyperlipidemia Right ACL tear (2005) Dyshidrotic eczema Cervical cancer Ankle fracture, right (2005) Peripheral polyneuropathy (12/07/16) Polyneuropathy (01/04/17) Hyperparathyroidism (11/09/15) Essential hypertension (08/18/15) Left bundle branch block (LBBB) (10/14/14) Fibromyalgia History of adenomatous polyp of colon (03/31/11) Surgical History Status post hysterectomy (1974) Status post exploratory laparotomy Status post cholecystectomy (1998) History of bilateral salpingo-oophorectomy (BSO) (1998) Family History Father Family history of diabetes mellitus (DM) Grandmother Family history of diabetes mellitus (DM) Sister Family history of diabetes mellitus (DM) Family/Other Family history of diabetes mellitus (DM) Social History household members: none Smoking Status: Former smoker alcohol intake: current Smoking Status: Former smoker tobacco type: cigarettes alcohol intake frequency: holidays/special occasions only Exam Narrative Exam Narrative: GENERAL: Well-developed patient, in mild distress. HEAD: Atraumatic. Normocephalic. EYES: Pupils equal round and reactive. Extraocular motions intact. No scleral icterus. No injection or drainage. ENT: Nose without bleeding, purulent drainage. Throat without erythema, tonsillar hypertrophy or exudate. Airway patent. NECK: Trachea midline. Non tender CARDIOVASCULAR: Regular rate and rhythm without murmurs, gallops, or rubs. RESPIRATORY: Clear to auscultation. Breath sounds equal bilaterally. No wheezes, rales, or rhonchi. GASTROINTESTINAL: Abdomen soft, non-tender, nondistended. EXTREMITIES: No edema or joint tenderness. BACK: Nontender without deformity or crepitance. No flank tenderness. NEURO: AOx3. Motor functions grossly nonfocal. SKIN: No rash or erythema of visible areas Initial Vital Signs Initial Vital Signs: Vital Signs Temperature 97.6 F 11/24/24 22:03 Pulse Rate 96 H 11/24/24 22:03 Respiratory Rate 18 11/24/24 22:03 Blood Pressure 151/78 H 11/24/24 22:03 Pulse Oximetry 97 11/24/24 22:03 Oxygen Delivery Method Room Air 11/24/24 22:03 Course Orders Ordered: Acetaminophen (Acetaminophen 325 Mg Tablet) 650 mg PO Q6HR PRN PRN Reason: Fever/Mild Pain (1-3) Dextrose/Lactated Ringer's (Dextrose 5%-Lactated Ringers) 1,000 mls @ 125 mls/hr IV CONT [facility] Last Admin: 11/25/24 12:35 Dose: 125 mls/hr Documented By: ELEUTERIO Morphine Sulfate (Morphine 2 Mg/Ml Inj) 2 mg IV Q4HR PRN PRN Reason: Pain, Moderate (4-6) Last Admin: 11/25/24 04:38 Dose: 2 mg Documented By: TERRANCE Naloxone HCl (Naloxone 0.4 Mg/Ml Vial) 0.2 mg IV Q2MIN PRN PRN Reason: Opiate Reversal Ondansetron HCl (Ondansetron 4 Mg/2 Ml Inj) 4 mg IV NOW PRN PRN Reason: Nausea And Vomiting Last Admin: 11/24/24 22:19 Dose: 4 mg Documented By: IMELDA Ondansetron HCl (Ondansetron 4 Mg Odt) 4 mg PO NOW PRN PRN Reason: Nausea And Vomiting Ondansetron HCl (Ondansetron 4 Mg/2 Ml Inj) 4 mg IV Q4HR PRN PRN Reason: Nausea And Vomiting Discontinued Medications Sodium Chloride (Normal Saline 0.9%) 1,000 mls @ 125 mls/hr IV CONT [facility] Last Admin: 11/25/24 04:24 Dose: 125 mls/hr Documented By: TERRANCE Vital Signs Vital signs: Vital Signs - 8 hr 11/24/24 22:03 Temperature 97.6 F Pulse Rate 96 H Respiratory Rate 18 Blood Pressure 151/78 H Pulse Oximetry 97 Oxygen Delivery Method Room Air MDM - Abdominal Pain Lab Data Attestation: I reviewed the patient's lab results. Lab results narrative: White blood cell count 28942, hemoglobin 14.8, platelets adequate. Glucose 147. Normal renal function. Normal serum CO2 and potassium. Serum sodium 136 slightly decreased. Mild transaminitis, other liver functions normal. Lipase normal. 11/24/24 22:10 11/24/24 22:10 Labs: Lab Results 11/24/24 Range/Units 22:10 WBC 11.3 H (4.5-11.0) X10^3/uL RBC 4.53 (4.0-5.2) X10^6/uL Hgb 14.8 (12.0-16.0) g/dL Hct 43.7 (36-46) % MCV 96.7 (80-100) fL MCH 32.6 (26-34) PG MCHC 33.7 (30-36) % RDW 14.0 (11.6-14.8) % Plt Count 261 (150-400) X10^3/uL Neut % (Auto) 70.9 (50-75) % Lymph % (Auto) 20.5 L (25-40) % [place] % (Auto) 6.5 (3-14) % Eos % (Auto) 0.7 L (2-4) % Baso % (Auto) 1.4 (0-2) % Neut # (Auto) 8000 H (9372-5549) /uL Lymph # (Auto) 2300 (3583-8803) /uL [place] # (Auto) 700 (0-900) /uL Eos # (Auto) 100 (0-450) /uL Baso # (Auto) 200 H (0-100) /uL Sodium 136 L (137-145) mmol/L Potassium 4.2 (3.4-5.1) mmol/L Chloride 102 (98-107) mmol/L Carbon Dioxide 27 (22-32) mmol/L BUN 13 (7-17) mg/dL Creatinine 0.63 (0.52-1.04) mg/dL Estimated GFR > 60 (>60) mL/min BUN/Creatinine Ratio 20.6 (6-22) Glucose 147 H (70-99) mg/dL Calcium 10.7 H (8.4-10.2) mg/dL Total Bilirubin 0.8 (0.2-1.3) mg/dL AST 49 H (14-36) IU/L ALT 49 H (<35) IU/L Alkaline Phosphatase 120 (38-126) U/L Total Protein 7.6 (6.3-8.2) g/dL Albumin 4.3 (3.5-5.0) g/dL Globulin 3.3 (1.7-4.1) g/dL Albumin/Globulin Ratio 1.3 (1.0-2.8) Lipase 75 (23-300) U/L Imaging Data CT scan - abdomen/pelvis: Radiologist's Impression: [address] [address] [address] Scan Report Signed Patient: Miroslava Wiley MR#: [id number] : 1945 Acct:[id number] Age/Sex: 78 / F Date of Service: 11/24/24 Loc: ED Accession Number: [id number] Procedure: CT abdomen pelvis w con Ordering Provider: Tristen Nova MD PROCEDURE: CT ABDOMEN PELVIS W CON INDICATIONS: hx of sbo, having symptons TECHNIQUE: After the administration of intravenous contrast, axial sections acquired from the lung bases to the pubic symphysis. Coronal and sagittal reformats were performed. For radiation dose reduction, the following was used: automated exposure control, adjustment of mA and/or kV according to patient size. COMPARISON: [facility], CT, CT ABDOMEN PELVIS W CON, 08/30/2023, 3:35. FINDINGS: Image quality: Diagnostic. Lower Chest: Triple lead AICD with tips in the right atrial appendage, coronary sinus, and right ventricle. No consolidation. ABDOMEN: Liver: No solid mass. Gallbladder: Post cholecystectomy. Biliary ducts: Post cholecystectomy reservoir effect of the common bile duct. No calcified colidocholithiasis. Pancreas: No ductal dilation. Spleen: Size is within normal limits. Adrenal Glands: No adrenal nodules. Kidneys and Ureters: No hydronephrosis. No solid mass. No complex renal cystic lesion which requires follow up. Stomach and Bowel: Diverticulosis without diverticulitis. Nonvisualized appendix. Multiple dilated, fluid-filled loops of small bowel within the inferior abdomen. Mural thickening of a loop of small bowel in the inferior pelvis with possible transition point (series 2, image 100) at the central pelvic inlet additional possible transition point in the anterior midline abdomen (series 2, image 81; series 3, image 23). Peritoneum: Small volume fluid in the dependent pelvis. Small volume free fluid within the mesenteric fat in the left lower quadrant (series 3, image 37). No free air. Ventral Wall: No significant ventral hernia. Abdominal Nodes: No retroperitoneal or mesenteric adenopathy by size criteria. Vessels: Aorta and inferior vena cava are normal in size. PELVIS: Pelvic Organs: Unremarkable. Bladder: No bladder wall thickening, accounting for underdistention. Pelvic Nodes: No enlarged lymph nodes. Miscellaneous: No inguinal hernias are seen. Bones: No aggressive osseous abnormality. Mild anterolisthesis of L3 on L4. Multilevel degenerative changes the lumbar spine. IMPRESSION: 1. Findings concerning for a small bowel obstruction with possible transition points in the pelvic inlet and left anterior mid abdomen. 2. Mural thickening and mucosal hyperenhancement of a loop of small bowel in the inferior pelvis concerning for underlying inflammatory bowel disease, recommend correlation with clinical history. Dictated by: Rob Henriquez M.D. on 11/24/2024 at 23:23 Approved by: Rob Henriquez M.D. on 11/24/2024 at 23:32 MDM Narrative Medical decision making narrative: 78-year-old female with history of IBS, prior abdominopelvic surgeries, prior bowel obstruction treated medically, has had intermittent abdominal discomfort last few days, increased abdominal pain periumbilical generalized since yesterday. Last bowel movement earlier today. Afebrile, sirs screen negative. Mild diffuse tenderness. Labs pending. CT abdomen and pelvis ordered while outpatient, results suspicious for SBO. Lab data: White blood cell count 49843, hemoglobin 14.8, platelets adequate. Glucose 147. Normal renal function. Normal serum CO2 and potassium. Serum sodium 136 slightly decreased. Mild transaminitis, other liver functions normal. Lipase normal. CT abdomen and pelvis. IMPRESSION: 1. Findings concerning for a small bowel obstruction with possible transition points in the pelvic inlet and left anterior mid abdomen. 2. Mural thickening and mucosal hyperenhancement of a loop of small bowel in the inferior pelvis concerning for underlying inflammatory bowel disease, recommend correlation with clinical history. See radiology report. No vomiting, will hold off on NG tube for now. Small-bowel obstruction changes noted. We will consult surgery. 0415, case discussed with surgery Dr. Leonard who will consult, patient not having vomiting, we would not recommend NG tube for now, but admit and they will consult. PCP [facility], we will page cross cover physician. 0420, case discussed with Dr Acuña who accepts patient for admission Critical Care Time Critical Care Time Critical Care Time: Yes Total Critical Care Time: 35 Attestation: The high probability of a clinically significant, sudden or life threatening deterioration of the [abdominopelvic, gastrointestinal] systems required my full and direct attention, intervention and personal management. The aggregate critical care time was [35] minutes. This time is in addition to time spent performing reported procedures but includes the following: [x] Data Review and interpretation [x] Patient assessment and monitoring of vital signs [x] Documentation [x] Medication orders and management Discharge Plan Departure Patient Disposition: Admitted As Inpatient Clinical Impression: Small bowel obstruction Admit Date/Time: 11/25/24 04:17 Admit Provider: Dejuan Acuña
[2024-11-25] MEDS: SODIUM CHLORIDE 0.9% 1,000 ML 125 ML IV (04:24)
[2024-11-25] MEDS: MORPHINE 2 MG/ML INJ IV (04:38)
--- NOTE | 2024-11-25 07:26 | PM.HP.IH.1 ---
History of Present Illness History of Present Illness Date Patient Seen: 11/25/24 Time Patient Seen: 07:27 Chief complaint: Abd pain, prev intestinal blockage Narrative: 78-year-old female just seen by me in the clinic with nonspecific myalgias and arthralgias admitted via the emergency department with abdominal pain over the last couple of days consistent with symptoms she had previously with a small-bowel obstruction ER evaluation showed a mild leukocytosis and evidence of small-bowel obstruction on CT imaging. Also some changes to the bowel on CT possibly consistent with inflammatory bowel disease which would be a new diagnosis She was admitted on IV fluids made NPO with antiemetics and pain meds [facility] Medical History Paroxysmal atrial fibrillation Small bowel obstruction Cardiomyopathy Septal infarction Colitis Neuropathy Hypoparathyroidism Hypertension Colon polyp AV block History of pacemaker (~11/2017) Symptomatic bradycardia Atrial flutter Primary osteoarthritis of right knee Collagenous colitis (~04/2018) Pacemaker Hypercalcemia Insomnia Hyperlipidemia Right ACL tear (2005) Dyshidrotic eczema Cervical cancer Ankle fracture, right (2005) Peripheral polyneuropathy (12/07/16) Polyneuropathy (01/04/17) Hyperparathyroidism (11/09/15) Essential hypertension (08/18/15) Left bundle branch block (LBBB) (10/14/14) Fibromyalgia History of adenomatous polyp of colon (03/31/11) Surgical History Status post hysterectomy (1974) Status post exploratory laparotomy Status post cholecystectomy (1998) History of bilateral salpingo-oophorectomy (BSO) (1998) Family History Father Family history of diabetes mellitus (DM) Grandmother Family history of diabetes mellitus (DM) Sister Family history of diabetes mellitus (DM) Family/Other Family history of diabetes mellitus (DM) Social History household members: none alcohol intake: current Meds Home Medications and Allergies Home Medications ?Medication ?Instructions ?Recorded ?Confirmed ?Type vvkdhuuckgzf-Me-stjh-minerals 27 1 tab PO DAILY 10/06/20 11/25/24 History mg-0.4 mg tablet (One Daily Women's) metoprolol succinate 25 mg 25 mg PO BID 05/04/21 11/25/24 History tablet,extended release 24 hr losartan 100 mg tablet 100 mg PO DAILY 01/25/22 11/25/24 History rivaroxaban 20 mg tablet (Xarelto) 20 mg PO DAILY 07/19/23 11/25/24 History mirtazapine 15 mg tablet 30 mg (2 x 15 mg) PO BEDTIME #180 10/15/24 11/25/24 Rx tabs gabapentin 100 mg capsule 100 mg PO BEDTIME #90 caps 11/22/24 11/25/24 Rx rosuvastatin 5 mg tablet 5 mg PO QPM 11/25/24 11/25/24 History Allergies Allergy/AdvReac Type Severity Reaction Status Date / Time amoxicillin (AMOXICILLIN) AdvReac Intermediate FATIGUE Verified 11/24/24 22:03 clavulanic acid (From AdvReac Intermediate FATIGUE Verified 11/24/24 22:03 AUGMENTIN) hydrochlorothiazide AdvReac Intermediate WEAKNESS Verified 11/24/24 22:03 (HYDROCHLOROTHIAZIDE) Review of Systems Review of Systems ROS: Yes All systems reviewed with the patient and are negative except as otherwise documented Exam Vital Signs (past 8 hours): - 11/25/24 02:48 11/25/24 02:51 11/25/24 02:51 Temperature Pulse Rate 88 91 H Respiratory Rate Blood Pressure 125/76 Pulse Oximetry 94 95 Oxygen Delivery Method Oxygen Flow Rate 11/25/24 03:00 11/25/24 03:00 11/25/24 03:30 Temperature Pulse Rate 90 89 Respiratory Rate Blood Pressure 138/72 Pulse Oximetry 96 95 Oxygen Delivery Method Oxygen Flow Rate 11/25/24 03:30 11/25/24 04:00 11/25/24 04:00 Temperature Pulse Rate 82 Respiratory Rate Blood Pressure 132/65 137/66 Pulse Oximetry 95 Oxygen Delivery Method Oxygen Flow Rate 11/25/24 04:29 11/25/24 04:30 11/25/24 05:01 Temperature 98.2 F Pulse Rate 76 102 H Respiratory Rate 16 Blood Pressure 136/65 142/82 H Pulse Oximetry 94 96 Oxygen Delivery Method Room Air Oxygen Flow Rate 0 Oxygen Delivery Method Room Air Oxygen Flow Rate 0 Narrative Exam Narrative: Elderly female in no obvious distress lying in hospital bed, actually has some flatus while I am speaking with her HEENT unremarkable Lungs-clear with good breath sounds Heart-regular rate and rhythm no murmur Abdomen-scattered positive bowel tones no distention no rebound no guarding Extremities-no cyanosis clubbing or edema Objective Labs 11/24/24 22:10 11/24/24 22:10 Labs: Laboratory Results - last 24 hr 11/24/24 22:10 WBC 11.3 H RBC 4.53 Hgb 14.8 Hct 43.7 MCV 96.7 MCH 32.6 MCHC 33.7 RDW 14.0 Plt Count 261 Neut % (Auto) 70.9 Lymph % (Auto) 20.5 L [place] % (Auto) 6.5 Eos % (Auto) 0.7 L Baso % (Auto) 1.4 Neut # (Auto) 8000 H Lymph # (Auto) 2300 [place] # (Auto) 700 Eos # (Auto) 100 Baso # (Auto) 200 H Sodium 136 L Potassium 4.2 Chloride 102 Carbon Dioxide 27 BUN 13 Creatinine 0.63 Estimated GFR > 60 BUN/Creatinine Ratio 20.6 Glucose 147 H Calcium 10.7 H Total Bilirubin 0.8 AST 49 H ALT 49 H Alkaline Phosphatase 120 Total Protein 7.6 Albumin 4.3 Globulin 3.3 Albumin/Globulin Ratio 1.3 Lipase 75 Assessment & Plan Assessment & Plan narrative: 1. Small-bowel obstruction-continue patient NPO with IV fluids antiemetics etcetera. Monitor symptoms consider repeat plain film imaging in the morning depending on clinical course. Plan to rechecked CBC looking at white blood cell count tomorrow. Patient's clinical exam and passage of flatus while we were talking about the onset of her symptoms is a good sign that perhaps she is already beginning to move things through in a normal fashion. Continue to monitor her clinical status and if further evidence of resolving bowel issues perhaps allow her to have some liquids and/or consider plain film imaging sooner rather than later. CT suggest the possibility of inflammatory bowel disease which we have not seen previously. She does have a history of collagenous colitis based on GI evaluation including colonoscopy and biopsy in 2019. She responded nicely to oral budesonide and that has subsequently been discontinued and there has been no further evidence of that colitis and nothing seen on her CT scan today to suggest active colitis either. At this point I am not going to assume she has inflammatory bowel disease finding on CT probably are more artifactual than diagnostic but will continue to consider that in the overall differential depending on her clinical course. 2. Hypertension-we will be holding patient's oral antihypertensive medications while she is NPO. If need be can give IV metoprolol or potentially topical nitrates for blood pressure control 3. Hypercalcemia/hyperparathyroidism-longstanding diagnosis for patient. Numbers appear to be within her usual range on lab testing both done via the clinic on the 22 of November as well as this morning in the ER 4. Paroxysmal atrial fibrillation-patient chronic anticoagulated because of this which we will hold for now. Resume anticoagulation when patient able to resume oral intake and/or likelihood of need for surgery has greatly diminished. 5. 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 Monitor IV fluid intake in this setting. 6. VTE prophylaxis-SCDs for now. Resume oral anticoagulation as above when clinically appropriate 7. Code status-patient requests full code in the event of a sudden cardiac or respiratory arrest which is consistent with prior wishes and make sense. Time-Based Coding :: [TOTAL MINUTES] spent with patient and on the chart (including review of chart, obtaining history, exam, reviewing outside data, placing orders, documenting exam and treatment plan, and counseling patient) on [DATE]. [employer] Marketing Proposal Coordinator Document charge(s): Yes Charge Codes Initial inpatient/observation care: 54840
--- NOTE | 2024-11-25 08:03 | PM.CN.IH.1 ---
History of Present Illness Consult details Date Patient Seen: 11/25/24 Chief complaint: Abd pain, prev intestinal blockage Narrative: An 6-year-old female, with a history of multiple intra-abdominal procedures, presents with a couple of days of crampy abdominal pain. She describes nausea but no vomiting. She denies passing flatus. She has had previous bowel obstructions that have been managed medically. Meds Home Medications and Allergies Home Medications ?Medication ?Instructions ?Recorded ?Confirmed ?Type ewiypnwufksb-Bs-luxh-minerals 27 1 tab PO DAILY 10/06/20 11/25/24 History mg-0.4 mg tablet (One Daily Women's) metoprolol succinate 25 mg 25 mg PO BID 05/04/21 11/25/24 History tablet,extended release 24 hr losartan 100 mg tablet 100 mg PO DAILY 01/25/22 11/25/24 History rivaroxaban 20 mg tablet (Xarelto) 20 mg PO DAILY 07/19/23 11/25/24 History mirtazapine 15 mg tablet 30 mg (2 x 15 mg) PO BEDTIME #180 10/15/24 11/25/24 Rx tabs gabapentin 100 mg capsule 100 mg PO BEDTIME #90 caps 11/22/24 11/25/24 Rx rosuvastatin 5 mg tablet 5 mg PO QPM 11/25/24 11/25/24 History Allergies Allergy/AdvReac Type Severity Reaction Status Date / Time amoxicillin (AMOXICILLIN) AdvReac Intermediate FATIGUE Verified 11/24/24 22:03 clavulanic acid (From AdvReac Intermediate FATIGUE Verified 11/24/24 22:03 AUGMENTIN) hydrochlorothiazide AdvReac Intermediate WEAKNESS Verified 11/24/24 22:03 (HYDROCHLOROTHIAZIDE) Review of Systems Review of Systems ROS: Yes All systems reviewed with the patient and are negative except as otherwise documented Exam Vital Signs (past 8 hours): - 11/25/24 02:48 11/25/24 02:51 11/25/24 02:51 Temperature Pulse Rate 88 91 H Respiratory Rate Blood Pressure 125/76 Pulse Oximetry 94 95 Oxygen Delivery Method Oxygen Flow Rate 11/25/24 03:00 11/25/24 03:00 11/25/24 03:30 Temperature Pulse Rate 90 89 Respiratory Rate Blood Pressure 138/72 Pulse Oximetry 96 95 Oxygen Delivery Method Oxygen Flow Rate 11/25/24 03:30 11/25/24 04:00 11/25/24 04:00 Temperature Pulse Rate 82 Respiratory Rate Blood Pressure 132/65 137/66 Pulse Oximetry 95 Oxygen Delivery Method Oxygen Flow Rate 11/25/24 04:29 11/25/24 04:30 11/25/24 05:01 Temperature 98.2 F Pulse Rate 76 102 H Respiratory Rate 16 Blood Pressure 136/65 142/82 H Pulse Oximetry 94 96 Oxygen Delivery Method Room Air Oxygen Flow Rate 0 Oxygen Delivery Method Room Air Oxygen Flow Rate 0 Narrative Exam Narrative: Well-developed well-nourished female who appears to be in no acute distress. Neck is supple and nontender Chest is clear to auscultation bilaterally Cardiac reveals a regular rate and rhythm Abdomen is nondistended, soft, nontender with high-pitched normoactive bowel sounds without tinkles or rushes. Extremities reveal full range of motion Objective Imaging CT scan - abdomen: Radiologist's impression: PROCEDURE: CT ABDOMEN PELVIS W CON INDICATIONS: hx of sbo, having symptons TECHNIQUE: After the administration of intravenous contrast, axial sections acquired from the lung bases to the pubic symphysis. Coronal and sagittal reformats were performed. For radiation dose reduction, the following was used: automated exposure control, adjustment of mA and/or kV according to patient size. COMPARISON: [facility], CT, CT ABDOMEN PELVIS W CON, 08/30/2023, 3:35. FINDINGS: Image quality: Diagnostic. Lower Chest: Triple lead AICD with tips in the right atrial appendage, coronary sinus, and right ventricle. No consolidation. ABDOMEN: Liver: No solid mass. Gallbladder: Post cholecystectomy. Biliary ducts: Post cholecystectomy reservoir effect of the common bile duct. No calcified colidocholithiasis. Pancreas: No ductal dilation. Spleen: Size is within normal limits. Adrenal Glands: No adrenal nodules. Kidneys and Ureters: No hydronephrosis. No solid mass. No complex renal cystic lesion which requires follow up. Stomach and Bowel: Diverticulosis without diverticulitis. Nonvisualized appendix. Multiple dilated, fluid-filled loops of small bowel within the inferior abdomen. Mural thickening of a loop of small bowel in the inferior pelvis with possible transition point (series 2, image 100) at the central pelvic inlet additional possible transition point in the anterior midline abdomen (series 2, image 81; series 3, image 23). Peritoneum: Small volume fluid in the dependent pelvis. Small volume free fluid within the mesenteric fat in the left lower quadrant (series 3, image 37). No free air. Ventral Wall: No significant ventral hernia. Abdominal Nodes: No retroperitoneal or mesenteric adenopathy by size criteria. Vessels: Aorta and inferior vena cava are normal in size. PELVIS: Pelvic Organs: Unremarkable. Bladder: No bladder wall thickening, accounting for underdistention. Pelvic Nodes: No enlarged lymph nodes. Miscellaneous: No inguinal hernias are seen. Bones: No aggressive osseous abnormality. Mild anterolisthesis of L3 on L4. Multilevel degenerative changes the lumbar spine. IMPRESSION: 1. Findings concerning for a small bowel obstruction with possible transition points in the pelvic inlet and left anterior mid abdomen. 2. Mural thickening and mucosal hyperenhancement of a loop of small bowel in the inferior pelvis concerning for underlying inflammatory bowel disease, recommend correlation with clinical history. Dictated by: Rob Henriquez M.D. on 11/24/2024 at 23:23 Approved by: Rob Henriquez M.D. on 11/24/2024 at 23:32 Labs 11/24/24 22:10 11/24/24 22:10 Labs: Laboratory Results - last 24 hr 11/24/24 22:10 WBC 11.3 H RBC 4.53 Hgb 14.8 Hct 43.7 MCV 96.7 MCH 32.6 MCHC 33.7 RDW 14.0 Plt Count 261 Neut % (Auto) 70.9 Lymph % (Auto) 20.5 L [place] % (Auto) 6.5 Eos % (Auto) 0.7 L Baso % (Auto) 1.4 Neut # (Auto) 8000 H Lymph # (Auto) 2300 [place] # (Auto) 700 Eos # (Auto) 100 Baso # (Auto) 200 H Sodium 136 L Potassium 4.2 Chloride 102 Carbon Dioxide 27 BUN 13 Creatinine 0.63 Estimated GFR > 60 BUN/Creatinine Ratio 20.6 Glucose 147 H Calcium 10.7 H Total Bilirubin 0.8 AST 49 H ALT 49 H Alkaline Phosphatase 120 Total Protein 7.6 Albumin 4.3 Globulin 3.3 Albumin/Globulin Ratio 1.3 Lipase 75 PFSH Medical History Paroxysmal atrial fibrillation Small bowel obstruction Cardiomyopathy Septal infarction Colitis Neuropathy Hypoparathyroidism Hypertension Colon polyp AV block History of pacemaker (~11/2017) Symptomatic bradycardia Atrial flutter Primary osteoarthritis of right knee Collagenous colitis (~04/2018) Pacemaker Hypercalcemia Insomnia Hyperlipidemia Right ACL tear (2005) Dyshidrotic eczema Cervical cancer Ankle fracture, right (2005) Peripheral polyneuropathy (12/07/16) Polyneuropathy (01/04/17) Hyperparathyroidism (11/09/15) Essential hypertension (08/18/15) Left bundle branch block (LBBB) (10/14/14) Fibromyalgia History of adenomatous polyp of colon (03/31/11) Surgical History Status post hysterectomy (1974) Status post exploratory laparotomy Status post cholecystectomy (1998) History of bilateral salpingo-oophorectomy (BSO) (1998) Family History Father Family history of diabetes mellitus (DM) Grandmother Family history of diabetes mellitus (DM) Sister Family history of diabetes mellitus (DM) Family/Other Family history of diabetes mellitus (DM) Social History household members: none Tobacco & Substance Use Smoking Status: Former smoker alcohol intake: current Assessment & Plan Assessment and plan (1) Small bowel obstruction: Status: Acute Plan Recommend conservative managed with the patient to include IV fluids. One might consider a Gastrografin challenge she does not resolve within the next 24 hours. Time-Based Coding :: [TOTAL MINUTES] spent with patient and on the chart (including review of chart, obtaining history, exam, reviewing outside data, placing orders, documenting exam and treatment plan, and counseling patient) on [DATE]. PROFEE Charge Codes Inpatient or Observation consultation: [id number]
--- NOTE | 2024-11-25 09:01 | PC.NURSE ---
Patient is alert and oriented x4. She denies pain. BT are hypoactive x4. She is up to the bathroom with 1 person assist and walker. Abdomen is slightly distended.
[2024-11-25] MEDS: DEXTROSE 5%-LACTATED RINGERS 1,000 ML 125 ML IV ×2 (12:35→20:36)
--- NOTE | 2024-11-25 14:03 | CM.DANOTE ---
Patient is an 78 yo female who was admitted INPT Status on 11/25/24 for Abd Pain. Pt has [facility] and [employer] for insurance and her PCP is Dr. Gerber Beverly at [facility]. EMR was reviewed. Per MD, pt with SBO and likely inflamatory disease and currently on IV fluids and NPO for bowel rest. Per Surgeon, recommendation for attempt at conservative tx and possible need for Gastrogafin if pt does not make progress. Per RN, pt has been 1PA w/ FWW in room. SW met bedside with pt and explained role and pt laying down in bed on her side getting IV fluids and pt appears miserable but she clarified that currently she does not have abd pain but exhausted. Pt not wanting to talk for long but confirms she lives at home alone in [place] and is active and independent at baseline but has local supportive family and friends. Pt has FWW if needed at home. Pt denies any hx of HH or SNF and currently does not anticipate needs at discharge if her SBO resolves. She anticipates family or friend can trasport her home at d/c. Plan: SW to follow closely for resolution of SBO and confirm safe plan of home and any further identified discharge planning needs. CATHY Reyna Discharge Planning/Care Management CM Discharge Assessment Start: 11/25/24 05:01 Freq: Status: Active Protocol: Document 11/25/24 14:01 (Rec: 11/25/24 14:02 [id number]) Discharge Planning Assessment Assigned Discharge CATHY Truong Epic Specialist Provider Dr. Gerber Beverly Insurance Medicare DPOA/Assigned son Geovany Designee Name Contact Information [phone] Advance Directives? Yes Advance Directives Yes on File History Provided By Patient,Medical Record Has Patient been No admitted in last 30 days? Comment last admit in June 2023 Prior Living House Arrangements Household Members none Type of Drives own vehicle transporation used prior to admit Independent with ADL Yes 's Is patient alert and Yes oriented? Caregiver for No Another DME Already Rented / FWW / Walker Owned Patient/Family OP PT Therapy Preference Barriers to No Discharge Comment No needs identified at this time , will plan to follow clinical course. Discharge Plan Home Transportation Friend or family Arrangement Referrals Initiated None needed Additional Comment Will plan to follow in case any DC needs or concerns arise. Whiteboard Updated Yes in Patient Room with name and ext. # of Office Machine Mechanic Review Status In Process Please Provide Date 11/25/24 Initial DC Assessment Was Performed Next Review Type Continued Stay Review
[2024-11-26] VITALS (10 sets, daily range): BP systolic 128–157; BP diastolic 62–83; PULSE 66–79; RESP 15–18; TEMP 36.4–36.6; O2SAT 94–97
[2024-11-26 05:49] LABS: Add Manual Diff / Slide Review NO; Hematocrit 39.8 % (36-46); Hemoglobin 13.3 g/dL (12.0-16.0); Lymphocytes Absolute Auto 1800 /uL (1100-4500); Mean Corpuscular HGB Conc 33.4 % (30-36); Mean Corpuscular Hemoglobin 32.6 PG (26-34); Mean Corpuscular Volume 97.4 fL (80-100); Platelet Count 211 X10^3/uL (150-400)
[2024-11-26 06:06] LABS: Alanine Aminotransferase 24 IU/L (<35); Albumin 3.0 g/dL (3.5-5.0); Albumin Globulin Ratio 1.1 (1.0-2.8); Alkaline Phosphatase 70 U/L (38-126); Blood Urea Nitrogen 8 mg/dL (7-17); Calcium 9.3 mg/dL (8.4-10.2); Carbon Dioxide 27 mmol/L (22-32); Chloride 107 mmol/L (98-107); Estimated Glomerular Filt Rate > 60 mL/min (>60); Globulin 2.8 g/dL (1.7-4.1); Glucose 133 mg/dL (70-99); HEMOLYSIS 18 (0-50); Potassium 3.8 mmol/L (3.4-5.1); Sodium 136 mmol/L (137-145); Total Protein 5.8 g/dL (6.3-8.2)
--- NOTE | 2024-11-26 06:39 | PM.PN.IH.1 ---
Subjective Subjective Date Patient Seen: 11/26/24 Time Patient Seen: 06:39 Interval history: Denies n/v +stool/flatus stomach feels, not bad Exam Vital Signs (past 8 hours): - 11/26/24 03:00 Temperature 98 F Pulse Rate 73 Respiratory Rate 18 Blood Pressure 153/83 H Pulse Oximetry 95 Oxygen Flow Rate 0 Oxygen Delivery Method Room Air Oxygen Flow Rate 0 GI Other: ABD: soft, NTND, non-peritoneal exam Objective Labs 11/26/24 05:41 11/26/24 05:41 Labs: Laboratory Results - last 24 hr 11/26/24 05:41 WBC 6.5 RBC 4.09 Hgb 13.3 Hct 39.8 MCV 97.4 MCH 32.6 MCHC 33.4 RDW 13.9 Plt Count 211 Neut % (Auto) 60.9 Lymph % (Auto) 28.2 [place] % (Auto) 8.4 Eos % (Auto) 1.8 L Baso % (Auto) 0.7 Neut # (Auto) 3900 Lymph # (Auto) 1800 [place] # (Auto) 500 Eos # (Auto) 100 Baso # (Auto) 0 Sodium 136 L Potassium 3.8 Chloride 107 Carbon Dioxide 27 BUN 8 Creatinine 0.47 L Estimated GFR > 60 BUN/Creatinine Ratio 17.0 Glucose 133 H Calcium 9.3 Total Bilirubin 0.5 AST 27 ALT 24 Alkaline Phosphatase 70 D Total Protein 5.8 L Albumin 3.0 L Globulin 2.8 Albumin/Globulin Ratio 1.1 [facility] Medical History Paroxysmal atrial fibrillation Small bowel obstruction Cardiomyopathy Septal infarction Colitis Neuropathy Hypoparathyroidism Hypertension Colon polyp AV block History of pacemaker (~11/2017) Symptomatic bradycardia Atrial flutter Primary osteoarthritis of right knee Collagenous colitis (~04/2018) Pacemaker Hypercalcemia Insomnia Hyperlipidemia Right ACL tear (2005) Dyshidrotic eczema Cervical cancer Ankle fracture, right (2005) Peripheral polyneuropathy (12/07/16) Polyneuropathy (01/04/17) Hyperparathyroidism (11/09/15) Essential hypertension (08/18/15) Left bundle branch block (LBBB) (10/14/14) Fibromyalgia History of adenomatous polyp of colon (03/31/11) Surgical History Status post hysterectomy (1974) Status post exploratory laparotomy Status post cholecystectomy (1998) History of bilateral salpingo-oophorectomy (BSO) (1998) Family History Father Family history of diabetes mellitus (DM) Grandmother Family history of diabetes mellitus (DM) Sister Family history of diabetes mellitus (DM) Family/Other Family history of diabetes mellitus (DM) Social History household members: none Smoking Status: Former smoker alcohol intake: current Assessment & Plan Assessment and plan (1) Small bowel obstruction: Status: Acute Plan Recommend trial clear liquids without carbonation Consider mylicon for symptomatic improvement Continue non-surgical management Will follow Time-Based Coding :: [TOTAL MINUTES] spent with patient and on the chart (including review of chart, obtaining history, exam, reviewing outside data, placing orders, documenting exam and treatment plan, and counseling patient) on [DATE]. PROFEE Commercial Relief Driver Document charge(s): Yes Charge Codes Subsequent inpatient/observation care: [id number]
--- NOTE | 2024-11-26 07:00 | DI.RAD.S_ITS ---
PROCEDURE: XR ABDOMEN MIN 2V INDICATIONS: small bowel obstruction TECHNIQUE: 2 views of the abdomen were acquired. COMPARISON: Located Within [facility], CT, CT ABDOMEN PELVIS W CON, 11/24/2024, 22:58. FINDINGS: Surgical changes and devices: None. Bowel: No pneumoperitoneum. Mildly dilated small bowel loops measuring up to 3.1 cm in diameter. No transition point is seen. Scattered air-fluid levels are noted. Status post cholecystectomy. Soft tissues: No masses; visualized solid organ contours appear normal in size. No suspicious abdominal calcifications. Bones: No suspicious bony abnormalities. IMPRESSION: Persistent mildly dilated small bowel concerning for ileus or obstruction. Degree of dilation is similar to the previous shot peening operator image. Dictated by: Whitney Padilla M.D. on 11/26/2024 at 9:21 Approved by: Whitney Padilla M.D. on 11/26/2024 at 9:23
--- NOTE | 2024-11-26 08:17 | P.PN_ITS ---
Subjective Subjective Date Patient Seen: 11/26/24 Time Patient Seen: 08:17 Interval history: Patient reports intermittent abdominal pain persisting although overall improved Still passing flatus no bowel movements Off to x-ray as I saw her for updated plain film imaging of her abdomen Vital signs have been okay blood pressure a little bit borderline Lab work shows normalization of her white blood cell count and BMP otherwise unremarkable Exam Vital Signs (past 8 hours): - 11/26/24 03:00 Temperature 98 F Pulse Rate 73 Respiratory Rate 18 Blood Pressure 153/83 H Pulse Oximetry 95 Oxygen Flow Rate 0 Oxygen Delivery Method Room Air Oxygen Flow Rate 0 Objective Labs 11/26/24 05:41 11/26/24 05:41 Labs: Laboratory Results - last 24 hr 11/26/24 05:41 WBC 6.5 RBC 4.09 Hgb 13.3 Hct 39.8 MCV 97.4 MCH 32.6 MCHC 33.4 RDW 13.9 Plt Count 211 Neut % (Auto) 60.9 Lymph % (Auto) 28.2 [place] % (Auto) 8.4 Eos % (Auto) 1.8 L Baso % (Auto) 0.7 Neut # (Auto) 3900 Lymph # (Auto) 1800 [place] # (Auto) 500 Eos # (Auto) 100 Baso # (Auto) 0 Sodium 136 L Potassium 3.8 Chloride 107 Carbon Dioxide 27 BUN 8 Creatinine 0.47 L Estimated GFR > 60 BUN/Creatinine Ratio 17.0 Glucose 133 H Calcium 9.3 Total Bilirubin 0.5 AST 27 ALT 24 Alkaline Phosphatase 70 D Total Protein 5.8 L Albumin 3.0 L Globulin 2.8 Albumin/Globulin Ratio 1.1 [facility] Medical History Paroxysmal atrial fibrillation Small bowel obstruction Cardiomyopathy Septal infarction Colitis Neuropathy Hypoparathyroidism Hypertension Colon polyp AV block History of pacemaker (~11/2017) Symptomatic bradycardia Atrial flutter Primary osteoarthritis of right knee Collagenous colitis (~04/2018) Pacemaker Hypercalcemia Insomnia Hyperlipidemia Right ACL tear (2005) Dyshidrotic eczema Cervical cancer Ankle fracture, right (2005) Peripheral polyneuropathy (12/07/16) Polyneuropathy (01/04/17) Hyperparathyroidism (11/09/15) Essential hypertension (08/18/15) Left bundle branch block (LBBB) (10/14/14) Fibromyalgia History of adenomatous polyp of colon (03/31/11) Surgical History Status post hysterectomy (1974) Status post exploratory laparotomy Status post cholecystectomy (1998) History of bilateral salpingo-oophorectomy (BSO) (1998) Family History Father Family history of diabetes mellitus (DM) Grandmother Family history of diabetes mellitus (DM) Sister Family history of diabetes mellitus (DM) Family/Other Family history of diabetes mellitus (DM) Social History household members: none Smoking Status: Former smoker alcohol intake: current Assessment & Plan Assessment & Plan narrative: 1. Small bowel obstruction-seemingly improving. Probably okay to try clear liquids cautiously and if doing well advance with possible discharge as early as tomorrow 2. Hypertension-planning to resume oral meds today assuming she can tolerate the clear liquids 3. Hypercalcemia-improved with some IV hydration I think primarily. Parathyroid hormone level came back from her outpatient visit last week higher than when last checked but lower than her peak number. Overall still no immediate concern 4. Cardiomyopathy-as we restart oral intake I am going to more severely limit IV fluids etcetera. Hopefully maybe even we can DC IV fluids later today Time-Based Coding :: [TOTAL MINUTES] spent with patient and on the chart (including review of chart, obtaining history, exam, reviewing outside data, placing orders, documenting exam and treatment plan, and counseling patient) on [DATE]. PROFEE Insecticide Expert Document charge(s): Yes Charge Codes Subsequent inpatient/observation care: [id number]
--- NOTE | 2024-11-26 08:22 | PC.NURSE ---
Pt A/O; denies discomfort, Independent to BR w/o incidence. IV D5LR infusing into LAC @ 125cc/hr w/o incidence, Pt taken for x-ray via W/C Call light w/in reach, pt calls appropriately for needs.
[2024-11-26] MEDS: METOPROLOL ER 25 MG TABLET PO ×2 (10:49→20:54)
[2024-11-26] MEDS: LOSARTAN 50 MG TABLET 100 MG PO (10:52)
[2024-11-26] MEDS: INFLUENZA HD VACCINE 0.5 ML SYRINGE IM (16:41)
[2024-11-26] MEDS: diphenhydrAMINE 25 MG TABLET PO (20:54)
[2024-11-26] MEDS: MIRTAZAPINE 15 MG TABLET 30 MG PO (20:54)
[2024-11-26] MEDS: GABAPENTIN 100 MG CAPSULE PO (20:54)
[2024-11-27 06:00] VITALS: BP 150/83; PULSE 69; RESP 17; TEMP 36.5; O2SAT 95
[2024-11-27 07:00] VITALS: O2SAT 97
--- NOTE | 2024-11-27 07:02 | P.PN_ITS ---
Subjective Subjective Date Patient Seen: 11/27/24 Time Patient Seen: 07:02 Interval history: Tolerating clear liquids without n/v Reports large amount of stool, +flatus Abd pain much improved Exam Vital Signs (past 8 hours): - 11/27/24 06:00 Temperature 97.7 F Pulse Rate 69 Respiratory Rate 17 Blood Pressure 150/83 H Pulse Oximetry 95 Oxygen Flow Rate 0 Oxygen Delivery Method Room Air Oxygen Flow Rate 0 GI Other: ABD: soft, NTND, non-peritoneal exam Objective Labs 11/26/24 05:41 11/26/24 05:41 [facility] Medical History Paroxysmal atrial fibrillation Small bowel obstruction Cardiomyopathy Septal infarction Colitis Neuropathy Hypoparathyroidism Hypertension Colon polyp AV block History of pacemaker (~11/2017) Symptomatic bradycardia Atrial flutter Primary osteoarthritis of right knee Collagenous colitis (~04/2018) Pacemaker Hypercalcemia Insomnia Hyperlipidemia Right ACL tear (2005) Dyshidrotic eczema Cervical cancer Ankle fracture, right (2005) Peripheral polyneuropathy (12/07/16) Polyneuropathy (01/04/17) Hyperparathyroidism (11/09/15) Essential hypertension (08/18/15) Left bundle branch block (LBBB) (10/14/14) Fibromyalgia History of adenomatous polyp of colon (03/31/11) Surgical History Status post hysterectomy (1974) Status post exploratory laparotomy Status post cholecystectomy (1998) History of bilateral salpingo-oophorectomy (BSO) (1998) Family History Father Family history of diabetes mellitus (DM) Grandmother Family history of diabetes mellitus (DM) Sister Family history of diabetes mellitus (DM) Family/Other Family history of diabetes mellitus (DM) Social History household members: none Smoking Status: Former smoker alcohol intake: current Assessment & Plan Assessment and plan (1) Small bowel obstruction: Status: Acute Plan SBO resolving Recommend advancing diet, no carbonation Dilated bowel unclear etiology, had similar episode in June, raises question of small bowel pathology, consider small bowel follow through elective outpatient, pill cam Time-Based Coding :: [TOTAL MINUTES] spent with patient and on the chart (including review of chart, obtaining history, exam, reviewing outside data, placing orders, documenting exam and treatment plan, and counseling patient) on [DATE]. PROFEE Side Boss Document charge(s): Yes Charge Codes Subsequent inpatient/observation care: [id number]
--- NOTE | 2024-11-27 07:42 | PM.DS.IH.1 ---
History of Present Illness History of Present Illness Date Patient Seen: 11/27/24 Time Patient Seen: 07:42 Chief complaint: Abd pain, prev intestinal blockage Narrative: 78-year-old female just seen by me in the clinic with nonspecific myalgias and arthralgias admitted via the emergency department with abdominal pain over the last couple of days consistent with symptoms she had previously with a small-bowel obstruction ER evaluation showed a mild leukocytosis and evidence of small-bowel obstruction on CT imaging. Also some changes to the bowel on CT possibly consistent with inflammatory bowel disease which would be a new diagnosis She was admitted on IV fluids made NPO with antiemetics and pain meds Discharge Providers Provider Date of admission: 11/25/24 04:17 Discharge Date: 11/27/24 Primary care physician: Gerber Beverly MD Consults: 11/25/24 04:15 Consult to General Surgery Urgent Comment: Consulting Provider: Junior Leonard Reason for consultation: SBO Has provider been notified: Yes Discharge provider: Gerber Beverly MD Summary Hospital Course Discharge Diagnosis: 1. Small-bowel obstruction, resolved 2. Hypertension 3. Hyperparathyroidism 4. Hyperlipidemia 5. Fibromyalgia 6. Paroxysmal atrial fibrillation 7. Cardiomyopathy Hospital Course: As above patient was admitted to the hospital with evidence of small-bowel obstruction. She was made NPO and placed on IV fluids for hydration. Within the first few hours of her evaluation she seemed to have slow but steady return of bowel function with flatus and eventually small bowel movements. She was started on clear liquids which she tolerated without increase in symptoms was advanced with her diet and was able to be discharged home as she was tolerating diet without difficulty Blood pressure was borderline controlled during this hospitalization her oral blood pressure meds were held initially but they were restarted prior to discharge Patient also presenting with some musculoskeletal symptoms which been evaluated as an outpatient and persisted during this hospitalization. This will be addressed as an outpatient and not addressed during this hospitalization or upon discharge in effort to not confuse the situation with her GI symptoms etcetera Status at Discharge Cognitive/behavioral status at discharge: at baseline, oriented Functional status at discharge: independent ambulation Overall status at discharge: patient is back to baseline Time Spent with Patient Time spent: Less than 30 minutes Exam Vital Signs (past 8 hours): - 11/27/24 06:00 Temperature 97.7 F Pulse Rate 69 Respiratory Rate 17 Blood Pressure 150/83 H Pulse Oximetry 95 Oxygen Flow Rate 0 Oxygen Delivery Method Room Air Oxygen Flow Rate 0 Narrative Exam Narrative: HEENT-unremarkable Lungs-clear Heart-regular rate and rhythm Abdomen-positive bowel tones soft nontender nondistended Objective Labs 11/26/24 05:41 11/26/24 05:41 [facility] Medical History Paroxysmal atrial fibrillation Small bowel obstruction Cardiomyopathy Septal infarction Colitis Neuropathy Hypoparathyroidism Hypertension Colon polyp AV block History of pacemaker (~11/2017) Symptomatic bradycardia Atrial flutter Primary osteoarthritis of right knee Collagenous colitis (~04/2018) Pacemaker Hypercalcemia Insomnia Hyperlipidemia Right ACL tear (2005) Dyshidrotic eczema Cervical cancer Ankle fracture, right (2005) Peripheral polyneuropathy (12/07/16) Polyneuropathy (01/04/17) Hyperparathyroidism (11/09/15) Essential hypertension (08/18/15) Left bundle branch block (LBBB) (10/14/14) Fibromyalgia History of adenomatous polyp of colon (03/31/11) Surgical History Status post hysterectomy (1974) Status post exploratory laparotomy Status post cholecystectomy (1998) History of bilateral salpingo-oophorectomy (BSO) (1998) Family History Father Family history of diabetes mellitus (DM) Grandmother Family history of diabetes mellitus (DM) Sister Family history of diabetes mellitus (DM) Family/Other Family history of diabetes mellitus (DM) Social History household members: none Smoking Status: Former smoker alcohol intake: current Discharge Assessment & Plan Assessment and Plan Plan of Treatment: Resume low residue diet and patient's usual outpatient medications Follow up with me in 1 week's time to re-evaluate her GI symptoms as well as discuss her musculoskeletal symptoms and potential treatment (probably prednisone) Discharge Plan Discharge Plan Patient Disposition: Home Discharge orders & Medications Prescriptions: Continued mirtazapine 15 mg tablet 30 mg PO BEDTIME Qty: 180 3RF metoprolol succinate 25 mg tablet extended release 24 hr 25 mg PO BID gabapentin 100 mg capsule 100 mg PO BEDTIME Qty: 90 3RF One Daily Women's 27-0.4 mg tablet 1 tab PO DAILY rosuvastatin 5 mg tablet 5 mg PO QPM losartan 100 mg tablet 100 mg PO DAILY Patient Comments: TAKE ONE TABLET BY MOUTH ONE TIME DAILY Xarelto 20 mg tablet 20 mg PO DAILY Patient Comments: CURRENTLY ON HOLD (07/19/23) Follow up/Referrals: Gerber Beverly MD [Primary Care Provider, Internal Medicine] - 1 Week Discharge Health Status Multidrug resistant organism: No MDRO Diet/Activity/Treatments Diet: Diet as Tolerated and Regular Visit Report/Discharge Packet Stand Alone Forms: Patient Portal/API Discharge Data Primary Care Provider: Gerber Beverly PROFEE Charge Codes Discharge inpatient/observation: [id number]
[2024-11-27] MEDS: LOSARTAN 50 MG TABLET 100 MG PO (09:00)
[2024-11-27] MEDS: METOPROLOL ER 25 MG TABLET PO (09:00)
--- NOTE | 2024-11-27 09:46 | CM.DPC ---
DCP Cont. Reviewed EMR and team rounds for pt's medical status and updates. Pt has been medically cleared for home d/c. Her family will transport her home this morning. No further CM d/c needs are identified at this time.
[2024-11-27 12:00] VITALS: BP 146/73; PULSE 73; RESP 16; TEMP 36.9; O2SAT 94
--- NOTE | 2024-11-27 12:50 | PC.NURSE ---
Pt tolerated lunch well without difficulty,iv removed paperwork signed d/cd to hospital exit in wheelchair by pct
== END 2024-11-27 12:49 | disposition home or self-care (01) | DRG 389 ==
LOC: ED 11-25 02:37 → AC 11-25 04:19
PROVIDERS: Admitting Provider Family Medicine; Emergency Provider Emergency Medicine; Family Provider Internal Medicine; PCP Internal Medicine; Visit Provider Internal Medicine
DX: K56.609 Unspecified intestinal obstruction, unspecified as to partial versus complete obstruction (principal); I42.9 Cardiomyopathy, unspecified; I48.0 Paroxysmal atrial fibrillation; I10 Essential (primary) hypertension; E21.3 Hyperparathyroidism, unspecified; E78.5 Hyperlipidemia, unspecified; M79.7 Fibromyalgia; Z95.0 Presence of cardiac pacemaker; Z79.01 Long term (current) use of anticoagulants; Z98.890 Other specified postprocedural states; Z87.891 Personal history of nicotine dependence; D64.9 Anemia, unspecified; Z23 Encounter for immunization
CPT/HCPCS: 36415; 74019; 74177; 80053; 82310; 82550; 83690; 83970; 85025; 85651; 86140; 90471; 90662; 96361; 96374; 96375; 99222; 99223; 99231; 99232; 99238; 99284; 99291; J2270; J2405; J7030; J7121; Q9967